=== PATIENT | female | born 1950 | race Caucasian/White ===

== ENCOUNTER 2024-10-17 18:18 | Emergency (ER) | payer MEDICARE, SELFPAY ==
[2024-10-17 18:23] VITALS: BP 138/86; PULSE 89; RESP 18; TEMP 36.1; O2SAT 96; BMI 43.9
--- NOTE | 2024-10-17 18:42 | ED.GENADULT ---
HPI - General Adult General Time Seen by Provider: 18:42 Date Seen: 10/17/24 Chief complaint: Unspecified Complaint, Adult Stated complaint: Picc line issues Time Seen by Provider: 10/17/24 18:42 Source: patient, family, RN notes reviewed and old records reviewed Mode of arrival: ambulatory Limitations: no limitations History of Present Illness HPI narrative: Mini a very pleasant 74-year-old female with history of esophageal carcinoma, status post stent placement, status post esophageal perforation currently with PICC line who comes to the emergency room for evaluation regarding appropriate placement of said PICC line. Home health noted that after an infusion tonight the external aspect of her catheter seemed to be longer going from 8 cm to 10.5 cm. Patient cannot recall any specific trauma to the area. She has not been experiencing any fevers. She thinks that they are perhaps going to plan on removing her PICC line on Thursday or 36 hours from now. Related Data Allergies Allergy/AdvReac Type Severity Reaction Status Date / Time No Known Drug Allergies Allergy Verified 10/17/24 18:28 PFSH PFS Social History Non-prescribed substance use: denies use Exam Narrative: Exam Narrative: Chelle is alert and oriented. She is a very pleasant woman in no acute distress. Heart with regular rate and rhythm and lungs are clear. Examination of the PICC line insertion on her of right arm shows no evidence of infection. Const: Vital Signs, click to edit/add: Vital Signs - 24 hr 10/17/24 18:23 Temperature 97.0 F L Pulse Rate [Pulse Oximeter] 89 Respiratory Rate 18 Blood Pressure [Le ft Forearm] 138/86 Pulse Oximetry 96 Oxygen Delivery Me thod Room Air Documenting provider has reviewed patient's vital signs: yes Course Course ED Course: At this time will obtain x-ray and consult with PICC line specialist. Vital Signs Vital signs: Initial Vital Signs Temperature 97.0 F L 10/17/24 18:23 Temperature Source Temporal Artery Scan 10/17/24 18:23 Pulse Rate 89 10/17/24 18:23 Respiratory Rate 18 10/17/24 18:23 Blood Pressure 138/86 10/17/24 18:23 Blood Pressure Mean 103 10/17/24 18:23 Blood Pressure Position Sitting 10/17/24 18:23 Pulse Oximetry 96 10/17/24 18:23 Oxygen Delivery Method Room Air 10/17/24 18:23 Vital Signs Temperature 97.0 F L 10/17/24 18:23 Pulse Rate 89 10/17/24 18:23 Respiratory Rate 18 10/17/24 18:23 Blood Pressure 138/86 10/17/24 18:23 Pulse Oximetry 96 10/17/24 18:23 Oxygen Delivery Method Room Air 10/17/24 18:23 Temperature 97.0 F L 10/17/24 18:23 Pulse Rate 89 10/17/24 18:23 Respiratory Rate 18 10/17/24 18:23 Blood Pressure 138/86 10/17/24 18:23 Pulse Oximetry 96 10/17/24 18:23 Oxygen Delivery Method Room Air 10/17/24 18:23 Medications Administered Medications: Discontinued Medications Generic Name Dose Route Start Last Admin Trade Name Freq PRN Reason Stop Dose Admin Sodium Chloride 1,000 mls @ 1,000 mls/hr 10/17/24 20:27 10/17/24 20:34 0.9 % Sodium Chloride 1000 Ml IV 10/17/24 21:26 1,000 mls/hr .Q1H GEOFFREY Administration Medical Decision Making MDM Narrative Medical decision making narrative: 1. PICC line movement-patient has PICC line is no longer in the superior vena cava or atrium. Unfortunately it is pulled back to the subclavian near the axillary vein. At the pleasure of speaking with [facility] who is well known to this patient. They are stating that TPN cannot be given tonight but patient could continue on her Zosyn and thyroid medication. They are requesting that we give 1 L of fluid to prevent dehydration in this patient. Pharmacist will contact thoracic surgeon tomorrow and reach out to the patient to see if they can set up some sort of appointment. Next appointment was not until the . If indeed the PICC was supposed to be pulled they could perhaps do a today early. However, if that evaluation would would involve swallow study, further assessment they may half to arrange replacement of this particular PICC line. 2. Disposition-home tonight with patient's sister. Return for worsening symptoms. Medical Records Medical records reviewed: Yes I reviewed the patient's medical records Imaging Data Chest x-ray: Attestation: I have reviewed the pertinent imaging results. My impression: I am able to follow the PICC line to area of the shoulder and then unable to see that it is in the correct location. Radiologist's impression: Right-sided PICC line, tip projects over the subclavian/axillary vein junction. Readjustment is suggested. Otherwise, no acute cardiopulmonary process. Discharge Plan Discharge Clinical Impression: Encounter for central line care Patient Disposition: Home, Self-Care Condition: Unchanged Additional Instructions: [facility] pharmacist will reach out to your thoracic surgeon team tomorrow and should be reaching out to you as well. However, if you do not hear from them by 10 30 or 1100 hours tomorrow I encourage you to place a phone call yourself so as to ascertain if this line will indeed be removed tomorrow, I date early or if it needs to be replaced until you have certain studies done. Return to the emergency room as needed. Follow Up/Referrals: Provider,Not a Local [Non-Staff] - Stand Alone Forms: [employer] Info Instructions
--- NOTE | 2024-10-17 18:49 | CRLHL7_ITS ---
For Patients: As a result of the Century Cures Act, medical imaging exams and procedure reports are released immediately into your electronic medical record. You may view this report before your referring provider. If you have questions, please contact your health care provider. INDICATION: Chest pain. TECHNIQUE: Chest 1 views. COMPARISON: X-ray chest June 2017 FINDINGS/IMPRESSION: Right-sided PICC line, tip projects over the subclavian/axillary vein junction. Readjustment is suggested. Otherwise, no acute cardiopulmonary process. Dictated by Kim Shepard MD @ 10/17/2024 7:29:40 PM (Electronically Signed)
--- OUTSIDE RECORDS SUMMARY | 2024-10-17 20:02 | XMS_ITS | Clinical Summary ---
Author Organization [facility] Address [place], [place] [address] Care Team Providers Care Manager Web Name Role Phone Eri Aparicio Primary Care Provider [phone] Huyen Cantor RN Unavailable [phone] [facility] Unavailable Allergies Active Allergy Reactions Criticality Noted Date Comments Thiopental Rash Low 09/24/2015 1982 Medications lisinopriL (PRINIVIL; ZESTRIL) 40 mg tabletIndications: Essential hypertension, benign Take 1 Tablet (40 mg) by mouth once daily. HOLD WHILE NPO 09/30/20 24 Active metoprolol succinate (TOPROL XL) 50 mg sustained-release tabletIndications: Essential hypertension, benign Take 1 Tablet (50 mg) by mouth once daily in the evening. HOLD WHILE NPO 09/30/20 24 Active levothyroxine (SYNTHROID) 175 mcg tabletIndications: Acquired hypothyroidism Take 1 Tablet (175 mcg) by mouth before breakfast. HOLD WHILE NPO 09/30/20 24 Active cyanocobalamin (VITAMIN B12) 1,000 mcg tabletIndications: S/P gastric bypass,Pernicious anemia Take 1 Tablet (1,000 mcg) by mouth once daily. HOLD WHILE NPO 09/30/20 24 Active lisinopriL (PRINIVIL; ZESTRIL) 40 mg tablet Take 1 Tablet by mouth once daily. 06/09/20 24 024 Discontinued metoprolol succinate (TOPROL XL) 50 mg sustained-release tablet Take 50 mg by mouth once daily in the evening. 06/09/20 24 024 Discontinued cyanocobalamin (VITAMIN B12) 1,000 mcg tablet Take 1,000 mcg by mouth. 06/09/20 024 Discontinued levothyroxine (SYNTHROID) 175 mcg tabletIndications: Acquired hypothyroidism Take 1 Tablet (175 mcg) by mouth before breakfast. 90 Tablet 09/12/20 024 Discontinued Active Problems Problem Noted Date Diagnosed Date Esophageal perforation 09/28/2024 Esophageal adenocarcinoma 09/23/2024 Essential hypertension, benign 01/15/2018 Morbid obesity, unspecified obesity type 017 S/P gastric bypass 06/02/2011 Hypersomnia with sleep apnea 08/23/2007 Overview (09/08/2024): Problem list name updated by automated process. Provider to review Unspecified congenital cataract 07/09/2006 Overview (07/09/2006): R Acquired hypothyroidism 09/10/2005 Overview (09/08/2024): Problem list name updated by automated process. Provider to review Pernicious anemia 05/12/2005 Resolved Problems Problem Noted Date Diagnosed Date Resolved Date Presbyopia 07/09/2006 03/10/2013 Myopia 07/09/2006 03/10/2013 Encounters Date Type Department Care Team Description 10/17/2024 8:58 AM SURVEILLANCE DIRECTOR Hospital Encounter [facility] [address] [place] [address] Ninoska Fierro MD Esophageal adenocarcinoma (HC) [C15.9] 10/17/2024 Travel 10/14/2024 Telephone [facility] [address] [place] [address] Eri Aparicio DO Appointment 10/13/2024 8:00 AM SURVEILLANCE DIRECTOR Office Visit [address] [phone] Ninoska Fierro MD Consult (Esophageal Cancer) 10/13/2024 Telephone [facility] [address] [place] [address] Eri Aparicio, Form (COORDINATION NOTE) 10/13/2024 Travel 10/12/2024 Telephone [facility] [address] [place] [address] Eri Aparicio DO 10/11/2024 Telephone [facility] [address] [place] [address] Eri Aparicio, Verbal Orders (Verbal Orders) 10/10/2024 Telephone [facility] [address] [place] [address] Jose A Sheikh MD Outside Order (verbal) 09/30/2024 Telephone [facility] [place] [facility] [address] [place] [phone] Ninoska Fierro MD Prior Authorization (CT CHEST ABDOMEN PELVIS W DENIED, APPEAL NEEDED) 09/27/2024 11:07 AM SURVEILLANCE DIRECTOR Anesthesia Event [facility] [address] [place] [address] [facility] 09/27/2024 10:25 AM SURVEILLANCE DIRECTOR - 09/27/2024 11:25 AM SURVEILLANCE DIRECTOR Surgery [facility] [address] [place] [address] Trent Law MD ENDOSCOPIC ULTRASOUND UPPER WITH STENT PLACEMENT 09/27/2024 8:49 AM SURVEILLANCE DIRECTOR - 10/01/2024 6:13 PM SURVEILLANCE DIRECTOR Hospital Encounter [facility] [address] [place] [address] Trent Law MD [facility] Inman MD Napaul, Rajiv Pravesh, MD S/P gastric bypass (Primary Dx); Esophageal cancer (HC); Esophageal adenocarcinoma (HC); Acquired hypothyroidism; Pernicious anemia; Essential hypertension, benign Discharge Disposition: Ot Institution w Planned Readmission 09/26/2024 Travel 09/22/2024 9:05 AM SURVEILLANCE DIRECTOR - 09/22/2024 11:59 PM SURVEILLANCE DIRECTOR Hospital Encounter [facility] [address] [place] [address] Esophageal adenocarcinoma (HC); Malignant neoplasm of lower third of esophagus (HC) 09/22/2024 Travel 09/20/2024 Orders Only [facility] Scanner 1 scan: (1-Ord) INCOMING RECORDS-PATHOLOGY, [facility], 09/20/2024 09/20/2024 Orders Only [facility] Scanner 1 scan: (1-Ord) INCOMING RECORDS-ENDOSCOPY, [facility], 09/20/2024 09/19/2024 Orders Only [facility] Scanner 1 scan: (1-Ord) INCOMING RECORDS-PATHOLOGY, [facility], 09/19/2024 09/19/2024 Orders Only [facility] Scanner 1 scan: (1-Ord) INCOMING RECORDS-ENDOSCOPY, [facility], 09/19/2024 09/19/2024 Telephone [facility] [place] [id number] [place] [address] [address] [facility] Referral (Esophageal cancer ) 09/12/2024 Telephone [facility] [address] [place] [address] Jose A Sheikh MD Medication Management (levothyroxine (SYNTHROID) 137 mcg tablet ) 09/12/2024 Telephone [facility] [address] [place] [address] Jose A Shekih MD 09/09/2024 Telephone [facility] [address] [place] [address] Jose A Sheikh MD Referral (Requesting STAT referral) 09/08/2024 9:40 AM SURVEILLANCE DIRECTOR Office Visit [facility] [address] [place] [address] Jose A Sheikh MD Gi Problem (History of gastric bypass) 09/08/2024 Travel from Last 3 Months Immunizations Name Administration Dates Next Due COVID-19 VACCINE SPIKEVAX (Ambrose ESCUDERO 50MCG/0.5ML) 12YO+ PFS 01/11/2024,07/06/2023 COVID-19 vaccine (Moderna 100mcg/0.5mL) PF, MDV 12/17/2020 INFLUENZA, IIV3 PF (AGE >= 6 MO) 09/12/2011 Influenza Virus, Unspecified 07/06/2023 Influenza, High-dose Inactivated 019,07/07/2018,06/24/2017,06/19,07/09/2015 Influenza, High-dose Quadriv alent Inactivated 06/18/2020 Influenza, IIV3 (Age >=3 years) 07/05/20 12,07/04/2010,07/12/2009,07/25,08/23/2007,08/10/2006,08/18/2005 Influenza, Inactivated AIIV4 (Age 65+ Years) Preserv Free 07/09/2022,07/08/2021 Influenza, Inactivated IIV3 (Age 65+ Years) Preserv Free 07/15/2024 Pneumococcal Poly,23-Valent (Pneumovax) 09/25/2015 Pneumococcal conj 13-Valent (Prevnar 13) 12/18/2016 RSV, Bivalent Vaccine Recons tituted (Abrysvo 120MCG/0.5mL) 08/20/2023 Tdap 11/13/2021,06/02/2011 Zoster (Shingrix-RZV, recombinant) 05/21/2018, Family History Medical History Relation Name Comments Genetic Other HTN-siblings, m other Relation Name Status Comments Other Social History Tobacco Use Types Packs/Day Years Used Date Smoking Tobacco: Never Tobacco Cessation:Counseling Given: Not Answered Alcohol Use Standard Drinks/Week Comments Not Currently 0 (1 standard drink = 0.6 oz pur e alcohol) [place] Utilities Answer Date Recorded Do you have trouble paying f or utilities (for example, heat, electricity, water, phone)? Yes 09/27/2024 Social Connections Answer Date Recorded Do you often feel lonely or isolated from those around you? 0 09/27/2024 Financial Resource Strain Answer Date R ecorded Difficulty of Paying Living Expenses 3 09/08/2024 Difficulty of Paying Living Expenses Not on file 09/08/2024 Food Insecurity Answer Date Recorded Do you worry your food will run out before you are able to buy more? 1 09/27/2024 Transportation Needs Answer Date Record ed Does lack of transportation keep you from medica l appointments? 1 09/27/2024 Does lack of transportation keep you from work, meetings or getting things that you need? 1 09/27/2024 Housing Stability Answer Date Recorded What is your housing situation today? 1 09/27/2024 Interpersonal Safety Answer Date Record ed Are you being hit, kicked, p ushed or yelled at (see row info)? No 09/27/2024 Interpersonal Safety Abuse 12 - 18 Not on file 09/27/2024 Interpersonal Safety Ambulatory Vulnerability No t on file 09/27/2024 Comments No Sex and Gender Information Value Date Recorded Sex Assigned at Not on file Legal Sex Female 6:37 AM SURVEILLANCE DIRECTOR Gender Identity Not on file Sexual Orientation Not on file Obstetrics History Last Filed Vital Signs Vital Sign Reading Time Taken Comments Blood Pressure 155/94 10/17/2024 12:00 PM SURVEILLANCE DIRECTOR Pulse 75 10/17/2024 12:00 PM SURVEILLANCE DIRECTOR Temperature 36.1 C (97 F) 10/17/2024 9:15 AM SURVEILLANCE DIRECTOR Respiratory Rate 16 10/17/2024 12:00 PM SURVEILLANCE DIRECTOR Oxygen Saturation 95% 10/17/2024 12:00 PM SURVEILLANCE DIRECTOR Inhaled Oxygen Concentration - - Weight 112.5 kg (248 lb) 10/17/2024 9:15 AM SURVEILLANCE DIRECTOR Height 157.5 cm (5' 2) 10/17/2024 9:15 AM SURVEILLANCE DIRECTOR Body Mass Index 45.36 10/17/2024 9:15 AM SURVEILLANCE DIRECTOR Plan of Treatment Health Maintenance Due Date Last Done Comments Depression screening for age 12+ 1961 Hepatitis C screening for ag e 18-79 1967 Lipids for age 45-75 1994 DEXA/DXA scan for age 65+ 2014 Medicare Wellness for age 65+ 2014 COVID-19 vaccine series ( season) 2024 07/15/2024, 01/11/2024, 07/06/2023, Additional history exists BMI (ht and wt on same day) for age 18+ 09/08/2025 09/08/2024 Colonoscopy through age 75 05/02/2029 05/02/2019 Tetanus booster 11/13/2031 11/13/2021, 06/02/2011 Pneumococcal series for age 50+ Completed 7, 09/25/2015 Zoster (shingles) series for age 50+ Completed 05/21/2018, 03/18/2018 Tdap Completed 11/13/2021, 06/02/2011 RSV vaccine for adults or Completed 08/20/2023 Influenza for age 65+ Completed 07/15/2024 , 07/06/2023, 07/09/2022, Additional history exists Medical Devices Implanted Type Area Basin Operator Device Identifier Shelf Expiration Date Model / Serial / Lot Stent Esphgl [id number] Endomaxx Fully Covered - [id number] Implanted:Qty: 1 on 09/27/2024 by Trent Law MD at [facility] [employer] 06/28/2029 [id number]-[id number] / / [id number] Procedures Procedure Name Priority Date/Time Associated Diagnosis Comments CT BIOPSY BONE SUPERFICIAL STAT 10/17/2024 11:06 AM SURVEILLANCE DIRECTOR Esophageal adenocarcinoma (HC) [C15.9] GLUCOSE METER Timed 10/01/2024 1:02 PM SURVEILLANCE DIRECTOR GLUCOSE METER Timed 10/01/2024 7:40 AM SURVEILLANCE DIRECTOR HEPATIC FUNCTION PANEL RUBEN 10/01/2024 4:53 AM SURVEILLANCE DIRECTOR PHOSPHORUS Early AM 10/01/2024 4:53 AM SURVEILLANCE DIRECTOR MAGNESIUM Early AM 10/01/2024 4:53 AM SURVEILLANCE DIRECTOR BASIC METABOLIC PANEL Early AM 10/01/2024 4:53 AM SURVEILLANCE DIRECTOR WHITE BLOOD COUNT Early AM 10/01/2024 4:5 3 AM SURVEILLANCE DIRECTOR C-REACTIVE PROTEIN Timed 10/01/2024 4: 53 AM SURVEILLANCE DIRECTOR GLUCOSE METER Timed 10/01/2024 3:28 AM SURVEILLANCE DIRECTOR PICC LINE Routine 09/30/2024 6:32 PM SURVEILLANCE DIRECTOR INSERT PICC LINE Routine 09/30/2024 6:30 PM SURVEILLANCE DIRECTOR GLUCOSE METER Timed 09/30/2024 6:29 PM SURVEILLANCE DIRECTOR TRIGLYCERIDES RUBEN 09/30/2024 10:24 AM SURVEILLANCE DIRECTOR HEPATIC FUNCTION PANEL RUBEN 09/30/2024 10:24 AM SURVEILLANCE DIRECTOR MAGNESIUM RUBEN 09/30/2024 10:24 AM SURVEILLANCE DIRECTOR BASIC METABOLIC PANEL RUBEN 09/30/2024 10:24 AM SURVEILLANCE DIRECTOR HEMOGLOBIN Early AM 09/30/2024 10:24 AM SURVEILLANCE DIRECTOR CREATININE Early AM 09/30/2024 10:24 AM SURVEILLANCE DIRECTOR POTASSIUM Early AM 09/30/2024 10:24 AM SURVEILLANCE DIRECTOR SODIUM Early AM 09/30/2024 10:24 AM SURVEILLANCE DIRECTOR WHITE BLOOD COUNT Early AM 09/30/2024 10: 24 AM SURVEILLANCE DIRECTOR PHOSPHORUS Early AM 09/30/2024 10:24 AM SURVEILLANCE DIRECTOR C-REACTIVE PROTEIN Timed 09/30/2024 10 :24 AM SURVEILLANCE DIRECTOR IR BIOPSY BONE TROCAR OR NEEDLE DEEP RUBEN 09/30/2024 9:45 AM SURVEILLANCE DIRECTOR Esophageal adenocarcinoma (HC) PATH TISSUE EXAM Today 09/30/2024 9:44 AM SURVEILLANCE DIRECTOR XR ESOPHAGUS WATER SOLUBLE Routine 09/30/2024 7:54 AM SURVEILLANCE DIRECTOR EXTRA TUBE LAVENDER Today 09/29/2024 1 2:30 PM SURVEILLANCE DIRECTOR PROTIME-INR Today 09/29/2024 12:18 PM SURVEILLANCE DIRECTOR PHOSPHORUS RUBEN 09/29/2024 7:09 AM SURVEILLANCE DIRECTOR HEMOGLOBIN Early AM 09/29/2024 7:09 AM SURVEILLANCE DIRECTOR CREATININE Early AM 09/29/2024 7:09 AM SURVEILLANCE DIRECTOR POTASSIUM Early AM 09/29/2024 7:09 AM SURVEILLANCE DIRECTOR SODIUM Early AM 09/29/2024 7:09 AM SURVEILLANCE DIRECTOR WHITE BLOOD COUNT Early AM 09/29/2024 7:0 9 AM SURVEILLANCE DIRECTOR C-REACTIVE PROTEIN Timed 09/29/2024 7: 09 AM SURVEILLANCE DIRECTOR XR CHEST 2 VIEWS PA AND LATERAL RUBEN 09/28/2024 9:47 AM SURVEILLANCE DIRECTOR C-REACTIVE PROTEIN Timed 09/28/2024 7: 06 AM SURVEILLANCE DIRECTOR CBC W PLT NO DIFF Early AM 09/28/2024 7:[address] NECK SOFT TISSUE W Routine 09/27/2024 9:35 PM SURVEILLANCE DIRECTOR C-REACTIVE PROTEIN Timed 09/27/2024 8: 23 PM SURVEILLANCE DIRECTOR T4,FREE RUBEN 09/27/2024 6:15 PM SURVEILLANCE DIRECTOR TSH RUBEN 09/27/2024 6:15 PM SURVEILLANCE DIRECTOR CBC WITH AUTO DIFFERENTIAL Today 09/27/2024 6:15 PM SURVEILLANCE DIRECTOR BASIC METABOLIC PANEL Timed 09/27/2024 6:15 PM SURVEILLANCE DIRECTOR CBC WITH AUTO DIFFERENTIAL Today 09/27/2024 6:15 PM SURVEILLANCE DIRECTOR XR ESOPHAGEAL DILITATION Routine 09/27/2024 12:07 PM SURVEILLANCE DIRECTOR Esophageal cancer (HC) ENDOTRACHEAL TUBE Routine 09/27/2024 11: 36 AM SURVEILLANCE DIRECTOR ENDOTRACHEAL TUBE Routine 09/27/2024 11: 36 AM SURVEILLANCE DIRECTOR ENDOSCOPIC ULTRASOUND [facility] [employer] [facility] 1 09/27/2024 10:57 AM SURVEILLANCE DIRECTOR see MD note ENDOSCOPY 09/27/2024 10:56 AM SURVEILLANCE DIRECTOR SCAN-CARDIAC STRIP 09/27/2024 12 :00 AM SURVEILLANCE DIRECTOR CREATININE,ISTAT Routine 09/22/2024 11:[address] CHEST ABDOMEN PELVIS W RUBEN 09/22/2024 11:35 AM SURVEILLANCE DIRECTOR Esophageal adenocarcinoma (HC) PET CT SKULL BASE TO MID THIGH INITIAL TREAT RUBEN 09/22/2024 10:37 AM SURVEILLANCE DIRECTOR Esophageal adenocarcinoma (HC) Malignant neoplasm of lower third of esophagus (HC) SCAN CORRESP-LABORATORY RESULTS 09/20/2024 12:00 AM SURVEILLANCE DIRECTOR SCAN CORRESP-DIAGNOSTICS 09/20/2024 12:00 AM SURVEILLANCE DIRECTOR SCAN CORRESP-LABORATORY RESULTS 09/19/2024 12:00 AM SURVEILLANCE DIRECTOR SCAN CORRESP-DIAGNOSTICS 09/19/2024 12:00 AM SURVEILLANCE DIRECTOR SCAN-OPERATIVE/PROCED URE REPORT 09/16/2024 10:30 AM SURVEILLANCE DIRECTOR T4,FREE Routine 09/08/2024 11:03 AM SURVEILLANCE DIRECTOR VITAMIN B12 Routine 09/08/2024 11:03 AM SURVEILLANCE DIRECTOR S/P gastric bypass Pernicious anemia FERRITIN Routine 09/08/2024 11:03 AM SURVEILLANCE DIRECTOR S/P gastric bypass Pernicious anemia IRON PLUS IRON BINDING CAP Routine 09/08/2024 11:03 AM SURVEILLANCE DIRECTOR S/P gastric bypass Pernicious anemia VITAMIN D 25 (DEFICIENCY) Routine 09/08/2024 11:03 AM SURVEILLANCE DIRECTOR S/P gastric bypass Vitamin D deficiency CBC WITH AUTO DIFFERENTIAL Routine 09/08/2024 11:03 AM SURVEILLANCE DIRECTOR S/P gastric bypass Pernicious anemia TSH WITH REFLEX Routine 09/08/2024 11:03 AM SURVEILLANCE DIRECTOR Acquired hypothyroidism SCAN-COLONOSCOPY 05/02/2019 12:0 0 AM CDT from Last 3 Months or Most Recently Relevant to Health Maintenance Results * CT BIOPSY BONE SUPERFICIAL (10/17/2024 11:06 AM SURVEILLANCE DIRECTOR) Anatomical Region Laterality Modality Computed Tomogra phy, Other, Other, Other Narrative 10/17/2024 6:03 PM SURVEILLANCE DIRECTOR RADIOLOGY POST PROCEDURE NOTE 10/17/2024 Chelle Lujan [id number] INFORMEDCONSENT: In my discussion, prior to the signing of the consent, I reviewed the procedure, benefits, risks, long-term effects, treatment options, possible use of pain or sedation medications, and how the procedure will meet the treatment goal with the patient and/or family. The patient was given ample time to ask questions. All questions were answered. MODERATESEDATION: Under physician supervision, midazolam and fentanyl were administered intravenously for moderate sedation. Pulse oximetry, heart rate, and blood pressure were continuously monitored by a trained, dedicated nurse. The physician who performed the procedure provided 21 minutes of intra-service time with the patient. INDICATIONS: Positive PET scan uptake in the lower right sided 8 rib PROCEDURE PERFORMED: CT-guided bone biopsy of the abnormality. PROCEDURE NARRATIVE : Axial cuts through the lower chest was performed in the supine position. The entry site was marked of the chest. Utilizing bone biopsy needle the needle was inserted at the area of abnormality and confirmed with repeat CT. Procedure performed under sterile condition utilizing local anesthesia and the conscious sedation. Good sample was obtained and cytology confirmed adequacy. Patient tolerated procedure well. No complications encountered. PATIENT POSITION: supine ANTISEPTIC PREPARATION and BARRIER TECHNIQUES USED: Skin was prepped and draped in the usual sterile fashion. IMAGING GUIDANCE FOR ACCESS / PROCEDURE: CT Permanently recorded images are archived in PACS. ACCESS LOCATION / SITE / TECHNIQUE: Right anterior lateral approach EQUIPMENT UTILIZED: 14-gauge a bone biopsy needle CLOSURE: none RADIATION DOSE: total exam DLP: 1147 mGy-cm MEDICATIONS GIVEN: versed 2 mg IV and fentanyl 100 mcg IV. 1% Lidocaine was used for local anesthesia. SPECIMEN(S): Good single specimen COMPLICATIONS: no complications noted DRAINS: None ESTIMATED BLOOD LOSS: Less than 10 cc. PHYSICIAN(S) AND ASSISTANTS (if any): Domingo Fernandez MD Additional Comments: Please call with questions. Domingo Fernandez MD [place] Protocol A. Pre-procedure verification complete yes 1-relevant information / documentation available, reviewed and properly matched to the patient; 2-consent accurate and complete, 3-equipment and supplies available B. Site marking complete Yes Site marked if not in continuous attendance with patient C. TIME OUT completed yes Time Out was conducted just prior to starting procedure to verify the eight required elements: 1-patient identity, 2-consent accurate and complete, 3-position, 4-correct side/site marked (if applicable), 5-procedure, 6-relevant images / results properly labeled and displayed (if applicable), 7-antibiotics / irrigation fluids (if applicable), 8-safety precautions. Please note that all CT scans at this facility use dose modulation, iterative reconstruction, and/or weight-based dosing when appropriate to reduce radiation dose to as low as reasonably achievable. Ninoska Fierro MD CT Final Resu lt * (ABNORMAL) GLUCOSE METER (10/01/2024 1:02 PM SURVEILLANCE DIRECTOR) Only the most recent of4 resultswithin the time period is included. GLUCOSE METER 112(H) 65 - 100 mg/dL 10/01/2024 1:03 PM SURVEILLANCE DIRECTOR [facility] Blood BLOOD SPECIMEN / Unknown 10/01/2024 1:02 PM SURVEILLANCE DIRECTOR 10/01/2024 1:03 PM SURVEILLANCE DIRECTOR Manny Syed MD CHEMISTRY Final Re sult Performing Organization Address [facility] Co de Phone Number [facility] [address] [address], [place] * WBC AM (10/01/2024 4:53 AM SURVEILLANCE DIRECTOR) Only the most recent of3 resultswithin the time period is included. WHITE BLOOD COUNT 6.4 4.5 - 11.0 thou/cu mm 10/01/2024 5:15 AM SURVEILLANCE DIRECTOR [facility] NRBC 0.0 % 10/01/2024 5:15 AM SURVEILLANCE DIRECTOR [facility] ABS NRBC 0.0 thou /cu mm 10/01/2024 5:15 AM SURVEILLANCE DIRECTOR [facility] Blood BLOOD SPECIMEN / Unknown Non-Lab Venipuncture / Unknown 10/01/2024 4:53 AM SURVEILLANCE DIRECTOR 10/01/2024 5:05 AM SURVEILLANCE DIRECTOR Manny Syed MD HEMATOLOGY Final Re sult Performing Organization Address [facility] Co de Phone Number [facility] [address] [address], [place] * (ABNORMAL) C-REACTIVE PROTEIN (10/01/2024 4:53 AM SURVEILLANCE DIRECTOR) Only the most recent of5 resultswithin the time period is included. C-REACTIVE PROTEIN 9.4(H) <0.5 mg/dL 10/01/2024 5:31 AM SURVEILLANCE DIRECTOR [facility] Blood BLOOD SPECIMEN / Unknown Non-Lab Venipuncture / Unknown 10/01/2024 4:53 AM SURVEILLANCE DIRECTOR 10/01/2024 5:05 AM SURVEILLANCE DIRECTOR Consuelo Inman MD CHEMISTRY Fabiana l Result Performing Organization Address [facility] Co de Phone Number [facility] [address] [address], [place] * PHOSPHORUS (10/01/2024 4:53 AM SURVEILLANCE DIRECTOR) Only the most recent of3 resultswithin the time period is included. PHOSPHORUS 2.6 2.5 - 4.5 mg/dL 10/01/2024 5:31 AM SURVEILLANCE DIRECTOR [facility] Blood BLOOD SPECIMEN / Unknown Non-Lab Venipuncture / Unknown 10/01/2024 4:53 AM SURVEILLANCE DIRECTOR 10/01/2024 5:05 AM SURVEILLANCE DIRECTOR Manny Syed MD CHEMISTRY Final Re sult Performing Organization Address City/[facility]/ZIP Co de Phone Number [facility] [address] [place] [address], [place] * MAGNESIUM (10/01/2024 4:53 AM SURVEILLANCE DIRECTOR) Only the most recent of2 resultswithin the time period is included. MAGNESIUM 1.8 1.6 - 2.4 mg/dL 10/01/2024 5:31 AM SURVEILLANCE DIRECTOR [facility] Blood BLOOD SPECIMEN / Unknown Non-Lab Venipuncture / Unknown 10/01/2024 4:53 AM SURVEILLANCE DIRECTOR 10/01/2024 5:05 AM SURVEILLANCE DIRECTOR Manny Syed MD CHEMISTRY Final Re sult Performing Organization Address City/[facility]/ZIP Co de Phone Number [facility] [address] [place] [address], [place] * (ABNORMAL) Hepatic function panel FOR ADD ON (10/01/2024 4:53 AM SURVEILLANCE DIRECTOR) Only the most recent of2 resultswithin the time period is included. ALBUMIN 3.1(L) 4.0 - 4.9 g/dL 10/01/2024 8:49 AM SURVEILLANCE DIRECTOR [facility] PROTEIN,TOTAL 5.6(L) 6.0 - 8.0 g/dL 10/01/2024 8:49 AM SURVEILLANCE DIRECTOR [facility] TRAL [facility] BILIRUBIN,TOTAL 0.6 0.0 - 1.2 mg/dL 10/01/2024 8:49 AM [facility] BILIRUBIN,DIRECT 0.3(H) 0.0 - 0.2 mg/dL 10/01/2024 8:[address] [facility] BILIRUBIN,INDIRE CT 0.3 0.2 - 0.8 mg/dL 10/01/2024 8:[address] [facility] ALK PHOSPHATASE 142(H) 35 - 104 IU/L 10/01/2024 8:[address] [facility] ALT (SGPT) 59(H) 10 - 35 IU/L 10/01/2024 8:[address] [facility] AST (SGOT) 82(H) 10 - 35 IU/L 10/01/2024 8:[address] [facility] Blood BLOOD SPECIMEN / Unknown Non-Lab Venipuncture / Unknown 10/01/2024 4:53 AM SURVEILLANCE DIRECTOR 10/01/2024 5:05 AM [facility] us Manny Syed MD CHEMISTRY Final Re sult [facility] [address] [place] [phone], * (ABNORMAL) BASIC METABOLIC PANEL (10/01/2024 4:53 AM SURVEILLANCE DIRECTOR) Only the most recent of3 resultswithin the time period is included. SODIUM 142 136 - 145 mmol/L 10/01/2024 5:31 AM [facility] TRAL [facility] POTASSIUM 3.7 3.5 - 5.1 mmol/L 10/01/2024 5:31 AM [facility] TRA LABORATORY CHLORIDE 108(H) 98 - 107 mmol/L 10/01/2024 5:[address] [facility] CO2,TOTAL 25 22 - 29 mmol/L 10/01/2024 5:31 AM [facility] ANION GAP 9 5 - 18 10/01/2024 5:[address] [facility] GLUCOSE 133(H) 70 - 99 mg/dL 10/01/2024 5:31 AM [facility] TRAL LABORATORY CALCIUM 8.4(L) 8.8 - 10.4 mg/dL 10/01/2024 5:31 AM [facility] TRAL LABORATORY Comment: Reference ranges for this test were updated on 08/09/2024 to reflect our healthy population more accurately. Reference range changes are not retroactively applied to results, but previous results using the same methodology can be interpreted in the context of the new reference range. BUN 11 8 - 23 mg/dL 10/01/2024 5:31 AM [facility] TRAL LABORATORY CREATININE 0.64 0.50 - 0.90 mg/dL 10/01/2024 5:[address] [facility] BUN/CREAT RATIO 17 10 - 20 5:31 AM [facility] TRAL LABORATORY eGFR >90 >90 mL/min/1. 73m2 10/01/2024 5:31 AM [facility] TRAL LABORATORY Comment:As of 2021, eG FR is calculated by the CKD-EPI creatinine equation without race adjustment. eGFR can be influenced by muscle mass, exercise, and diet. The reported eGFR is an estimation only and is only applicable if the renal function is stable. Blood BLOOD SPECIMEN / Unknown Non-Lab Venipuncture / Unknown 10/01/2024 4:53 AM SURVEILLANCE DIRECTOR 10/01/2024 5:05 AM SURVEILLANCE DIRECTOR us Manny Syed MD CHEMISTRY Final Re sult [facility] [address] [place] [address], * PICC LINE (09/30/2024 6:32 PM SURVEILLANCE DIRECTOR) Narrative Lu Vaughn RN - 09/30/2024 6:32 PM SURVEILLANCE DIRECTOR Lu Vaughn RN 09/30/2024 6:34 PM PICC Tip Location Confirmation Note 09/30/2024 6:33 PM PICC tip location is superior vena cava per PICC RN confirmed by ECG. Plan: - PICC tip location has been confirmed by ECG and is okay to use as a central venous catheter per hospital policy. ECG tracing has been copied below or has been entered into patient's chart. Lu Vaughn RN .................... 09/30/2024 6:34 PM us Manny Syed MD IV ORD Final Re sult * Insert PICC line (09/30/2024 6:30 PM SURVEILLANCE DIRECTOR) Narrative Lu Vaughn RN - 09/30/2024 6:30 PM SURVEILLANCE DIRECTOR Lu Vaughn RN 09/30/2024 6:32 PM PICC Line Insertion Note 09/30/2024 6:30 PM Procedure education reviewed: Placement procedure, Benefits, Risks, Complications, and Questions answered, discussed with: Patient face to face. Patient face to face confirms understanding of procedure. Salesman/Owner used: No Reason for insertion: TPN Medical/ Surgical/ Allergies History reviewed: Yes. Preprocedure Verification: Yes 1) Provider Order verified 2) Patient identity verified; 3) side/site/procedure confirmed; 4) relevant information/documentation available, reviewed and properly matched to the patient; 5) For PICC insertions, consent accurate and complete or verified provider has ordered emergent placement; 6) equipment and supplies available Site Marking: Yes Site marked if not in continuous attendance with the patient Time Out: Yes Time out was conducted just prior to starting procedure to verify the four required elements: 1) patient name and date of 2) confirmation that the correct side/site are marked if applicable, including visualization of the site freya 3) name of procedure including laterality if applicable, and 4) essential imaging and results are properly labeled and appropriately displayed, if applicable. Site assessment pre-insertion: Intact. Local anesthetic used at site: Yes, 1% Lidocaine. The following Central Line Insertion Checklist was used: Hand Hygiene: Yes Maximal Barrier Precautions including Sterile Gown, Hat and Mask: Yes Full Body Drape: Yes Site cleansed with: Chlorhexidine gluconate prep. PICC Line 2 Lumen Antecubital;Right PICC/SVC (Active) 09/30/24 1828 Antecubital;Right (IA) Lumen One Designation: (IA) Lumen Two Designation: Lumen One Designation: Red Lumen Two Designation: Purple Vessel Diameter: 0.39 Ohphprve-xq-Sdor Ratio (%): Visible Catheter Length (cm): 0 cm Placed/Present Prior to Encounter: (IA) Placed Prior to Admission?: Type: Valved Catheter (IA) Size: Tip Location: PICC/SVC PICC Mid-Arm Circumference (cm): 45.5 cm Total Length of Catheter (cm): 40 cm Insertion Attempts: 1 (IA) Insertion Attempts: Local Anesthetic: Injectable Placement Verification: ECG Removed Catheter Length (cm): Removed/Resolved Prior to Encounter: Visible Catheter Length (cm) 0 cm 09/30/241827 Arm Circumference (cm) 45.5 cm 09/30/241827 Status Lumen One Blood Return;Cap Changed;Capped/Locked 09/30/241827 Status Lumen Two Blood Return;Cap Changed;Capped/Locked 09/30/241827 Line Assessment Antimicrobial patch and dressing clean/dry/intact 09/30/241827 Site Description Dry/Flat;Covered 09/30/241827 Line Intervention New dressing applied and NO hemostatic agent/gauze 09/30/241827 Dressing change due date 10/07/2024 09/30/241827 Line Basin Operator Name: Bard Line Type: Valved Power PICC Lot Number: [id number] Access Assistance:Modified Seldinger Technique (Micro-Introducer) WITHOUT Dermatotomy (skin janes) Post-insertion: Able to remove guidewire: Smoothly. Able to aspirate blood in each lumen: Yes Able to flush catheter without resistance in each lumen: Yes Each lumen flushed with: 20 ml(s) of 0.9% saline, and no Heparin. Cap applied to each lumen: Yes Line secured with: Stat-Lock Hospital dressing policy/procedure followed. PICC Line standing orders implemented: Yes X- ray pending: No, tip confirmed with ECG Insertion complications: None Patient tolerated the procedure: Yes PICC education reviewed: Given to patient us Manny Syed MD IV ORD Final Re sult * HEMOGLOBIN (09/30/2024 10:24 AM SURVEILLANCE DIRECTOR) Only the most recent of2 resultswithin the time period is included. HEMOGLOBIN 12.0 12.0 - 16.0 g/dL 09/30/2024 10:38 AM SURVEILLANCE DIRECTOR [facility] MCV 92 80 - 100 fL 09/30/2024 10:38 AM SURVEILLANCE DIRECTOR [facility] Blood BLOOD SPECIMEN / Unknown Butterfly / Unknown 09/30/2024 10:24 AM SURVEILLANCE DIRECTOR 09/30/2024 10:28 AM SURVEILLANCE DIRECTOR Manny Syed MD HEMATOLOGY Final Re sult [facility] [address] [address], [place] * TRIGLYCERIDES (09/30/2024 10:24 AM SURVEILLANCE DIRECTOR) TRIGLYCERIDES 97 <150 mg/dL 09/30/2024 3:13 PM SURVEILLANCE DIRECTOR [facility] TRAL LABORATORY PROVIDER ORDERED STATUS RANDOM 09/30/2024 3:13 PM SURVEILLANCE DIRECTOR [facility] TRAL LABORATORY Blood BLOOD SPECIMEN / Unknown Butterfly / Unknown 09/30/2024 10:24 AM SURVEILLANCE DIRECTOR 09/30/2024 10:28 AM SURVEILLANCE DIRECTOR Manny Syed MD CHEMISTRY Final Re sult Performing Organization Address [facility]/ZIP Co de Phone Number [facility] [address] [phone], [place] * SODIUM (09/30/2024 10:24 AM SURVEILLANCE DIRECTOR) Only the most recent of2 resultswithin the time period is included. SODIUM 143 136 - 145 mmol/L 09/30/2024 11:00 AM SURVEILLANCE DIRECTOR [facility] Blood BLOOD SPECIMEN / Unknown Butterfly / Unknown 09/30/2024 10:24 AM SURVEILLANCE DIRECTOR 09/30/2024 10:28 AM SURVEILLANCE DIRECTOR Manny Syed MD CHEMISTRY Final Re sult Performing Organization Address City/[facility]/ZIP Co de Phone Number [facility] [address] [place] [address], [place] * POTASSIUM (09/30/2024 10:24 AM SURVEILLANCE DIRECTOR) Only the most recent of2 resultswithin the time period is included. POTASSIUM 4.2 3.5 - 5.1 mmol/L 09/30/2024 11:00 AM SURVEILLANCE DIRECTOR [facility] Blood BLOOD SPECIMEN / Unknown Butterfly / Unknown 09/30/2024 10:24 AM SURVEILLANCE DIRECTOR 09/30/2024 10:28 AM SURVEILLANCE DIRECTOR Manny Syed MD CHEMISTRY Final Re sult Performing Organization Address City/[facility] Co de Phone Number [facility] [address] [address], [place] * CREATININE (09/30/2024 10:24 AM SURVEILLANCE DIRECTOR) Only the most recent of2 resultswithin the time period is included. eGFR >90 >90 mL/min/1.7 3m2 09/30/2024 11:00 AM SURVEILLANCE DIRECTOR [facility] Comment:As of 2021, eG FR is calculated by the CKD-EPI creatinine equation without race adjustment. eGFR can be influenced by muscle mass, exercise, and diet. The reported eGFR is an estimation only and is only applicable if the renal function is stable. CREATININE 0.66 0.50 - 0.90 mg/dL 09/30/2024 11:00 AM SURVEILLANCE DIRECTOR [facility] Blood BLOOD SPECIMEN / Unknown Butterfly / Unknown 09/30/2024 10:24 AM SURVEILLANCE DIRECTOR 09/30/2024 10:28 AM SURVEILLANCE DIRECTOR Manny Syed MD CHEMISTRY Final Re sult Performing Organization Address [facility]/ZIP Co de Phone Number [facility] [address] [place] [address], [place] * IR BIOPSY BONE TROCAR OR NEEDLE DEEP (09/30/2024 9:45 AM SURVEILLANCE DIRECTOR) Anatomical Region Laterality Modality X-Ray Angiograph y, Other Narrative 09/30/2024 9:54 AM SURVEILLANCE DIRECTOR Neurointerventional Procedure Report Patient: Chelle Lujan (1950), Date: 09/30/2024 Physician(s): Emilio Solorio MD Procedure(s): Biopsy, bone, trocar, or needle; deep (CPT 87397): T11 vertebral body Fluoroscopic guidance for needle placement (CPT +48361) Moderate sedation (CPT 53607) Pre-operative diagnosis (indication): Hypermetabolic lesion at T11 on recent PET/CT Post-operative diagnosis: Same Anesthesia: Under physician supervision, midazolam 2 mg and fentanyl 100 mcg were administered intravenously for moderate sedation. Pulse oximetry, heart rate, and blood pressure were continuously monitored by a trained, dedicated nurse. The physician who performed the procedure provided 20 minutes of intra-service time with the patient. Consent: Informed consent was obtained from the patient following a detailed discussion of the procedure, alternatives, risks and potential benefits. Time-out: Performed according to the [place] Protocol. Description: The patient was placed in the prone position on the fluoroscopy table. The back was sterilely prepped and draped. Lidocaine 1% was used for local anesthesia. The posterior T11 vertebral body was accessed with an 11 gauge OnControl needle system via a right transpedicular approach using fluoroscopic guidance. A 2 cm bone core was obtained. The specimen was sent to pathology. A sterile dressing was applied. Complications: None Findings: As above Specimens: As above Estimated blood loss: 1 mL Medications: As above Fluoroscopy time: 7:30, 881 mGy Impression: Successful core needle bone biopsy of T11 vertebral body using fluoroscopic guidance Emilio Solorio MD Neurointerventional Radiology Ninoska Fierro MD IR Final Resu lt * PATH TISSUE EXAM (09/30/2024 9:44 AM SURVEILLANCE DIRECTOR) Case Report Pathology Report Case: [id number] Authorizing Provider: Emilio Solorio MD Collected: 09/30/2024 0944 Ordering Location: [facility] Received: 09/30/[address] [facility] Pathologist: Brielle Iraheta DO Specimen: Bone Biopsy 10/06/2024 12:11 PM SURVEILLANCE DIRECTOR [facility]- CENTRAL LABORATORY Final Diagnosis A)BONE, T11 VERTEBRAL BODY, BIOPSY: 1) Bone, negative for neoplasm 2) Focal nonspecific sclerotic focus 3) Otherwise normal trilineage marrow 10/06/2024 12:11 PM [facility] Comment Case seen by Yosi Perez, and Gagan. 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 10/06/2024 12:11 PM [facility] Gross Description A) Received fresh labeled with the patient's name and bone biopsy, is a 2.1 x 0.2 x 0.2 cm aggregate of pink-red bone core fragments. The specimens are entirely submitted in cassette. Time removed from patient: 944 Time placed in formalin: 1009 Date removed and placed in formalin: 09/30/2024 Cold ischemic time < 60 minutes. The specimen was fixed in formalin for a minimum of 6 hours and not longer than 72 hours. TRS 09/30/2024 10/06/2024 12:11 PM [facility] Microscopic Description The final diagnosis is based on microscopic examination of appropriate sections of all specimens. Cytokeratin CHAPO immunohistochemical stain was performed on block A1 and is negative (interpreted by Dr. Tomasa Deluca). Additional immunostains are performed on block A1 with the following results (interpreted by Dr. Farah): CD138: Not increased, <5% (by manual morphometry) Shickley: Highlights scattered plasma cells (polytypic pattern) Lambda: Highlights scattered plasma cells (polytypic pattern) 10/06/2024 12:11 PM [facility]AL LABORATORY Additional Information Interpreted at [facility], Central Laboratory - [address], [place] [address] Immunohistochemistry controls were reviewed and approved by the pathologist during this examination. 10/06/2024 12:11 PM SUR[facility]ILLANCE [facility]AL LAB[facility] Other (Bone Biopsy) 09/30/2024 9:44 AM SURVEILLANCE DIRECTOR 09/30/2024 10:05 AM SURVEILLANCE DIRECTOR Emilio Solorio MD PATHOLOGY/CYTOLOGY Final Result [facility] LABOR[facility]-CENTRAL LABORATORY [address] [place] [address], [place] * XR ESOPHAGUS WATER SOLUBLE (09/30/2024 7:54 AM SURVEILLANCE DIRECTOR) Anatomical Region Laterality Modality Esophagus Digital Radiogra phy 09/30/2024 9:05 AM SURVEILLANCE DIRECTOR Narrative 09/30/2024 9:05 AM SURVEILLANCE DIRECTOR For Patients: As a result of the Cures Act, medical imaging exams and procedure reports are released immediately into your electronic medical record. You may view this report before your referring provider. If you have questions, please contact your health care provider. INDICATION: Retroperitoneal/esophageal perforation. 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 Comparison : CT scan of the neck dated 27 September 2024. FINDINGS: A water-soluble esophagram shows a stent in the mid and distal esophagus. Leak/perforation along the right posterior upper esophagus extending to an air and fluid collection along the right side of the upper mediastinum. Contrast outside of the proximal portion of the stent on the left side may represent contrast in a redundant portion of the esophagus. The esophageal stent is patent. Jose Martin-en-Y gastric bypass changes with normal transit of contrast through the gastric pouch into the jejunum. Impression : 1. Leak/perforation along the right posterior upper esophagus extending to an air and fluid collection along the right side of the upper mediastinum. 2. Contrast outside of the proximal portion of the stent on the left side may represent contrast in a redundant portion of the esophagus. Dictated by David Obrien MD @ Sep 30 2024 9:05AM (Electronically Signed) [email or web address] Procedure Note David Obrien MD - 09/30/2024 For Patients: As a result of the 21st Century Cures Act, medical imagingexams and procedure reports are released immediately into your electronicmedical record. You may view this report before your referring provider.If you have questions, please contact your health care provider. INDICATION: Retroperitoneal/esophageal perforation. Gastroesophageal junctionadenocarcinoma with a stent in place. Comparison : CT scan of the neck dated 27 September 2024. FINDINGS: A water-soluble esophagram shows a stent in the mid and distal esophagus. Leak/perforation along the right posterior upper esophagus extending to anair and fluid collection along the right side of the upper mediastinum. Contrast outside of the proximal portion of the stent on the left side mayrepresent contrast in a redundant portion of the esophagus. The esophageal stent is patent. Jose Martin-en-Y gastric bypass changes with normal transit of contrast throughthe gastric pouch into the jejunum. Impression : 1. Leak/perforation along the right posterior upper esophagus extending cheyanne air and fluid collection along the right side of the upper mediastinum. 2. Contrast outside of the proximal portion of the stent on the left sidemay represent contrast in a redundant portion of the esophagus. Dictated by David Obrien MD @ Sep 30 2024 9:05AM (Electronically Signed) [email or web address] Pedrito Huntley MD FLUOROSCOPY Final Resu lt * EXTRA TUBE LAVENDER (09/29/2024 12:30 PM SURVEILLANCE DIRECTOR) Blood BLOOD SPECIMEN / Unknown Non-Lab Venipuncture / Unknown 09/29/2024 12:30 PM SURVEILLANCE DIRECTOR 09/29/2024 12:40 PM SURVEILLANCE DIRECTOR us Manny Syed MD LABORATORY Final Re sult [facility] [address] [place] [address], [place] * (ABNORMAL) PROTIME-INR (09/29/2024 12:18 PM SURVEILLANCE DIRECTOR) INR 1.2 <1.3 09/29/2024 12:53 PM SURVEILLANCE DIRECTOR [facility] PROTIME 13.5(H) 10.6 - 12.4 sec 09/29/2024 12:53 PM SURVEILLANCE DIRECTOR [facility] Blood BLOOD SPECIMEN / Unknown Non-Lab Venipuncture / Unknown 09/29/2024 12:18 PM SURVEILLANCE DIRECTOR 09/29/2024 12:38 PM SURVEILLANCE DIRECTOR Narrative [facility] - 09/29/2024 12:53 PM SURVEILLANCE DIRECTOR Therapeutic Range 2.0-3.0 for most anticoagulated patients 2.5-3.5 or 4.0 for high risk patients The INR is only used for patients on stable oral anticoagulant therapy. It makes no significant contribution to the diagnosis or treatment of patients whose Protime is prolonged for other reasons. INR results are increased when heparin levels exceed 1.0 U/mL, which corresponds to an aPTT >125 seconds if the patient is on UFH. us Karyn Malone NP HEMATOLOGY Final Result [facility] [address] [place] [address], [place] * XR CHEST 2 VIEWS PA AND LATERAL (09/28/2024 9:47 AM SURVEILLANCE DIRECTOR) Anatomical Region Laterality Modality CHEST, THORAX, Lung, HEART Digit al Radiography 09/28/2024 10:3 7 AM SURVEILLANCE DIRECTOR Impressions 09/28/2024 10:37 AM SURVEILLANCE DIRECTOR 1. No pneumothorax evident. 2. Subcutaneous emphysema in neck bilateral more on the right. 3. Stent in the distal esophagus. Dictated by Christy Daley MD @ Sep 28 2024 10:37AM (Electronically Signed) [email or web address] Narrative 09/28/2024 10:37 AM SURVEILLANCE DIRECTOR For Patients: As a result of the Century Cures Act, medical imaging exams and procedure reports are released immediately into your electronic medical record. You may view this report before your referring provider. If you have questions, please contact your health care provider. INDICATION: Follow-up small left apical pneumothorax in the setting of worsening O2 needs; shortness of breath. COMPARISON: CT chest, abdomen and pelvis 09/22/2024; CT neck 09/27/2024. Technique: Two-view chest. Findings : Subcutaneous emphysema bilateral in the lower neck more on the right. No pneumothorax identified on either side. Stent identified in the distal esophagus. Procedure Note Christy Daley MBBS - 09/28/2024 For Patients: As a result of the Century Cures Act, medical imagingexams and procedure reports are released immediately into your electronicmedical record. You may view this report before your referring provider.If you have questions, please contact your health care provider. INDICATION: Follow-up small left apical pneumothorax in the setting of worsening P7wicow; shortness of breath. COMPARISON: CT chest, abdomen and pelvis 09/22/2024; CT neck 09/27/2024. Technique: Two-view chest. Findings : Subcutaneous emphysema bilateral in the lower neck more on the right. Nopneumothorax identified on either side. Stent identified in the distalesophagus. IMPRESSION: 1. No pneumothorax evident. 2. Subcutaneous emphysema in neck bilateral more on the right. 3. Stent in the distal esophagus. Dictated by Christy Daley MD @ Sep 28 2024 10:37AM (Electronically Signed) [email or web address] us Manny Syed MD GENERAL IMAGING Final Re sult * (ABNORMAL) CBC no diff AM (09/28/2024 7:06 AM SURVEILLANCE DIRECTOR) WHITE BLOOD COUNT 15.6(H) 4.5 - 11.0 thou/cu mm 09/28/2024 7:40 AM SURVEILLANCE DIRECTOR [facility]OR[facility] TRAL LABORATORY RED BLOOD COUNT 4.60 4.00 - 5.20 mil/cu mm 09/28/2024 7:40 AM SURVEILLANCE DIRECTOR [facility] TRAL LABORATORY HEMOGLOBIN 12.7 12.0 - 16.0 g/dL 09/28/2024 7:40 AM SURVEILLANCE DIRECTOR [facility] TRAL LABORATORY HEMATOCRIT 42.0 33.0 - 51.0 % 09/28/2024 7:40 AM SURVEILLANCE DIRECTOR [facility] TRAL LABORATORY MCV 91 80 - 100 fL 09/28/2024 7:40 AM SURVEILLANCE DIRECTOR [facility] TRAL LAB[facility]ORY MCH 27.6 26.0 - 34.0 pg 09/28/2024 7:40 AM SURVEILLANCE DIRECTOR [facility] TRAL LAB[facility] MCHC 30.2(L) 32.0 - 36.0 g/dL 09/28/2024 7:40 AM SURVEILLANCE DIRECTOR [facility] TRAL LABORATORY RDW 13.7 11.5 - 15.5 % 09/28/2024 7:40 AM SURVEILLANCE DIRECTOR [facility] TRAL LABORATORY PLATELET COUNT 173 140 - 440 thou/cu mm 09/28/2024 7:40 AM SURVEILLANCE DIRECTOR [facility] TR[facility] LAB[facility] MPV 12.2(H) 6.5 - 11.0 fL 09/28/2024 7:40 AM SURVEILLANCE DIRECTOR [facility] TR[facility] LAB[facility] NRBC 0.0 % 09/28/2024 7:40 AM SURVEILLANCE DIRECTOR [facility] TR[facility] LAB[facility] ABS NRBC 0.0 thou /cu mm 09/28/2024 7:40 AM SURVEILLANCE DIRECTOR [facility] TR[facility] LAB[facility] Blood BLOOD SPECIMEN / Unknown Non-Lab Venipuncture / Unknown 09/28/2024 7:06 AM SURVEILLANCE DIRECTOR 09/28/2024 7:24 AM SURVEILLANCE DIRECTOR us Consuelo Inman MD HEMATOLOGY Fabiana l Result [facility] [address] [place] [address], * CT NECK SOFT TISSUE W (09/27/2024 9:35 PM SURVEILLANCE DIRECTOR) Anatomical Region Laterality Modality NECK Computed Tomogra phy 09/28/2024 8:11 AM SURVEILLANCE DIRECTOR Impressions 09/28/2024 8:11 AM SURVEILLANCE DIRECTOR Known case of esophageal malignancy. Moderate subcutaneous and soft tissue emphysema involving multiple neck spaces, uplqj-egakbqr-awtb-left. Small pneumomediastinum and trivial left apical pneumothorax. No suspicious cervical lymphadenopathy. Critical findings were communicated to Dr. Joni Mas by Dr. Devyn MD radiology at 8:10 a.m. on 09/28/2024. Please note that all CT scans at this facility use dose modulation, iterative reconstruction, and/or weight-based dosing when appropriate to reduce radiation dose to as low as reasonably achievable. Dictated by Kim Shepard MD @ 09/28/2024 8:00:02 AM (Electronically Signed) Narrative 09/28/2024 8:11 AM SURVEILLANCE DIRECTOR For Patients: As a result of the Cures Act, medical imaging exams and procedure reports are released immediately into your electronic medical record. You may view this report before your referring provider. If you have questions, please contact your health care provider. INDICATION: Esophageal perforation. TECHNIQUE: CT soft tissue of the neck was acquired with 80 cc of Omnipaque 350 IV contrast. COMPARISON: PET-CT September 22, 2024 FINDINGS: Known case of esophageal malignancy. Moderate volume of subcutaneous emphysema along the right greater than left neck soft tissue. Scattered emphysema involving multiple neck spaces including submandibular, chief legal officer, retropharyngeal, right parotid, parapharyngeal as well as posterior cervical and visceral spaces. Small volume of pneumomediastinum is identified in the included mediastinum. Trace left apical pneumothorax. Moderate subsegmental atelectasis in the dependent segment of right upper lobe is identified. Bilateral jugular veins are patent. No suspicious cervical lymph nodes. Osteo sclerosis is identified involving C3, C4, C5 and C6 vertebral body, which could be related to endplate sclerosis and degenerative changes. Please refer to PET- CT for better assessment of the osseous metastasis. Procedure Note Kim Shepard MD - 09/28/2024 For Patients: As a result of the Cures Act, medical imagingexams and procedure reports are released immediately into your electronicmedical record. You may view this report before your referring provider.If you have questions, please contact your health care provider. INDICATION: Esophageal perforation. TECHNIQUE: CT soft tissue of the neck was acquired with 80 cc of Omnipaque 350 IVcontrast. COMPARISON: PET-CT September 22, 2024 FINDINGS: Known case of esophageal malignancy. Moderate volume of subcutaneous emphysema along the right greater thanleft neck soft tissue. Scattered emphysema involving multiple neck spacesincluding submandibular, chief legal officer, retropharyngeal, right parotid,parapharyngeal as well as posterior cervical and visceral spaces. Smallvolume of pneumomediastinum is identified in the included mediastinum.Trace left apical pneumothorax. Moderate subsegmental atelectasis in thedependent segment of right upper lobe is identified. Bilateral jugular veins are patent. No suspicious cervical lymph nodes. Osteo sclerosis is identified involving C3, C4, C5 and C6 vertebral body,which could be related to endplate sclerosis and degenerative changes.Please refer to PET-CT for better assessment of the osseous metastasis. IMPRESSION: Known case of esophageal malignancy. Moderate subcutaneous and soft tissueemphysema involving multiple neck spaces, oujas-geezlbk-tjog-left. Small pneumomediastinum and trivial left apical pneumothorax. No suspicious cervical lymphadenopathy. Critical findings were communicated to Dr. Joni Mas by Dr. Shepard, MDradiology at 8:10 a.m. on 09/28/2024. Please note that all CT scans at this facility use dose modulation,iterative reconstruction, and/or weight-based dosing when appropriate toreduce radiation dose to as low as reasonably achievable. Dictated by Kim Shepard MD @ 09/28/2024 8:00:02 AM (Electronically Signed) us Pedrito Huntley MD CT Final Resu lt * (ABNORMAL) CBC WITH AUTO DIFFERENTIAL (09/27/2024 6:15 PM SURVEILLANCE DIRECTOR) WHITE BLOOD COUNT 15.4(H) 4.5 - 11.0 thou/cu mm 09/27/2024 6:27 PM SURVEILLANCE DIRECTOR [facility] RED BLOOD COUNT 5.11 4.00 - 5.20 mil/cu mm 09/27/2024 6:27 PM [facility] HEMOGLOBIN 14.3 12.0 - 16.0 g/dL 09/27/2024 6:27 PM [facility] HEMATOCRIT 46.7 33.0 - 51.0 % 09/27/2024 6:27 PM [facility] MCV 91 80 - 100 fL 09/27/2024 6:27 PM [facility] MCH 28.0 26.0 - 34.0 pg 09/27/2024 6:27 PM [facility] MCHC 30.6(L) 32.0 - 36.0 g/dL 09/27/2024 6:27 PM [facility] RDW 13.6 11.5 - 15.5 % 09/27/2024 6:27 PM [facility] PLATELET COUNT 183 140 - 440 thou/cu mm 09/27/2024 6:27 PM [facility] MPV 11.9(H) 6.5 - 11.0 fL 09/27/2024 6:27 PM [facility] NRBC 0.0 % 09/27/2024 6:27 PM [facility] ABS NRBC 0.0 thou /cu mm 09/27/2024 6:27 PM [facility] % NEUT 88.6 % 09/27/2024 6:27 PM [facility] % LYMPH 4.6 % 09/27/2024 6:27 PM [facility] % MONO 5.8 % 09/27/2024 6:27 PM [facility] % EOS 0.1 % 09/27/2024 6:27 PM [facility] % BASO 0.3 % 09/27/2024 6:27 PM [facility] % IMMATURE GRAN (METAS,MYELOS,ID OS) 0.6 % 09/27/2024 6:27 PM [facility] ABSOLUTE NEUTROPHILS 13.7(H) 1.7 - 7.0 thou/cu mm 09/27/2024 6:27 PM [facility] ABSOLUTE LYMPHOCYTES 0.7(L) 0.9 - 2.9 thou/cu mm 09/27/2024 6:27 PM [facility] ABSOLUTE MONOCYTES 0.9(H) <0.9 thou/cu mm 09/27/2024 6:27 PM [facility] ABSOLUTE EOSINOPHILS 0.0 <0.5 thou/cu mm 09/27/2024 6:27 PM [facility] ABSOLUTE BASOPHILS 0.0 <0.3 thou/cu mm 09/27/2024 6:27 PM SURVEILLANCE DIRECTOR [facility] ABSOLUTE IMMATURE GRANULOCYTES(MET ,MYELOS,PROS) 0.1 <0.3 thou/cu mm 09/27/2024 6:27 PM SURVEILLANCE DIRECTOR [facility] Blood BLOOD SPECIMEN / Unknown Venipuncture / Unknown 09/27/2024 6:15 PM SURVEILLANCE DIRECTOR 09/27/2024 6:21 PM SURVEILLANCE DIRECTOR Consuelo Inman MD HEMATOLOGY Fabiana l Result Performing Organization Address City/[facility]/ZIP Co de Phone Number [facility] [address] [place] [id number], [place] * TSH FOR ADD ON (09/27/2024 6:15 PM SURVEILLANCE DIRECTOR) TSH 0.83 0.27 - 4.20 uIU/mL 09/27/2024 8:05 PM SURVEILLANCE DIRECTOR [facility] Blood BLOOD SPECIMEN / Unknown Venipuncture / Unknown 09/27/2024 6:15 PM SURVEILLANCE DIRECTOR 09/27/2024 6:21 PM SURVEILLANCE DIRECTOR Narrative [facility] - 09/27/2024 8:05 PM SURVEILLANCE DIRECTOR In Adults, TSH values between 5.00 and 10.00 uIU/ml do not necessarily indicate the presence of Hypothyroidism. Correlation with clinical findings such as presence of goiter and/or Thyroperoxidase (TPO) Antibody may be helpful. For more information please refer to LITZY 2004; 291: 228-238. Consuelo Inman MD CHEMISTRY Fabiana l Result Performing Organization Address City/[facility]/ZIP Co de Phone Number [facility] [address] [place] [phone], [place] * T4, free AM (09/27/2024 6:15 PM SURVEILLANCE DIRECTOR) Only the most recent of2 resultswithin the time period is included. T4,FREE 1.40 0.93 - 1.70 ng/dL 09/27/2024 8:05 PM SURVEILLANCE DIRECTOR [facility] Blood BLOOD SPECIMEN / Unknown Venipuncture / Unknown 09/27/2024 6:15 PM SURVEILLANCE DIRECTOR 09/27/2024 6:21 PM SURVEILLANCE DIRECTOR Consuelo Inman MD CHEMISTRY Fabiana l Result [facility] [address] [place] [id number], [place] * XR ESOPHAGEAL DILITATION (09/27/2024 12:07 PM SURVEILLANCE DIRECTOR) Anatomical Region Laterality Modality Esophagus Other Narrative 09/27/2024 12:08 PM SURVEILLANCE DIRECTOR 17 seconds fluoroscopy time was provided. See operative/procedure report for further information. us Trent Law MD FLUOROSCOPY Final Result * HCHG TUBE PR1, HCHG STYLET PR1 (09/27/2024 11:36 AM SURVEILLANCE DIRECTOR) Narrative Erika Stephenson CRNA - 09/27/2024 11:36 AM SURVEILLANCE DIRECTOR Erika Stephenson CRNA 09/27/2024 11:47 AM Procedure: ETT Patient location during procedure: OR ETT Properties Mask Ventilation: not attempted Final Technique: direct laryngoscopy and cricoid pressure Type: straight Location: oral Tube Size: 7.0 mm Stylet: yes Laryngoscope Blade: Campos Blade Size: 2 Cormack-Lehane Grade View: 1 Insertion Attempts: 1 Placement Verification: auscultation, end tidal CO2 and symmetrical chest wall movement Assessment: pharynx clear, atraumatic and dentition unchanged Secured at: 23 Measured From: lips Bite Block: molar Difficulty: 0 (not difficult) us Gael Hidalgo MD ANESTHESIA PX NOTE ORDERA BLES Edited Result - Final * ENDOSCOPY (09/27/2024 10:56 AM SURVEILLANCE DIRECTOR) 09/27/2024 10:5 6 AM SURVEILLANCE DIRECTOR Narrative Transcriptions Trent Law MD - 09/27/2024 12:38 PM CST [facility] [place] [facility] Patient Name: Chelle Lujan Procedure Date: 09/27/2024 Gender: Female Date of : 1950 Admit Type: Ambulatory Procedure: Upper EUS Proceduralist: Trent Law MD - [facility] Referring MD: Trent Law MD Indications/Pre-Op Diagnosis: Staging of esophageal adenocarcinoma Medications: General Anesthesia Procedure Description: Risk of bleeding, infection, perforation, pancreatitis, need for surgery, remote chance of and alternatives were discussed, andthe patient gave informed consent. The endoscope [id number] was introduced through the mouth, and advanced to the lower third of esophagus. The endoscope [id number] was introduced through the mouth, and advanced to the efferentjejunal loop. The upper EUS was accomplished without difficulty. The patient tolerated the procedure well. Complications: No immediate complications. Estimated Blood Loss & Specimen: Estimated blood loss: none. Specimen collected: None Findings: ENDOSCOPIC FINDING: : Just proximal to the cricopharyngeus a tear was noted leading extraluminal planes and tissues. The proximal and mid esophagus were normal. A large, fungating and ulcerating mass with no bleeding and nostigmata of recent bleeding was found in the lower third of the esophagus, 35cm from the incisors. The mass was partially obstructing and circumferential. Based on the epicenter of the tumor at the gastroesophageal junction, this would be consistent with a Siewerttype II lesion. Evidence of a gastric bypass was found. A gastric pouch with a normal size was found. The staple line appeared intact. The gastrojejunal anastomosis was characterized by healthy appearing mucosa. This was traversed. The qgdax-[id number] limb was characterized by healthy appearing mucosa. ENDOSONOGRAPHIC FINDING: : Endosonographic exam limited by inability to advance echoendoscopepast the malignant obstruction. A hypoechoic and heterogenous mass was found in the gastroesophageal junction. The mass was encountered at 35 cm from the incisors. The lesion was circumferential. The endosonographic borders wereirregular. The mass measured up to 15 mm in thickness. There was sonographic evidence suggesting invasion into the adventitia (Layer 5). Two malignant-appearing lymph nodes were visualized in the lower paraesophageal mediastinum (level 8L). The largest measured 10 mm in maximal cross-sectional diameter. The nodes were oval, hypoechoic and had well defined margins. These could no be sampled due to interposed tumor tissue. The malignant obstruction was stented with a 19 mm x 100 mm EndoMAXX fully covered stent under fluoroscopic guidance. Impressions/Post-Op Diagnosis: - Posterior pharyngeal tear/perforation. - A mass was found in the gastroesophageal junction. Endosonographic exam limited by inability to advance echoendoscope past the malignant obstruction. A tissue diagnosis was obtained prior to this exam. 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 This was stagedT3 N2 Mx by endosonographic criteria. - Two malignant-appearing lymph nodes were visualized in the lower paraesophageal mediastinum (level 8L). Tissue has not been obtained. However, the endosonographic appearance is consistent with metastatic esophageal adenocarcinoma. These could no be sampled due tointerposed tumor tissue. - The malignant obstruction was stented with a 19 mm x 100 mmEndoMAXX fully covered stent under fluoroscopic guidance. - Gastric bypass with a normal-sized pouch and intact staple line. Gastrojejunal anastomosis characterized by healthy appearingmucosa. Recommendation: - NPO. - Refer to an ENT specialist to address posterior pharyngeal tear/perforation. - Abx. - Return to referring physician. Trent Law MD 09/27/2024 12:38:37 PM This report has been signed electronically. Note Initiated On: 09/27/2024 10:56 AM us Trent Law MD PROCEDURE ORD Final Result * SCAN-CARDIAC STRIP (09/27/2024 12:00 AM SURVEILLANCE DIRECTOR) Narrative 09/27/2024 12:00 AM SURVEILLANCE DIRECTOR Ordered by an unspecified provider. us Other Clinical Staff OTHER Final Resul t * (ABNORMAL) CREATININE,ISTAT (09/22/2024 11:41 AM SURVEILLANCE DIRECTOR) CREATININE, POCT 0.90 0.57 - 1.11 mg/dL 09/22/2024 11:47 AM SURVEILLANCE DIRECTOR [facility] Comment:Caution: Patients ta [facility] Hydroxyurea have falsely increased iStat Creatinine results. Verify creatinine results ordering a Creatinine (50360.2) eGFR 67(L) >90 mL/min/1.7 3m2 09/22/2024 11:47 AM SURVEILLANCE DIRECTOR [facility] Comment:As of 2021, eG FR is calculated by the CKD-EPI creatinine equation without race adjustment. eGFR can be influenced by muscle mass, exercise, and diet. The reported eGFR is an estimation only and is only applicable if the renal function is stable. Blood BLOOD SPECIMEN / Unknown 09/22/2024 11:41 AM SURVEILLANCE DIRECTOR 09/22/2024 11:47 AM SURVEILLANCE DIRECTOR us Doctor Unknown CHEMISTRY Final Result [facility] [address] [place] [address] * CT CHEST ABDOMEN PELVIS W (09/22/2024 11:35 AM SURVEILLANCE DIRECTOR) Anatomical Region Laterality Modality Abdomen, Pelvis, AORTA, LIVER, SPLEEN, CHEST Computed Tomography 09/23/2024 7:30 AM SURVEILLANCE DIRECTOR Impressions 09/23/2024 7:30 AM SURVEILLANCE DIRECTOR 1. Mid to distal esophageal mass measuring 3.0 x 2.7 centimeters consistent with the given history of esophageal adenocarcinoma. No enlarged paraesophageal lymph nodes although note is made of some subcentimeter left lateral lymph nodes immediately adjacent to the lesion. 2. Faint sclerosis within the T11 vertebral body which is nonspecific although would be considered suspicious for metastatic disease in this setting. 3. Indeterminate noncalcified pulmonary nodules in the right upper lobe measuring 3 millimeters. 4. Some heterogeneity of the cervix. This could represent complex nabothian cysts or small masses. Follow-up pelvic ultrasound suggested for further characterization. 5. Other incidental findings as detailed above. Please note that all CT scans at this facility use dose modulation, iterative reconstruction, and/or weight-based dosing when appropriate to reduce radiation dose to as low as reasonably achievable. Dictated by Joe Briseno MD @ 09/23/2024 7:30:42 AM (Electronically Signed) Narrative 09/23/2024 7:30 AM SURVEILLANCE DIRECTOR For Patients: As a result of the Century Cures Act, medical imaging exams and procedure reports are released immediately into your electronic medical record. You may view this report before your referring provider. If you have questions, please contact your health care provider. INDICATION: Esophageal adenocarcinoma TECHNIQUE: CT chest, abdomen and pelvis acquired with 100 cc Omnipaque 300 intravenous contrast. COMPARISON: None. FINDINGS: CHEST: Cardiovascular structures: Thoracic aorta is normal in caliber. No pericardial effusion. Pulmonary artery unremarkable. Mediastinum and ras: Air-fluid levels within the esophagus with and including soft tissue mass at the mid to distal esophagus measuring 2.7 x 3.0 centimeters (series 2, image 91), presumed esophageal malignancy by history. No pathologically enlarged lymph nodes although note is made of some adjacent left-lateral paraesophageal lymph nodes, largest measuring 3 millimeters (2, 92). Lungs and pleura: No pleural effusion or pneumothorax. Indeterminate 3 millimeter pulmonary nodule right upper lobe (3, 57). Calcified granuloma right lower lobe. Discoid atelectasis within the lingula. Trace lingular ground-glass opacities. Chest wall and axilla: No mass or adenopathy. Bones: Faint sclerosis within the posterior aspect of T11 (5, 123). ABDOMEN AND PELVIS: Liver: Unremarkable. Gallbladder and bile ducts: Gallbladder not seen suggesting prior cholecystectomy. Pancreas: Moderate pancreatic atrophy with some pancreatic calcifications suggesting chronic pancreatitis. Spleen: Unremarkable. Adrenal glands: Unremarkable. Kidneys: Symmetric renal enhancement without hydronephrosis. Bilateral peripelvic cysts as well as exophytic cysts right kidney. GI tract: Small hiatal hernia with the patient is status post gastric bypass. No dilated loops of large or small intestine. Mild colonic diverticulosis. Vascular structures: Atherosclerosis without abdominal aortic aneurysm. Miscellaneous: Epigastric ventral hernia with colon extending into the hernia sac without evidence of obstruction. Additional fat containing umbilical and supraumbilical hernias. Pelvic Organs: Heterogeneity of the cervix. Bones: No suspicious bone lesions. Unremarkable for age. Procedure Note Joe Briseno MD - 09/23/2024 For Patients: As a result of the Cures Act, medical imagingexams and procedure reports are released immediately into your electronicmedical record. You may view this report before your referring provider.If you have questions, please contact your health care provider. INDICATION: Esophageal adenocarcinoma TECHNIQUE: CT chest, abdomen and pelvis acquired with 100 cc Omnipaque 300intravenous contrast. COMPARISON: None. FINDINGS: CHEST: Cardiovascular structures: Thoracic aorta is normal in caliber. Nopericardial effusion. Pulmonary artery unremarkable. Mediastinum and ras: Air-fluid levels within the esophagus with andincluding soft tissue mass at the mid to distal esophagus measuring 2.7 x3.0 centimeters (series 2, image 91), presumed esophageal malignancy byhistory. No pathologically enlarged lymph nodes although note is made ofsome adjacent left-lateral paraesophageal lymph nodes, largest measuring 3millimeters (2, 92). Lungs and pleura: No pleural effusion or pneumothorax. Indeterminate 3millimeter pulmonary nodule right upper lobe (3, 57). Calcified granulomaright lower lobe. Discoid atelectasis within the lingula. Trace lingularground-glass opacities. Chest wall and axilla: No mass or adenopathy. Bones: Faint sclerosis within the posterior aspect of T11 (5, 123). ABDOMEN AND PELVIS: Liver: Unremarkable. Gallbladder and bile ducts: Gallbladder not seen suggesting priorcholecystectomy. Pancreas: Moderate pancreatic atrophy with some pancreatic calcificationssuggesting chronic pancreatitis. Spleen: Unremarkable. Adrenal glands: Unremarkable. Kidneys: Symmetric renal enhancement without hydronephrosis. Bilateralperipelvic cysts as well as exophytic cysts right kidney. GI tract: Small hiatal hernia with the patient is status post gastricbypass. No dilated loops of large or small intestine. Mild colonicdiverticulosis. Vascular structures: Atherosclerosis without abdominal aortic aneurysm. Miscellaneous: Epigastric ventral hernia with colon extending into thehernia sac without evidence of obstruction. Additional fat containingumbilical and supraumbilical hernias. Pelvic Organs: Heterogeneity of the cervix. Bones: No suspicious bone lesions. Unremarkable for age. IMPRESSION: 1. Mid to distal esophageal mass measuring 3.0 x 2.7 centimetersconsistent with the given history of esophageal adenocarcinoma. Noenlarged paraesophageal lymph nodes although note is made of somesubcentimeter left lateral lymph nodes immediately adjacent to the lesion. 2. Faint sclerosis within the T11 vertebral body which is nonspecificalthough would be considered suspicious for metastatic disease in thissetting. 3. Indeterminate noncalcified pulmonary nodules in the right upper lobemeasuring 3 millimeters. 4. Some heterogeneity of the cervix. This could represent complexnabothian cysts or small masses. Follow-up pelvic ultrasound suggested forfurther characterization. 5. Other incidental findings as detailed above. Please note that all CT scans at this facility use dose modulation,iterative reconstruction, and/or weight-based dosing when appropriate toreduce radiation dose to as low as reasonably achievable. Dictated by Joe Briseno MD @ 09/23/2024 7:30:42 AM (Electronically Signed) us Ninoska Fierro MD CT Final Resu lt * PET CT SKULL BASE TO MID THIGH INITIAL TREAT (09/22/2024 10:37 AM SURVEILLANCE DIRECTOR) Anatomical Region Laterality Modality Positron Emissio n Tomography (PET) 09/22/2024 8:55 PM SURVEILLANCE DIRECTOR Impressions 09/22/2024 8:55 PM SURVEILLANCE DIRECTOR 1. Partially obstructing distal esophageal mass with asymmetric intense uptake within the anterior and left lateral wall is consistent with biopsy-proven primary esophageal malignancy. Small adjacent left posterior paraesophageal lymph node with mild uptake is indeterminate. 2. Faintly sclerotic scattered skeletal lesions involving the left shoulder, spine, ribs, pelvis and extremities are considered highly suspicious for osseous metastatic disease. 3. Moderate hiatal hernia. Prior gastric bypass with no obstruction. Areas of uptake in decompressed mid/distal small bowel loops and within portions of the colon demonstrate no obvious noncontrast CT abnormality. Possibly reactive/inflammatory or physiologic. Attention on follow-up . 4. Mild thickening/fluid within the endometrial cavity and cystic changes near the cervix without localized uptake. Pelvic ultrasound should be considered for further characterization. 5. No distant sites of tracer avid disease in the soft tissues of the neck, right lung or solid organs of the upper abdomen. Nonspecific left upper lobe/perihilar ground-glass opacity could be inflammatory or infectious. 6. Other nonacute findings as detailed in the body of the report. Dictated by Travis Peña MD @ 09/22/2024 8:55:17 PM (Electronically Signed) Narrative 09/22/2024 8:55 PM SURVEILLANCE DIRECTOR For Patients: As a result of the Century Cures Act, medical imaging exams and procedure reports are released immediately into your electronic medical record. You may view this report before your referring provider. If you have questions, please contact your health care provider. EXAM: PET-CT SKULL BASE TO THIGH CLINICAL INFORMATION: 74-yo Female with newly diagnosed esophageal cancer. Recent endoscopic biopsy of an obstructing distal esophageal mass (09/16/2024). Patient is referred for further characterization. TECHNIQUE: Radiopharmaceutical: 11.32 mCi of 18F-FDG Intravenous injection site: Rac Uptake time: 57 minutes Blood glucose level at the time of injection: 100 mg/dL Field of view: Skull base to mid-thighs CT protocol: The low-dose, free-breathing, noncontrast CT performed as part of this study is designed for the purposes of attenuation correction and lesion localization, and it is neither sufficient, nor it should be substituted for diagnostic purposes. COMPARISON: CT chest abdomen pelvis 09/22/2024 (images only) FINDINGS: Physiologic background liver standardized uptake value (SUV mean and SUV max) reported for comparison between PET studies: 4.1 and 5.6. Visualized head and neck: Physiologic uptake in the visualized brain and salivary glands. Head and neck lymph nodes: No enlarged or hypermetabolic cervical chain lymph nodes. Lungs: Respiratory motion artifact. No hypermetabolic right lung nodules. Nonspecific left perihilar/left upper lobe ground-glass opacity with mild uptake, SUV max 2.5 (fused image 93). Strand-like atelectasis or scarring in the inferior lingula. No consolidation. Right lung micro nodules with no significant uptake. Too small to characterize. Thoracic lymph nodes: No enlarged or hypermetabolic hilar, upper mediastinal or axillary lymph nodes. Small posterior left paraesophageal lymph node, 0.3 cm, SUV max 3.8 (fused image 118). Indeterminate. Other chest findings: Air and fluid-filled distention of the middle and proximal third of the thoracic esophagus. Hypermetabolic partially obstructing distal esophageal mass with asymmetric intense uptake along the anterior and left lateral esophageal wall, difficult to measure, SUV max 20.8 (fused image 115). Hepatobiliary: Heterogeneous background hepatic activity. No measurable tracer avid liver lesions. Spleen: No abnormal uptake. No splenomegaly. Pancreas: No abnormal uptake. No adjacent inflammatory change. Adrenal glands: Similar bilateral adrenal configuration. No abnormal uptake. Kidneys and bladder: No obstruction. Bilateral parapelvic cysts. Bilateral hypodense renal lesions without uptake. Largest lesion posterior superior cortex right kidney, probably a cyst. Smaller lesions difficult to fully characterize. Distal ureters are intact. Bladder is partially distended. Bowel and peritoneum: Moderate hiatal hernia. Prior Jose Martin-en-Y gastric bypass. Patent left lower abdomen small bowel anastomosis. No obstruction. Uptake in the distal gastric body/antrum with no noncontrast CT abnormality could be reactive/inflammatory. Areas of uptake within decompressed mid and distal small bowel loops and scattered throughout the colon demonstrate no obvious noncontrast CT abnormality. Colonic diverticulosis. No inflammatory change. -midline upper abdominal ventral wall hernia contains fat and non thickened portions of the mid transverse colon (fused image 164). Adjacent larger fat containing left paramidline ventral abdomen hernia along the inferior margin. Pelvic organs: Mild thickening/fluid within the endometrial cavity. Low-density cystic changes near the cervix without localized uptake. Abdominopelvic lymph nodes: No enlarged or hypermetabolic abdominopelvic lymph nodes. Musculoskeletal, soft tissues, skin: Faintly sclerotic tracer avid skeletal lesions involving the spine, ribs, pelvis and extremities are considered suspicious for osseous metastatic disease. For example: -right anterolateral 8th rib lesion, SUV max 10.1. -left acromion lesion, SUV max 6.1. Indeterminate though suspicious. -posterior T11 vertebral body lesion, SUV max 8.6. -right iliac wing lesion, SUV max 6.9. -right hip intertrochanteric sclerotic lesion, SUV max 3.0. Indeterminate. -posterior cortex proximal left femur lesion, SUV max 3.8 (fused image 264). Other: Scattered aortoiliac atherosclerotic vascular calcifications. Degenerative type uptake within the bilateral shoulders and spine. Bandlike muscular uptake along the posterior shoulder and lateral margin of each scapula is probably reactive/inflammatory. Procedure Note Travis Peña, DO - 09/22/2024 For Patients: As a result of the Cures Act, medical imagingexams and procedure reports are released immediately into your electronicmedical record. You may view this report before your referring provider.If you have questions, please contact your health care provider. EXAM: PET-CT SKULL BASE TO THIGH CLINICAL INFORMATION: 74-yo Female with newly diagnosed esophageal cancer. Recent endoscopicbiopsy of an obstructing distal esophageal mass (09/16/2024). Patient isreferred for further characterization. TECHNIQUE: Radiopharmaceutical: 11.32 mCi of 18F-FDG Intravenous injection site: Rac Uptake time: 57 minutes Blood glucose level at the time of injection: 100 mg/dL Field of view: Skull base to mid-thighs CT protocol: The low-dose, free-breathing, noncontrast CT performed aspart of this study is designed for the purposes of attenuation correctionand lesion localization, and it is neither sufficient, nor it should besubstituted for diagnostic purposes. COMPARISON: CT chest abdomen pelvis 09/22/2024 (images only) FINDINGS: Physiologic background liver standardized uptake value (SUV mean and SUVmax) reported for comparison between PET studies: 4.1 and 5.6. Visualized head and neck: Physiologic uptake in the visualized brain andsalivary glands. Head and neck lymph nodes: No enlarged or hypermetabolic cervical chainlymph nodes. Lungs: Respiratory motion artifact. No hypermetabolic right lung nodules.Nonspecific left perihilar/left upper lobe ground-glass opacity with milduptake, SUV max 2.5 (fused image 93). Strand-like atelectasis or scarringin the inferior lingula. No consolidation. Right lung micro nodules withno significant uptake. Too small to characterize. Thoracic lymph nodes: No enlarged or hypermetabolic hilar, uppermediastinal or axillary lymph nodes. Small posterior left paraesophageallymph node, 0.3 cm, SUV max 3.8 (fused image 118). Indeterminate. Other chest findings: Air and fluid-filled distention of the middle andproximal third of the thoracic esophagus. Hypermetabolic partiallyobstructing distal esophageal mass with asymmetric intense uptake alongthe anterior and left lateral esophageal wall, difficult to measure, SUVmax 20.8 (fused image 115). Hepatobiliary: Heterogeneous background hepatic activity. No measurabletracer avid liver lesions. Spleen: No abnormal uptake. No splenomegaly. Pancreas: No abnormal uptake. No adjacent inflammatory change. Adrenal glands: Similar bilateral adrenal configuration. No abnormaluptake. Kidneys and bladder: No obstruction. Bilateral parapelvic cysts. Bilateralhypodense renal lesions without uptake. Largest lesion posterior superiorcortex right kidney, probably a cyst. Smaller lesions difficult to fullycharacterize. Distal ureters are intact. Bladder is partially distended. Bowel and peritoneum: Moderate hiatal hernia. Prior Jose Martin-en-Y gastricbypass. Patent left lower abdomen small bowel anastomosis. No obstruction.Uptake in the distal gastric body/antrum with no noncontrast CTabnormality could be reactive/inflammatory. Areas of uptake withindecompressed mid and distal small bowel loops and scattered throughout thecolon demonstrate no obvious noncontrast CT abnormality. Colonicdiverticulosis. No inflammatory change. -midline upper abdominal ventral wall hernia contains fat and nonthickened portions of the mid transverse colon (fused image 164). Adjacentlarger fat containing left paramidline ventral abdomen hernia along theinferior margin. Pelvic organs: Mild thickening/fluid within the endometrial cavity.Low-density cystic changes near the cervix without localized uptake. Abdominopelvic lymph nodes: No enlarged or hypermetabolic abdominopelviclymph nodes. Musculoskeletal, soft tissues, skin: Faintly sclerotic tracer avidskeletal lesions involving the spine, ribs, pelvis and extremities areconsidered suspicious for osseous metastatic disease. For example: -right anterolateral 8th rib lesion, SUV max 10.1. -left acromion lesion, SUV max 6.1. Indeterminate though suspicious. -posterior T11 vertebral body lesion, SUV max 8.6. -right iliac wing lesion, SUV max 6.9. -right hip intertrochanteric sclerotic lesion, SUV max 3.0.Indeterminate. -posterior cortex proximal left femur lesion, SUV max 3.8 (fused ). Other: Scattered aortoiliac atherosclerotic vascular calcifications.Degenerative type uptake within the bilateral shoulders and spine.Bandlike muscular uptake along the posterior shoulder and lateral marginof each scapula is probably reactive/inflammatory. IMPRESSION: 1. Partially obstructing distal esophageal mass with asymmetric intenseuptake within the anterior and left lateral wall is consistent withbiopsy-proven primary esophageal malignancy. Small adjacent left posteriorparaesophageal lymph node with mild uptake is indeterminate. 2. Faintly sclerotic scattered skeletal lesions involving the leftshoulder, spine, ribs, pelvis and extremities are considered highlysuspicious for osseous metastatic disease. 3. Moderate hiatal hernia. Prior gastric bypass with no obstruction. Areasof uptake in decompressed mid/distal small bowel loops and within portionsof the colon demonstrate no obvious noncontrast CT abnormality. Possiblyreactive/inflammatory or physiologic. Attention on follow-up . 4. Mild thickening/fluid within the endometrial cavity and cystic changesnear the cervix without localized uptake. Pelvic ultrasound should beconsidered for further characterization. 5. No distant sites of tracer avid disease in the soft tissues of theneck, right lung or solid organs of the upper abdomen. Nonspecific leftupper lobe/perihilar ground-glass opacity could be inflammatory orinfectious. 6. Other nonacute findings as detailed in the body of the report. Dictated by Travis Peña MD @ 09/22/2024 8:55:17 PM (Electronically Signed) us Ninoska Fierro MD PET Final Resu lt * SCAN CORRESP-LABORATORY RESULTS (09/20/2024 12:00 AM SURVEILLANCE DIRECTOR) Only the most recent of2 resultswithin the time period is included. us Scanner OTHER Final Result * SCAN [facility]RESP-DIAGNOSTICS (09/20/2024 12:00 AM SURVEILLANCE DIRECTOR) us Scanner OTHER Final Result * SCAN CORRESP-DIAGNOSTICS (09/19/2024 12:00 AM SURVEILLANCE DIRECTOR) us Scanner OTHER Final Result * SCAN-OPERATIVE/PROCEDURE REPORT (09/16/2024 10:30 AM SURVEILLANCE DIRECTOR) Narrative Procedure Note Yuliana Mac MD - 09/16/2024 9:38 AM CST [facility] [address] [facility], [place] [address] Patient Name: Chelle Lujan Gender: Female Exam Date: 09/16/2024 Visit Number: [id number] Age: 74 Years Date of : 1950 Attending MD: Yuliana Mac MD Medical Record#: [id number] ----- Procedure: Upper GI Endoscopy Indications: Dysphagia Provider: Yuliana Mac MD Referring MD: Referral Self Primary MD: Jose A Sheikh MD Medications: Intra Procedure Medications: Patient received monitored anesthesia care. Complications: No immediate complications Procedure: An examination of the heart and lungs was performed within acceptablelimits. . The patient was therefore deemed a reasonable candidate forsedation. The risks and benefits were explained to the patient, who appeared tounderstand. After obtaining informed consent, the scope was passed underdirect vision. Throughout the procedure the patient's blood pressure,pulse and oxygen saturations were monitored. The scope was introducedthrough the mouth and advanced to the second portion of duodenum. Findings: Esophagus: The z-line is 24 centimeters from the incisors. Top of the gastric foldsis 34 centimeters from the incisors. Long segment Mac's esophagus. C and M Criteria: C: 10 cm inlength. M: 10 cm in length. No biopsy was taken due to concurrentfinding of an esophageal mass. Esophageal mass. Location - distal esophagus from 30-34cm from theincisors. Mass is circumferential and obstructing. Biopsy taken. Maneuver- cold biopsy forceps. Scope was passed with resistance. Stomach: H. Pylori biopsies taken. Previous surgical procedure:Jose Martin-en-Y The diaphragm hiatus is at 39 centimeters from the incisors. Large Hiatal Hernia. Normal mucosa. Post Surgical Stomach. Previous Jose Martin-en-Y. Finding - Normal. Location - anastomosis. Endoscope was advanced through the anastomosis. Jejunum: Post Surgical Jejunum. Finding - Normal Gastric Bypass Anastomosis.Endoscope was advanced through the anastomosis without resistance. Impression: Esophageal dysphagia Esophageal mass Mac's esophagus with dysplasia, unspecified Hiatal hernia Preliminary Plan: Recommendation Comments: You were found to have a mass in the lowerportion of the esophagus. This mass is causing obstruction of theesophagus and this is why you are having trouble swallowing. We will waitfor the biopsy results. You will likely need to see an oncologist, surgeonafter the results are back. Pathology Results: A: STOMACH, BIOPSY: 1. Normal gastric body mucosa 2. Negative for Helicobacter B: DISTAL ESOPHAGEAL MASS, BIOPSY: 1. Minute amounts of poorly differentiated adenocarcinoma,intestinal type 2. Background Mac's mucosa: Present (with high gradedysplasia) 3. Ancillary studies: a. DNA mismatch repair enzyme IHC: Pending ([id number]/19/2024) b. HER2 IHC: Pending (ordered 09/19/2024) c. PD-L1 IHC: Pending (ordered 09/19/2024) COMMENTS B. An attempt will be made to perform ancillary testing on this specimen.The paucity of tumor cells may preclude this analysis. Ham Freeman MD notified Yuliana Mac MD of these findings on09/19/2024. Case seen in consultation with Dr. Harris. Please contactus with any questions ([facility] GI pathology Service, [facility] extension [phone]). HER2 and PD-L1 studies are performed at [facility], [id number] [address], [place] [address] MICROSCOPIC A: Performed B: Performed SPECIAL STAINING/DEEPER B: IHC Stains: DNA MMR (MLH1; MSH2; MSH6; PMS2) Electronically signed by: Ham Freeman MD Interpreted at [facility], [address] [address] Orders Follow-up visit/Referral: Order Comments referred to Oncology esophageal cancer (new diagnosis) STAT Additional Comments: Your esophageal mass did come back as cancer. I will refer you to see anoncologist for further management of this. _Electronically signed by: Yuliana Mac MD 09/16/2024 cc: Jose A Sheikh MD Yuliana Mac MD OTHER Final Result * (ABNORMAL) TSH WITH REFLEX (09/08/2024 11:03 AM SURVEILLANCE DIRECTOR) TSH W/REFLEX TO FT4 12.51(H) 0.40 - 4.50 mIU/L [email or web address] Blood BLOOD SPECIMEN / Unknown 09/08/2024 11:03 AM SURVEILLANCE DIRECTOR 09/08/2024 11:04 AM SURVEILLANCE DIRECTOR Narrative [facility] - 09/09/2024 11:01 AM SURVEILLANCE DIRECTOR FASTING:NO FASTING: NO Jose A Sheikh MD CHEMISTRY Final Result [facility] [address] [place] [address], [email or web address] [address] [place] [address] * (ABNORMAL) VITAMIN D 25 (DEFICIENCY) (09/08/2024 11:03 AM SURVEILLANCE DIRECTOR) VITAMIN D,25-OH,TOTAL,IA 21(L) 30 - 100 ng/mL [email or web address] Comment: Vitamin D Status 25-OH Vitamin D: Deficiency: <20 ng/mL Insufficiency: 20 - 29 ng/mL Optimal: > or = 30 ng/mL For 25-OH Vitamin D testing on patients on D2-supplementation and patients for whom quantitation of D2 and D3 fractions is required, the QuestAssureD(TM) 25-OH VIT D, (D2,D3), LC/MS/MS is recommended: order code 38245 (patients >2yrs). See Note 1 Note 1 For additional information, please refer to http://education.[employer]/faq/IOM661 (This link is being provided for informational/ educational purposes only.) Blood BLOOD SPECIMEN / Unknown 09/08/2024 11:03 AM SURVEILLANCE DIRECTOR 09/08/2024 11:04 AM SURVEILLANCE DIRECTOR Narrative [facility] - 09/09/2024 9:26 AM SURVEILLANCE DIRECTOR FASTING:NO FASTING: NO Jose A Sheikh MD SEND OUTS Final Result Performing Organization Address [facility] Co de Phone Number [facility] [address] [place] [address], [place] [phone] [facility] [address] [place] [address] * IRON PLUS IRON BINDING CAP (09/08/2024 11:03 AM SURVEILLANCE DIRECTOR) Pathologist [facility] IRON, TOTAL 76 45 - 160 mcg/dL [facility] IRON BINDING CAPACITY 446 250 - 450 mcg/dL (calc) [facility] % SATURATION 17 16 - 45 % (calc) [facility] Blood BLOOD SPECIMEN / Unknown 09/08/2024 11:03 AM SURVEILLANCE DIRECTOR 09/08/2024 11:04 AM SURVEILLANCE DIRECTOR Narrative [facility] - 09/09/2024 4:02 AM SURVEILLANCE DIRECTOR FASTING:NO FASTING: NO us Jose A Sheikh MD CHEMISTRY Final Result Performing Organization Address [facility] Co de Phone Number [facility] [address] [email or web address] [address], [place] [phone] [facility] [address] [facility] [place] [address] * (ABNORMAL) CBC AND DIFFERENTIAL (09/08/2024 11:03 AM SURVEILLANCE DIRECTOR) Pathologist [facility] WHITE BLOOD CELL COUNT 7.2 3.8 - 10.8 Thousand/u L [facility] RED BLOOD CELL COUNT 4.82 3.80 - 5.10 Million/uL [facility] HEMOGLOBIN 13.6 11.7 - 15.5 g/dL [facility] HEMATOCRIT 42.9 35.0 - 45.0 % [facility] MCV 89.0 80.0 - 100.0 fL [facility] MCH 28.2 27.0 - 33.0 pg [facility] MCHC 31.7(L) 32.0 - 36.0 g/dL [facility] Comment: For adults, a slight decrease in the calculated MCHC value (in the range of 30 to 32 g/dL) is most likely not clinically significant; however, it should be interpreted with caution in correlation with other red cell parameters and the patient's clinical condition. RDW 13.1 11.0 - 15.0 % [facility] PLATELET COUNT 228 140 - 400 Thousand/u L [facility] MPV 12.9(H) 7.5 - 12.5 fL [facility] ABSOLUTE NEUTROPHILS 4,226 1,500 - 7,800 cells/uL [facility] ABSOLUTE LYMPHOCYTES 1,894 850 - 3,900 cells/uL [facility] ABSOLUTE MONOCYTES 619 200 - 950 cells/uL [facility] ABSOLUTE EOSINOPHILS 418 15 - 500 cells/uL [facility] ABSOLUTE BASOPHILS 43 0 - 200 cells/uL [facility] NEUTROPHILS 58.7 % [facility] LYMPHOCYTES 26.3 % [facility] MONOCYTES 8.6 % [facility] EOSINOPHILS 5.8 % [facility] BASOPHILS 0.6 % [facility] Blood BLOOD SPECIMEN / Unknown 09/08/2024 11:03 AM SURVEILLANCE DIRECTOR 09/08/2024 11:04 AM SURVEILLANCE DIRECTOR Narrative [facility] - 09/09/2024 3:22 AM SURVEILLANCE DIRECTOR FASTING:NO FASTING: NO us Jose A Sheikh MD HEMATOLOGY Final Result [facility] [address] [place] [place] [address], [place] [phone] [facility] [address] [place] [address] * (ABNORMAL) FERRITIN (09/08/2024 11:03 AM SURVEILLANCE DIRECTOR) FERRITIN 14(L) 16 - 288 ng/mL [facility] Blood BLOOD SPECIMEN / Unknown 09/08/2024 11:03 AM SURVEILLANCE DIRECTOR 09/08/2024 11:04 AM SURVEILLANCE DIRECTOR Narrative [facility] - 09/09/2024 9:26 AM SURVEILLANCE DIRECTOR FASTING:NO FASTING: NO Jose A Sheikh MD CHEMISTRY Final Result [facility] [address] [place] [place] [address], [place] [phone] [facility] [address] [place] [address] * (ABNORMAL) VITAMIN B12 (09/08/2024 11:03 AM SURVEILLANCE DIRECTOR) VITAMIN B12 1,619(H) 200 - 1,100 pg/mL [facility] Blood BLOOD SPECIMEN / Unknown 09/08/2024 11:03 AM SURVEILLANCE DIRECTOR 09/08/2024 11:04 AM SURVEILLANCE DIRECTOR Narrative [facility] - 09/09/2024 9:26 AM SURVEILLANCE DIRECTOR FASTING:NO FASTING: NO us Jose A Sheikh MD CHEMISTRY Final Result [facility] [address] [place] [place] [address], [place] [phone] [facility] [address] [place] [address] * SCAN-COLONOSCOPY (05/02/2019 12:00 AM CDT) Scanner OTHER Final Result from Last 3 Months or Most Recently Relevant to Health Maintenance Insurance BLUE CROSS MEDICARE ADVANTAGE MR MEDICARE PART A HB ONLY Advance Directives Documents on File Type Date Recorded Patient Card Writer Hand Expl anation Healthcare Directive 09/29/2024 12:00 AM Healthcare Directive 05/02/2014 014 * Full Code (Latest Code Status on File) Date Activated Date Inactivated Comments 10/01/2024 11:19 AM 10/01/2024 8:23 PM Question Answer Comments Code Status Discussion: Reviewed Preferences * Full Code Date Activated Date Inactivated Comments 09/27/2024 10:12 AM 10/01/2024 11:19 AM Question Answer Comments Code Status Discussion: Unable to Assess Preferences, Provider to review later Care Teams Manager Web Relationship Specialty [place] [address] [place] [address] PCP - General Family Practice 08/31/24 Huyen Cantor, RN [address] [place] [id number] Nurse Navigator - Oncology Registered Nurse 09/20/24 Lu Palacios, RN [address] [place] [address] Nurse Navigator - Oncology Registered Nurse 09/23/24
--- OUTSIDE RECORDS SUMMARY | 2024-10-17 20:02 | XMS_ITS | Clinical Summary ---
[facility] Organization [facility] Address [address] [place] [address] Care Team Providers Care Refrigeration Operator Name Role Phone Coming Johann Shawna Richard MD Unavailable +- [phone] Jose A Sheikh MD Primary Care Provider + [phone] Unavailable Unavailable Adrianna Elizabeth APRN SPRAY DRIER OPERATOR Unavailable Allergies Active Allergy Reactions Criticality Noted Date Comments Thiopental Rash Low 09/24/2015 Medications tirzepatide-Weig ht Management (ZEPBOUND) 2.5 MG/0.5ML prefilled penIndications:C lass 3 severe obesity due to excess calories with serious comorbidity and body mass index (BMI) of 45.0 to 49.9 in adult (H) Inject 0.5 mLs (2.5 mg) subcutaneously every 7 days. 2 mL 024 Active Multiple Vitamin (INFUVITE ADULT) injectionIndicat ions:Esophageal perforation Add to infusion 10 mLs daily. Select 2 multivitamin vials, one of each color top. Draw up 5 mL from each vial and add to 1 TPN bag daily immediately prior to infusing. Discard remainder of vials. 3600 mL 10/11/19 25 6:00 PM TRANSCRIBING OPERATOR HEAD 025 2025 Active sodium chloride, PF, 0.9% PF flushIndications :Esophageal perforation Inject 10 mLs into the vein as needed for line flush. Flush IV before and after medication administration as directed and/or at least every 24 hours. [id number] mL 10/11/19 6:00 PM TRANSCRIBING OPERATOR HEAD 025 2025 Active Emergency Supply Kit, Central,Indicati ons:Esophageal perforation Patient use for emergency only. Contents: 3 sodium chloride 0.9% flushes, 1 dressing kit, 1 microclave ext set 14, 4 nitrile gloves (med), 6 alcohol prep pads, 1 bacitracin, 1 syringe (10 cc 20 G 1). Call to reorder. [id number] kit 10/08/19 6:14 PM TRANSCRIBING OPERATOR HEAD 025 2025 Active levothyroxine (SYNTHROID) injectionIndicat ions:Acquired hypothyroidism Inject 2.5 mLs (50 mcg) over 5-10 minutes into the vein via push every 24 hours for 10 days. Reconstitute 100 mcg levothyroxine vial(s). Draw up levothyroxine 20 mcg/mL in a syringe and administer IV push. Discard remainder of vial. 5 each 10/11/19 6:00 PM TRANSCRIBING OPERATOR HEAD 025 2024 Active sodium chloride, PF, 0.9% PF flushIndications :Acquired hypothyroidism Use 5 mLs for reconstitution every 24 hours for 10 days. Use 1 syringe (5 mL) to reconstitute each vial of levothyroxine 100 mcg. Shake until solution is clear. 50 mL 10/16/19 10:32 AM TRANSCRIBING OPERATOR HEAD 025 2024 Active piperacillin sod-tazobactam (ZOSYN) 3.375 g in sodium chloride 0.9 % 100 mL via HOMEPUMPIndicati ons:Esophageal perforation Infuse 3.375 g over 30 minutes into the vein every 8 hours for 14 days. [id number] mL 10/17/19 25 1:23 PM TRANSCRIBING OPERATOR HEAD 025 2024 Active parenteral nutrition - TNA - see order for formulaIndicatio ns:Esophageal perforation Infuse 1,900 mLs over 12 hours into the vein (central line) daily. Taper up for 1 Hours. Taper down for 1 Hours. TPN additives to be added prior to administration: Infuvite-Adult 10 mL daily. Plateau rate: 172.8 mL/hr. KVO: 5 mL/hr. [id number] mL 10/11/19 25 6:00 PM TRANSCRIBING OPERATOR HEAD 025 2025 Active cyanocobalamin (VITAMIN B-12) 1000 MCG tabletIndication s:H/O gastric bypass Take 1 tablet (1,000 mcg) by mouth daily. 90 tablet 3 024 2024 Discontinued(S top at Discharge) levothyroxine (SYNTHROID/LEVOT HROID) 150 MCG tabletIndication s:Acquired hypothyroidism Take 1 tablet (150 mcg) by mouth daily. 90 tablet 3 024 2023 Discontinued(M ed Rec(No AVS / No eCancel)) lisinopril (ZESTRIL) 40 MG tabletIndication s:Essential hypertension, benign Take 1 tablet (40 mg) by mouth daily. 90 tablet 3 024 2024 Discontinued(S top at Discharge) metoprolol succinate ER (TOPROL XL) 50 MG 24 hr tabletIndication s:Essential hypertension, benign Take 1 tablet (50 mg) by mouth daily. 90 tablet 3 024 2024 Discontinued(S top at Discharge) levothyroxine (SYNTHROID/LEVOT HROID) 175 MCG tablet Take 175 mcg by mouth every morning (before breakfast). 2024 Discontinued(S top at Discharge) lipids 4 oil, SMOFLIPID, 20 % infusionIndicati ons:Esophageal perforation Inject 250 mLs at 20.8 mL/hr over 12 hours into the vein every 24 hours. 1500 mL 025 2024 Discontinued(D uplicate Therapy (No AVS / No eCancel)) parenteral nutrition - ADULT compounded formula CYCLEIndications :Esophageal perforation Infuse 1,680 mLs over 18 hours (central line) per cycle schedule. Taper up for 1 Hours. Taper down for 1 Hours. 37729 mL 025 2024 Discontinued(D uplicate Therapy (No AVS / No eCancel)) levothyroxine (SYNTHROID) injectionIndicat ions:Acquired hypothyroidism Inject 2.5 mLs (50 mcg) over 2 minutes into the vein daily. 195 mL 025 2024 Discontinued parenteral nutrition - TNA - see order for formulaIndicatio ns:Esophageal perforation Infuse 1,900 mLs over 18 hours into the vein (central line) daily. Taper up for 1 Hours. Taper down for 1 Hours. TPN additives to be added prior to administration: Infuvite-Adult 10 mL daily. Plateau rate: 111.8 mL/hr. KVO: 5 mL/hr. [id number] mL 10/08/19 25 6:14 PM TRANSCRIBING OPERATOR HEAD 025 2024 Discontinued(R eorder (No AVS)) Active Problems Problem Noted Date Diagnosed Date Esophageal perforation 10/01/2024 Elevated glucose 02/19/2018 Essential hypertension, benign 01/15/2018 Morbid obesity, unspecified obesity type 017 Alkaline phosphatase elevation 12/19/2016 Right knee pain 09/24/2015 Arthritis of knee, right 09/17/2015 S/P gastric bypass 06/02/2011 Hypersomnia with sleep apnea 08/23/2007 Overview (07/06/2015): Problem list name updated by automated process. Provider to review Congenital cataract 07/09/2006 Overview (08/20/2023): R Acquired hypothyroidism 09/10/2005 Overview (07/05/2015): Problem list name updated by automated process. Provider to review Pernicious anemia 05/12/2005 Resolved Problems Problem Noted Date Diagnosed Date Resolved Date obesity 03/18/2018 08/20/2023 Other specified hypothyroidism 02/05/2017 08/20/2023 Essential hypertension 09/26/201512/18 Hypothyroidism 02/24/2014 02/05/2017 Anemia 07/12/2012 08/20/2023 Advanced directives, counseling/discussion 06/02/2011 03/21/2024 Overview (06/02/2011): Advance Directive Problem List Overview: Name Relationship Phone Primary Health Care Agent Alternative Health Care Agent Discussed advance care planning with patient; information given to patient to review. 06/02/2011 CARDIOVASCULAR SCREENING; LD L GOAL LESS THAN 160 08/04/2010 08/20/2023 Obesity 10/18/2007 03/18/2018 Overview (07/06/2015): Problem list name updated by automated process. Provider to review Herpes zoster 03/16/2006 06/02/2011 Overview (07/05/2015): Problem list name updated by automated process. Provider to review Encounters Date Type Department Care Team Description 10/14/2024 7:56 AM TRANSCRIBING OPERATOR HEAD - 10/14/2024 11:59 PM TRANSCRIBING OPERATOR HEAD Hospital Encounter [facility] [address] [place] [address] Adrianna Elizabeth APRN SPRAY DRIER OPERATOR Esophageal perforation Discharge Disposition: Home or Self Care 10/14/2024 7:45 AM TRANSCRIBING OPERATOR HEAD Infusion Therapy Visit [facility] [address] [place] [address] Adrianna Elizabeth APRN SPRAY DRIER OPERATOR Esophageal perforation 10/14/2024 Travel 10/12/2024 2:00 PM TRANSCRIBING OPERATOR HEAD Home Care Visit [facility] [address] [place] [phone] Sita Pittman, FRANCISCO 10/11/2024 2:30 PM TRANSCRIBING OPERATOR HEAD Home Care Visit [facility] [address] [place] [phone] Karen Cr RN 10/11/2024 Telephone [facility] [address] [place] [phone] Vince Powers MA 10/10/2024 12:30 PM TRANSCRIBING OPERATOR HEAD Home Care Visit [facility] [address] [place] [phone] Sita Pittman, RN 10/10/[address] [facility] [address] [place] [phone] Cinthya Bearden LPN Esophageal perforation (Primary Dx) 10/10/2024 Plan of Care Documentation [facility] [address] [place] [phone] 10/09/2024 2:30 PM TRANSCRIBING OPERATOR HEAD Home Care Visit [facility] [address] [place] [phone] Krista Harden, FRANCISCO 10/09/2024 9:00 AM TRANSCRIBING OPERATOR HEAD Home Care Visit [facility] [address] [place] [phone] Cynthia Maurer, RN 10/09/2024 Transcribe Orders [facility] Service Line [address] [place] [phone] Shellie Centeno MD 10/08/2024 7:00 PM TRANSCRIBING OPERATOR HEAD Home Care Visit [facility] [address] [phone] Tiana Ayala RN 10/08/2024 Medical Correspondence [facility] [address] [place] [phone] Scan, Non-Provider [facility]- ORDERS 10/06/2024 Home Infusion [facility] [address] [phone] Karson Sal RN Esophageal perforation (Primary Dx); Acquired hypothyroidism 10/04/2024 2:50 PM TRANSCRIBING OPERATOR HEAD Ancillary Procedure [facility] [address] [place] [phone] Alex Costa MD 10/02/2024 11:57 AM TRANSCRIBING OPERATOR HEAD Anesthesia Event [facility] [address] [place] [address] Garrick Miramontes MD McCauley, Carter S, MD 10/02/2024 11:10 AM TRANSCRIBING OPERATOR HEAD - 10/02/2024 2:55 PM TRANSCRIBING OPERATOR HEAD Surgery [facility] [address] [place] [phone] Pete Norris MD Esophagoscopy, gastroscopy, duodenoscopy (EGD), combined with fluoroscopy 10/01/2024 6:51 PM TRANSCRIBING OPERATOR HEAD - 10/08/2024 5:34 PM TRANSCRIBING OPERATOR HEAD Hospital Encounter [facility] [address] [place] [address] Pete Norris MD Esophageal perforation (Primary Dx); Acquired hypothyroidism Discharge Disposition: Home or Self Care 09/12/2024 Telephone [facility] [address] [place] [address] Shawna Platt MD 08/16/2024 Telephone [facility] [address] [place] [address] Shawna Platt MD Medication Question 07/28/2024 Telephone [facility] [address] [place] [address] Isha Guadalupe MD Prior Authorization (tirzepatide-Weight Management (ZEPBOUND) 2.5 MG/0.5ML prefilled pen) 07/26/2024 5:30 PM CDT Virtual Visit [facility] [address] [place] [address] Isha Guadalupe MD Class 3 severe obesity due to excess calories with serious comorbidity and body mass index (BMI) of 45.0 to 49.9 in adult (H) from Last 3 Months Immunizations Name Administration Dates Next Due COVID-19 12+ (MODERNA) 01/11/2024,07/06/2023 COVID-19 Monovalent 18+ (Moderna) 12/17/2020, Flu 65+ (Fluad) 07/15/2024 Flu, Unspecified 07/06/2023 Influenza (High Dose) Trival ent,PF (Fluzone) 06/21/2019,07/07/2018,06/24/2017,2015,07/09/2015 Influenza (IIV3) PF 08/13/2013, 2,07/04/2010,2008,07/25/2008,08/23/2007,08/10/2006,1 10/18/2004 Influenza (prior to 2023) 09/12/2011 Influenza Vaccine 65+ (FLUAD) 07/09/2022, 021 Influenza Vaccine 65+ (Fluzone HD) 06/18/2020 Pneumo Conj 13-V (2010&after) 12/18/2016 Pneumococcal 23 valent 09/25/2015 RSV Vaccine (Abrysvo) 08/20/2023 TDAP (Adacel,Boostrix) 11/13/2021 TDAP Vaccine (Adacel) 06/02/2011 Zoster recombinant adjuvante d (SHINGRIX) 05/21/2018,03/18/2018 Family History Medical History Relation Comments Hypertension Mother Relation Status Comments Brother Alive Father Maternal Grandfather Maternal Grandmother Mother Paternal Grandfather Paternal Grandmother Sister Alive 3 Social History Tobacco Use Types Packs/Day Years Used Date Smoking Tobacco: Never Smokeless Tobacco: Never Alcohol Use Standard Drinks/Week Comments Yes 0 (1 standard drink = 0.6 oz pur e alcohol) PHQ-2 Answer Date Recorded PHQ-2 Score 0 06/09/2024 Adolescent Education Answer Date Record ed Getting School Help Needed Not on file 06/26 Food Insecurity Answer Date Recorded Within the past 12 months, d id you worry that your food would run out before you got money to buy more? No 10/01/2024 Within the past 12 months, d id the food you bought just not last and you didn t have money to get more? No 10/01/2024 Housing Stability Answer Date Recorded Do you have housing? (Sujathain g is defined as stable permanent housing and does not include staying ouside in a car, in a tent, in an abandoned building, in an overnight usp, or couch-surfing.) Yes 10/01/2024 Are you worried about losing your housing? No 10/01/2024 Financial Resource Strain Answer Date R ecorded Within the past 12 months, h ave you or your family members you live with been unable to get utilities (heat, electricity) when it was really needed? No 10/01/2024 Transportation Needs Answer Date Record ed Within the past 12 months, h as lack of transportation kept you from medical appointments, getting your medicines, non-medical meetings or appointments, work, or from getting things that you need? No 10/02/2024 Interpersonal Safety Answer Date Record ed Do you feel physically and e motionally safe where you currently live? Yes 10/01/2024 Within the past 12 months, h ave you been hit, slapped, kicked or otherwise physically hurt by someone? No 10/01/2024 Within the past 12 months, h ave you been humiliated or emotionally abused in other ways by your partner or ex-partner? No 10/01/2024 Comments No Sex and Gender Information Value Date Recorded Sex Assigned at Not on file Legal Sex Female 3:39 AM TRANSCRIBING OPERATOR HEAD Gender Identity Not on file Sexual Orientation Not on file Last Filed Vital Signs Vital Sign Reading Time Taken Comments Blood Pressure 126/78 10/12/2024 3:16 PM TRANSCRIBING OPERATOR HEAD Pulse 72 10/12/2024 3:16 PM TRANSCRIBING OPERATOR HEAD Temperature 36.7 C (98 F) 10/12/2024 3:16 PM TRANSCRIBING OPERATOR HEAD Respiratory Rate 18 10/12/2024 3:16 PM TRANSCRIBING OPERATOR HEAD Oxygen Saturation 99% 10/12/2024 3:16 PM TRANSCRIBING OPERATOR HEAD Inhaled Oxygen Concentration - - Weight 115.1 kg (253 lb 11.2 oz) 10/07/2024 9:15 AM TRANSCRIBING OPERATOR HEAD Height 160 cm (5' 3) 06/09/2024 12:54 PM CDT Body Mass Index 44.94 06/09/2024 12:54 PM CDT Plan of Treatment Upcoming Encounters Date Type Department Care Team (Late st Contact Info) Description 10/19/2024 9:30 AM TRANSCRIBING OPERATOR HEAD Virtual Visit [facility] [address] [place] [address] Adrianna Elizabeth, [facility] [address] [facility] [address] [place] [address] Health Maintenance Due Date Last Done Comments CT COLONOGRAPHY 1950 FLEX SIG 1950 sDNA (Cologuard) 1950 FIT 12/06/2019 12/05/2018, 02/18/2017 MEDICARE ANNUAL WELLNESS VISIT 08/20/2024 08/20/2023, 08/20/2023, 01/03/2021, Additional history exists COVID-19 Vaccine ( season) 2024 07/15/2024, 01/11/2024, 07/06/2023, Additional history exists PHQ-2 (once per calendar year) 2024 06/09/2024, 08/20/2023, 03/16/2023, Additional history exists LIPID 06/22/2025 06/22/2024, 08/05, 01/03/2021, Additional history exists VITAMIN B12 06/22/2025 06/22/2024, 08/05, 06/20/2022, Additional history exists ANNUAL REVIEW OF HM ORDERS 07/26/202507/26, 12/24/2022, 01/03/2021 FALL RISK ASSESSMENT 07/26/2025 07/26/2024, 08/20/2023, 06/20/2022, Additional history exists TSH W/FREE T4 REFLEX 10/08/2025 10/08/2024, 10/08/2024, 10/02/2024, Additional history exists BMP 10/14/2025 10/14/2024, 01/0 03/2025, 10/08/2024, Additional history exists CBC 10/14/2025 10/14/2024, 01/0 03/2025, 10/08/2024, Additional history exists CMP 10/14/2025 10/14/2024, 01/0 03/2025, 10/08/2024, Additional history exists ADVANCE CARE PLANNING 01/03/2026 01/03/2021 , 06/02/2011, 06/02/2011, Additional history exists GLUCOSE 10/14/2027 10/14/2024, 01/0 03/2025, 10/08/2024, Additional history exists COLONOSCOPY 05/02/2029 05/02/2019, 05/02/2019 COLORECTAL CANCER SCREENING 05/02/2029 DTAP/TDAP/TD IMMUNIZATION (3 - Td or Tdap) 11/13/2031 11/13/2021, 06/02/2011 DEXA 04/27/2033 04/27/2018 Pneumococcal Vaccine: 50+ Years Completed 12/18/2016, 09/25/2015 HEPATITIS C SCREENING Completed 02/05/2017 ZOSTER IMMUNIZATION Completed 05/21/2018, 8 MAMMO SCREENING Discontinued 07/10/2022, 04/05, 02/14/2017, Additional history exists RSV VACCINE Completed 08/20/2023 INFLUENZA VACCINE Completed 07/15/2024, , 07/09/2022, Additional history exists HPV IMMUNIZATION Aged Out No longer e ligible based on patient's age to complete this topic MENINGITIS IMMUNIZATION Aged Out No l onger eligible based on patient's age to complete this topic RSV MONOCLONAL ANTIBODY Aged Out No l onger eligible based on patient's age to complete this topic Medical Devices Implanted Type Area Cook Frozen Dessert Device Identifier Shelf Expiration Date Model / Serial / Lot Bone Cement Radiopaque Simplex Hv Full Dose 6194-1-001 Implanted:Qty: 2 on 09/24/2015 by Jake Degroot MD at [facility] Right: Knee [employer] 01/03/2016 [id number] / / [id number] Patella Medialized Implanted:Qty: 1 on 09/24/2015 by Jake Degroot MD at [facility] Right: Knee 02/02/2020 1518-20-035 / / [id number] Femoral Posterior Stabilized Implanted:Qty: 1 on 09/24/2015 by Jake Degroot MD at [facility] Right: Knee 05/04/2025 [id number] / / [id number] Tibial Base Fixed Bearing Implanted:Qty: 1 on 09/24/2015 by Jake Degroot MD at [facility] Right: Knee 06/04/2025 [id number] / / [id number] Imp Insert Jj Attune Post Stab Fx Br Sys Sz5 10mm [id number] Implanted:Qty: 1 on 09/24/2015 by Jake Degroot MD at [facility] Right: Knee [employer] 05/03/2018 [id number] / / [id number] Procedures Procedure Name Priority Date/Time Associated Diagnosis Comments XR ESOPHAGRAM SINGLE CONTRAST Routine 10/14/2024 9:03 AM TRANSCRIBING OPERATOR HEAD Esophageal perforation PREALBUMIN Routine 10/14/2024 7:42 AM TRANSCRIBING OPERATOR HEAD Esophageal perforation COMPREHENSIVE METABOLIC PANEL Routine 10/14/2024 7:42 AM TRANSCRIBING OPERATOR HEAD Esophageal perforation CBC WITH PLATELETS Routine 10/14/2024 7: 42 AM TRANSCRIBING OPERATOR HEAD Esophageal perforation CBC WITH PLATELETS & DIFFERENTIAL Routine 10/10/2024 2:30 PM TRANSCRIBING OPERATOR HEAD Perforation of esophagus CBC WITH PLATELETS AND DIFFERENTIAL Routine 10/10/2024 2:30 PM TRANSCRIBING OPERATOR HEAD Perforation of esophagus TRIGLYCERIDES Routine 10/10/2024 2:30 PM TRANSCRIBING OPERATOR HEAD Perforation of esophagus PHOSPHORUS Routine 10/10/2024 2:30 PM TRANSCRIBING OPERATOR HEAD Perforation of esophagus COMPREHENSIVE METABOLIC PANEL Routine 10/10/2024 2:30 PM TRANSCRIBING OPERATOR HEAD Perforation of esophagus BILIRUBIN DIRECT Routine 10/10/2024 2:30 PM TRANSCRIBING OPERATOR HEAD Perforation of esophagus MAGNESIUM Routine 10/10/2024 2:30 PM TRANSCRIBING OPERATOR HEAD Perforation of esophagus THYROID PEROXIDASE ANTIBODY Routine 10/08/2024 11:58 AM TRANSCRIBING OPERATOR HEAD T4 FREE Add-On 10/08/2024 2:10 AM TRANSCRIBING OPERATOR HEAD TSH Add-On 10/08/2024 2:10 AM TRANSCRIBING OPERATOR HEAD BILIRUBIN DIRECT Routine 10/08/2024 2:10 AM TRANSCRIBING OPERATOR HEAD INR Routine 10/08/2024 2:10 AM TRANSCRIBING OPERATOR HEAD PHOSPHORUS Routine 10/08/2024 2:10 AM TRANSCRIBING OPERATOR HEAD MAGNESIUM Routine 10/08/2024 2:10 AM TRANSCRIBING OPERATOR HEAD COMPREHENSIVE METABOLIC PANEL Routine 10/08/2024 2:10 AM TRANSCRIBING OPERATOR HEAD CBC WITH PLATELETS Routine 10/08/2024 2: 10 AM TRANSCRIBING OPERATOR HEAD GLUCOSE BY METER Routine 10/08/2024 12:0 9 AM TRANSCRIBING OPERATOR HEAD GLUCOSE BY METER Routine 10/07/2024 1:31 PM TRANSCRIBING OPERATOR HEAD CT CHEST W CONTRAST Routine 10/07/2024 1 1:12 AM TRANSCRIBING OPERATOR HEAD BASIC METABOLIC PANEL Routine 10/07/2024 5:51 AM TRANSCRIBING OPERATOR HEAD CBC WITH PLATELETS Routine 10/07/2024 5: 51 AM TRANSCRIBING OPERATOR HEAD PHOSPHORUS Routine 10/07/2024 5:51 AM TRANSCRIBING OPERATOR HEAD MAGNESIUM Routine 10/07/2024 5:51 AM TRANSCRIBING OPERATOR HEAD GLUCOSE BY METER Routine 10/07/2024 3:08 AM TRANSCRIBING OPERATOR HEAD GLUCOSE BY METER Routine 10/06/2024 8:37 PM TRANSCRIBING OPERATOR HEAD GLUCOSE BY METER Routine 10/06/2024 3:36 PM TRANSCRIBING OPERATOR HEAD GLUCOSE BY METER Routine 10/06/2024 12:0 1 PM TRANSCRIBING OPERATOR HEAD GLUCOSE BY METER Routine 10/06/2024 3:54 AM TRANSCRIBING OPERATOR HEAD BASIC METABOLIC PANEL Routine 10/06/2024 3:40 AM TRANSCRIBING OPERATOR HEAD CBC WITH PLATELETS Routine 10/06/2024 3: 40 AM TRANSCRIBING OPERATOR HEAD GLUCOSE BY METER Routine 10/05/2024 9:10 PM TRANSCRIBING OPERATOR HEAD GLUCOSE BY METER Routine 10/05/2024 3:43 PM TRANSCRIBING OPERATOR HEAD GLUCOSE BY METER Routine 10/05/2024 9:06 AM TRANSCRIBING OPERATOR HEAD GLUCOSE BY METER Routine 10/05/2024 3:15 AM TRANSCRIBING OPERATOR HEAD BASIC METABOLIC PANEL Routine 10/05/2024 3:05 AM TRANSCRIBING OPERATOR HEAD CBC WITH PLATELETS Routine 10/05/2024 3: 05 AM TRANSCRIBING OPERATOR HEAD PHOSPHORUS Routine 10/05/2024 3:05 AM TRANSCRIBING OPERATOR HEAD MAGNESIUM Routine 10/05/2024 3:05 AM TRANSCRIBING OPERATOR HEAD GLUCOSE BY METER Routine 10/04/2024 10:1 3 PM TRANSCRIBING OPERATOR HEAD GLUCOSE BY METER Routine 10/04/2024 4:04 PM TRANSCRIBING OPERATOR HEAD CBC WITH PLATELETS Routine 10/04/2024 10 :55 AM TRANSCRIBING OPERATOR HEAD GLUCOSE BY METER Routine 10/04/2024 10:2 5 AM TRANSCRIBING OPERATOR HEAD PHOSPHORUS Routine 10/04/2024 3:58 AM TRANSCRIBING OPERATOR HEAD MAGNESIUM Routine 10/04/2024 3:58 AM TRANSCRIBING OPERATOR HEAD BASIC METABOLIC PANEL Routine 10/04/2024 3:58 AM TRANSCRIBING OPERATOR HEAD GLUCOSE BY METER Routine 10/04/2024 3:20 AM TRANSCRIBING OPERATOR HEAD GLUCOSE BY METER Routine 10/03/2024 9:19 PM TRANSCRIBING OPERATOR HEAD GLUCOSE BY METER Routine 10/03/2024 3:07 PM TRANSCRIBING OPERATOR HEAD GLUCOSE BY METER Routine 10/03/2024 8:41 AM TRANSCRIBING OPERATOR HEAD TRIGLYCERIDES Routine 10/03/2024 2:30 AM TRANSCRIBING OPERATOR HEAD BILIRUBIN DIRECT Routine 10/03/2024 2:29 AM TRANSCRIBING OPERATOR HEAD PREALBUMIN Routine 10/03/2024 2:29 AM TRANSCRIBING OPERATOR HEAD INR Routine 10/03/2024 2:29 AM TRANSCRIBING OPERATOR HEAD COMPREHENSIVE METABOLIC PANEL Routine 10/03/2024 2:29 AM TRANSCRIBING OPERATOR HEAD PHOSPHORUS Routine 10/03/2024 2:29 AM TRANSCRIBING OPERATOR HEAD MAGNESIUM Routine 10/03/2024 2:29 AM TRANSCRIBING OPERATOR HEAD GLUCOSE BY METER Routine 10/03/2024 12:4 7 AM TRANSCRIBING OPERATOR HEAD CT CHEST/ABDOMEN/PELVIS W CONTRAST Routine 10/02/2024 4:27 PM TRANSCRIBING OPERATOR HEAD XR SURGERY WERO FLUORO LESS THAN 5 MIN W STILLS Routine 10/02/2024 2:22 PM TRANSCRIBING OPERATOR HEAD GLUCOSE BY METER Routine 10/02/2024 1:17 PM TRANSCRIBING OPERATOR HEAD ANE AIRWAY ETT PERFORMABLE Routine 10/02/2024 12:16 PM TRANSCRIBING OPERATOR HEAD ABO/RH TYPE AND SCREEN STAT 10/02/2024 11:52 AM TRANSCRIBING OPERATOR HEAD TYPE AND SCREEN, ADULT STAT 10/02/2024 11:52 AM TRANSCRIBING OPERATOR HEAD UGI ENDOSCOPY DIAG W OR W/O BRUSH/WASH 10/02/2024 11:40 AM TRANSCRIBING OPERATOR HEAD Esophageal perforation GLUCOSE BY METER Routine 10/02/2024 5:28 AM TRANSCRIBING OPERATOR HEAD T4 FREE Routine 10/02/2024 3:59 AM TRANSCRIBING OPERATOR HEAD BILIRUBIN DIRECT Routine 10/02/2024 3:59 AM TRANSCRIBING OPERATOR HEAD PREALBUMIN Routine 10/02/2024 3:59 AM TRANSCRIBING OPERATOR HEAD INR Routine 10/02/2024 3:59 AM TRANSCRIBING OPERATOR HEAD PHOSPHORUS Routine 10/02/2024 3:59 AM TRANSCRIBING OPERATOR HEAD MAGNESIUM Routine 10/02/2024 3:59 AM TRANSCRIBING OPERATOR HEAD COMPREHENSIVE METABOLIC PANEL Routine 10/02/2024 3:59 AM TRANSCRIBING OPERATOR HEAD TSH WITH FREE T4 REFLEX Routine 10/02/2024 3:59 AM TRANSCRIBING OPERATOR HEAD CRP INFLAMMATION Routine 10/02/2024 3:59 AM TRANSCRIBING OPERATOR HEAD CBC WITH PLATELETS Routine 10/02/2024 3: 59 AM TRANSCRIBING OPERATOR HEAD COMPREHENSIVE METABOLIC PANEL Routine 10/01/2024 9:01 PM TRANSCRIBING OPERATOR HEAD CBC WITH PLATELETS Routine 10/01/2024 9: 01 PM TRANSCRIBING OPERATOR HEAD XR CHEST PORT 1 VIEW Routine 10/01/2024 8:49 PM TRANSCRIBING OPERATOR HEAD LACTIC ACID WHOLE BLOOD WITH 1X REPEAT IN 2 HR WHEN >2 STAT 10/01/2024 7:45 PM TRANSCRIBING OPERATOR HEAD VITAMIN B12 Routine 06/22/2024 8:07 AM CDT H/O gastric bypass LIPID REFLEX TO DIRECT LDL PANEL Routine 06/22/2024 8:07 AM CDT Dyslipidemia MA SCREENING BILATERAL W/ LES Routine 07/10/2022 11:09 AM CDT Visit for screening mammogram COLONOSCOPY - HIM SCAN 05/02/2019 12:00 AM CDT FECAL COLORECTAL CANCER SCREEN FIT Routine 12/05/2018 11:15 AM TRANSCRIBING OPERATOR HEAD obesity (H) DX BONE DENSITY Routine 04/27/2018 5:02 PM CDT Asymptomatic postmenopausal status HEPATITIS C SCREEN REFLEX TO HCV RNA QUANT AND GENOTYPE Routine 02/05/2017 2:59 PM CDT Need for hepatitis C screening test from Last 3 Months or Most Recently Relevant to Health Maintenance Results * XR ESOPHAGRAM SINGLE CONTRAST (10/14/2024 9:03 AM TRANSCRIBING OPERATOR HEAD) Anatomical Region Laterality Modality Chest, Abdomen/Pelvis Radio Fluo roscopy 10/14/2024 9:03 AM TRANSCRIBING OPERATOR HEAD Impressions 10/14/2024 10:19 AM TRANSCRIBING OPERATOR HEAD IMPRESSION: 1. No definite leak. Of note, the previously noted mediastinal gas and fluid collection is not assessed by this study. 2. Similar mid/distal esophageal stent. 3. Right PICC tip projects over the mid/proximal subclavian vein, similar to prior. Narrative 10/14/2024 10:19 AM TRANSCRIBING OPERATOR HEAD EXAM: XR ESOPHAGRAM SINGLE CONTRAST LOCATION: [facility] DATE: 10/14/2024 INDICATION: Esophageal perforation COMPARISON: CT chest 10/07/2024. TECHNIQUE: Routine. RADIATION DOSE: Total Air Kerma 75.4 mGy FINDINGS: ESOPHAGUS: Preprocedural batter depositor film demonstrates mid/distal esophageal stent. Trace right basilar atelectasis. Postsurgical changes status post gastric bypass. Right PICC tip projects over the right apex likely in the region of the proximal subclavian vein. Contrast easily flows through the esophageal stent and into the proximal Jose Martin limb. Small amount of contrast extends along the left lateral wall of the proximal stent, similar to the CT. Similarly, there is some pooling of contrast at the distal portion of the stent consistent with known small hiatal hernia. No definite extraluminal contrast to suggest leak. Procedure Note Sid Millard MD - 10/14/2024 EXAM: XR ESOPHAGRAM SINGLE CONTRAST LOCATION: [facility] DATE: 10/14/2024 INDICATION: Esophageal perforation COMPARISON: CT chest 10/07/2024. TECHNIQUE: Routine. RADIATION DOSE: Total Air Kerma 75.4 mGy FINDINGS: ESOPHAGUS: Preprocedural batter depositor film demonstrates mid/distal esophagealstent. Trace right basilar atelectasis. Postsurgical changes status postgastric bypass. Right PICC tip projects over the right apex likely in theregion of the proximal subclavian vein. Contrast easily flows through the esophageal stent and into the proximalRoux limb. Small amount of contrast extends along the left lateral wall ofthe proximal stent, similar to the CT. Similarly, there is some pooling ofcontrast at the distal portion of the stent consistent with known small hiatal hernia. No definite extraluminal contrast to suggest leak. IMPRESSION: 1. No definite leak. Of note, the previously noted mediastinal gas andfluid collection is not assessed by this study. 2. Similar mid/distal esophageal stent. 3. Right PICC tip projects over the mid/proximal subclavian vein, similarto prior. Adrianna Elizabeth [facility] IMG DIAGNOSTIC IMAGING ORDERABLES Final Result * (ABNORMAL) Prealbumin (10/14/2024 7:42 AM TRANSCRIBING OPERATOR HEAD) Only the most recent of3 resultswithin the time period is included. Prealbumin 17.2(L) 20.0 - 40.0 mg/dL 10/14/2024 11:45 AM TRANSCRIBING OPERATOR HEAD [facility] Blood STRUCTURE OF RIGHT UPPER LIMB / Unknown Venipuncture / Unknown 10/14/2024 7:42 AM TRANSCRIBING OPERATOR HEAD 10/14/2024 7:51 AM [facility]ANSCRIBING [facility]PER[facility] LAB - BLOOD OR DERABLES Final Result [facility] [place] [facility] [address] [facility], [address] [place] [address] * (ABNORMAL) Comprehensive metabolic panel (10/14/2024 7:42 AM TRANSCRIBING OPERATOR HEAD) Only the most recent of6 resultswithin the time period is included. Sodium 134(L) 135 - 145 mmol/L 10/14/2024 8:21 AM [facility] Potassium 4.5 3.4 - 5.3 mmol/L 10/14/2024 8:21 AM [facility] Carbon Dioxide (CO2) 21(L) 22 - 29 mmol/L 10/14/2024 8:21 AM [facility] Anion Gap 14 7 - 15 mmol/L 10/14/2024 8:21 AM [facility] Urea Nitrogen 22.2 8.0 - 23.0 mg/dL 10/14/2024 8:21 AM [facility] Creatinine 0.71 0.51 - 0.95 mg/dL 10/14/2024 8:21 AM [facility] GFR Estimate 88 >60 mL/min/1.7 3m2 10/14/2024 8:21 AM [facility] Comment:eGFR calculated us2020 CKD-EPI equation. Calcium 8.9 8.8 - 10.4 mg/dL 10/14/2024 8:21 AM [facility] Comment:Reference intervals for this test were updated on 04/19/2024 to reflect our healthy population more accurately. There may be differences in the flagging of prior results with similar values performed with this method. Those prior results can be interpreted in the context of the updated reference intervals. Chloride 99 98 - 107 mmol/L 10/14/2024 8:21 AM [facility] Glucose 119(H) 70 - 99 mg/dL 10/14/2024 8:21 AM [facility] Alkaline Phosphatase 158(H) 40 - 150 U/L 10/14/2024 8:21 AM [facility] AST 35 0 - 45 U/L 10/14/2024 8:21 AM [facility] ALT 43 0 - 50 U/L 10/14/2024 8:21 AM [facility] Protein Total 6.5 6.4 - 8.3 g/dL 10/14/2024 8:21 AM [facility] Albumin 3.5 3.5 - 5.2 g/dL 10/14/2024 8:21 AM [facility] Bilirubin Total 0.3 <=1.2 mg/dL 10/14/2024 8:21 AM [facility] Blood STRUCTURE OF RIGHT UPPER LIMB / Unknown Venipuncture / Unknown 10/14/2024 7:42 AM TRANSCRIBING OPERATOR HEAD 10/14/2024 7:51 AM TRANSCRIBING OPERATOR HEAD Adrianna Elizabeth PAPER GLUING OPERATOR SPRAY DRIER OPERATOR LAB - BLOOD OR DERABLES Final Result LABORATORY [facility] [address] [facility] Lab (1st floor, no room number) [place] [address], [facility] * CBC with platelets (10/14/2024 7:42 AM TRANSCRIBING OPERATOR HEAD) Only the most recent of8 resultswithin the time period is included. WBC Count 7.2 4.0 - 11.0 10e3/uL 10/14/2024 7:58 AM TRANSCRIBING OPERATOR HEAD [facility] RBC Count 4.51 3.80 - 5.20 10e6/uL 10/14/2024 7:58 AM TRANSCRIBING OPERATOR HEAD [facility] Hemoglobin 12.9 11.7 - 15.7 g/dL 10/14/2024 7:58 AM TRANSCRIBING OPERATOR HEAD [facility] Hematocrit 39.4 35.0 - 47.0 % 10/14/2024 7:58 AM TRANSCRIBING OPERATOR HEAD [facility] MCV 87 78 - 100 fL 10/14/2024 7:58 AM TRANSCRIBING OPERATOR HEAD [facility] MCH 28.6 26.5 - 33.0 pg 10/14/2024 7:58 AM TRANSCRIBING OPERATOR HEAD [facility] MCHC 32.7 31.5 - 36.5 g/dL 10/14/2024 7:58 AM TRANSCRIBING OPERATOR HEAD [facility] RDW 13.9 10.0 - 15.0 % 10/14/2024 7:58 AM TRANSCRIBING OPERATOR HEAD [facility] Platelet Count 245 150 - 450 10e3/uL 10/14/2024 7:58 AM TRANSCRIBING OPERATOR HEAD [facility] Blood STRUCTURE OF RIGHT UPPER LIMB / Unknown Venipuncture / Unknown 10/14/2024 7:42 AM TRANSCRIBING OPERATOR HEAD 10/14/2024 7:51 AM TRANSCRIBING OPERATOR HEAD Adrianna Elizabeth PAPER GLUING OPERATOR SPRAY DRIER OPERATOR LAB - BLOOD OR DERABLES Final Result [facility] [address] Lab (1st floor, no room number) [place] [address], [facility] * (ABNORMAL) CBC with platelets and differential (10/10/2024 2:30 PM TRANSCRIBING OPERATOR HEAD) [facility] WBC Count 9.1 4.0 - 11.0 10e3/uL 10/10/2024 5:23 PM TRANSCRIBING OPERATOR HEAD [facility] RBC Count 4.65 3.80 - 5.20 10e6/uL 10/10/2024 5:23 PM TRANSCRIBING OPERATOR HEAD [facility] Hemoglobin 12.9 11.7 - 15.7 g/dL 10/10/2024 5:23 PM TRANSCRIBING OPERATOR HEAD [facility] Hematocrit 41.1 35.0 - 47.0 % 10/10/2024 5:23 PM TRANSCRIBING OPERATOR HEAD [facility] MCV 88 78 - 100 fL 10/10/2024 5:23 PM TRANSCRIBING OPERATOR HEAD [facility] MCH 27.7 26.5 - 33.0 pg 10/10/2024 5:23 PM TRANSCRIBING OPERATOR HEAD [facility] MCHC 31.4(L) 31.5 - 36.5 g/dL 10/10/2024 5:23 PM TRANSCRIBING OPERATOR HEAD [facility] RDW 13.8 10.0 - 15.0 % 10/10/2024 5:23 PM TRANSCRIBING OPERATOR HEAD [facility] Platelet Count 194 150 - 450 10e3/uL 10/10/2024 5:23 PM TRANSCRIBING OPERATOR HEAD [facility] % Neutrophils 71 % 10/10/2024 5:23 PM TRANSCRIBING OPERATOR HEAD [facility] % Lymphocytes 15 % 10/10/2024 5:23 PM TRANSCRIBING OPERATOR HEAD [facility] % Monocytes 8 % 10/10/2024 5:23 PM TRANSCRIBING OPERATOR HEAD [facility] % Eosinophils 6 % 10/10/2024 5:23 PM TRANSCRIBING OPERATOR HEAD [facility] % Basophils 1 % 10/10/2024 5:23 PM TRANSCRIBING OPERATOR HEAD [facility] % Immature Granulocytes 1 % 10/10/2024 5:23 PM TRANSCRIBING OPERATOR HEAD [facility] NRBCs per 100 WBC 0 <1 /100 025 5:23 PM TRANSCRIBING OPERATOR HEAD [facility] Absolute Neutrophils 6.4 1.6 - 8.3 10e3/uL 10/10/2024 5:23 PM TRANSCRIBING OPERATOR HEAD [facility] Absolute Lymphocytes 1.3 0.8 - 5.3 10e3/uL 10/10/2024 5:23 PM TRANSCRIBING OPERATOR HEAD [facility] Absolute Monocytes 0.7 0.0 - 1.3 10e3/uL 10/10/2024 5:23 PM TRANSCRIBING OPERATOR HEAD [facility] Absolute Eosinophils 0.5 0.0 - 0.7 10e3/uL 10/10/2024 5:23 PM TRANSCRIBING OPERATOR HEAD [facility] Absolute Basophils 0.1 0.0 - 0.2 10e3/uL 10/10/2024 5:23 PM TRANSCRIBING OPERATOR HEAD [facility] Absolute Immature Granulocytes 0.1 <=0.4 10e3/uL 10/10/2024 5:23 PM TRANSCRIBING OPERATOR HEAD [facility] Absolute NRBCs 0.0 10e3/uL 10/10/2024 5:23 PM TRANSCRIBING OPERATOR HEAD [facility] Blood BLOOD SPECIMEN / Unknown Client Draw / Unknown 10/10/2024 2:30 PM TRANSCRIBING OPERATOR HEAD 10/10/2024 4:45 PM TRANSCRIBING OPERATOR HEAD us Jose A Sheikh MD LAB - BLOOD ORDERABLES Final Result LABORATORY [facility] [address] Lab (1st floor, no room number) [place] [address] * (ABNORMAL) Triglycerides (10/10/2024 2:30 PM TRANSCRIBING OPERATOR HEAD) Only the most recent of2 resultswithin the time period is included. Triglycerides 191(H) <150 mg/dL 10/10/2024 9:51 PM TRANSCRIBING OPERATOR HEAD [facility] Comment: 2-9 years: Desirable: < 75 mg/dL Borderline High: 75-99 mg/dL High: >= 100 mg/dL 10-19 years: Desirable: < 90 mg/dL Borderline High: 90-129 mg/dL High: >= 130 mg/dL 20 years and older: Desirable: < 150 mg/dL Borderline High: 150-199 mg/dL High: 200-499 mg/dL Very High: >= 500 mg/dL Patient Fasting > 8hrs? Unknown 10/10/2024 9:51 PM TRANSCRIBING OPERATOR HEAD [facility] Blood BLOOD SPECIMEN / Unknown Client Draw / Unknown 10/10/2024 2:30 PM TRANSCRIBING OPERATOR HEAD 10/10/2024 4:45 PM TRANSCRIBING OPERATOR HEAD Jose A Sheikh MD LAB - BLOOD ORDERABLES Final Result [facility]AT[facility] [place] [facility] [address] [facility] [address], [address] [place] [address] LABORATORY [facility] [address] Lab (1st floor, no room number) [place] [address] * Phosphorus (10/10/2024 2:30 PM TRANSCRIBING OPERATOR HEAD) Only the most recent of7 resultswithin the time period is included. Phosphorus 2.8 2.5 - 4.5 mg/dL 10/10/2024 5:31 PM TRANSCRIBING OPERATOR HEAD [facility] Blood BLOOD SPECIMEN / Unknown Client Draw / Unknown 10/10/2024 2:30 PM TRANSCRIBING OPERATOR HEAD 10/10/2024 4:45 PM TRANSCRIBING OPERATOR HEAD Jose A Sheikh MD LAB - BLOOD ORDERABLES Final Result [facility] [address] Lab (1st floor, no room number) [place] [id number] [place] [address] * Magnesium (10/10/2024 2:30 PM TRANSCRIBING OPERATOR HEAD) Only the most recent of7 resultswithin the time period is included. Magnesium 2.1 1.7 - 2.3 mg/dL 10/10/2024 5:31 PM TRANSCRIBING OPERATOR HEAD LABORATORY Blood BLOOD SPECIMEN / Unknown Client Draw / Unknown 10/10/2024 2:30 PM TRANSCRIBING OPERATOR HEAD 10/10/2024 4:45 PM TRANSCRIBING OPERATOR HEAD Jose A Sheikh MD LAB - BLOOD ORDERABLES Final Result Performing Organization Address City/[facility]/ZIP Co de Phone Number [facility] Lab [address] Lab (1st floor, no room number) [address] * Bilirubin direct (10/10/2024 2:30 PM TRANSCRIBING OPERATOR HEAD) Only the most recent of4 resultswithin the time period is included. Bilirubin Direct <0.20 0.00 - 0.30 mg/dL 10/10/2024 5:31 PM TRANSCRIBING OPERATOR HEAD LABORATORY Blood BLOOD SPECIMEN / Unknown Client Draw / Unknown 10/10/2024 2:30 PM TRANSCRIBING OPERATOR HEAD 10/10/2024 4:45 PM TRANSCRIBING OPERATOR HEAD Jose A Sheikh MD LAB - BLOOD ORDERABLES Final Result [facility] Lab [address] [employer] Lab (1st floor, no room number) [address] * Thyroid peroxidase antibody (10/08/2024 11:58 AM TRANSCRIBING OPERATOR HEAD) Thyroid Peroxidase Antibody 13 <35 IU/mL 10/12/2024 2:38 PM TRANSCRIBING OPERATOR HEAD SPECIALTY CORE/PROT/ENDO Blood CATHETER / Unknown VAD(CVC, PICC ) / Unknown 10/08/2024 11:58 AM TRANSCRIBING OPERATOR HEAD 10/08/2024 12:04 PM TRANSCRIBING OPERATOR HEAD us Gordon Wallace MD LAB - BLOOD ORDERABLES Final Result SPECIALTY CORE/PROT/ENDO Specialty Core/Prot/Endo [address] [facility], [address] * (ABNORMAL) TSH (10/08/2024 2:10 AM TRANSCRIBING OPERATOR HEAD) TSH 12.20(H) 0.30 - 4.20 uIU/mL 10/08/2024 11:47 AM TRANSCRIBING OPERATOR HEAD [facility] Blood VENOUS LINE / Unknown VAD(CVC, PICC) / Unknown 10/08/2024 2:10 AM TRANSCRIBING OPERATOR HEAD 10/08/2024 2:24 AM TRANSCRIBING OPERATOR HEAD us Gordon Wallace MD LAB - BLOOD ORDERABLES Final Result LABORATORY [facility] Lab [address] [place] [address], [address] * (ABNORMAL) T4 free (10/08/2024 2:10 AM TRANSCRIBING OPERATOR HEAD) Only the most recent of2 resultswithin the time period is included. Free T4 0.60(L) 0.90 - 1.70 ng/dL 10/08/2024 11:47 AM TRANSCRIBING OPERATOR HEAD [facility] Blood VENOUS LINE / Unknown VAD(CVC, PICC) / Unknown 10/08/2024 2:10 AM TRANSCRIBING OPERATOR HEAD 10/08/2024 2:24 AM TRANSCRIBING OPERATOR HEAD us Gordon Wallace MD LAB - BLOOD ORDERABLES Final Result U LABORATORY [facility] [place] [facility] Lab [address] [facility], [address] [address] * INR (10/08/2024 2:10 AM TRANSCRIBING OPERATOR HEAD) Only the most recent of3 resultswithin the time period is included. INR 1.09 0.85 - 1.15 10/08/2024 2:40 AM TRANSCRIBING OPERATOR HEAD [facility] Blood VENOUS LINE / Unknown VAD(CVC, PICC) / Unknown 10/08/2024 2:10 AM TRANSCRIBING OPERATOR HEAD 10/08/2024 2:24 AM TRANSCRIBING OPERATOR HEAD us Pete Norris MD LAB - BLOOD ORDERABLES Final Re sult Performing Organization Address City/[facility]/ZIP Co de Phone Number U LABORATORY [facility] [place] [facility] Lab [address] [facility], [address] [place] [phone] * (ABNORMAL) Glucose by meter (10/08/2024 12:09 AM TRANSCRIBING OPERATOR HEAD) Only the most recent of21 resultswithin the time period is included. GLUCOSE BY METER POCT 162(H) 70 - 99 mg/dL 10/08/2024 12:17 AM TRANSCRIBING OPERATOR HEAD [facility] POC Blood, Capillary BLOOD SPECIMEN / Unknown 10/08/2024 12:09 AM TRANSCRIBING OPERATOR HEAD 10/08/2024 12:17 AM TRANSCRIBING OPERATOR HEAD us Pete Norris MD LAB - BEAKER POCT Final Result Performing Organization Address City/[facility] Co de Phone Number LABORATORY POC [facility] Lab [address] [facility], [address] [place] [address] * CT Chest w Contrast (10/07/2024 11:12 AM TRANSCRIBING OPERATOR HEAD) Anatomical Region Laterality Modality Chest, SUBRAD CT BODY, UMP CT CHEST, RAD CT Computed Tomography Impressions 10/07/2024 1:30 PM TRANSCRIBING OPERATOR HEAD Impression: 1. Persistent 5 mm defect in the posterior esophagus with air tracking inferiorly, ultimately terminating in a collection of gas and fluid in the right upper mediastinum. This remains compatible with known esophageal perforation and contained leak. 2. Additional locules of gas are seen tracking superiorly into the right visceral deep neck space. 3. Resolved pneumomediastinum. 4. Stable small right pleural effusion with associated consolidative opacity in the right lower lung, favored atelectasis. 5. Unchanged lucent manubrial lesion, indeterminant. Again further evaluation with bone scan could be considered if clinically indicated. 6. Partially included central abdominal wall hernia containing fat and bowel. I have personally reviewed the examination and initial interpretation and I agree with the findings. SABRINA IBANEZ MD Narrative 10/07/2024 1:30 PM TRANSCRIBING OPERATOR HEAD CT CHEST W CONTRAST 10/07/2024 11:12 AM History: Esophageal perf in hypopharynx. PLEASE DO ESOPHAGRAM PROTOCOL IN WHICH PATIENT DRINKS DILUTE WATER SOLUBLE CONTRAST. Comparison: 10/02/2024 Technique: CT of the chest was obtained withintravenous and oral contrast. Axial, coronal, and sagittal reconstructions were obtained and reviewed. Contrast: iopamidol (ISOVUE-370) solution 100 mL, 50 mL oral Omnipaque Findings: Devices: Oesophageal stent spanning the mid to distal esophagus. Extensive debris in the stent. Mediastinum: Resolved pneumomediastinum. Lungs: No pneumothorax. Similar small right-sided pleural effusion with consolidative opacity of the right lower lobe. Scattered sub-6 mm pulmonary nodules, unchanged. Airways: Central tracheobronchial tree is clear. Vessels: Main pulmonary artery and aorta are normal in caliber. Common origin of the brachiocephalic and left common carotid. Heart: Heart size is normal without pericardial effusion. Lymph nodes: Multilevel paratracheal and paraesophageal lymph nodes. Thyroid: Within normal limits. Esophagus: Unchanged circumferential thickening of the mid to distal esophagus with stent in place. Focal 5 mm defect in the posterior upper thoracic esophagus (15/64) with air and oral contrast tracking down the paraesophageal soft tissues to the level of the upper mediastinum where there is a larger collection of air and fluid measuring 2.8 x 1.7 cm (15/119). There is additional scattered locules of air tracking into the right cervical visceral space. This inferior collection does not definitively communicate with the adjacent esophagus at this level. Upper abdomen: Postsurgical changes of gastric bypass with herniation of the gastric pouch through the diaphragmatic hiatus. Cholecystectomy. Simple attenuating partially exophytic right renal cyst. Partially included midline ventral abdominal wall hernia which contains a loop of small bowel. Possible parapelvic renal cysts. These are incompletely imaged. Pancreatic atrophy. Bones and soft tissues: No suspicious axillary lymphadenopathy or soft tissue mass. Stable lucent lesion within the manubrium (). Multilevel bridging anterior osteophytes. Procedure Note Sabrina Ibanez MD - 10/07/2024 CT CHEST W CONTRAST 10/07/2024 11:12 AM History: Esophageal perf in hypopharynx. PLEASE DO ESOPHAGRAM PROTOCOL IN WHICH PATIENT DRINKS DILUTE WATER SOLUBLE CONTRAST. Comparison: 10/02/2024 Technique: CT of the chest was obtained withintravenous and oral contrast. Axial, coronal, and sagittal reconstructions were obtained and reviewed. Contrast: iopamidol (ISOVUE-370) solution 100 mL, 50 mL oral Omnipaque Findings: Devices: Oesophageal stent spanning the mid to distal esophagus. Extensive debris in the stent. Mediastinum: Resolved pneumomediastinum. Lungs: No pneumothorax. Similar small right-sided pleural effusion with consolidative opacity of the right lower lobe. Scattered sub-6 mm pulmonary nodules, unchanged. Airways: Central tracheobronchial tree is clear. Vessels: Main pulmonary artery and aorta are normal in caliber. Common origin of the brachiocephalic and left common carotid. Heart: Heart size is normal without pericardial effusion. Lymph nodes: Multilevel paratracheal and paraesophageal lymph nodes. Thyroid: Within normal limits. Esophagus: Unchanged circumferential thickening of the mid to distal esophagus with stent in place. Focal 5 mm defect in the posterior upper thoracic esophagus (15/64) with air and oral contrast tracking down the paraesophageal soft tissues to the level of the upper mediastinum where there is a larger collection of air and fluid measuring 2.8 x 1.7 cm (15/119). There is additional scattered locules of air tracking into the right cervical visceral space. This inferior collection does not definitively communicate with the adjacent esophagus at this level. Upper abdomen: Postsurgical changes of gastric bypass with herniation of the gastric pouch through the diaphragmatic hiatus. Cholecystectomy. Simple attenuating partially exophytic right renal cyst. Partially included midline ventral abdominal wall hernia which contains a loop of small bowel. Possible parapelvic renal cysts. These are incompletely imaged. Pancreatic atrophy. Bones and soft tissues: No suspicious axillary lymphadenopathy or soft tissue mass. Stable lucent lesion within the manubrium (). Multilevel bridging anterior osteophytes. Impression: 1. Persistent 5 mm defect in the posterior esophagus with air tracking inferiorly, ultimately terminating in a collection of gas and fluid in the right upper mediastinum. This remains compatible with known esophageal perforation and contained leak. 2. Additional locules of gas are seen tracking superiorly into the right visceral deep neck space. 3. Resolved pneumomediastinum. 4. Stable small right pleural effusion with associated consolidative opacity in the right lower lung, favored atelectasis. 5. Unchanged lucent manubrial lesion, indeterminant. Again further evaluation with bone scan could be considered if clinically indicated. 6. Partially included central abdominal wall hernia containing fat and bowel. I have personally reviewed the examination and initial interpretation and I agree with the findings. SABRINA IBANEZ MD us Shellie Centeno MD IMG CT ORDERABLES Final R esult * (ABNORMAL) Basic metabolic panel (10/07/2024 5:51 AM TRANSCRIBING OPERATOR HEAD) Only the most recent of4 resultswithin the time period is included. Sodium 133(L) 135 - 145 mmol/L 10/07/2024 6:30 AM TRANSCRIBING OPERATOR HEAD [facility] Potassium 4.3 3.4 - 5.3 mmol/L 10/07/2024 6:30 AM TRANSCRIBING OPERATOR HEAD [facility] Chloride 101 98 - 107 mmol/L 10/07/2024 6:30 AM TRANSCRIBING OPERATOR HEAD [facility] Carbon Dioxide (CO2) 22 22 - 29 mmol/L 10/07/2024 6:30 AM TRANSCRIBING OPERATOR HEAD [facility] Anion Gap 10 7 - 15 mmol/L 10/07/2024 6:30 AM TRANSCRIBING OPERATOR HEAD [facility] Urea Nitrogen 19.4 8.0 - 23.0 mg/dL 10/07/2024 6:30 AM TRANSCRIBING OPERATOR HEAD [facility] Creatinine 0.77 0.51 - 0.95 mg/dL 10/07/2024 6:30 AM TRANSCRIBING OPERATOR HEAD [facility] GFR Estimate 80 >60 mL/min/1.7 3m2 10/07/2024 6:30 AM TRANSCRIBING OPERATOR HEAD [facility] Comment:eGFR calculated us2020 CKD-EPI equation. Calcium 8.6(L) 8.8 - 10.4 mg/dL 10/07/2024 6:30 AM TRANSCRIBING OPERATOR HEAD [facility] Comment:Reference intervals for this test were updated on 04/19/2024 to reflect our healthy population more accurately. There may be differences in the flagging of prior results with similar values performed with this method. Those prior results can be interpreted in the context of the updated reference intervals. Glucose 161(H) 70 - 99 mg/dL 10/07/2024 6:30 AM TRANSCRIBING OPERATOR HEAD [facility] Blood VENOUS LINE / Unknown VAD(CVC, PICC) / Unknown 10/07/2024 5:51 AM TRANSCRIBING OPERATOR HEAD 10/07/2024 6:00 AM TRANSCRIBING OPERATOR HEAD us Teresita Perez MD LAB - BLOOD ORDERABLES Final Result [facility] [place] [facility] [address] [facility], [address] [id number] * CT Chest/Abdomen/Pelvis w Contrast (10/02/2024 4:27 PM TRANSCRIBING OPERATOR HEAD) Anatomical Region Laterality Modality Abdomen/Pelvis, Chest, SUBRA D CT BODY, UMP CT CHEST, UMP CT ABDOMEN PELVIS, RAD CT Computed Tomography Impressions 10/06/2024 4:37 AM TRANSCRIBING OPERATOR HEAD IMPRESSION: Mild motion related artifact limits evaluation. 1. Masslike thickening of the mid to distal esophagus with esophageal stent in place, consistent with known esophageal malignancy. Small volume pneumomediastinum with mediastinal focal air and fluid collection adjacent to the mid-upper esophagus, likely sequelae of known esophageal perforation. collection is located proximal to the esophageal stent. 2. Postsurgical changes of gastric bypass with hiatal hernia and herniation of the gastric pouch. 2. Small to moderate right pleural effusion with associated right lower lobe atelectasis. 3. Indeterminate lucency in the manubrium and faint sclerosis seen along T11 vertebral body with areas of sclerosis and lucency seen in the lumbar spine. Consider correlation with prior imaging if available and/or bone scan, as clinically indicated. 4. Fat and bowel containing ventral hernias without evidence for obstruction. 5. Multiple borderline prominent paraesophageal lymph nodes, indeterminate reactive versus neoplastic 6. heterogeneous, cystic appearance of the cervix, differential includes prominent nabothian cysts. Consider pelvic ultrasound for further evaluation. 7. Sub-6 mm pulmonary nodule and few nodular groundglass densities in the right upper lung, consider attention on follow-up I have personally reviewed the examination and initial interpretation and I agree with the findings. 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 Also s/p RNY GBP surgery and lap amy. CT for planning of feeding access and possible esophageal conduit in the future COMPARISON STUDY: Chest radiograph 10/01/2024, outside CT chest abdomen pelvis 09/22/2024 (report only, images not available at time of dictation) TECHNIQUE: CT scan of the chest, abdomen and pelvis was performed on multidetector CT scanner using volumetric acquisition technique and images were reconstructed in multiple planes with variable thickness and reviewed on dedicated workstations. CONTRAST: 135ml isovue 370 injected IV without oral contrast CT scan radiation dose is optimized to minimum requisite dose using automated dose modulation techniques. FINDINGS: Images are interpreted by motion artifact in the mid abdomen. Lungs/pleura: Confluent right lower lobe opacities with homogeneous attenuation. Moderate right-sided pleural effusion. Central airways are patent. Millimeter nodule in the right upper lung (9/135) Mediastinum: Common origin of the brachiocephalic trunk and left common carotid artery, a common variant. Normal size of the great vessels. Small volume of pneumomediastinum, as well as small volume subcutaneous emphysema extending into the right supraclavicular soft tissues. Metallic stent present within the mid to distal esophagus. Small hiatal hernia. Irregular circumferential thickening of the mid to distal esophagus, as well as a focal area of fluid containing outpouching in the upper thoracic esophagus measuring approximately 2.5 x 2.2 cm (5/41). Multiple small paraesophageal lymph nodes are present. For example, there is a 1.0 cm anterior paraesophageal lymph node (5/100). Postsurgical changes of gastric bypass with hiatal hernia and herniation of the gastric pouch. Liver: No mass. Mild intrahepatic biliary ductal dilation. Biliary System: Gallbladder is surgically absent. Mild extrahepatic biliary dilation, gradually tapering within the pancreatic head, likely postcholecystectomy reservoir effect. Pancreas: No mass or pancreatic ductal dilation. Mild fatty atrophy of the pancreatic head and neck. Adrenal glands: No mass or nodules Spleen: Normal. Kidneys: Evaluation of the kidneys is degraded due to motion artifact. Simple fluid attenuating 2.6 cm right upper pole renal cysts. Numerous subcentimeter cortical hypodensities within the left kidney, too small to accurately characterize but likely renal cysts. Bilateral parapelvic cyst. Gastrointestinal tract: No high-grade bowel obstruction or appendicitis.. Postsurgical changes in the small bowel.. Mesentery/peritoneum/retroperitoneum: No mass. No free fluid or air. Lymph nodes: No significant lymphadenopathy. Vasculature: Patent major abdominal vasculature. Pelvis: Urinary bladder is normal. Small amount of fluid within the endometrial stripe. Adnexa are within normal limits. The appearance of multiple cystic structures within the cervix, the largest which measures 2.6 cm (5/352). Osseous structures: Multilevel degenerative changes of the spine. Indeterminate lucency in the manubrium (). Atherosclerotic changes seen along the posterior T11 vertebral body, indeterminate. Soft tissues: Small fat-containing umbilical hernia. Just above this, there is a fat-containing ventral hernia, as well as a fat and bowel containing hernia. Subcutaneous emphysema within the right supraclavicular soft tissues. No overt breast mass; however, mammogram is more sensitive for small breast lesions. 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 Also s/p RNY GBP surgery and lap amy. CT for planning of feeding access and possible esophageal conduit in the future COMPARISON STUDY: Chest radiograph 10/01/2024, outside CT chest abdomen pelvis 09/22/2024 (report only, images not available at time of dictation) TECHNIQUE: CT scan of the chest, abdomen and pelvis was performed on multidetector CT scanner using volumetric acquisition technique and images were reconstructed in multiple planes with variable thickness and reviewed on dedicated workstations. CONTRAST: 135ml isovue 370 injected IV without oral contrast CT scan radiation dose is optimized to minimum requisite dose using automated dose modulation techniques. FINDINGS: Images are interpreted by motion artifact in the mid abdomen. Lungs/pleura: Confluent right lower lobe opacities with homogeneous attenuation. Moderate right-sided pleural effusion. Central airways are patent. Millimeter nodule in the right upper lung (9/135) Mediastinum: Common origin of the brachiocephalic trunk and left common carotid artery, a common variant. Normal size of the great vessels. Small volume of pneumomediastinum, as well as small volume subcutaneous emphysema extending into the right supraclavicular soft tissues. Metallic stent present within the mid to distal esophagus. Small hiatal hernia. Irregular circumferential thickening of the mid to distal esophagus, as well as a focal area of fluid containing outpouching in the upper thoracic esophagus measuring approximately 2.5 x 2.2 cm (5/41). Multiple small paraesophageal lymph nodes are present. For example, there is a 1.0 cm anterior paraesophageal lymph node (5/100). Postsurgical changes of gastric bypass with hiatal hernia and herniation of the gastric pouch. Liver: No mass. Mild intrahepatic biliary ductal dilation. Biliary System: Gallbladder is surgically absent. Mild extrahepatic biliary dilation, gradually tapering within the pancreatic head, likely postcholecystectomy reservoir effect. Pancreas: No mass or pancreatic ductal dilation. Mild fatty atrophy of the pancreatic head and neck. Adrenal glands: No mass or nodules Spleen: Normal. Kidneys: Evaluation of the kidneys is degraded due to motion artifact. Simple fluid attenuating 2.6 cm right upper pole renal cysts. Numerous subcentimeter cortical hypodensities within the left kidney, too small to accurately characterize but likely renal cysts. Bilateral parapelvic cyst. Gastrointestinal tract: No high-grade bowel obstruction or appendicitis.. Postsurgical changes in the small bowel.. Mesentery/peritoneum/retroperitoneum: No mass. No free fluid or air. Lymph nodes: No significant lymphadenopathy. Vasculature: Patent major abdominal vasculature. Pelvis: Urinary bladder is normal. Small amount of fluid within the endometrial stripe. Adnexa are within normal limits. The appearance of multiple cystic structures within the cervix, the largest which measures 2.6 cm (5/352). Osseous structures: Multilevel degenerative changes of the spine. Indeterminate lucency in the manubrium (/86). Atherosclerotic changes seen along the posterior T11 vertebral body, indeterminate. Soft tissues: Small fat-containing umbilical hernia. Just above this, there is a fat-containing ventral hernia, as well as a fat and bowel containing hernia. Subcutaneous emphysema within the right supraclavicular soft tissues. No overt breast mass; however, mammogram is more sensitive for small breast lesions. IMPRESSION: Mild motion related artifact limits evaluation. 1. Masslike thickening of the mid to distal esophagus with esophageal stent in place, consistent with known esophageal malignancy. Small volume pneumomediastinum with mediastinal focal air and fluid collection adjacent to the mid-upper esophagus, likely sequelae of known esophageal perforation. collection is located proximal to the esophageal stent. 2. Postsurgical changes of gastric bypass with hiatal hernia and herniation of the gastric pouch. 2. Small to moderate right pleural effusion with associated right lower lobe atelectasis. 3. Indeterminate lucency in the manubrium and faint sclerosis seen along T11 vertebral body with areas of sclerosis and lucency seen in the lumbar spine. Consider correlation with prior imaging if available and/or bone scan, as clinically indicated. 4. Fat and bowel containing ventral hernias without evidence for obstruction. 5. Multiple borderline prominent paraesophageal lymph nodes, indeterminate reactive versus neoplastic 6. heterogeneous, cystic appearance of the cervix, differential includes prominent nabothian cysts. Consider pelvic ultrasound for further evaluation. 7. Sub-6 mm pulmonary nodule and few nodular groundglass densities in the right upper lung, consider attention on follow-up I have personally reviewed the examination and initial interpretation and I agree with the findings. BRANDI SOSA MD Hiren PADILLA CT ORDERABLES Final Resu lt * XR Surgery WERO L/T 5 Min Fluoro w Stills (10/02/2024 2:22 PM TRANSCRIBING OPERATOR HEAD) Narrative RADIANT - 10/02/2024 2:23 PM TRANSCRIBING OPERATOR HEAD This exam was marked as non-reportable because it will not be read by a radiologist or a [facility] non-radiologist provider. Pete PADILLA DIAGNOSTIC IMAGING ORDERABL ES Final Result RADIANT * ANE AIRWAY ETT PERFORMABLE (10/02/2024 12:16 PM TRANSCRIBING OPERATOR HEAD) Narrative Aleena Zhao APRN CATALOGUE LIBRARIAN - 10/02/2024 12:16 PM TRANSCRIBING OPERATOR HEAD Aleena Zhao APRN CATALOGUE LIBRARIAN 10/02/2024 12:29 PM Airway Patient location during procedure: OR Procedure Start/Stop Times: 10/02/2024 12:16 PM Staff - CATALOGUE LIBRARIAN: Aleena Zhao APRN CATALOGUE LIBRARIAN Performed By: CATALOGUE LIBRARIAN Consent for Airway Urgency: elective Indications and Patient Condition Indications for airway management: sis-procedural Induction type:intravenous Mask difficulty assessment: 1 - vent by mask Final Airway Details Final airway type: endotracheal airway Successful airway: ETT - single and Oral Endotracheal Airway Details ETT size (mm): 7.0 Cuffed: yes Successful intubation technique: direct laryngoscopy DL Blade Type: Campos 2 Grade View of Cords: 1 Adjucts: stylet Position: Right Measured from: gums/teeth Secured at (cm): 23 Bite block used: None Post intubation assessment Placement verified by: capnometry, equal breath sounds and chest rise Number of attempts at approach: 1 Number of other approaches attempted: 0 Secured with: tape Ease of procedure: easy Dentition: Intact and Unchanged Medication(s) Administered Medication Administration Time: 10/02/2024 12:16 PM Garrick Miramontes MD [place] ANESTHESIA Final Res ult * Adult Type and Screen (10/02/2024 11:52 AM TRANSCRIBING OPERATOR HEAD) ABO/RH(D) A POS 10/02/2024 11:44 AM TRANSCRIBING OPERATOR HEAD [facility] Antibody Screen Negative Negative 10/02/2024 11:44 AM TRANSCRIBING OPERATOR HEAD U BLOOD BANK SPECIMEN EXPIRATION DATE [id number] 10/02/2024 11:44 AM TRANSCRIBING OPERATOR HEAD U BLOOD BANK Blood BLOOD SPECIMEN / Unknown Venipuncture / Unknown 10/02/2024 11:52 AM TRANSCRIBING OPERATOR HEAD 10/02/2024 11:53 AM TRANSCRIBING OPERATOR HEAD Pete Norris MD LAB - BLOOD BANK TEST ORDER Fin al Result U BLOOD BANK [address] [place] [id number] * (ABNORMAL) TSH with free T4 reflex (10/02/2024 3:59 AM TRANSCRIBING OPERATOR HEAD) TSH 0.18(L) 0.30 - 4.20 uIU/mL 10/02/2024 5:08 AM TRANSCRIBING OPERATOR HEAD [facility] LAB[facility]AT[facility] Blood VENOUS LINE / Unknown VAD(CVC, PICC) / Unknown 10/02/2024 3:59 AM TRANSCRIBING OPERATOR HEAD 10/02/2024 4:29 AM TRANSCRIBING OPERATOR HEAD Hiren Garner MD LAB - BLOOD ORDERABLES Final Result U LABORATORY [facility] [place] [facility] Lab [address] [facility], [address] * (ABNORMAL) CRP inflammation (10/02/2024 3:59 AM TRANSCRIBING OPERATOR HEAD) CRP Inflammation 65.60(H) <5.00 mg/L 10/02/2024 5:08 AM TRANSCRIBING OPERATOR HEAD [facility] LAB[facility] Blood VENOUS LINE / Unknown VAD(CVC, PICC) / Unknown 10/02/2024 3:59 AM TRANSCRIBING OPERATOR HEAD 10/02/2024 4:29 AM TRANSCRIBING OPERATOR HEAD Hiren Garner MD LAB - BLOOD ORDERABLES Final Result Performing Organization Address City/[facility]/ZIP Co de Phone Number LABORATORY [facility] [address] [place] [address], [address] * XR Chest Port 1 View (10/01/2024 8:49 PM TRANSCRIBING OPERATOR HEAD) Anatomical Region Laterality Modality Chest Computed Radiogr aphy Impressions 10/01/2024 10:03 PM TRANSCRIBING OPERATOR HEAD Impression: 1. Right PICC terminates at the mid SVC. 2. No acute airspace disease. 3. Esophageal stent. I have personally reviewed the examination and initial interpretation and I agree with the findings. SUDHAKAR DSOUZA MD Narrative 10/01/2024 10:03 PM TRANSCRIBING OPERATOR HEAD Exam: XR CHEST PORT 1 VIEW, 10/01/2024 8:49 PM Comparison: None History: PICC placement confirmation Findings: Portable AP view of the chest. Right PICC terminates at the mid SVC. Mid to distal esophageal stenting. Metallic densities projected over the midline, and right chest wall, likely external to the patient. Trachea is approximately midline. Cardiac silhouette is within normal limits. No significant pleural effusion, focal consolidation, or appreciable pneumothorax. Procedure Note Sudhakar Dsouza MD - 10/01/2024 Exam: XR CHEST PORT 1 VIEW, 10/01/2024 8:49 PM Comparison: None History: PICC placement confirmation Findings: Portable AP view of the chest. Right PICC terminates at the mid SVC. Mid to distal esophageal stenting. Metallic densities projected over the midline, and right chest wall, likely external to the patient. Trachea is approximately midline. Cardiac silhouette is within normal limits. No significant pleural effusion, focal consolidation, or appreciable pneumothorax. Impression: 1. Right PICC terminates at the mid SVC. 2. No acute airspace disease. 3. Esophageal stent. I have personally reviewed the examination and initial interpretation and I agree with the findings. SUDHAKAR DSOUZA MD Chary Evans MD [facility] DIAGNOSTIC IMAGING ORDER DICK Final Result * Lactic Acid Whole Blood w/ 1x repeat in 2 hrs when >2 (10/01/2024 7:45 PM TRANSCRIBING OPERATOR HEAD) Lactic Acid, Initial 1.1 0.7 - 2.0 mmol/L 10/01/2024 8:06 PM TRANSCRIBING OPERATOR HEAD U LABORATORY Blood VENOUS LINE / Unknown VAD(CVC, PICC) / Unknown 10/01/2024 7:45 PM TRANSCRIBING OPERATOR HEAD 10/01/2024 8:02 PM TRANSCRIBING OPERATOR HEAD Pete Norris MD LAB - BLOOD ORDERABLES Final Re sult [facility] LABORATORY [facility] [place] [facility] [address] [facility], [address] [place] [address] * (ABNORMAL) Lipid panel reflex to direct LDL Fasting (06/22/2024 8:07 AM CDT) Cholesterol 198 <200 mg/dL 06/22/2024 4:44 PM CDT [facility] Triglycerides 133 <150 mg/dL 06/22/2024 4:44 PM CDT [facility] Direct Measure HDL 47(L) >=50 mg/dL 06/22/2024 4:44 PM CDT [facility] LDL Cholesterol Calculated 124(H) <100 mg/dL 06/22/2024 4:44 PM CDT [facility] LAB[facility] Non HDL Cholesterol 151(H) <130 mg/dL 06/22/2024 4:44 PM CDT [facility] Patient Fasting > 8hrs? Yes 06/22/2024 4:44 PM CDT [facility] Blood BLOOD SPECIMEN / Unknown Venipuncture / Unknown 06/22/2024 8:07 AM CDT 06/22/2024 8:07 AM CDT Narrative [facility] LAB[facility]ATORY - 06/22/2024 4:44 PM CDT Cholesterol Desirable: < 200 mg/dL Borderline High: 200 - 239 mg/dL High: >= 240 mg/dL Triglycerides Normal: < 150 mg/dL Borderline High: 150 - 199 mg/dL High: 200-499 mg/dL Very High: >= 500 mg/dL Direct Measure HDL Female: >= 50 mg/dL Male: >= 40 mg/dL LDL Cholesterol Desirable: < 100 mg/dL Above Desirable: 100 - 129 mg/dL Borderline High: 130 - 159 mg/dL High: 160 - 189 mg/dL Very High: >= 190 mg/dL Non HDL Cholesterol Desirable: < 130 mg/dL Above Desirable: 130 - 159 mg/dL Borderline High: 160 - 189 mg/dL High: 190 - 219 mg/dL Very High: >= 220 mg/dL us Isha Guadalupe MD LAB - BLOOD ORDERABLES Final Res ult [facility] LABORATORY [facility] [place] [facility] [address] [facility], [address] [place] [id number], [facility] * Vitamin B12 (06/22/2024 8:07 AM CDT) Pathologist [facility] Vitamin B12 520 232 - 1,245 pg/mL 06/22/2024 4:44 PM CDT U LABORATORY Blood BLOOD SPECIMEN / Unknown Venipuncture / Unknown 06/22/2024 8:07 AM CDT 06/22/2024 8:07 AM CDT Isha Guadalupe MD LAB - BLOOD ORDERABLES Final Res ult LABORATORY [facility] [place] [facility] [address] [facility], [address] [place] [phone] * MA Screen Bilateral w/Les (07/10/2022 11:09 AM CDT) Anatomical Region Laterality Modality Breast Bilateral Mammography Impressions 07/10/2022 3:42 PM CDT IMPRESSION: ACR BI-RADS Category 1: Negative RECOMMENDED FOLLOW-UP: Annual routine screening mammogram The results and recommendations of this examination will be communicated to the patient. Narrative 07/10/2022 3:42 PM CDT BILATERAL FULL FIELD DIGITAL SCREENING MAMMOGRAM WITH TOMOSYNTHESIS Performed on: 07/10/22 Compared to: 04/26/2018 and 02/14/2017 Technique: This study was evaluated with the assistance of Computer-Aided Detection. Breast Tomosynthesis was used in interpretation. Findings: The breasts have scattered areas of fibroglandular density. There is no radiographic evidence of malignancy. Beryl Betancur MD IMG MAMMOGRAPHY OR DERABLES Final Result * COLONOSCOPY - HIM SCAN (05/02/2019 12:00 AM CDT) 05/02/2019 Provider Outside PROCEDURES Final Result * (ABNORMAL) Fecal colorectal cancer screen FIT - Future (S+30) (12/05/2018 11:15 AM TRANSCRIBING OPERATOR HEAD) Pathologist [facility] Occult Blood Scn FIT Positive(A ) NEG^Negati ve 12/12/2018 1:[address] [facility] Stool specimen (specimen) 12/05/2018 11:15 AM TRANSCRIBING OPERATOR HEAD 12/12/2018 11:18 AM CDT us Felipa Scott MD LAB - STOOLS ORDERABLES Final Result [facility] [address] [place] [address] * DEXA HIP/PELVIS/SPINE - Future (04/27/2018 5:02 PM CDT) Anatomical Region Laterality Modality Dexa Bone Mineral Den sity Narrative 04/27/2018 6:04 PM CDT BONE DENSITOMETRY [address] [address] 04/27/2018 PATIENT: Chelle Lujan CHART: [id number] : 1950 AGE: [age] year old SEX: female REFERRING PROVIDER: Felipa Scott M.D. PROCEDURE: Bone density scanning was performed using DXA technology of the lumbar spine and hip. Scanning was performed on a SpeedDate scanner. Reporting is completed in the form of a T-score. The T-score represents the standard deviation from peak bone mass based on a young healthy adult. REFERENCE T-SCORES: Normal -1.0 and greater Osteopenia Between -1.0 and -2.5 Osteoporosis -2.5 and less RISK FACTORS: Post-menopausal, Condition related to bone loss: gastric bypass CURRENT TREATMENT: Calcium FINDINGS: Lumbar Spine (L1-L4) T-score: 0.3 Left Femoral Neck T-score: -1.4 Right Femoral Neck T-score: -1.3 Lumbar (L1-L4) BMD: 1.234 Previous: n/a Total Hip Mean BMD: 0.926 Previous: n/a IMPRESSION Osteopenia (low bone mass) Degenerative changes of the spine Recommendations include ensuring adequate daily Calcium and Vitamin D intake Follow up scan can be considered in three years. Current NOF guidelines recommend treatment for patients with the following: - Prior hip or vertebral fracture - T-score -2.5 or below - A 10 year risk of any major osteoporotic fracture >20% or 10 year risk of hip fracture >3%, as calculated using the FRAX calculator (www.shef.ac.uk/FRAX). This patient's risks with the use of FRAX (based on available information) are 8.6 % for major osteoporotic fracture and 1.0 % for hip fracture. Based on these guidelines, treatment (in addition to calcium and vitamin D) is not recommended for this patient. While this is meant as an aid to clinical decision-making, clinical judgment must still be used. EMILIANO GRANDA M.D. Felipa Scott MD IMG DEXA ORDERABLES Fin al Result * Hepatitis C Screen Reflex to HCV RNA Quant and Genotype (02/05/2017 2:59 PM CDT) Hepatitis C Antibody Nonreactive Assay performance characteristics have not been established for newborns, infants, and children NR [facility] Blood specimen (specimen) 02/05/2017 2:59 PM CDT 02/05/2017 3:00 PM CDT Felipa Scott MD LAB - BLOOD ORDERABLES Final Result [facility] [address] [place], [place] [address] from Last 3 Months or Most Recently Relevant to Health Maintenance Insurance [facility] MEDICARE ADVANTAGE [facility] MEDICARE ADVANTAGE Advance Directives For more information, please contact: [phone] * Full Code (Latest Code Status on File) Date Activated Date Inactivated Comments 10/01/2024 7:51 PM 10/08/2024 7:34 PM All basic an d advanced life-sustaining interventions are performed as appropriate Question Answer Comments Code status determined by: Discussion with patie nt/ legal decision maker * Full Code Date Activated Date Inactivated Comments 09/27/2015 6:41 AM 10/01/2024 6:51 PM * Full Code Date Activated Date Inactivated Comments 09/24/2015 5:13 PM 09/27/2015 6:41 AM Care Teams Refrigeration Operator Relationship Specialty [place] [address] [place] [address] PCP - General Family Medicine 10/02/24 [place] [address] [place] [address] Assigned PCP 08/29/[address] [facility] Registered Dietitian Dietitian 10/10/24 Adrianna Elizabeth APRN SPRAY DRIER OPERATOR [address] [place] [address] [address] [place] [address] Home Infusion Following Provider Cardiovascular & Thoracic Surgery 10/17/24
--- OUTSIDE RECORDS SUMMARY | 2024-10-17 20:03 | XMS_ITS | Encounter Summary ---
Author Organization [facility] Address [address] [place] [address] Care Team Providers Care Tanbark Laborer Name Role Phone Shawna Platt Hilary JACKSON Unavailable +- [phone] Jose A Sheikh MD Primary Care Provider + [phone] Reason for Visit * Home Infusion Authorization (Routine) - Authorized Specialty Diagnoses / Procedures Referred By Contterri t Referred To Contact Home Infusion and Injection Services [facility] [address] [place] [phone] Phone: tel: fax: Referral ID Status Reason Start Date Expiration Date V isits Requested Visits Authorized [id number] Authorized 10/06/2024 10/06/2025 [id number] Encounter Details Date Type Department Care Team (Late st Contact Info) Description 10/08/2024 7:00 PM SYSTEMS ENGINEER Home Care Visit [facility] [address] [place] [phone] Tiana Ayala RN Social History Tobacco Use Types Packs/Day Years [...] Answer Date Recorded Do you have housing? (Johanne barlow is defined as stable permanent housing and does not include staying ouside in a car, in a tent, in an abandoned building, in an overnight [place] [facility], or couch-surfing.) Yes 10/01/2024 Are you worried [...] on file Legal Sex Female 3:39 AM SYSTEMS ENGINEER Gender Identity Not on file Sexual Orientation Not on file documented as of this encounter Last Filed Vital Signs Vital Sign Reading Time Taken Comments Blood Pressure 144/62 10/08/2024 8:22 PM SYSTEMS ENGINEER Pulse 88 10/08/2024 8:22 PM SYSTEMS ENGINEER Temperature 36.3 C (97.3 F) 10/08/2024 8:22 PM SYSTEMS ENGINEER Respiratory Rate 20 10/08/2024 8:22 PM SYSTEMS ENGINEER Oxygen Saturation 94% 10/08/2024 8:22 PM SYSTEMS ENGINEER Inhaled Oxygen Concentration - - Weight - - Height - - Body Mass Index - - documented in this encounter Progress Notes * Tiana Ayala RN - 10/08/2024 11:05 PM CST Education Provided: Patient Education focused on TPN . Saline administered (in mLs): NA Next visit plan RN revisit 10/09/24 to cold storage supervisor TPN in am when missing supplies arrive to the home . Tiana Ayala RN 10/08/24 EMS ENGINEER documented in this encounter Plan of Treatment Upcoming Encounters Date Type Department Care Team (Late st Contact Info) Description 10/19/2024 9:30 AM SYSTEMS ENGINEER Virtual Visit [facility] [address] [place] [address] Adrianna Elizabeth APRN [facility] [address] [facility] [address] [place], [place] [phone] documented as of this encounter Visit Diagnoses Not on filedocumented in this encounter Care Teams Tanbark Laborer Relationship Specialty [place] [address] [facility] [place] [address] PCP - General Family Medicine 10/02/24 [place] [address] [place] [address] Assigned PCP 08/29/23 documented as of this encounter
--- OUTSIDE RECORDS SUMMARY | 2024-10-17 20:03 | XMS_ITS | Encounter Summary ---
Author Organization [facility] Address [address] [place] [address]. [place] [address] Care Team Providers Care Party Chief Name Role Phone Shawna Platt Hilary JACKSON Unavailable +- [phone] Jose A Sheikh MD Primary Care Provider + [phone] Encounter Details Date Type Department Care Team (Late st Contact Info) Description 10/09/2024 Transcribe Orders [facility] Services - Surgical Specialties Service Line [address] [place] [phone] Shellie Centeno MD [address] [place] [address] Social History Tobacco Use Types Packs/Day Years [...] Answer Date Recorded Do you have housing? 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 DISTRIBUTION SCHEME EXAMINER documented in this encounter Plan of Treatment Upcoming Encounters Date Type Department Care Team (Late st Contact Info) Description 10/19/2024 9:30 AM MAIL DISTRIBUTION SCHEME EXAMINER Virtual Visit [facility] [address] [facility] [place] [address] Adrianna Elizabeth, COMPOSITE WORKER [facility] [address] [address] documented as of this encounter Visit Diagnoses Not on filedocumented in this encounter Care Teams Party Chief Relationship Specialty [place] [address] [place] [address] PCP - General Family Medicine 10/02/24 [place] [address] [place] [address] Assigned PCP 08/29/23 documented as of this encounter
--- OUTSIDE RECORDS SUMMARY | 2024-10-17 20:03 | XMS_ITS | Encounter Summary ---
Author Organization [facility] Address [address] [place] [address] Care Team Providers Care Exhaust Equipment Operator Name Role Phone Shawna Platt Hilary JACKSON Unavailable +- [phone] Jose A Sheikh MD Primary Care Provider + [phone] Reason for Visit * Home Infusion Authorization (Routine) - Authorized Specialty Diagnoses / Procedures Referred By Contac t Referred To Contact Home Infusion and Injection Services [facility] [address] [place] [phone] Phone: tel: fax: Referral ID Status Reason Start Date Expiration Date V isits Requested Visits Authorized [id number] Authorized 10/06/2024 10/06/2025 [id number] Encounter Details Date Type Department Care Team (Late st Contact Info) Description 10/09/2024 9:00 AM [place] Home Care Visit [facility] [address] [place] [phone] Cynthia Maurer, RN Social History Tobacco Use Types Packs/Day [...] in an abandoned building, in an overnight fci, or couch-surfing.) Yes 10/01/2024 Are you worried [...] on file Legal Sex Female 3:39 AM [place] Gender Identity Not on file Sexual Orientation Not on file documented as of this encounter Progress Notes * Cynthia Maurer RN - 10/09/2024 10:10 AM CST Nursing Visit Note: Nurse visit today for Initiate TPN for Chelle Perryspencerjesusitakennedy. Window Glass Installer present during visit today: Not Applicable. Pr alert and oriented. TpN setup and initiated. Pt instructed on pump alarm and contacting [facility] if needed prior to SOC later today. Cynthia Maurer RN 10/09/2024 [place] MAR[place] documented in this encounter Plan of Treatment Upcoming Encounters Date Type Department Care Team (Late st Contact Info) Description 10/19/2024 9:30 AM [place] Virtual Visit [facility] [address] [facility] [place] [address] Adrianna Elizabeth, [facility] [address] [facility] [address] [place] [address] documented as of this encounter Visit Diagnoses Not on filedocumented in this encounter Care Teams Exhaust Equipment Operator Relationship Specialty [place] [address] [facility] [place] [address] PCP - General Family Medicine 10/02/24 [place] [address] [place] [address] Assigned PCP 08/29/23 documented as of this encounter
--- OUTSIDE RECORDS SUMMARY | 2024-10-17 20:03 | XMS_ITS | Encounter Summary ---
Author Organization [facility] Address [address] [place] [address] Care Team Providers Care Multimedia Author Name Role Phone Shawna Platt Hilary JACKSON Unavailable + [phone] Jose A Sheikh MD Primary Care Provider + [phone] Unavailable Unavailable Reason for Visit * Home Infusion Authorization (Routine) - Authorized Specialty Diagnoses / Procedures Referred By Aron t Referred To Contact Home Infusion and Injection Services [facility] [address] [place] [phone] Phone: tel: fax: Referral ID Status Reason Start Date Expiration Date V isits Requested Visits Authorized [id number] Authorized 10/06/2024 10/06/2025 [id number] Encounter Details Date Type Department Care Team (Late st Contact Info) Description 10/12/2024 2:00 PM ELECTRIC DOLLY OPERATOR Home Care Visit [facility] [address] [place] [phone] Sita Pittman RN Social History Tobacco Use Types Packs/Day [...] in an abandoned building, in an overnight half-way, or couch-surfing.) Yes 10/01/2024 Are you worried [...] on file Legal Sex Female 3:39 AM ELECTRIC DOLLY OPERATOR Gender Identity Not on file Sexual Orientation Not on file documented as of this encounter Last Filed Vital Signs Vital Sign Reading Time Taken Comments Blood Pressure 126/78 10/12/2024 3:16 PM ELECTRIC DOLLY OPERATOR Pulse 72 10/12/2024 3:16 PM ELECTRIC DOLLY OPERATOR Temperature 36.7 C (98 F) 10/12/2024 3:16 PM ELECTRIC DOLLY OPERATOR Respiratory Rate 18 10/12/2024 3:16 PM ELECTRIC DOLLY OPERATOR Oxygen Saturation 99% 10/12/2024 3:16 PM ELECTRIC DOLLY OPERATOR Inhaled Oxygen Concentration - - Weight - - Height - - Body Mass Index - - documented in this encounter Progress Notes * Sita Pittman RN - 10/12/2024 6:20 PM CST Education Provided: Patient Education focused on: Patient feels comfortable independently managing her antibiotic infusion every 8 hours and did not have any questions regarding this. kimberly Combs feels comfortable giving IVP levothyroxine and setting up TPN. Teaching today was for Jazmyn, family friend who is retired RN. Reviewed how to reconstitute and administer IVP levothyroxine. Jazmyn was able to perform successful teach back. Taught Jazmyn how to prepare TPN bag by adding vitamins, how to prime tubing and how to use CADD pump. She was able to follow all steps and set up TPN. Jazmyn feels comfortable setting up TPN and administering IVP levothyroxine when Lauryn is not available. Plan is for patient to start 12 hour TPN today. Lauryn or Jazmyn will come over late afternoon/early evening and give IVP levothyroxine and set up TPN. Patient will supervisor paint and start TPN at between [phone]. All questions answered. Saline administered (in mLs): 40 Next visit plan [facility] to take over nursing needs. Sita Pittman RN [facility] TRIC DOLLY OPERATOR TRIC DOLLY OPERATOR documented in this encounter Plan of Treatment Upcoming Encounters Date Type Department Care Team (Late st Contact Info) Description 10/19/2024 9:30 AM ELECTRIC DOLLY OPERATOR Virtual Visit [facility] [address] [facility] [place] [address] Adrianna Elizabeth APRN [facility] [address] [facility] [address] [place] [address] documented as of this encounter Visit Diagnoses Not on filedocumented in this encounter Care Teams Multimedia Author Relationship Specialty [place] [address] [place] [address] PCP - General Family Medicine 10/02/24 [place] [address] [place] [place] [address] Assigned PCP 08/29/[address] [facility] Registered Dietitian Dietitian 10/10/24 documented as of this encounter
--- OUTSIDE RECORDS SUMMARY | 2024-10-17 20:03 | XMS_ITS | Encounter Summary ---
Author Organization [facility] Address [address] [place] [address] Care Team Providers Care Used Car Make Ready Worker Name Role Phone Shawna Platt Hilary JACKSON Unavailable +- [phone] Jose A Sheikh MD Primary Care Provider + [phone] Reason for Visit * Home Infusion Authorization (Routine) - Authorized Specialty Diagnoses / Procedures Referred By Contterri t Referred To Contact Home Infusion and Injection Services [facility] [address] [place] [phone] Phone: tel: fax: Referral ID Status Reason Start Date Expiration Date V isits Requested Visits Authorized [id number] Authorized 10/06/2024 10/06/2025 [id number] Encounter Details Date Type Department Care Team (Late st Contact Info) Description 10/09/2024 2:30 PM ROUTE CDL DRIVER Home Care Visit [facility] [address] [place] [phone] Krista Harden RN Social History Tobacco Use Types Packs/Day [...] in an abandoned building, in an overnight longterm, or couch-surfing.) Yes 10/01/2024 Are you worried [...] on file Legal Sex Female 3:39 AM ROUTE CDL DRIVER Gender Identity Not on file Sexual Orientation Not on file documented as of this encounter Last Filed Vital Signs Vital Sign Reading Time Taken Comments Blood Pressure 128/82 10/09/2024 4:49 PM ROUTE CDL DRIVER Pulse 66 10/09/2024 4:49 PM ROUTE CDL DRIVER Temperature 36.2 C (97.1 F) 10/09/2024 4:49 PM ROUTE CDL DRIVER Respiratory Rate 18 10/09/2024 4:49 PM ROUTE CDL DRIVER Oxygen Saturation 99% 10/09/2024 4:49 PM ROUTE CDL DRIVER Inhaled Oxygen Concentration - - Weight - - Height - - Body Mass Index - - documented in this encounter Progress Notes * Krista Harden RN - 10/09/2024 10:46 PM CST CLC done at visit. Pt skin bruised from insertion but intact. PICC 8cm to hub, stat lock securementdevice from initial dressing left in place. E CDL DRIVER * Krista Harden RN - 10/09/2024 9:49 PM CST Education Provided: Patient Education focused on TPN, IV push levothyroxine and home pump zosyn Pt Lauryn harris, present for entire SNV and will be helping pt with home infusion medications. Pt and niece educated on TPN administration, adding multivitamins, CADD pump, pump alarms, SAS flushing,hand hygiene, scrubbing the hub, temp monitoring. Pt and niece also educated on levothyroxine reconstitution and IVP administration. Pt and niece also educated on HP abx administration. Pt is feeling very overwhelmed and expressed this. kimberly Combs, is also feeling overwhelmed. Per pt over the past few days there has been a lot of information and education. Pt and niece were given reassurance and told to call [facility] with any questions or concerns that come up between now and when the next nurse comes tomorrow. They were encouraged to write questions down and ask them during next visit or call. Pt feeling comfortable overnight and will call with questions or concerns. . Saline administered (in mLs): 100 Next visit plan SN[facility] tomorrow for 2nd TPN teach, IVP admin refresher and HP abx refresher. . Krista Harden RN 10/09/24 E CDL DRIVER documented in this encounter Plan of Treatment Upcoming Encounters Date Type Department Care Team (Late st Contact Info) Description 10/19/2024 9:30 AM ROUTE CDL DRIVER Virtual Visit [facility] [address] [place] [address] Adrianna Elizabeth APRN [facility] [address] [facility] [address] [place] [address] documented as of this encounter Visit Diagnoses Not on filedocumented in this encounter Care Teams Used Car Make Ready Worker Relationship Specialty Start [place] [address] [place] [address] PCP - General Family Medicine 10/02/24 [place] [address] [place] [address] Assigned PCP 08/29/23 documented as of this encounter
--- OUTSIDE RECORDS SUMMARY | 2024-10-17 20:03 | XMS_ITS | Referral Summary ---
Author Organization [facility] Address [address] [place] [address] Care Team Providers Care Logistics Analytics Manager Name Role Phone Shawna Platt Hilary JACKSON Unavailable +- [phone] Jose A Sheikh MD Primary Care Provider + [phone] Unavailable Unavailable Adrianna Elizabeth APRN IRON PILER Unavailable Encounters Date Type Department Care Team Description 10/14/2024 Travel 10/14/2024 7:45 AM BIOLOGICAL PHOTOGRAPHER Infusion Therapy Visit [facility] [address] [place] [phone] Adrianna Elizabeth APRN IRON PILER Esophageal perforation 10/14/2024 7:56 AM BIOLOGICAL PHOTOGRAPHER - 10/14/2024 11:59 PM BIOLOGICAL PHOTOGRAPHER Hospital Encounter [facility] [address] [place] [phone] Adrianna Elizabeth APRN IRON PILER Esophageal perforation Discharge Disposition: Home or Self Care 10/12/2024 2:00 PM BIOLOGICAL PHOTOGRAPHER Home Care Visit [facility] [address] [place] [phone] Sita Pittman RN 10/11/2024 Telephone [facility] [address] [place] [phone] Vince Powers MA 10/11/2024 2:30 PM BIOLOGICAL PHOTOGRAPHER Home Care Visit [facility] [address] [place] [phone] Karen Cr, RN 10/10/2024 Orders Only [facility] [address] [place] [phone] Cinthya Bearden LPN Esophageal perforation (Primary Dx) 10/10/2024 12:30 PM BIOLOGICAL PHOTOGRAPHER Home Care Visit [facility] [address] [place] [phone] Sita Pittman, RN 10/09/2024 Transcribe Orders [facility] - Surgical Specialties Service Line [facility] [place] [phone] Shellie Centeno MD 10/09/2024 9:00 AM BIOLOGICAL PHOTOGRAPHER Home Care Visit [facility] [address] [place] [phone] Cynthia Maurer, RN 10/09/2024 2:30 PM BIOLOGICAL PHOTOGRAPHER Home Care Visit [facility] [address] [place] [phone] Krista Harden, FRANCISCO 10/10/2024 Plan of Care Documentation [facility] [address] [place] [phone] 10/08/2024 Medical Correspondence [facility] [address] [place] [phone] Scan, Non-Provider RXHI- ORDERS 10/08/2024 7:00 PM BIOLOGICAL PHOTOGRAPHER Home Care Visit [facility] [address] [place] [phone] Tiana Ayala, FRANCISCO 10/01/2024 6:51 PM BIOLOGICAL PHOTOGRAPHER - 10/08/2024 5:34 PM BIOLOGICAL PHOTOGRAPHER Hospital Encounter [facility] 5A Oncology [address] [place] [address] Pete Norris MD Esophageal perforation (Primary Dx); Acquired hypothyroidism Discharge Disposition: Home or Self Care 10/06/2024 Home Infusion [facility] [address] [place] [address], [place] [phone] Karson Sal RN Esophageal perforation (Primary Dx); Acquired hypothyroidism 10/04/2024 2:50 PM BIOLOGICAL PHOTOGRAPHER Ancillary Procedure [facility] Imaging [address] [place] [phone] Alex Costa MD 10/02/2024 11:10 AM BIOLOGICAL PHOTOGRAPHER - 10/02/2024 2:55 PM BIOLOGICAL PHOTOGRAPHER Surgery [facility] [address] [place] [phone] Pete Norris MD Esophagoscopy, gastroscopy, duodenoscopy (EGD), combined with fluoroscopy 10/02/2024 11:57 AM BIOLOGICAL PHOTOGRAPHER [facility] [address] [place] [phone] Garrick Miramontes MD McCauley, Carter S, MD 09/12/[address] [phone] Coming Shawna Wills MD 08/16/[address] [phone] Coming Shawna Wills MD Medication Question 07/28/[address] [facility] [address] [place] [phone] Isha Guadalupe MD Prior Authorization (tirzepatide-Weight Management (ZEPBOUND) 2.5 MG/0.5ML prefilled pen) 07/26/2024 5:30 PM CDT Virtual Visit [facility] [address] [place] [phone] Isha Guadalupe MD Class 3 severe obesity due to excess calories with serious comorbidity and body mass index (BMI) of 45.0 to 49.9 in adult (H) from Last 3 Months Allergies Active Allergy Reactions Criticality Noted Date Comments Thiopental Rash Low 09/24/2015 Medications tirzepatide-Weig ht Management (ZEPBOUND) 2.5 MG/0.5ML prefilled penIndications:C lass 3 severe obesity due to excess calories with serious comorbidity and body mass index (BMI) of 45.0 to 49.9 in adult (H) Inject 0.5 mLs (2.5 mg) subcutaneously every 7 days. 2 mL Active Multiple Vitamin (INFUVITE ADULT) injectionIndicat ions:Esophageal perforation Add to infusion 10 mLs daily. Select 2 multivitamin vials, one of each color top. Draw up 5 mL from each vial and add to 1 TPN bag daily immediately prior to infusing. Discard remainder of vials. 3600 mL 10/11/19 6:00 PM BIOLOGICAL PHOTOGRAPHER 025 2025 Active sodium chloride, PF, 0.9% PF flushIndications :Esophageal perforation Inject 10 mLs into the vein as needed for line flush. Flush IV before and after medication administration as directed and/or at least every 24 hours. [id number] mL 10/11/19 25 6:00 PM BIOLOGICAL PHOTOGRAPHER 025 2025 Active Emergency Supply Kit, Central,Indicati ons:Esophageal perforation Patient use for emergency only. Contents: 3 sodium chloride 0.9% flushes, 1 dressing kit, 1 microclave ext set 14, 4 nitrile gloves (med), 6 alcohol prep pads, 1 bacitracin, 1 syringe (10 cc 20 G 1). Call to reorder. [id number] kit 10/08/19 25 6:14 PM BIOLOGICAL PHOTOGRAPHER 025 2025 Active levothyroxine (SYNTHROID) injectionIndicat ions:Acquired hypothyroidism Inject 2.5 mLs (50 mcg) over 5-10 minutes into the vein via push every 24 hours for 10 days. Reconstitute 100 mcg levothyroxine vial(s). Draw up levothyroxine 20 mcg/mL in a syringe and administer IV push. Discard remainder of vial. 5 each 10/11/19 25 6:00 PM BIOLOGICAL PHOTOGRAPHER 025 2024 Active sodium chloride, PF, 0.9% PF flushIndications :Acquired hypothyroidism Use 5 mLs for reconstitution every 24 hours for 10 days. Use 1 syringe (5 mL) to reconstitute each vial of levothyroxine 100 mcg. Shake until solution is clear. 50 mL 10/16/19 25 10:32 AM BIOLOGICAL PHOTOGRAPHER 025 2024 Active piperacillin sod-tazobactam (ZOSYN) 3.375 g in sodium chloride 0.9 % 100 mL via HOMEPUMPIndicati ons:Esophageal perforation Infuse 3.375 g over 30 minutes into the vein every 8 hours for 14 days. 448110 mL 10/17/19 1:23 PM BIOLOGICAL PHOTOGRAPHER 025 2024 Active parenteral nutrition - TNA - see order for formulaIndicatio ns:Esophageal perforation Infuse 1,900 mLs over 12 hours into the vein (central line) daily. Taper up for 1 Hours. Taper down for 1 Hours. TPN additives to be added prior to administration: Infuvite-Adult 10 mL daily. Plateau rate: 172.8 mL/hr. KVO: 5 mL/hr. 970296 mL 10/11/19 6:00 PM BIOLOGICAL PHOTOGRAPHER 025 2025 Active cyanocobalamin (VITAMIN B-12) 1000 [...] 1 Hours. Taper down for 1 Hours. 49877 mL 025 2024 Discontinued(D uplicate Therapy (No [...] Plateau rate: 111.8 mL/hr. KVO: 5 mL/hr. 166483 mL 10/08/19 25 6:14 PM BIOLOGICAL PHOTOGRAPHER 025 2024 Discontinued(R eorder (No AVS)) Active [...] updated by automated process. Provider to review Immunizations Name Administration Dates Next Due COVID-19 [...] 06/02/2011 Zoster recombinant adjuvante d (SHINGRIX) 05/21/2018,03/18/2018 Social History Tobacco Use Types Packs/Day Years [...] Date Recorded Do you have housing? (Johanne g is defined as stable permanent housing [...] on file Legal Sex Female 3:39 AM BIOLOGICAL PHOTOGRAPHER Gender Identity Not on file Sexual Orientation Not on file Last Filed Vital Signs Vital Sign Reading Time Taken Comments Blood Pressure 126/78 10/12/2024 3:16 PM BIOLOGICAL PHOTOGRAPHER Pulse 72 10/12/2024 3:16 PM BIOLOGICAL PHOTOGRAPHER Temperature 36.7 C (98 F) 10/12/2024 3:16 PM BIOLOGICAL PHOTOGRAPHER Respiratory Rate 18 10/12/2024 3:16 PM BIOLOGICAL PHOTOGRAPHER Oxygen Saturation 99% 10/12/2024 3:16 PM BIOLOGICAL PHOTOGRAPHER Inhaled Oxygen Concentration - - Weight 115.1 kg (253 lb 11.2 oz) 10/07/2024 9:15 AM BIOLOGICAL PHOTOGRAPHER Height 160 cm (5' 3) 06/09/2024 12:54 PM CDT Body Mass Index 44.94 06/09/2024 12:54 PM CDT Plan of Treatment Upcoming Encounters Date Type Department Care Team (Late st Contact Info) Description 10/19/2024 9:30 AM BIOLOGICAL PHOTOGRAPHER Virtual Visit [facility] [address] [place] [phone] Adrianna Elizabeth APRN [facility] [address] [address] Medical Devices Implanted Type Area Tool Grinder Set Up Operator Gear Device Identifier Shelf Expiration Date Model / Serial / Lot Bone Cement Radiopaque Simplex Hv Full Dose 6194-1-001 Implanted:Qty: 2 on 09/24/2015 by Jake Degroot MD at [facility] Right: Knee [employer] 01/03/2016 6194-1-001 / / [id number] Patella Medialized Implanted:Qty: 1 on 09/24/2015 by Jake Degroot MD at [facility] Right: Knee 02/02/2020 1518-20-035 / / [id number] Femoral Posterior Stabilized Implanted:Qty: 1 on 09/24/2015 by Jake Degroot MD at [facility] Right: Knee 05/04/2025 [id number] / / [id number] Tibial Base Fixed Bearing Implanted:Qty: 1 on 09/24/2015 by Jake Degroot MD at [facility] Right: Knee 06/04/2025 [id number] / / [id number] Imp Insert Jj Attune Post Stab Fx Br Sys Sz5 10mm [id number] Implanted:Qty: 1 on 09/24/2015 by Jake Degroot MD at [facility] Right: Knee [employer] 05/03/2018 [id number] / / [id number] Procedures Procedure Name Priority Date/Time Associated Diagnosis Comments XR ESOPHAGRAM SINGLE CONTRAST Routine 10/14/2024 9:03 AM BIOLOGICAL PHOTOGRAPHER Esophageal perforation PREALBUMIN Routine 10/14/2024 7:42 AM BIOLOGICAL PHOTOGRAPHER Esophageal perforation COMPREHENSIVE METABOLIC PANEL Routine 10/14/2024 7:42 AM BIOLOGICAL PHOTOGRAPHER Esophageal perforation CBC WITH PLATELETS Routine 10/14/2024 7: 42 AM BIOLOGICAL PHOTOGRAPHER Esophageal perforation CBC WITH PLATELETS & DIFFERENTIAL Routine 10/10/2024 2:30 PM BIOLOGICAL PHOTOGRAPHER Perforation of esophagus CBC WITH PLATELETS AND DIFFERENTIAL Routine 10/10/2024 2:30 PM BIOLOGICAL PHOTOGRAPHER Perforation of esophagus TRIGLYCERIDES Routine 10/10/2024 2:30 PM BIOLOGICAL PHOTOGRAPHER Perforation of esophagus PHOSPHORUS Routine 10/10/2024 2:30 PM BIOLOGICAL PHOTOGRAPHER Perforation of esophagus COMPREHENSIVE METABOLIC PANEL Routine 10/10/2024 2:30 PM BIOLOGICAL PHOTOGRAPHER Perforation of esophagus BILIRUBIN DIRECT Routine 10/10/2024 2:30 PM BIOLOGICAL PHOTOGRAPHER Perforation of esophagus MAGNESIUM Routine 10/10/2024 2:30 PM BIOLOGICAL PHOTOGRAPHER Perforation of esophagus THYROID PEROXIDASE ANTIBODY Routine 10/08/2024 11:58 AM BIOLOGICAL PHOTOGRAPHER T4 FREE Add-On 10/08/2024 2:10 AM BIOLOGICAL PHOTOGRAPHER TSH Add-On 10/08/2024 2:10 AM BIOLOGICAL PHOTOGRAPHER BILIRUBIN DIRECT Routine 10/08/2024 2:10 AM BIOLOGICAL PHOTOGRAPHER INR Routine 10/08/2024 2:10 AM BIOLOGICAL PHOTOGRAPHER PHOSPHORUS Routine 10/08/2024 2:10 AM BIOLOGICAL PHOTOGRAPHER MAGNESIUM Routine 10/08/2024 2:10 AM BIOLOGICAL PHOTOGRAPHER COMPREHENSIVE METABOLIC PANEL Routine 10/08/2024 2:10 AM BIOLOGICAL PHOTOGRAPHER CBC WITH PLATELETS Routine 10/08/2024 2: 10 AM BIOLOGICAL PHOTOGRAPHER GLUCOSE BY METER Routine 10/08/2024 12:0 9 AM BIOLOGICAL PHOTOGRAPHER GLUCOSE BY METER Routine 10/07/2024 1:[address] CHEST W CONTRAST Routine 10/07/2024 1 1:12 AM BIOLOGICAL PHOTOGRAPHER BASIC METABOLIC PANEL Routine 10/07/2024 5:51 AM BIOLOGICAL PHOTOGRAPHER CBC WITH PLATELETS Routine 10/07/2024 5: 51 AM BIOLOGICAL PHOTOGRAPHER PHOSPHORUS Routine 10/07/2024 5:51 AM BIOLOGICAL PHOTOGRAPHER MAGNESIUM Routine 10/07/2024 5:51 AM BIOLOGICAL PHOTOGRAPHER GLUCOSE BY METER Routine 10/07/2024 3:08 AM BIOLOGICAL PHOTOGRAPHER GLUCOSE BY METER Routine 10/06/2024 8:37 PM BIOLOGICAL PHOTOGRAPHER GLUCOSE BY METER Routine 10/06/2024 3:36 PM BIOLOGICAL PHOTOGRAPHER GLUCOSE BY METER Routine 10/06/2024 12:0 1 PM BIOLOGICAL PHOTOGRAPHER GLUCOSE BY METER Routine 10/06/2024 3:54 AM BIOLOGICAL PHOTOGRAPHER BASIC METABOLIC PANEL Routine 10/06/2024 3:40 AM BIOLOGICAL PHOTOGRAPHER CBC WITH PLATELETS Routine 10/06/2024 3: 40 AM BIOLOGICAL PHOTOGRAPHER GLUCOSE BY METER Routine 10/05/2024 9:10 PM BIOLOGICAL PHOTOGRAPHER GLUCOSE BY METER Routine 10/05/2024 3:43 PM BIOLOGICAL PHOTOGRAPHER GLUCOSE BY METER Routine 10/05/2024 9:06 AM BIOLOGICAL PHOTOGRAPHER GLUCOSE BY METER Routine 10/05/2024 3:15 AM BIOLOGICAL PHOTOGRAPHER BASIC METABOLIC PANEL Routine 10/05/2024 3:05 AM BIOLOGICAL PHOTOGRAPHER CBC WITH PLATELETS Routine 10/05/2024 3: 05 AM BIOLOGICAL PHOTOGRAPHER PHOSPHORUS Routine 10/05/2024 3:05 AM BIOLOGICAL PHOTOGRAPHER MAGNESIUM Routine 10/05/2024 3:05 AM BIOLOGICAL PHOTOGRAPHER GLUCOSE BY METER Routine 10/04/2024 10:1 3 PM BIOLOGICAL PHOTOGRAPHER GLUCOSE BY METER Routine 10/04/2024 4:04 PM BIOLOGICAL PHOTOGRAPHER CBC WITH PLATELETS Routine 10/04/2024 10 :55 AM BIOLOGICAL PHOTOGRAPHER GLUCOSE BY METER Routine 10/04/2024 10:2 5 AM BIOLOGICAL PHOTOGRAPHER PHOSPHORUS Routine 10/04/2024 3:58 AM BIOLOGICAL PHOTOGRAPHER MAGNESIUM Routine 10/04/2024 3:58 AM BIOLOGICAL PHOTOGRAPHER BASIC METABOLIC PANEL Routine 10/04/2024 3:58 AM BIOLOGICAL PHOTOGRAPHER GLUCOSE BY METER Routine 10/04/2024 3:20 AM BIOLOGICAL PHOTOGRAPHER GLUCOSE BY METER Routine 10/03/2024 9:19 PM BIOLOGICAL PHOTOGRAPHER GLUCOSE BY METER Routine 10/03/2024 3:07 PM BIOLOGICAL PHOTOGRAPHER GLUCOSE BY METER Routine 10/03/2024 8:41 AM BIOLOGICAL PHOTOGRAPHER TRIGLYCERIDES Routine 10/03/2024 2:30 AM BIOLOGICAL PHOTOGRAPHER BILIRUBIN DIRECT Routine 10/03/2024 2:29 AM BIOLOGICAL PHOTOGRAPHER PREALBUMIN Routine 10/03/2024 2:29 AM BIOLOGICAL PHOTOGRAPHER INR Routine 10/03/2024 2:29 AM BIOLOGICAL PHOTOGRAPHER COMPREHENSIVE METABOLIC PANEL Routine 10/03/2024 2:29 AM BIOLOGICAL PHOTOGRAPHER PHOSPHORUS Routine 10/03/2024 2:29 AM BIOLOGICAL PHOTOGRAPHER MAGNESIUM Routine 10/03/2024 2:29 AM BIOLOGICAL PHOTOGRAPHER GLUCOSE BY METER Routine 10/03/2024 12:4 [address] CHEST/ABDOMEN/PELVIS W CONTRAST Routine 10/02/2024 4:27 PM BIOLOGICAL PHOTOGRAPHER XR SURGERY WERO FLUORO LESS THAN 5 MIN W STILLS Routine 10/02/2024 2:22 PM BIOLOGICAL PHOTOGRAPHER GLUCOSE BY METER Routine 10/02/2024 1:17 PM BIOLOGICAL PHOTOGRAPHER ANE AIRWAY ETT PERFORMABLE Routine 10/02/2024 12:16 PM BIOLOGICAL PHOTOGRAPHER ABO/RH TYPE AND SCREEN STAT 10/02/2024 11:52 AM BIOLOGICAL PHOTOGRAPHER TYPE AND SCREEN, ADULT STAT 10/02/2024 11:52 AM BIOLOGICAL PHOTOGRAPHER UGI ENDOSCOPY DIAG W OR W/O BRUSH/WASH 10/02/2024 11:40 AM BIOLOGICAL PHOTOGRAPHER Esophageal perforation GLUCOSE BY METER Routine 10/02/2024 5:28 AM BIOLOGICAL PHOTOGRAPHER T4 FREE Routine 10/02/2024 3:59 AM BIOLOGICAL PHOTOGRAPHER BILIRUBIN DIRECT Routine 10/02/2024 3:59 AM BIOLOGICAL PHOTOGRAPHER PREALBUMIN Routine 10/02/2024 3:59 AM BIOLOGICAL PHOTOGRAPHER INR Routine 10/02/2024 3:59 AM BIOLOGICAL PHOTOGRAPHER PHOSPHORUS Routine 10/02/2024 3:59 AM BIOLOGICAL PHOTOGRAPHER MAGNESIUM Routine 10/02/2024 3:59 AM BIOLOGICAL PHOTOGRAPHER COMPREHENSIVE METABOLIC PANEL Routine 10/02/2024 3:59 AM BIOLOGICAL PHOTOGRAPHER TSH WITH FREE T4 REFLEX Routine 10/02/2024 3:59 AM BIOLOGICAL PHOTOGRAPHER CRP INFLAMMATION Routine 10/02/2024 3:59 AM BIOLOGICAL PHOTOGRAPHER CBC WITH PLATELETS Routine 10/02/2024 3: 59 AM BIOLOGICAL PHOTOGRAPHER COMPREHENSIVE METABOLIC PANEL Routine 10/01/2024 9:01 PM BIOLOGICAL PHOTOGRAPHER CBC WITH PLATELETS Routine 10/01/2024 9: 01 PM BIOLOGICAL PHOTOGRAPHER XR CHEST PORT 1 VIEW Routine 10/01/2024 8:49 PM BIOLOGICAL PHOTOGRAPHER LACTIC ACID WHOLE BLOOD WITH 1X REPEAT IN 2 HR WHEN >2 STAT 10/01/2024 7:45 PM BIOLOGICAL PHOTOGRAPHER VITAMIN B12 Routine 06/22/2024 8:07 AM CDT H/O gastric bypass LIPID REFLEX TO DIRECT LDL PANEL Routine 06/22/2024 8:07 AM CDT Dyslipidemia MA SCREENING BILATERAL W/ LES Routine 07/10/2022 11:09 AM CDT Visit for screening mammogram COLONOSCOPY - HIM SCAN 05/02/2019 12:00 AM CDT FECAL COLORECTAL CANCER SCREEN FIT Routine 12/05/2018 11:15 AM BIOLOGICAL PHOTOGRAPHER obesity (H) DX BONE DENSITY Routine 04/27/2018 5:02 PM CDT Asymptomatic postmenopausal status HEPATITIS C SCREEN REFLEX TO HCV RNA QUANT AND GENOTYPE Routine 02/05/2017 2:59 PM CDT Need for hepatitis C screening test from Last 3 Months or Most Recently Relevant to Health Maintenance Results * XR ESOPHAGRAM SINGLE CONTRAST (10/14/2024 9:03 AM BIOLOGICAL PHOTOGRAPHER) Anatomical Region Laterality Modality Chest, Abdomen/Pelvis Radio Fluo roscopy 10/14/2024 9:03 AM BIOLOGICAL PHOTOGRAPHER Impressions 10/14/2024 10:19 AM BIOLOGICAL PHOTOGRAPHER IMPRESSION: 1. No definite leak. Of note, the previously noted mediastinal gas and fluid collection is not assessed by this study. 2. Similar mid/distal esophageal stent. 3. Right PICC tip projects over the mid/proximal subclavian vein, similar to prior. Narrative 10/14/2024 10:19 AM BIOLOGICAL PHOTOGRAPHER EXAM: XR ESOPHAGRAM SINGLE CONTRAST LOCATION: [facility] DATE: 10/14/2024 INDICATION: Esophageal perforation COMPARISON: CT chest 10/07/2024. TECHNIQUE: Routine. RADIATION DOSE: Total Air Kerma 75.4 mGy FINDINGS: ESOPHAGUS: Preprocedural rn documentation specialist film demonstrates mid/distal esophageal stent. Trace right [...] 10/14/2024 EXAM: XR ESOPHAGRAM SINGLE CONTRAST LOCATION: [facility] DATE: 10/14/2024 INDICATION: Esophageal perforation COMPARISON: CT chest 10/07/2024. TECHNIQUE: Routine. RADIATION DOSE: Total Air Kerma 75.4 mGy FINDINGS: ESOPHAGUS: Preprocedural rn documentation specialist film demonstrates mid/distal esophagealstent. Trace right basilar [...] mid/proximal subclavian vein, similarto prior. Adrianna Elizabeth APRN IRON PILER IMG DIAGNOSTIC IMAGING ORDERABLES Final Result * (ABNORMAL) Prealbumin (10/14/2024 7:42 AM BIOLOGICAL PHOTOGRAPHER) Only the most recent of3 resultswithin the time period is included. Prealbumin 17.2(L) 20.0 - 40.0 mg/dL 10/14/2024 11:45 AM BIOLOGICAL PHOTOGRAPHER [facility] Blood STRUCTURE OF RIGHT UPPER LIMB / Unknown Venipuncture / Unknown 10/14/2024 7:42 AM BIOLOGICAL PHOTOGRAPHER 10/14/2024 7:51 AM BIOLOGICAL PHOTOGRAPHER Adrianna Elizabeth LICENSED MASSAGE THERAPIST IRON PILER LAB - BLOOD OR DERABLES Final Result [facility] [address] [facility], [address] [place] [address] * (ABNORMAL) Comprehensive metabolic panel (10/14/2024 7:42 AM BIOLOGICAL PHOTOGRAPHER) Only the most recent of6 resultswithin the time period is included. Sodium 134(L) 135 - 145 mmol/L 10/14/2024 8:21 AM [facility] Potassium 4.5 3.4 - 5.3 mmol/L 10/14/2024 8:21 AM [facility] Carbon Dioxide (CO2) 21(L) 22 - 29 mmol/L 10/14/2024 8:21 AM [facility] Anion Gap 14 7 - 15 mmol/L 10/14/2024 8:21 AM [facility] Urea Nitrogen 22.2 8.0 - 23.0 mg/dL 10/14/2024 8:21 AM [facility] Creatinine 0.71 0.51 - 0.95 mg/dL 10/14/2024 8:21 AM [facility] GFR Estimate 88 >60 mL/min/1.7 3m2 10/14/2024 8:21 AM [facility] Comment:eGFR calculated 2020 CKD-EPI equation. Calcium 8.9 8.8 - 10.4 mg/dL 10/14/2024 8:21 AM [facility] Comment:Reference intervals for this test were updated on 04/19/2024 to reflect our healthy population more accurately. There may be differences in the flagging of prior results with similar values performed with this method. Those prior results can be interpreted in the context of the updated reference intervals. Chloride 99 98 - 107 mmol/L 10/14/2024 8:21 AM [facility] Glucose 119(H) 70 - 99 mg/dL 10/14/2024 8:21 AM [facility] Alkaline Phosphatase 158(H) 40 - 150 U/L 10/14/2024 8:21 AM [facility] AST 35 0 - 45 U/L 10/14/2024 8:21 AM [facility] ALT 43 0 - 50 U/L 10/14/2024 8:21 AM [facility] Protein Total 6.5 6.4 - 8.3 g/dL 10/14/2024 8:21 AM [facility] Albumin 3.5 3.5 - 5.2 g/dL 10/14/2024 8:21 AM BIOLOGICAL PHOTOGRAPHER [facility] Bilirubin Total 0.3 <=1.2 mg/dL 10/14/2024 8:21 AM BIOLOGICAL PHOTOGRAPHER [facility] Blood STRUCTURE OF RIGHT UPPER LIMB / Unknown Venipuncture / Unknown 10/14/2024 7:42 AM BIOLOGICAL PHOTOGRAPHER 10/14/2024 7:51 AM BIOLOGICAL PHOTOGRAPHER Adrianna Elizabeth LICENSED MASSAGE THERAPIST IRON PILER LAB - BLOOD OR DERABLES Final Result [facility] [address] Lab (1st floor, no room number) [place] [address], [place] * CBC with platelets (10/14/2024 7:42 AM BIOLOGICAL PHOTOGRAPHER) Only the most recent of8 resultswithin the time period is included. WBC Count 7.2 4.0 - 11.0 10e3/uL 10/14/2024 7:58 AM BIOLOGICAL PHOTOGRAPHER [facility] RBC Count 4.51 3.80 - 5.20 10e6/uL 10/14/2024 7:58 AM BIOLOGICAL PHOTOGRAPHER [facility] Hemoglobin 12.9 11.7 - 15.7 g/dL 10/14/2024 7:58 AM BIOLOGICAL PHOTOGRAPHER [facility] Hematocrit 39.4 35.0 - 47.0 % 10/14/2024 7:58 AM BIOLOGICAL PHOTOGRAPHER [facility] MCV 87 78 - 100 fL 10/14/2024 7:58 AM BIOLOGICAL PHOTOGRAPHER [facility] MCH 28.6 26.5 - 33.0 pg 10/14/2024 7:58 AM BIOLOGICAL PHOTOGRAPHER [facility] MCHC 32.7 31.5 - 36.5 g/dL 10/14/2024 7:58 AM BIOLOGICAL PHOTOGRAPHER [facility] RDW 13.9 10.0 - 15.0 % 10/14/2024 7:58 AM BIOLOGICAL PHOTOGRAPHER [facility] Platelet Count 245 150 - 450 10e3/uL 10/14/2024 7:58 AM BIOLOGICAL PHOTOGRAPHER [facility] Blood STRUCTURE OF RIGHT UPPER LIMB / Unknown Venipuncture / Unknown 10/14/2024 7:42 AM BIOLOGICAL PHOTOGRAPHER 10/14/2024 7:51 AM BIOLOGICAL PHOTOGRAPHER us Adrianna Langberg LICENSED MASSAGE THERAPIST IRON PILER LAB - BLOOD OR DERABLES Final Result [facility] [address] Lab (1st floor, no room number) [place] [address], [facility] * (ABNORMAL) CBC with platelets and differential (10/10/2024 2:30 PM BIOLOGICAL PHOTOGRAPHER) WBC Count 9.1 4.0 - 11.0 10e3/uL 10/10/2024 5:23 PM BIOLOGICAL PHOTOGRAPHER [facility] RBC Count 4.65 3.80 - 5.20 10e6/uL 10/10/2024 5:23 PM BIOLOGICAL PHOTOGRAPHER [facility] Hemoglobin 12.9 11.7 - 15.7 g/dL 10/10/2024 5:23 PM BIOLOGICAL PHOTOGRAPHER [facility] Hematocrit 41.1 35.0 - 47.0 % 10/10/2024 5:23 PM BIOLOGICAL PHOTOGRAPHER [facility] MCV 88 78 - 100 fL 10/10/2024 5:23 PM BIOLOGICAL PHOTOGRAPHER [facility] MCH 27.7 26.5 - 33.0 pg 10/10/2024 5:23 PM BIOLOGICAL PHOTOGRAPHER [facility] MCHC 31.4(L) 31.5 - 36.5 g/dL 10/10/2024 5:23 PM BIOLOGICAL PHOTOGRAPHER [facility] RDW 13.8 10.0 - 15.0 % 10/10/2024 5:23 PM BIOLOGICAL PHOTOGRAPHER [facility] Platelet Count 194 150 - 450 10e3/uL 10/10/2024 5:23 PM BIOLOGICAL PHOTOGRAPHER [facility] % Neutrophils 71 % 10/10/2024 5:23 PM BIOLOGICAL PHOTOGRAPHER [facility] % Lymphocytes 15 % 10/10/2024 5:23 PM BIOLOGICAL PHOTOGRAPHER [facility] % Monocytes 8 % 10/10/2024 5:23 PM BIOLOGICAL PHOTOGRAPHER [facility] % Eosinophils 6 % 10/10/2024 5:23 PM BIOLOGICAL PHOTOGRAPHER [facility] % Basophils 1 % 10/10/2024 5:23 PM BIOLOGICAL PHOTOGRAPHER [facility] % Immature Granulocytes 1 % 10/10/2024 5:23 PM BIOLOGICAL PHOTOGRAPHER [facility] NRBCs per 100 WBC 0 <1 /100 025 5:23 PM BIOLOGICAL PHOTOGRAPHER [facility] Absolute Neutrophils 6.4 1.6 - 8.3 10e3/uL 10/10/2024 5:23 PM BIOLOGICAL PHOTOGRAPHER [facility] Absolute Lymphocytes 1.3 0.8 - 5.3 10e3/uL 10/10/2024 5:23 PM BIOLOGICAL PHOTOGRAPHER LABORATORY Absolute Monocytes 0.7 0.0 - 1.3 10e3/uL 10/10/2024 5:23 PM [employer] [facility] Absolute Eosinophils 0.5 0.0 - 0.7 10e3/uL 10/10/2024 5:23 PM [employer] [facility] Absolute Basophils 0.1 0.0 - 0.2 10e3/uL 10/10/2024 5:23 PM [employer] LAB[facility]AT[facility] Absolute Immature Granulocytes 0.1 <=0.4 10e3/uL 10/10/2024 5:23 PM [employer] LABORATORY Absolute NRBCs 0.0 10e3/uL 10/10/2024 5:23 PM BIOLOGICAL PHOTOGRAPHER LABORATORY Blood BLOOD SPECIMEN / Unknown Client Draw / Unknown 10/10/2024 2:30 PM BIOLOGICAL PHOTOGRAPHER 10/10/2024 4:45 PM BIOLOGICAL PHOTOGRAPHER us Jose A Sheikh MD LAB - BLOOD ORDERABLES Final Result LABORATORY [facility] [address] Lab (1st floor, no room number) [place] [address], [place] * (ABNORMAL) Triglycerides (10/10/2024 2:30 PM BIOLOGICAL PHOTOGRAPHER) Only the most recent of2 resultswithin the time period is included. Triglycerides 191(H) <150 mg/dL 10/10/2024 9:51 PM BIOLOGICAL PHOTOGRAPHER [facility] LABORATORY Comment: 2-9 years: Desirable: < 75 mg/dL Borderline High: 75-99 mg/dL High: >= 100 mg/dL 10-19 years: Desirable: < 90 mg/dL Borderline High: 90-129 mg/dL High: >= 130 mg/dL 20 years and older: Desirable: < 150 mg/dL Borderline High: 150-199 mg/dL High: 200-499 mg/dL Very High: >= 500 mg/dL Patient Fasting > 8hrs? Unknown 10/10/2024 9:51 PM BIOLOGICAL PHOTOGRAPHER LABORATORY Blood BLOOD SPECIMEN / Unknown Client Draw / Unknown 10/10/2024 2:30 PM BIOLOGICAL PHOTOGRAPHER 10/10/2024 4:45 PM BIOLOGICAL PHOTOGRAPHER Jose A Sheikh MD LAB - BLOOD ORDERABLES Final Result U LABORATORY [facility] [place] [facility] [address] [facility] [address], [address] [place] [address], [place] RH LABORATORY [facility] [address] Lab (1st floor, no room number) [place] [address] * Phosphorus (10/10/2024 2:30 PM BIOLOGICAL PHOTOGRAPHER) Only the most recent of7 resultswithin the time period is included. Phosphorus 2.8 2.5 - 4.5 mg/dL 10/10/2024 5:31 PM BIOLOGICAL PHOTOGRAPHER RH LABORATORY Blood BLOOD SPECIMEN / Unknown Client Draw / Unknown 10/10/2024 2:30 PM BIOLOGICAL PHOTOGRAPHER 10/10/2024 4:45 PM BIOLOGICAL PHOTOGRAPHER us Jose A Sheikh MD LAB - BLOOD ORDERABLES Final Result Performing Organization Address City/[facility]/ZIP Co de Phone Number [facility] Lab [address] Lab (1st floor, no room number) [place] [address] * Magnesium (10/10/2024 2:30 PM BIOLOGICAL PHOTOGRAPHER) Only the most recent of7 resultswithin the time period is included. Magnesium 2.1 1.7 - 2.3 mg/dL 10/10/2024 5:31 PM BIOLOGICAL PHOTOGRAPHER RH LABORATORY Blood BLOOD SPECIMEN / Unknown Client Draw / Unknown 10/10/2024 2:30 PM BIOLOGICAL PHOTOGRAPHER 10/10/2024 4:45 PM BIOLOGICAL PHOTOGRAPHER us Jose A Sheikh MD LAB - BLOOD ORDERABLES Final Result [facility] [address] Lab (1st floor, no room number) [place] [address] * Bilirubin direct (10/10/2024 2:30 PM BIOLOGICAL PHOTOGRAPHER) Only the most recent of4 resultswithin the time period is included. Bilirubin Direct <0.20 0.00 - 0.30 mg/dL 10/10/2024 5:31 PM BIOLOGICAL PHOTOGRAPHER RH LABORATORY Blood BLOOD SPECIMEN / Unknown Client Draw / Unknown 10/10/2024 2:30 PM BIOLOGICAL PHOTOGRAPHER 10/10/2024 4:45 PM BIOLOGICAL PHOTOGRAPHER us Jose A Sheikh MD LAB - BLOOD ORDERABLES Final Result LABORATORY [facility] [address] Lab (1st floor, no room number) [place] [address] * Thyroid peroxidase antibody (10/08/2024 11:58 AM BIOLOGICAL PHOTOGRAPHER) Thyroid Peroxidase Antibody 13 <35 IU/mL 10/12/2024 2:38 PM BIOLOGICAL PHOTOGRAPHER [facility]/PROT/ENDO Blood CATHETER / Unknown VAD(CVC, PICC ) / Unknown 10/08/2024 11:58 AM BIOLOGICAL PHOTOGRAPHER 10/08/2024 12:04 PM BIOLOGICAL PHOTOGRAPHER Gordon Wallace MD LAB - BLOOD ORDERABLES Final Result [facility]/PROT/ENDO [facility]/Prot/Endo [address] [facility], [address] * (ABNORMAL) TSH (10/08/2024 2:10 AM BIOLOGICAL PHOTOGRAPHER) TSH 12.20(H) 0.30 - 4.20 uIU/mL 10/08/2024 11:47 AM BIOLOGICAL PHOTOGRAPHER [facility] LABORATORY Blood VENOUS LINE / Unknown VAD(CVC, PICC) / Unknown 10/08/2024 2:10 AM BIOLOGICAL PHOTOGRAPHER 10/08/2024 2:24 AM BIOLOGICAL PHOTOGRAPHER us Gordon Wallace MD LAB - BLOOD ORDERABLES Final Result [facility] LABORATORY [facility] [place] [facility] [address] [facility], [address] [address] * (ABNORMAL) T4 free (10/08/2024 2:10 AM BIOLOGICAL PHOTOGRAPHER) Only the most recent of2 resultswithin the time period is included. Free T4 0.60(L) 0.90 - 1.70 ng/dL 10/08/2024 11:47 AM BIOLOGICAL PHOTOGRAPHER LABORATORY Blood VENOUS LINE / Unknown VAD(CVC, PICC) / Unknown 10/08/2024 2:10 AM BIOLOGICAL PHOTOGRAPHER 10/08/2024 2:24 AM BIOLOGICAL PHOTOGRAPHER Gordon Wallace MD LAB - BLOOD ORDERABLES Final Result Performing Organization Address City/[facility]/ZIP Co de Phone Number LABORATORY [facility] Lab [address] [facility], [address] * INR (10/08/2024 2:10 AM BIOLOGICAL PHOTOGRAPHER) Only the most recent of3 resultswithin the time period is included. INR 1.09 0.85 - 1.15 10/08/2024 2:40 AM BIOLOGICAL PHOTOGRAPHER LABORATORY Blood VENOUS LINE / Unknown VAD(CVC, PICC) / Unknown 10/08/2024 2:10 AM BIOLOGICAL PHOTOGRAPHER 10/08/2024 2:24 AM BIOLOGICAL PHOTOGRAPHER Pete Norris MD LAB - BLOOD ORDERABLES Final Re sult LABORATORY [facility] [place] [facility] [address] [facility], [address] [address] * (ABNORMAL) Glucose by meter (10/08/2024 12:09 AM BIOLOGICAL PHOTOGRAPHER) Only the most recent of21 resultswithin the time period is included. GLUCOSE BY METER POCT 162(H) 70 - 99 mg/dL 10/08/2024 12:17 AM BIOLOGICAL PHOTOGRAPHER [facility] LABORATORY POC Blood, Capillary BLOOD SPECIMEN / Unknown 10/08/2024 12:09 AM BIOLOGICAL PHOTOGRAPHER 10/08/2024 12:17 AM BIOLOGICAL PHOTOGRAPHER Pete TOMPKINS - ANDIAKER POCT Final Result [facility] LABORATORY POC [facility] [place] [facility] [address] [facility] [address], [address] [place] [address] * CT Chest w Contrast (10/07/2024 11:12 AM BIOLOGICAL PHOTOGRAPHER) Anatomical Region Laterality Modality Chest, SUBRAD CT BODY, UMP CT CHEST, RAD CT Computed Tomography Impressions 10/07/2024 1:30 PM BIOLOGICAL PHOTOGRAPHER Impression: 1. Persistent 5 mm defect in [...] SABRINA IBANEZ MD Narrative 10/07/2024 1:[address] CHEST W CONTRAST 10/07/2024 11:12 AM [...] defect in the posterior upper thoracic esophagus (64) with air and oral contrast tracking down [...] agree with the findings. SABRINA IBANEZ MD Shellie Centeno MD IMG CT ORDERABLES Final R esult * (ABNORMAL) Basic metabolic panel (10/07/2024 5:51 AM BIOLOGICAL PHOTOGRAPHER) Only the most recent of4 resultswithin the time period is included. Sodium 133(L) 135 - 145 mmol/L 10/07/2024 6:30 AM BIOLOGICAL PHOTOGRAPHER [facility] LAB[facility]AT[facility] Potassium 4.3 3.4 - 5.3 mmol/L 10/07/2024 6:30 AM BIOLOGICAL PHOTOGRAPHER [facility] LAB[facility]ATORY Chloride 101 98 - 107 mmol/L 10/07/2024 6:30 AM BIOLOGICAL PHOTOGRAPHER [facility] LAB[facility]AT[facility] Carbon Dioxide (CO2) 22 22 - 29 mmol/L 10/07/2024 6:30 AM BIOLOGICAL PHOTOGRAPHER [facility] LAB[facility]AT[facility] Anion Gap 10 7 - 15 mmol/L 10/07/2024 6:30 AM BIOLOGICAL PHOTOGRAPHER [facility] LAB[facility]AT[facility] Urea Nitrogen 19.4 8.0 - 23.0 mg/dL 10/07/2024 6:30 AM BIOLOGICAL PHOTOGRAPHER [facility] LAB[facility]AT[facility] Creatinine 0.77 0.51 - 0.95 mg/dL 10/07/2024 6:30 AM BIOLOGICAL PHOTOGRAPHER [facility] LABORATORY GFR Estimate 80 >60 mL/min/1.7 3m2 10/07/2024 6:30 AM BIOLOGICAL PHOTOGRAPHER [facility] LAB[facility]ATORY Comment:eGFR calculated usin 2020 CKD-EPI equation. Calcium 8.6(L) 8.8 - 10.4 mg/dL 10/07/2024 6:30 AM BIOLOGICAL PHOTOGRAPHER [facility] LAB[facility]AT[facility] Comment:Reference intervals for this test were updated on 04/19/2024 to reflect our healthy population more accurately. There may be differences in the flagging of prior results with similar values performed with this method. Those prior results can be interpreted in the context of the updated reference intervals. Glucose 161(H) 70 - 99 mg/dL 10/07/2024 6:30 AM BIOLOGICAL PHOTOGRAPHER [facility] LABORAT[facility] Blood VENOUS LINE / Unknown VAD(CVC, PICC) / Unknown 10/07/2024 5:51 AM BIOLOGICAL PHOTOGRAPHER 10/07/2024 6:00 AM BIOLOGICAL PHOTOGRAPHER us Teresita Perez MD LAB - BLOOD ORDERABLES Final Result [facility] LABORATORY [facility] [place] [facility] [address] [facility] [address] [facility], [address] [place] [address], [place] * CT Chest/Abdomen/Pelvis w Contrast (10/02/2024 4:27 PM BIOLOGICAL PHOTOGRAPHER) Anatomical Region Laterality Modality Abdomen/Pelvis, Chest, SUBRA D CT BODY, UMP CT CHEST, UMP CT ABDOMEN PELVIS, RAD CT Computed Tomography Impressions 10/06/2024 4:37 AM BIOLOGICAL PHOTOGRAPHER IMPRESSION: Mild motion related artifact limits evaluation. [...] BRANDI SOSA MD Narrative 10/06/2024 4:37 AM BIOLOGICAL PHOTOGRAPHER EXAMINATION: CT CHEST/ABDOMEN/PELVIS W CONTRAST, 10/02/2024 4:27 [...] Min Fluoro w Stills (10/02/2024 2:22 PM BIOLOGICAL PHOTOGRAPHER) Narrative RADIANT - 10/02/2024 2:23 PM BIOLOGICAL PHOTOGRAPHER This exam was marked as non-reportable because it will not be read by a radiologist or a [facility] non-radiologist provider. Pete PADILLA DIAGNOSTIC IMAGING ORDERABL ES Final Result [facility] * ANE AIRWAY ETT PERFORMABLE (10/02/2024 12:16 PM BIOLOGICAL PHOTOGRAPHER) Narrative Aleena Zhao APRN MACHINE BUFFER - 10/02/2024 12:16 PM BIOLOGICAL PHOTOGRAPHER Aleena Zhao APRN CRNA 10/02/2024 12:29 PM Airway Patient location during procedure: OR Procedure Start/Stop Times: 10/02/2024 12:16 PM Staff - MACHINE BUFFER: Aleena Zhao APRN MACHINE BUFFER Performed By: MACHINE BUFFER Consent for Airway Urgency: elective Indications and [...] Time: 10/02/2024 12:16 PM Garrick Miramontes MD [place] ANESTHESIA Final Res ult * Adult Type and Screen (10/02/2024 11:52 AM BIOLOGICAL PHOTOGRAPHER) Pathologist [facility] ABO/RH(D) A POS 10/02/2024 11:44 AM BIOLOGICAL PHOTOGRAPHER [facility] BLOOD BANK Antibody Screen Negative Negative 10/02/2024 11:44 AM BIOLOGICAL PHOTOGRAPHER [facility]U BLOOD BANK SPECIMEN EXPIRATION DATE [id number] 10/02/2024 11:44 AM BIOLOGICAL PHOTOGRAPHER [facility] BLOOD BANK Blood BLOOD SPECIMEN / Unknown Venipuncture / Unknown 10/02/2024 11:52 AM BIOLOGICAL PHOTOGRAPHER 10/02/2024 11:53 AM BIOLOGICAL PHOTOGRAPHER Pete Norris MD LAB - BLOOD BANK TEST ORDER Fin al Result Performing Organization Address [facility] Co de Phone Number BLOOD BANK [address] [place] [address] * (ABNORMAL) TSH with free T4 reflex (10/02/2024 3:59 AM BIOLOGICAL PHOTOGRAPHER) [facility] TSH 0.18(L) 0.30 - 4.20 uIU/mL 10/02/2024 5:08 AM BIOLOGICAL PHOTOGRAPHER [facility] LABORATORY Blood VENOUS LINE / Unknown VAD(CVC, PICC) / Unknown 10/02/2024 3:59 AM BIOLOGICAL PHOTOGRAPHER 10/02/2024 4:29 AM BIOLOGICAL PHOTOGRAPHER Hiren Garner MD LAB - BLOOD ORDERABLES Final Result LABORATORY [facility] [place] [facility] [address] [facility], [address] [place] [address] * (ABNORMAL) CRP inflammation (10/02/2024 3:59 AM BIOLOGICAL PHOTOGRAPHER) Pathologist [facility] CRP Inflammation 65.60(H) <5.00 mg/L 10/02/2024 5:08 AM BIOLOGICAL PHOTOGRAPHER [facility] LABORATORY Blood VENOUS LINE / Unknown VAD(CVC, PICC) / Unknown 10/02/2024 3:59 AM BIOLOGICAL PHOTOGRAPHER 10/02/2024 4:29 AM BIOLOGICAL PHOTOGRAPHER Hiren Garner MD LAB - BLOOD ORDERABLES Final Result [facility]U LABORATORY [facility] [place] [facility] [address] [facility], [address] [address] * XR Chest Port 1 View (10/01/2024 8:49 PM BIOLOGICAL PHOTOGRAPHER) Anatomical Region Laterality Modality Chest Computed Radiogr aphy Impressions 10/01/2024 10:03 PM BIOLOGICAL PHOTOGRAPHER Impression: 1. Right PICC terminates at the mid SVC. 2. No acute airspace disease. 3. Esophageal stent. I have personally reviewed the examination and initial interpretation and I agree with the findings. SUDHAKAR DSOUZA MD Narrative 10/01/2024 10:03 PM BIOLOGICAL PHOTOGRAPHER Exam: XR CHEST PORT 1 VIEW, 10/01/2024 [...] findings. SUDHAKAR DSOUZA MD Chary Evans MD IMG DIAGNOSTIC IMAGING ORDER DICK Final Result * Lactic Acid Whole Blood w/ 1x repeat in 2 hrs when >2 (10/01/2024 7:45 PM BIOLOGICAL PHOTOGRAPHER) Lactic Acid, Initial 1.1 0.7 - 2.0 mmol/L 10/01/2024 8:06 PM BIOLOGICAL PHOTOGRAPHER [facility] LAB[facility]AT[facility] Blood VENOUS LINE / Unknown VAD(CVC, PICC) / Unknown 10/01/2024 7:45 PM BIOLOGICAL PHOTOGRAPHER 10/01/2024 8:02 PM BIOLOGICAL PHOTOGRAPHER Pete Norris MD LAB - BLOOD ORDERABLES Final Re sult [facility]U LABORATORY [facility] [place] [facility] [address] [facility], [address] [id number] * (ABNORMAL) Lipid panel reflex to direct [...] 219 mg/dL Very High: >= 220 mg/dL Isha Guadalupe MD LAB - BLOOD ORDERABLES Final Res ult Performing Organization Address City/[facility]/ZIP Co de Phone Number LABORATORY [facility] [place] [facility] [address] [facility], [address] [address] * Vitamin B12 (06/22/2024 8:07 AM CDT) Vitamin B12 520 232 - 1,245 pg/mL 06/22/2024 4:44 PM CDT LABORATORY Blood BLOOD SPECIMEN / Unknown Venipuncture / Unknown 06/22/2024 8:07 AM CDT 06/22/2024 8:07 AM CDT Isha Guadalupe MD LAB - BLOOD ORDERABLES Final Res ult Performing Organization Address City/[facility]/ZIP Co de Phone Number LABORATORY [facility] [place] [facility] [address] [facility], [address] [address] * MA Screen Bilateral w/Les (07/10/2022 11:09 [...] There is no radiographic evidence of malignancy. us Beryl Betancur MD IMG MAMMOGRAPHY OR DERABLES Final Result * COLONOSCOPY - HIM SCAN (05/02/2019 12:00 AM CDT) 05/02/2019 us Provider Outside PROCEDURES Final Result * (ABNORMAL) Fecal colorectal cancer screen FIT - Future (S+30) (12/05/2018 11:15 AM BIOLOGICAL PHOTOGRAPHER) Occult Blood Scn FIT Positive(A ) NEG^Negati ve 12/12/2018 1:02 PM CDT [facility] Stool specimen (specimen) 12/05/2018 11:15 AM BIOLOGICAL PHOTOGRAPHER 12/12/2018 11:18 AM CDT us Felipa Scott MD LAB - STOOLS ORDERABLES Final Result [facility] [address] [place] [address] * DEXA HIP/PELVIS/SPINE - Future (04/27/2018 5:02 PM CDT) Anatomical Region Laterality Modality Dexa Bone Mineral Den sity Narrative 04/27/2018 6:04 PM CDT BONE DENSITOMETRY [address] [address] 04/27/2018 PATIENT: Chelle Lujan CHART: [id number] : 1950 AGE: [age] year old SEX: female REFERRING PROVIDER: Felipa Scott M.D. PROCEDURE: Bone density scanning was performed using DXA technology of the lumbar spine and hip. Scanning was performed on a MESI scanner. Reporting is completed in the form [...] been established for newborns, infants, and children [facility] Blood specimen (specimen) 02/05/2017 2:59 PM CDT 02/05/2017 3:00 PM CDT Felipa Scott MD LAB - BLOOD ORDERABLES Final Result [facility] [address] [place] [address], [place] from Last 3 Months or Most Recently Relevant to Health Maintenance Insurance [facility] MEDICARE ADVANTAGE [facility] MEDICARE ADVANTAGE Advance Directives For more information, please contact: [phone] * Full Code (Latest Code Status on File) Date Activated Date Inactivated Comments 10/01/2024 7:51 PM 10/08/2024 7:34 PM All basic an d advanced life-sustaining interventions are performed as appropriate Question Answer Comments Code status determined by: Discussion with michael nt/ legal decision maker * Full Code Date Activated Date Inactivated Comments 09/27/2015 6:41 AM 10/01/2024 6:51 PM * Full Code Date Activated Date Inactivated Comments 09/24/2015 5:13 PM 09/27/2015 6:41 AM Care Teams Logistics Analytics Manager Relationship Specialty [place] [address] [facility] [place] [address] PCP - General Family Medicine 10/02/24 [place] [address] [place] [address] Assigned PCP 08/29/23 Sita Avila, RD I Registered Dietitian Dietitian 10/10/24 Adrianna Elizabeth APRN IRON PILER [address] [facility] [address] [place], [place] [address] Home Infusion Following Provider Cardiovascular & Thoracic Surgery 10/17/24
--- OUTSIDE RECORDS SUMMARY | 2024-10-17 20:03 | XMS_ITS | Encounter Summary ---
Author Organization [facility] Address [address] [place] [address]. [place] [address] Care Team Providers Care Direct Support Staff Name Role Phone Coming Shawna Wills Hilary JACKSON Unavailable +- [phone] Jose A Sheikh MD Primary Care Provider + [phone] Unavailable Unavailable Encounter Details Date Type Department Care Team (Late st Contact Info) Description 10/11/2024 2:30 PM CHAINSTITCH HEMMER Home Care Visit [facility] [address] [place] [address] Karen Cr RN Social History Tobacco Use Types Packs/Day [...] on file Legal Sex Female 3:39 AM CHAINSTITCH HEMMER Gender Identity Not on file Sexual Orientation Not on file documented as of this encounter Progress Notes * Karen Cr RN - 10/11/2024 2:33 PM CST Education Provided: Patient Education focused on IV therapies of TPN/lipids with MVI, homepump antibiotics, and levothyroxine IV push Lauryn did hands-on for all procedures and demonstrated good understanding and comfort level with all. Chelle and Lauryn also state understanding of how to reach [facility] of help is needed. . Saline administered (in mLs): 40 Next visit plan I nurse visit tomorrow for teach to Jazmyn , patient???s sister in law for teaching of all procedures of IV therapy. Lauryn can be independent with home IV therapy. . Karen Cr RN 10/11/24 NSTITCH HEMMER documented in this encounter Plan of Treatment Upcoming Encounters Date Type Department Care Team (Late st Contact Info) Description 10/19/2024 9:30 AM CHAINSTITCH HEMMER Virtual Visit [facility] [address] [place] [address] Adrianna Elizabeth APRN ORNAMENTAL METAL ERECTOR APPRENTICE [address] [facility] [address] [place] [address] documented as of this encounter Visit Diagnoses Not on filedocumented in this encounter Care Teams Direct Support Staff Relationship Specialty [place] [address] [facility] [place] [address] PCP - General Family Medicine 10/02/24 [place] [address] [place] [address] Assigned PCP 08/29/23 Sita Avila, RD I Registered Dietitian Dietitian 10/10/24 documented as of this encounter
--- OUTSIDE RECORDS SUMMARY | 2024-10-17 20:03 | XMS_ITS | Encounter Summary ---
Author Organization [facility] Address [address] [place] [address] Care Team Providers Care Ux Ui Designer Name Role Phone Coming Johann Shawna Richard MD Unavailable +- [phone] Jose A Sheikh MD Primary Care Provider + [phone] Unavailable Unavailable Encounter Details Date Type Department Care Team (Late st Contact Info) Description 10/11/2024 Telephone [facility] [address] [place] [phone] Vince Powers MA Social History Tobacco Use Types Packs/Day Years [...] in an abandoned building, in an overnight senior care, or couch-surfing.) Yes 10/01/2024 Are you worried [...] on file Legal Sex Female 3:39 AM SENIOR TRAINING AND DEVELOPMENT REP Gender Identity Not on file Sexual Orientation Not on file documented as of this encounter Miscellaneous Notes * Telephone Encounter - Vince Powers MA - 10/11/2024 9:58 AM CST Pt's sister Iris called asking for an additional (4th) TPN teach to another person who is a retiredRN so that there will be 2 people who are taught. Word Processor Operator received OK from Lenka Henriquez as [facility] is unwilling to teach TPN. Iris is asking for visit with Sita Bridges again on Thursday and this has been scheduled. OR TRAINING AND DEVELOPMENT REP documented in this encounter Plan of Treatment Upcoming Encounters Date Type Department Care Team (Late st Contact Info) Description 10/19/2024 9:30 AM SENIOR TRAINING AND DEVELOPMENT REP Virtual Visit [facility] [address] [place] [address] Adrianna Elizabeth, SUKHDEEP PROPERTY ADMINISTRATOR [address] [facility] [address] [place] [address] documented as of this encounter Visit Diagnoses Not on filedocumented in this encounter Care Teams Ux Ui Designer Relationship Specialty Start [place] [address] [place] [address] PCP - General Family Medicine 10/02/24 [place] [address] [place] [address] Assigned PCP 08/29/[address] [facility] Registered Dietitian Dietitian 10/10/24 documented as of this encounter
--- OUTSIDE RECORDS SUMMARY | 2024-10-17 20:03 | XMS_ITS | Encounter Summary ---
Author Organization [facility] Address [address] [place] [address]. [place] [address] Care Team Providers Care Coper Hand Name Role Phone Coming Johann Shawna Richard MD Unavailable +- [phone] Jose A Sheikh MD Primary Care Provider + [phone] Unavailable Unavailable Reason for Visit * Reason Comments Labs Only PICC Labs Encounter Details Date Type Department Care Team (Late st Contact Info) Description 10/14/2024 7:45 AM SUPERVISOR COMMUNICATIONS AND SIGNALS Infusion Therapy Visit [facility] [address] [facility] [place] [phone] Adrianna Elizabeth APRN [facility] [address] [facility] [address] [place], [place] [id number] Esophageal perforation Social History Tobacco Use Types Packs/Day Years [...] in an abandoned building, in an overnight halfway, or couch-surfing.) Yes 10/01/2024 Are you worried [...] on file Legal Sex Female 3:39 AM SUPERVISOR COMMUNICATIONS AND SIGNALS Gender Identity Not on file Sexual Orientation Not on file documented as of this encounter Progress Notes * Ines Martins, RN - 10/14/2024 7:45 AM CST Nursing Note: Chelle Lujan presents today for PICC Labs. Patient seen by provider today: No Launch [employer] present during visit today: Not Applicable. Note: N/A. Intravenous Access: Labs drawn without difficulty. PICC. Discharge Plan: Patient was sent to home. Ines Martins RN RVISOR COMMUNICATIONS AND SIGNALS documented in this encounter Plan of Treatment Upcoming Encounters Date Type Department Care Team (Late st Contact Info) Description 10/19/2024 9:30 AM SUPERVISOR COMMUNICATIONS AND SIGNALS Virtual Visit [address] [address] Adrianna Elizabeth, SUKHDEEP HEELER MACHINE [address] [facility] [address] [place] [address] documented as of this encounter Procedures Procedure Name Priority Date/Time Associated Diagnosis Comments PREALBUMIN Routine 10/14/2024 7:42 AM SUPERVISOR COMMUNICATIONS AND SIGNALS Esophageal perforation COMPREHENSIVE METABOLIC PANEL Routine 10/14/2024 7:42 AM SUPERVISOR COMMUNICATIONS AND SIGNALS Esophageal perforation CBC WITH PLATELETS Routine 10/14/2024 7: 42 AM SUPERVISOR COMMUNICATIONS AND SIGNALS Esophageal perforation documented in this encounter Results * (ABNORMAL) Prealbumin (10/14/2024 7:42 AM SUPERVISOR COMMUNICATIONS AND SIGNALS) Prealbumin 17.2(L) 20.0 - 40.0 mg/dL 10/14/2024 11:45 AM SUPERVISOR COMMUNICATIONS AND SIGNALS [facility] Blood STRUCTURE OF RIGHT UPPER LIMB / Unknown Venipuncture / Unknown 10/14/2024 7:42 AM SUPERVISOR COMMUNICATIONS AND SIGNALS 10/14/2024 7:51 AM SUPERVISOR COMMUNICATIONS AND SIGNALS Adrianna Elizabeth RESIDENT MEDICAL OFFICER HEELER MACHINE LAB - BLOOD OR DERABLES Final Result [facility] [place] [facility] [address] [facility], Room [address] [address] * (ABNORMAL) Comprehensive metabolic panel (10/14/2024 7:42 AM SUPERVISOR COMMUNICATIONS AND SIGNALS) Sodium 134(L) 135 - 145 mmol/L 10/14/2024 8:21 AM SUPERVISOR COMMUNICATIONS AND SIGNALS [facility] Potassium 4.5 3.4 - 5.3 mmol/L 10/14/2024 8:21 AM SUPERVISOR COMMUNICATIONS AND SIGNALS [facility] Carbon Dioxide (CO2) 21(L) 22 - 29 mmol/L 10/14/2024 8:21 AM SUPERVISOR COMMUNICATIONS AND SIGNALS [facility] Anion Gap 14 7 - 15 mmol/L 10/14/2024 8:21 AM SUPERVISOR COMMUNICATIONS AND SIGNALS [facility] Urea Nitrogen 22.2 8.0 - 23.0 mg/dL 10/14/2024 8:21 AM SUPERVISOR COMMUNICATIONS AND SIGNALS [facility] Creatinine 0.71 0.51 - 0.95 mg/dL 10/14/2024 8:21 AM [facility] GFR Estimate 88 >60 mL/min/1.7 3m2 10/14/2024 8:21 AM [facility] Comment:eGFR calculated usin 2020 CKD-EPI equation. Calcium 8.9 8.8 - 10.4 mg/dL 10/14/2024 8:21 AM [facility] Comment:Reference intervals for this test were updated on 04/19/2024 to reflect our healthy population more accurately. There may be differences in the flagging of prior results with similar values performed with this method. Those prior results can be interpreted in the context of the updated reference intervals. Chloride 99 98 - 107 mmol/L 10/14/2024 8:21 AM [facility] Glucose 119(H) 70 - 99 mg/dL 10/14/2024 8:21 AM [facility] Alkaline Phosphatase 158(H) 40 - 150 U/L 10/14/2024 8:21 AM [facility] AST 35 0 - 45 U/L 10/14/2024 8:21 AM [facility] ALT 43 0 - 50 U/L 10/14/2024 8:21 AM [facility] Protein Total 6.5 6.4 - 8.3 g/dL 10/14/2024 8:21 AM [facility] Albumin 3.5 3.5 - 5.2 g/dL 10/14/2024 8:21 AM [facility] Bilirubin Total 0.3 <=1.2 mg/dL 10/14/2024 8:21 AM [facility] Blood STRUCTURE OF RIGHT UPPER LIMB / Unknown Venipuncture / Unknown 10/14/2024 7:42 AM SUPERVISOR COMMUNICATIONS AND SIGNALS 10/14/2024 7:51 AM [facility] us Adrianna Elizabeth RESIDENT MEDICAL OFFICER HEELER MACHINE LAB - BLOOD OR DERABLES Final Result LABORATORY [facility] Acute [facility] Lab [address] Lab (1st floor, no room number) [place] [address], [facility] * CBC with platelets (10/14/2024 7:42 AM SUPERVISOR COMMUNICATIONS AND SIGNALS) WBC Count 7.2 4.0 - 11.0 10e3/uL 10/14/2024 7:58 AM SUPERVISOR COMMUNICATIONS AND SIGNALS [facility] RBC Count 4.51 3.80 - 5.20 10e6/uL 10/14/2024 7:58 AM SUPERVISOR COMMUNICATIONS AND SIGNALS [facility] Hemoglobin 12.9 11.7 - 15.7 g/dL 10/14/2024 7:58 AM SUPERVISOR COMMUNICATIONS AND SIGNALS [facility] Hematocrit 39.4 35.0 - 47.0 % 10/14/2024 7:58 AM SUPERVISOR COMMUNICATIONS AND SIGNALS [facility] MCV 87 78 - 100 fL 10/14/2024 7:58 AM SUPERVISOR COMMUNICATIONS AND SIGNALS [facility] MCH 28.6 26.5 - 33.0 pg 10/14/2024 7:58 AM SUPERVISOR COMMUNICATIONS AND SIGNALS [facility] MCHC 32.7 31.5 - 36.5 g/dL 10/14/2024 7:58 AM SUPERVISOR COMMUNICATIONS AND SIGNALS [facility] RDW 13.9 10.0 - 15.0 % 10/14/2024 7:58 AM SUPERVISOR COMMUNICATIONS AND SIGNALS [facility] Platelet Count 245 150 - 450 10e3/uL 10/14/2024 7:58 AM SUPERVISOR COMMUNICATIONS AND SIGNALS [facility] Blood STRUCTURE OF RIGHT UPPER LIMB / Unknown Venipuncture / Unknown 10/14/2024 7:42 AM SUPERVISOR COMMUNICATIONS AND SIGNALS 10/14/2024 7:51 AM SUPERVISOR COMMUNICATIONS AND SIGNALS Adrianna Elizabeth RESIDENT MEDICAL OFFICER HEELER MACHINE LAB - BLOOD OR DERABLES Final Result LABORATORY [facility] Lab [address] Lab (1st floor, no room number) [place] [address], [facility] documented in this encounter Visit Diagnoses Diagnosis Esophageal perforation Perforation of esophagus documented in this encounter Administered Medications Inactive Administered Medications - up to 3 most recent administrations Medication Order MAR Action Action Date Dose Rate Site sodium chloride (PF) 0.9% PF flush 10 mL 10 mL, Intracatheter, EVERY 8 HOURS, First dose on Thu10/14/24 at 0800 $Given 10/14/2024 7:47 AM SUPERVISOR COMMUNICATIONS AND SIGNALS 10 mLs documented in this encounter Care Teams Coper Hand Relationship Specialty [place] [address] [place] [address] PCP - General Family Medicine 10/02/24 [place] [address] [place] [address] Assigned PCP 08/29/[address] [facility] Registered Dietitian Dietitian 10/10/24 documented as of this encounter
--- OUTSIDE RECORDS SUMMARY | 2024-10-17 20:03 | XMS_ITS | Encounter Summary ---
Author Organization [facility] Address [address] [place] [address] Care Team Providers Care Lead Handler Name Role Phone Coming Shawna Wills MD Unavailable + [phone] Jose A Sheikh MD Primary Care Provider + [phone] Unavailable Unavailable Reason for Referral * Diagnostic Imaging XR (Routine) - Pending Review Specialty Diagnoses / Procedures Referred By Aron godwin Referred To Contact Radiology. Diagnoses Esophageal perforation Procedures XR Esophagram Adrianna Elizabeth APRN [facility] [address] [address] Phone: tel: fax: Referral ID Status Reason Start Date Expiration Date V isits Requested Visits Authorized [id number] Pending Review 10/10/2024 10/10/2025 1 1 Electronically signed by Adrianna Elizabeth APRN [facility] at 10/14/2024 7:56 AM BLOW DOWN HELPER Reason for Visit * Diagnostic Imaging XR (Routine) - Pending Review Specialty Diagnoses / Procedures Referred By Aron godwin Referred To Contact Radiology. Diagnoses Esophageal perforation Procedures XR Esophagram Adrianna Elizabeth APRN [facility] [address] [facility] [address] [address] Phone: tel: fax: Referral ID Status Reason Start Date Expiration Date V isits Requested Visits Authorized [id number] Pending Review 10/10/2024 10/10/2025 1 1 Encounter Details Date Type Department Care Team (Latest Contact Info) Description 10/14/2024 7:56 AM BLOW DOWN HELPER - 10/14/2024 11:59 PM BLOW DOWN HELPER Hospital Encounter [facility] [address] [place] [address] Adrianna Elizabeth APRN OFFICE MACHINERY OR EQUIPMENT INSTALLER [address] [facility] [address] [place] [address] Esophageal perforation Discharge Disposition: Home or Self Care Social History Tobacco Use Types Packs/Day Years [...] in an abandoned building, in an overnight chcf, or couch-surfing.) Yes 10/01/2024 Are you worried [...] on file Legal Sex Female 3:39 AM BLOW DOWN HELPER Gender Identity Not on file Sexual Orientation Not on file documented as of this encounter Medications at Time of Discharge Emergency Supply Kit, Central,Indications :Esophageal perforation Patient use for emergency only. Contents: 3 sodium chloride 0.9% flushes, 1 dressing kit, 1 microclave ext set 14, 4 nitrile gloves (med), 6 alcohol prep pads, 1 bacitracin, 1 syringe (10 cc 20 G 1). Call to reorder. [id number] kit 10/08/2024 6:14 PM BLOW DOWN HELPER 5 10/08/19 26 levothyroxine (SYNTHROID) injectionIndication s:Acquired hypothyroidism Inject 2.5 mLs (50 mcg) over 5-10 minutes into the vein via push every 24 hours for 10 days. Reconstitute 100 mcg levothyroxine vial(s). Draw up levothyroxine 20 mcg/mL in a syringe and administer IV push. Discard remainder of vial. 5 each 10/11/2024 6:00 PM BLOW DOWN HELPER 5 10/19/19 25 Multiple Vitamin (INFUVITE ADULT) injectionIndication s:Esophageal perforation Add to infusion 10 mLs daily. Select 2 multivitamin vials, one of each color top. Draw up 5 mL from each vial and add to 1 TPN bag daily immediately prior to infusing. Discard remainder of vials. 3600 mL 10/11/2024 6:00 PM BLOW DOWN HELPER 5 10/08/19 26 parenteral nutrition - TNA - see order for formulaIndications: Esophageal perforation Infuse 1,900 mLs over 12 hours into the vein (central line) daily. Taper up for 1 Hours. Taper down for 1 Hours. TPN additives to be added prior to administration: Infuvite-Adult 10 mL daily. Plateau rate: 172.8 mL/hr. KVO: 5 mL/hr. [id number] mL 10/11/2024 6:00 PM BLOW DOWN HELPER 5 10/08/19 26 piperacillin sod-tazobactam (ZOSYN) 3.375 g in sodium chloride 0.9 % 100 mL via HOMEPUMPIndications :Esophageal perforation Infuse 3.375 g over 30 minutes into the vein every 8 hours for 14 days. [id number] mL 10/17/2024 1:23 PM BLOW DOWN HELPER 5 10/23/19 25 sodium chloride, PF, 0.9% PF flushIndications:Es ophageal perforation Inject 10 mLs into the vein as needed for line flush. Flush IV before and after medication administration as directed and/or at least every 24 hours. [id number] mL 10/11/2024 6:00 PM BLOW DOWN HELPER 5 10/08/19 26 sodium chloride, PF, 0.9% PF flushIndications:Ac quired hypothyroidism Use 5 mLs for reconstitution every 24 hours for 10 days. Use 1 syringe (5 mL) to reconstitute each vial of levothyroxine 100 mcg. Shake until solution is clear. 50 mL 10/16/2024 10:32 AM BLOW DOWN HELPER 5 10/19/19 25 tirzepatide-Weight Management (ZEPBOUND) 2.5 MG/0.5ML prefilled penIndications:Clas s 3 severe obesity due to excess calories with serious comorbidity and body mass index (BMI) of 45.0 to 49.9 in adult (H) Inject 0.5 mLs (2.5 mg) subcutaneously every 7 days. 2 mL 4 documented as of this encounter Plan of Treatment Upcoming Encounters Date Type Department Care Team (Late st Contact Info) Description 10/19/2024 9:30 AM BLOW DOWN HELPER Virtual Visit [facility] [address] [place] [address] Adrianna Elizabeth APRN [facility] [address] [facility] [address] [place] [address] documented as of this encounter Procedures Procedure Name Priority Date/Time Associated Diagnosis Comments XR ESOPHAGRAM SINGLE CONTRAST Routine 10/14/2024 9:03 AM BLOW DOWN HELPER Esophageal perforation documented in this encounter Results * XR ESOPHAGRAM SINGLE CONTRAST (10/14/2024 9:03 AM BLOW DOWN HELPER) Anatomical Region Laterality Modality Chest, Abdomen/Pelvis Radio Fluo roscopy 10/14/2024 9:03 AM BLOW DOWN HELPER Impressions 10/14/2024 10:19 AM BLOW DOWN HELPER IMPRESSION: 1. No definite leak. Of note, the previously noted mediastinal gas and fluid collection is not assessed by this study. 2. Similar mid/distal esophageal stent. 3. Right PICC tip projects over the mid/proximal subclavian vein, similar to prior. Narrative 10/14/2024 10:19 AM BLOW DOWN HELPER EXAM: XR ESOPHAGRAM SINGLE CONTRAST LOCATION: [facility] DATE: 10/14/2024 INDICATION: Esophageal perforation COMPARISON: CT chest 10/07/2024. TECHNIQUE: Routine. RADIATION DOSE: Total Air Kerma 75.4 mGy FINDINGS: ESOPHAGUS: Preprocedural reading coach film demonstrates mid/distal esophageal stent. Trace right [...] 10/14/2024 EXAM: XR ESOPHAGRAM SINGLE CONTRAST LOCATION: [facility] DATE: 10/14/2024 INDICATION: Esophageal perforation COMPARISON: CT chest 10/07/2024. TECHNIQUE: Routine. RADIATION DOSE: Total Air Kerma 75.4 mGy FINDINGS: ESOPHAGUS: Preprocedural reading coach film demonstrates mid/distal esophagealstent. Trace right basilar [...] mid/proximal subclavian vein, similarto prior. Adrianna Elizabeth GOVERNMENT PROFESSOR OFFICE MACHINERY OR EQUIPMENT INSTALLER IMG DIAGNOSTIC IMAGING ORDERABLES Final Result documented in this encounter Visit Diagnoses Diagnosis Esophageal perforation Perforation of esophagus documented in this encounter Administered Medications Inactive Administered Medications - up to 3 most recent administrations Medication Order MAR Action Action Date Dose Rate Site diatrizoate meglumine-sodium (GASTROGRAFIN/GASTROVIEW) 66-10 % solution 120 mL 120 mL, Oral, ONCE, On Thu10/14/24 at 0900, For 1 dose $Given 10/14/2024 9:01 AM BLOW DOWN HELPER 80 mLs documented in this encounter Care Teams Lead Handler Relationship Specialty [place] [address] [place] [address] PCP - General Family Medicine 10/02/24 [place] [address] [place] [address] Assigned PCP 08/29/[address] [facility] Registered Dietitian Dietitian 10/10/24 documented as of this encounter
--- OUTSIDE RECORDS SUMMARY | 2024-10-17 20:03 | XMS_ITS | Encounter Summary ---
Author Organization [place] Address [facility] [place] [address] Care Team Providers Care Health Information Technician Name Role Phone Marika Wills Shawna Richard MD Unavailable +- [phone] Jose A Sheikh MD Primary Care Provider + [phone] Unavailable Unavailable Encounter Details Date Type Department Care Team (Latest Contact Info) Description 10/14/2024 Travel Social History Tobacco Use Types Packs/Day Years [...] in an abandoned building, in an overnight intermediate, or couch-surfing.) Yes 10/01/2024 Are you worried [...] on file Legal Sex Female 3:39 AM INSTRUMENT TECH Gender Identity Not on file Sexual Orientation Not on file documented as of this encounter Plan of Treatment Upcoming Encounters Date Type Department Care Team (Late st Contact Info) Description 10/19/2024 9:30 AM INSTRUMENT TECH Virtual Visit [facility] [address] [facility] [place] [address] Adrianna Elizabeth APRN [facility] [address] [facility] [address] [place], [place] [id number] documented as of this encounter Visit Diagnoses Not on filedocumented in this encounter Care Teams Health Information Technician Relationship Specialty Start [place] [address] [place] [address] PCP - General Family Medicine 10/02/24 [place] [address] [place] [address] Assigned PCP 08/29/23 Sita Avila, RD [facility] Registered Dietitian Dietitian 10/10/24 documented as of this encounter
--- OUTSIDE RECORDS SUMMARY | 2024-10-17 20:03 | XMS_ITS | Encounter Summary ---
Author Organization [facility] Address [address] [place] [address]. [place] [address] Care Team Providers Care Mattress Spring Encaser Name Role Phone Coming Shawna Wills MD Unavailable + [phone] Jose A Sheikh MD Primary Care Provider + [phone] Unavailable Unavailable Reason for Referral * Diagnostic Imaging XR (Routine) - Pending Review Specialty Diagnoses / Procedures Referred By Aron godwin Referred To Contact Radiology. Diagnoses Esophageal perforation Procedures XR Esophagram Adrianna Elizabeth APRN [facility] [address] [facility] [address] [place] [address] Phone: tel: fax: Referral ID Status Reason Start Date Expiration Date V isits Requested Visits Authorized [id number] Pending Review 10/10/2024 10/10/2025 1 1 LEAD Encounter Details Date Type Department Care Team (Late st Contact Info) Description 10/10/2024 Orders Only [facility] [address] [place] [address] Ruth Bearden LPN Esophageal perforation (Primary Dx) Social History Tobacco Use Types Packs/Day Years [...] on file Legal Sex Female 3:39 AM RAMP LEAD Gender Identity Not on file Sexual Orientation Not on file documented as of this encounter Miscellaneous Notes * Addendum Note - Ruth Bearden LPN - 10/10/2024 8:13 AM CSTAddended by: RUTH BEARDEN on: 10/10/2024 08:26 AM Modules accepted: Orders LEAD documented in this encounter Plan of Treatment Upcoming Encounters Date Type Department Care Team (Late st Contact Info) Description 10/19/2024 9:30 AM RAMP LEAD Virtual Visit [facility] [address] [facility] [place] [address] Adrianna Elizabeth, SUKHDEEP SKIP LOAD DRIVER [address] [facility] [address] [place] [address] documented as of this encounter Results * XR ESOPHAGRAM SINGLE CONTRAST (10/14/2024 9:03 AM RAMP LEAD) Anatomical Region Laterality Modality Chest, Abdomen/Pelvis Radio Fluo roscopy 10/14/2024 9:03 AM RAMP LEAD Impressions 10/14/2024 10:19 AM RAMP LEAD IMPRESSION: 1. No definite leak. Of note, the previously noted mediastinal gas and fluid collection is not assessed by this study. 2. Similar mid/distal esophageal stent. 3. Right PICC tip projects over the mid/proximal subclavian vein, similar to prior. Narrative 10/14/2024 10:19 AM RAMP LEAD EXAM: XR ESOPHAGRAM SINGLE CONTRAST LOCATION: [facility] DATE: 10/14/2024 INDICATION: Esophageal perforation COMPARISON: CT chest 10/07/2024. TECHNIQUE: Routine. RADIATION DOSE: Total Air Kerma 75.4 mGy FINDINGS: ESOPHAGUS: Preprocedural national basketball [employer] scout film demonstrates mid/distal esophageal stent. Trace right [...] 10/14/2024 EXAM: XR ESOPHAGRAM SINGLE CONTRAST LOCATION: [facility] DATE: 10/14/2024 INDICATION: Esophageal perforation COMPARISON: CT chest 10/07/2024. TECHNIQUE: Routine. RADIATION DOSE: Total Air Kerma 75.4 mGy FINDINGS: ESOPHAGUS: Preprocedural [employer] basketball [employer] scout film demonstrates mid/distal esophagealstent. Trace right basilar [...] mid/proximal subclavian vein, similarto prior. Adrianna Elizabeth COMMUNITY SERVICE PATROL OFFICER SKIP LOAD DRIVER IMG DIAGNOSTIC IMAGING ORDERABLES Final Result * CBC with platelets (10/14/2024 7:42 AM RAMP LEAD) Pathologist [facility] WBC Count 7.2 4.0 - 11.0 10e3/uL 10/14/2024 7:58 AM RAMP LEAD [facility] RBC Count 4.51 3.80 - 5.20 10e6/uL 10/14/2024 7:58 AM RAMP LEAD [facility] Hemoglobin 12.9 11.7 - 15.7 g/dL 10/14/2024 7:58 AM RAMP LEAD [facility] Hematocrit 39.4 35.0 - 47.0 % 10/14/2024 7:58 AM RAMP LEAD [facility] MCV 87 78 - 100 fL 10/14/2024 7:58 AM RAMP LEAD [facility] MCH 28.6 26.5 - 33.0 pg 10/14/2024 7:58 AM RAMP LEAD [facility] MCHC 32.7 31.5 - 36.5 g/dL 10/14/2024 7:58 AM RAMP LEAD [facility] RDW 13.9 10.0 - 15.0 % 10/14/2024 7:58 AM RAMP LEAD [facility] Platelet Count 245 150 - 450 10e3/uL 10/14/2024 7:58 AM RAMP LEAD [facility] Blood STRUCTURE OF RIGHT UPPER LIMB / Unknown Venipuncture / Unknown 10/14/2024 7:42 AM RAMP LEAD 10/14/2024 7:51 AM RAMP LEAD Adriannaher Jade Elizabeth SUKHDEEP SKIP LOAD DRIVER LAB - BLOOD OR DERABLES Final Result LABORATORY [facility] [address] Lab (1st floor, no room number) [place] [address], [facility] [[email or web address]] * (ABNORMAL) Comprehensive metabolic panel (10/14/2024 7:42 AM [facility]) Sodium 134(L) 135 - 145 mmol/L 10/14/2024 8:21 AM [facility] Potassium 4.5 3.4 - 5.3 mmol/L 10/14/2024 8:21 AM [facility] Carbon Dioxide (CO2) 21(L) 22 - 29 mmol/L 10/14/2024 8:21 AM [facility] Anion Gap 14 7 - 15 mmol/L 10/14/2024 8:21 AM [facility] Urea Nitrogen 22.2 8.0 - 23.0 mg/dL 10/14/2024 8:21 AM [facility] Creatinine 0.71 0.51 - 0.95 mg/dL 10/14/2024 8:21 AM [facility] GFR Estimate 88 >60 mL/min/1.7 3m2 10/14/2024 8:21 AM [facility] Comment:eGFR calculated usin g 2020 CKD-EPI equation. Calcium 8.9 8.8 - 10.4 mg/dL 10/14/2024 8:21 AM [facility] Comment:Reference intervals for this test were updated on 04/19/2024 to reflect our healthy population more accurately. There may be differences in the flagging of prior results with similar values performed with this method. Those prior results can be interpreted in the context of the updated reference intervals. Chloride 99 98 - 107 mmol/L 10/14/2024 8:21 AM [facility] Glucose 119(H) 70 - 99 mg/dL 10/14/2024 8:21 AM [facility] Alkaline Phosphatase 158(H) 40 - 150 U/L 10/14/2024 8:21 AM [facility] AST 35 0 - 45 U/L 10/14/2024 8:21 AM RAMP LEAD [facility] ALT 43 0 - 50 U/L 10/14/2024 8:21 AM RAMP LEAD [facility] Protein Total 6.5 6.4 - 8.3 g/dL 10/14/2024 8:21 AM RAMP LEAD [facility] Albumin 3.5 3.5 - 5.2 g/dL 10/14/2024 8:21 AM RAMP LEAD [facility] Bilirubin Total 0.3 <=1.2 mg/dL 10/14/2024 8:21 AM RAMP LEAD [facility] Blood STRUCTURE OF RIGHT UPPER LIMB / Unknown Venipuncture / Unknown 10/14/2024 7:42 AM RAMP LEAD 10/14/2024 7:51 AM RAMP LEAD Adrianna Elizabeth COMMUNITY SERVICE PATROL OFFICER SKIP LOAD DRIVER LAB - BLOOD OR DERABLES Final Result [facility] [address] Lab (1st floor, no room number) [place] [address] * (ABNORMAL) Prealbumin (10/14/2024 7:42 AM RAMP LEAD) Prealbumin 17.2(L) 20.0 - 40.0 mg/dL 10/14/2024 11:45 AM RAMP LEAD [facility] Blood STRUCTURE OF RIGHT UPPER LIMB / Unknown Venipuncture / Unknown 10/14/2024 7:42 AM RAMP LEAD 10/14/2024 7:51 AM RAMP LEAD Adrianna Elizabeth COMMUNITY SERVICE PATROL OFFICER SKIP LOAD DRIVER LAB - BLOOD OR DERABLES Final Result [facility] [address] [facility], [address] [place] [address] documented in this encounter Visit Diagnoses Diagnosis Esophageal perforation- Primary Perforation of esophagus Esophageal perforation Perforation of esophagus documented in this encounter Care Teams Mattress Spring Encaser Relationship Specialty [place] [address] [place] [address] PCP - General Family Medicine 10/02/24 [place] [address] [place] [address] Assigned PCP 08/29/23 Sita Avila, RD [facility] Registered Dietitian Dietitian 10/10/24 documented as of this encounter
--- OUTSIDE RECORDS SUMMARY | 2024-10-17 20:03 | XMS_ITS | Encounter Summary ---
Author Organization [facility] Address [address] [place] [address] Care Team Providers Care Billing Department Supervisor Name Role Phone Shawna Platt Hilary JACKSON Unavailable +- [phone] Jose A Sheikh MD Primary Care Provider + [phone] Unavailable Unavailable Reason for Visit * Home Infusion Authorization (Routine) - Authorized Specialty Diagnoses / Procedures Referred By Aron t Referred To Contact Home Infusion and Injection Services [facility] [address] [place] [address] Phone: tel: fax: Referral ID Status Reason Start Date Expiration Date V isits Requested Visits Authorized [id number] Authorized 10/06/2024 10/06/2025 [id number] Encounter Details Date Type Department Care Team (Late st Contact Info) Description 10/10/2024 12:30 PM SALES OPERATIONS DIRECTOR Home Care Visit [facility] [address] [place] [phone] Sita Pittman RN Social History Tobacco [...] in an abandoned building, in an overnight mcc, or couch-surfing.) Yes 10/01/2024 Are you worried [...] on file Legal Sex Female 3:39 AM SALES OPERATIONS DIRECTOR Gender Identity Not on file Sexual Orientation Not on file documented as of this encounter Last Filed Vital Signs Vital Sign Reading Time Taken Comments Blood Pressure 128/80 10/10/2024 2:20 PM SALES OPERATIONS DIRECTOR L f orearm Pulse 70 10/10/2024 2:20 PM SALES OPERATIONS DIRECTOR Temperature 36.4 C (97.5 F) 10/10/2024 2:20 PM SALES OPERATIONS DIRECTOR Respiratory Rate 18 10/10/2024 2:20 PM SALES OPERATIONS DIRECTOR Oxygen Saturation 99% 10/10/2024 2:20 PM SALES OPERATIONS DIRECTOR Inhaled Oxygen Concentration - - Weight - - Height - - Body Mass Index - - documented in this encounter Progress Notes * Sita Pittman RN - 10/10/2024 4:14 PM CST Nursing Visit Note: Nurse visit today for second TPN teach for Chelle Lujan. Security Team Lead present during visit today: Not Applicable. Patient and niece were feeling much more confident after today's teaching session. Reviewed all major concepts. Reviewed how/when to flush PICC lumens. Reviewed how to administer IV zosyn via elastomeric ball. Reviewed how to administer IVP levothyroxine. Reviewed how to set up and administer TPN. Patient feels she can manage the IV zosyn independently. Niece Lauryn feels comfortable giving the IVP levothyroxine. Lauryn did well setting up the TPN and feels she will be ready to do it independently after a third teaching session tomorrow. Lauryn and patient expressed a strong interest in reducingTPN to 12 hours overnight to better meet their scheduling needs. Message sent to subgrade roller operator to see if this is possible. PICC site WNL. CLC done yesterday. Labs drawn and sent to [facility] via OTD. PICC line is very positional. It is sluggish when patient hunches forward, but opens up when she sits back with her arm out and shoulders back. Blood return noted from both lumens. Next visit: Third teaching session at 2:30 pm on 10/11/23. Sita Pittman RN [facility] S OPERATIONS DIRECTOR S OPERATIONS DIRECTOR documented in this encounter Plan of Treatment Upcoming Encounters Date Type Department Care Team (Late st Contact Info) Description 10/19/2024 9:30 AM SALES OPERATIONS DIRECTOR Virtual Visit [facility] [address] [facility] [place] [address] Adrianna Elizabeth APRN [facility] [address] [facility] [address] [place] [address] documented as of this encounter Visit Diagnoses Not on filedocumented in this encounter Care Teams Billing Department Supervisor Relationship Specialty Start [place] [address] [place] [address] PCP - General Family Medicine 10/02/24 [place] [address] [place] [address] Assigned PCP 08/29/[address] [facility] Registered Dietitian Dietitian 10/10/24 documented as of this encounter
--- OUTSIDE RECORDS SUMMARY | 2024-10-17 20:03 | XMS_ITS | Encounter Summary ---
Author Organization [facility] Address [address] [place] [address] Care Team Providers Care Converter Supervisor Name Role Phone Coming Johann Shawna Richard MD Unavailable +- [phone] Jose A Sheikh MD Primary Care Provider + [phone] Unavailable Unavailable Encounter Details Date Type Department Care Team (Late st Contact Info) Description 10/10/2024 Plan of Care Documentation [facility] [address] [place] [phone] Social History Tobacco Use Types Packs/Day Years [...] in an abandoned building, in an overnight snf, or couch-surfing.) Yes 10/01/2024 Are you worried [...] on file Legal Sex Female 3:39 AM SHIP BOSS Gender Identity Not on file Sexual Orientation Not on file documented as of this encounter Plan of Treatment Upcoming Encounters Date Type Department Care Team (Late st Contact Info) Description 10/19/2024 9:30 AM SHIP BOSS Virtual Visit [facility] [address] [place] [address] Adrianna Elizabeth APRN [facility] [address] [facility] [address] [place], [place] [address] documented as of this encounter Visit Diagnoses Not on filedocumented in this encounter Care Teams Converter Supervisor Relationship Specialty Start [place] [address] [place] [address] PCP - General Family Medicine 10/02/24 [place] [address] [place] [address] Assigned PCP 08/29/[address] [facility] Registered Dietitian Dietitian 10/10/24 documented as of this encounter
--- OUTSIDE RECORDS SUMMARY | 2024-10-17 20:03 | XMS_ITS | Encounter Summary ---
Author Organization [facility] Address [address] [place] [address] Care Team Providers Care Disability Case Manager Name Role Phone Coming Shawna Wills Hilary JACKSON Unavailable +- [phone] Jose A Sheikh MD Primary Care Provider + [phone] Unavailable Unavailable Encounter Details Date Type Department Care Team (Late st Contact Info) Description 10/08/2024 Medical Correspondence [facility] [address] [place] [phone] Scan, Non-Provider RX[facility]- ORDERS Social History Tobacco Use Types Packs/Day Years [...] in an abandoned building, in an overnight skilled nursing, or couch-surfing.) Yes 10/01/2024 Are you worried [...] on file Legal Sex Female 3:39 AM SITE FOREMAN Gender Identity Not on file Sexual Orientation Not on file documented as of this encounter Plan of Treatment Upcoming Encounters Date Type Department Care Team (Late st Contact Info) Description 10/19/2024 9:30 AM SITE FOREMAN Virtual Visit [facility] [address] [facility] [place] [address] Adrianna Elizabeth APRN [facility] [address] [facility] [address] [place], [place] [address] documented as of this encounter Visit Diagnoses Not on filedocumented in this encounter Care Teams Disability Case Manager Relationship Specialty [place] [address] [place] [address] PCP - General Family Medicine 10/02/24 [place] [address] [place] [address] Assigned PCP 08/29/[address] [facility] Registered Dietitian Dietitian 10/10/24 documented as of this encounter
--- OUTSIDE RECORDS SUMMARY | 2024-10-17 20:04 | XMS_ITS | Encounter Summary ---
Author Organization [facility] Address [address] [place] [address] Care Team Providers Care Front Loader Residential Driver Name Role Phone Shawna Platt Hilary JACKSON Unavailable + [phone] Jose A Sheikh MD Primary Care Provider + [phone] Karson Sal RN Unavailable Unavailable Sita Avila RD Unavailable Unavailable Adrianna Elizabeth APRN TURPENTINE FARMER Unavailable Encounter Details Date Type Department Care Team (Late st Contact Info) Description 10/06/2024 Home Infusion [facility] [address] [place] [phone] Karson Sal, FRANCISCO Esophageal perforation (Primary Dx); Acquired hypothyroidism Social History Tobacco Use Types Packs/Day Years [...] on file Legal Sex Female 3:39 AM INSTRUMENTATION ENGINEER Gender Identity Not on file Sexual Orientation Not on file documented as of this encounter Plan of Treatment Upcoming Encounters Date Type Department Care Team (Late st Contact Info) Description 10/19/2024 9:30 AM INSTRUMENTATION ENGINEER Virtual Visit [facility] [address] [place] [address] Adrianna Elizabeth APRN [address] [place] [address] documented as of this encounter Visit Diagnoses Diagnosis Esophageal perforation- Primary Perforation of esophagus Acquired hypothyroidism Unspecified hypothyroidism documented in this encounter Care Teams Front Loader Residential Driver Relationship Specialty [place] [address] [address] [place] [address] PCP - General Family Medicine 10/02/24 [place] [address] [place] [address] Assigned PCP 08/29/23 Karson Sal, RN I Resource Team 10/06/24 10/07/[address] [facility] Registered Dietitian Dietitian 10/10/24 Adrianna Elizabeth APRN TURPENTINE FARMER [address] [place] [address] [address] [place] [address] Home Infusion Following Provider Cardiovascular & Thoracic Surgery 10/17/24 documented as of this encounter
--- OUTSIDE RECORDS SUMMARY | 2024-10-17 20:04 | XMS_ITS | Encounter Summary ---
Author Organization [facility] Address [address] [place] [id number] Care Team Providers Care Process Automation Engineer Name Role Phone Coming Shawna Wills MD Primary Care Provid er Coming Shawna Wills MD Unavailable + [phone] Jose A Sheikh MD Primary Care Provider + [phone] Karson Sal RN Unavailable Unavailable Reason for Referral * Consultation (Routine: Next available opening) Specialty Diagnoses / Procedures Referred By Contac t Referred To Contact Diagnoses Esophageal perforation [address] [address] Phone: tel: fax: Referral ID Status Reason Start Date Expiration Date Visits Re quested Visits Authorized Question Answer Preferred Location: [facility] [phone] TENANCE MAN * Home Health Therapies & Aides (Routine: Next available opening) - Pending Review Specialty Diagnoses / Procedures Referred By Contac t Referred To Contact Diagnoses Esophageal perforation Pete Norris MD [address] [place] [address] Phone: tel: fax: Referral ID Status Reason Start Date Expiration Date V isits Requested Visits Authorized [id number] Pending Review 10/06/2024 10/06/2025 1 1 Question Answer Reason for Referral: Retirement Retirement Eval and Treat for: Complex aftercare, Disease management, Complex medication teaching and monitoring Is the patient homebound? Yes Homebound Status (describe the functional limitations that support this patient is confined to his/her home. Medicaid recipients are not required to be homebound.): Patient has difficulty ambulating >100 ft I attest that I saw or will see the patient on this date: 10/07/2024 Provider to follow patient JOSE A SHEIKH [[id number]] Comments Your provider has ordered home health services. If you have not been contacted within 2 days of your discharge please call the selected Home Care agency listed on your Discharge document. If a Home Care agency is NOT listed, please call [phone]. TENANCE MAN * Home Infusion Service Request (Routine) - Pending Review Specialty Diagnoses / Procedures Referred By Contac t Referred To Contact Home Infusion and Injection Services Diagnoses Perforation of esophagus Teresita Perez MD [address] [place] [address] Phone: tel: fax: [facility] [address] [place] [address] Phone: tel: fax: Referral ID Status Reason Start Date Expiration Date V isits Requested Visits Authorized [id number] Pending Review 10/06/2024 10/06/2025 1 1 Question Answer Preferred Location: [facility] - [phone] Requested Service TPN (Total Parenteral Nutrition) Comments Plan is still TBD pending esophogram tomorrow. Please complete benefit check in case. Thank you! Please be aware that coverage of these services is subject to the terms and limitations of your health insurance plan. Call member services at your health plan with any benefit or coverage questions. TENANCE MAN Reason for Visit * Auth/Cert Specialty Diagnoses / Procedures Referred By Contac Referred To Contact Oncology Diagnoses Large Esophageal Perforation [facility] 5A Oncology [address] [place] [address] Phone: tel: Referral ID Status Reason Start Date Expiration Date Visits Re quested Visits Authorized [id number] 1 1 Encounter Details Date Type Department Care Team (Latest Contact Info) Description 10/01/2024 6:51 PM MAINTENANCE MAN - 10/08/2024 5:34 PM MAINTENANCE MAN Hospital Encounter [facility] 5A Oncology [address] [place] [place] [address] Pete Norris MD [address] [place] [address] Esophageal perforation (Primary Dx); Acquired hypothyroidism Discharge Disposition: Home or Self Care Social [...] in an abandoned building, in an overnight care home, or couch-surfing.) Yes 10/01/2024 Are you worried [...] on file Legal Sex Female 3:39 AM MAINTENANCE MAN Gender Identity Not on file Sexual Orientation Not on file documented as of this encounter Last Filed Vital Signs Vital Sign Reading Time Taken Comments Blood Pressure 163/72 10/08/2024 12:11 PM MAINTENANCE MAN RN notified Pulse 68 10/08/2024 9:26 AM MAINTENANCE MAN Temperature 36.8 C (98.3 F) 10/08/2024 12:11 PM MAINTENANCE MAN Respiratory Rate 20 10/08/2024 12:1 1 PM MAINTENANCE MAN Oxygen Saturation 93% 10/08/2024 12: 11 PM MAINTENANCE MAN Inhaled Oxygen Concentration - - Weight 115.1 kg (253 lb 11. 2 oz) 10/07/2024 9:15 AM MAINTENANCE MAN Height - - Body Mass Index 44.94 06/09/2024 12:54 PM CDT documented in this encounter Discharge Summaries * Jayne Epps RN - 10/08/2024 5:00 PM CST Nursing Focus: Discharge D: Patient discharged to home at 1700. Patient ambulatory and accompanied by sister and niece. I: Discharge prescriptions sent to discharge pharmacy to be filled. All discharge medications and instructions reviewed with Chelle. Patient instructed to call clinic triage nurse if she experiences a fever >100.4, uncontrolled nausea, vomiting, diarrhea, or pain; or experiences any signs or symptoms of bleeding. Other phone numbers to call with questions or concerns after discharge reviewed. Home with PICC, not removed. Education completed. A: She verbalized understanding of discharge medications and instructions. [facility] will be delivering meds to pt at home. PICC care reviewed with pt, verbalized understanding. P: Patient to receive regular home infusion visits for TPN/lipids and scheduled appointment next week per pt. TENANCE MAN * Jeremie Navas MD - 10/08/2024 8:47 AM CST NAME: Chelle Lujan : 1950 DATE OF ADMISSION: 10/01/2024 PRE/POSTOPERATIVE DIAGNOSES: Perforated esophageal cancer, clinical stage IV PROCEDURES PERFORMED: EGD PATHOLOGY RESULTS: None CULTURE RESULTS: None INTRAOPERATIVE COMPLICATIONS: None POSTOPERATIVE MEDICAL ISSUES: None DRAINS/TUBES PRESENT AT DISCHARGE: PICC line DATE OF DISCHARGE: 10/08/2024 HOSPITAL COURSE: Chelle Lujan is a 74 year old female who on 10/01/2024 was admitted from an OSHdue to an esophageal perforation on 09/27/24 after EUS and stent insertion for esophageal adenocarcinoma. She underwent an EGD on 10/02/24 which showed an approximately 1cm perforation of the right retropharynx. Esophagram on 10/07/24 demonstrated continued leak. The remainder of her course was essentially uncomplicated. Prior to discharge, her pain was controlled well, she was able to perform ADLsand ambulate independently without difficulty, and had full return of bowel and bladder function. She was receiving TPN due to ongoing strict NPO status. Anticipate that patient will require TPN for p rolonged course due to persistent esophageal perforation. On 10/08/2024, she was discharged to home in stable condition with PICC in place. DISCHARGE EXAM: A&O, NAD Resp non-labored on room air Abdomen soft, non-tender, non-distended Distal extremities warm DISCHARGE INSTRUCTIONS: Discharge Procedure Orders Home Care Referral Referral Priority: Routine: Next available opening Referral Type: Home Health Therapies & Aides Number of Visits Requested: 1 Home Infusion Referral Referral Priority: Routine: Next available opening Referral Type: Consultation Number of Visits Requested: 1 Reason for your hospital stay Order Comments: Esophageal perforation Activity Order Comments: Your activity upon discharge: activity as tolerated Order Specific Question Answer Comments Is discharge order? Yes Discharge Instructions Order Comments: THORACIC SURGERY DISCHARGE INSTRUCTIONS DIET: Nothing by mouth TPN: [facility] will be managing home TPN. If your plans upon discharge include prolonged periods of sitting (i.e a lengthy car or plane ride), it is highly beneficial to get up and walk at least once per hour to help prevent swelling and blood clots. Take incentive spirometer home for continued frequent use Activity as tolerated Call for fever greater than 101.5, chills, increased size of incision, red skin around incision, vision changes, muscle strength changes, sensation changes, shortness of breath, or other concerns. In emergencies, call 911 For other Questions or Concerns; A.) During weekday working hours (Thursday through Thursday 8am to 4:30pm) call [phone] and ask to speak to a clinical nurse specialist. B.) At nights (after 4:30pm), on weekends, or if urgent call [phone] and tell the copy lathe operator I would like to page job code [phone], the thoracic surgery fellow it communications manager, please. Diet Order Comments: Follow this diet upon discharge: Current Diet:Orders Placed This Encounter NPO for Medical/Clinical Reasons Except for: No Exceptions Order Specific Question Answer Comments Is discharge order? Yes DISCHARGE MEDICATIONS: Current Discharge Medication List CONTINUE these medications which have NOT CHANGED Details tirzepatide-Weight Management (ZEPBOUND) 2.5 MG/0.5ML prefilled pen Inject 0.5 mLs (2.5 mg) subcutaneously every 7 days. Qty: 2 mL, Refills: 0 Associated Diagnoses: Class 3 severe obesity due to excess calories with serious comorbidity and body mass index (BMI) of 45.0 to 49.9 in adult (H) STOP taking these medications cyanocobalamin (VITAMIN B-12) 1000 MCG tablet Comments: Reason for Stopping: levothyroxine (SYNTHROID/LEVOTHROID) 175 MCG tablet Comments: Reason for Stopping: lisinopril (ZESTRIL) 40 MG tablet Comments: Reason for Stopping: metoprolol succinate ER (TOPROL XL) 50 MG 24 hr tablet Comments: Reason for Stopping: TENANCE MAN TENANCE MAN documented in this encounter Medications at Time of Discharge Emergency Supply Kit, Central,Indications :Esophageal perforation Patient use for emergency only. Contents: 3 sodium chloride 0.9% flushes, 1 dressing kit, 1 microclave ext set 14, 4 nitrile gloves (med), 6 alcohol prep pads, 1 bacitracin, 1 syringe (10 cc 20 G 1). Call to reorder. [id number] kit 10/08/2024 6:14 PM MAINTENANCE MAN 5 10/08/19 26 levothyroxine (SYNTHROID) injectionIndication s:Acquired hypothyroidism Inject 2.5 mLs (50 mcg) over 5-10 minutes into the vein via push every 24 hours for 10 days. Reconstitute 100 mcg levothyroxine vial(s). Draw up levothyroxine 20 mcg/mL in a syringe and administer IV push. Discard remainder of vial. 5 each 10/11/2024 6:00 PM MAINTENANCE MAN 5 10/19/19 25 Multiple Vitamin (INFUVITE ADULT) injectionIndication s:Esophageal perforation Add to infusion 10 mLs daily. Select 2 multivitamin vials, one of each color top. Draw up 5 mL from each vial and add to 1 TPN bag daily immediately prior to infusing. Discard remainder of vials. 3600 mL 10/11/2024 6:00 PM MAINTENANCE MAN 5 10/08/19 26 parenteral nutrition - TNA - see order for formulaIndications: Esophageal perforation Infuse 1,900 mLs over 12 hours into the vein (central line) daily. Taper up for 1 Hours. Taper down for 1 Hours. TPN additives to be added prior to administration: Infuvite-Adult 10 mL daily. Plateau rate: 172.8 mL/hr. KVO: 5 mL/hr. [id number] mL 10/11/2024 6:00 PM MAINTENANCE MAN 5 10/08/19 26 piperacillin sod-tazobactam (ZOSYN) 3.375 g in sodium chloride 0.9 % 100 mL via HOMEPUMPIndications :Esophageal perforation Infuse 3.375 g over 30 minutes into the vein every 8 hours for 14 days. [id number] mL 10/17/2024 1:23 PM MAINTENANCE MAN 5 10/23/19 25 sodium chloride, PF, 0.9% PF flushIndications:Es ophageal perforation Inject 10 mLs into the vein as needed for line flush. Flush IV before and after medication administration as directed and/or at least every 24 hours. 150758 mL 10/11/2024 6:00 PM MAINTENANCE MAN 5 10/08/19 26 sodium chloride, PF, 0.9% PF flushIndications:Ac quired hypothyroidism Use 5 mLs for reconstitution every 24 hours for 10 days. Use 1 syringe (5 mL) to reconstitute each vial of levothyroxine 100 mcg. Shake until solution is clear. 50 mL 10/16/2024 10:32 AM MAINTENANCE MAN 5 10/19/19 25 tirzepatide-Weight Management (ZEPBOUND) 2.5 MG/0.5ML prefilled penIndications:Clas s 3 severe obesity due to excess calories with serious comorbidity and body mass index (BMI) of 45.0 to 49.9 in adult (H) Inject 0.5 mLs (2.5 mg) subcutaneously every 7 days. 2 mL 4 parenteral nutrition - TNA - see order for formulaIndications: Esophageal perforation Infuse 1,900 mLs over 18 hours into the vein (central line) daily. Taper up for 1 Hours. Taper down for 1 Hours. TPN additives to be added prior to administration: Infuvite-Adult 10 mL daily. Plateau rate: 111.8 mL/hr. KVO: 5 mL/hr. 885818 mL 10/08/2024 6:14 PM MAINTENANCE MAN 5 10/11/19 25 documented as of this encounter Progress Notes * Josh Machuca MD - 10/08/2024 4:31 PM CST General Surgery Cross Cover Note: 4:32 PM 10/08/2024 Paged/Messaged regarding [facility] needing documentation on TPN order. 74 year old female with esophageal adenocarcinoma who underwent distal esophageal malignant obstruction stenting on 09/27 at OSH with iatrogenic retropharyngeal perforation, now transferred to [facility] for further management. Due to clinical course, the patient is unable to tolerate oral intake for an i ndefinite period. TPN is required for more than 90 days to meet the patient's nutritional needs until oral intake can be safely resumed. Josh Machuca MD Urology, PGY-1 Please page primary team with questions. TENANCE MAN * Jihan Lynn RN - 10/08/2024 3:19 PM CST Care Management Discharge Note Discharge Date: 10/08/2024 Discharge Disposition: Discharge Services: Discharge DME: Discharge Transportation: family or friend will provide Private pay costs discussed: Not applicable Does the patient's insurance plan have a 3 day qualifying hospital stay waiver? No PAS Confirmation Code: Patient/family educated on Medicare website which has current facility and service quality ratings: Education Provided on the Discharge Plan: Persons Notified of Discharge Plans: Yes Patient/Family in Agreement with the Plan: Handoff Referral Completed: Yes, non-[facility] PCP: External handoff communication completed Additional Information: RNCC contacted to ensure [facility] would be able to deliver TPN to the pt's home for discharge today. I confirmed with [facility] that the TPN will be delivered to the pt's home by 6 p.m. today. I was later informed that the pt also needs IV levothyroxine, due to strict NPO. Originally I was informed that thept did not have coverage for this in the home and the cost per day would be 179$, which the pt was not willing to pay and she declined having this set up as an outpt. Later I was informed that the ptWOULD have coverage for IV levothyroxine in the home. Orders placed by the providers. Pt received the first dose of IV levothyroxine without adverse effects while in patient. Bedside nurse informed that [facility] will go to the pt's home and delivery by 6 pm. EHO sent. Jihan Lynn, CLINICAL SAFETY SPECIALIST PHN 10/08/2024 Nurse Coordinator Social Work and Care Management Department SEARCHABLE in [facility] - search REMOTE SENSING PROGRAM MANAGER [facility] ([phone]) Thursday & Thursday; ([phone]) [facility] Recognized Holidays Units: 5A Onc 5201 - 5219 RNCC, 5A Onc 5220 thru 5240 RNCC, 5C OFFSERVICE 5401- 5416 RNCC & 5C OFF SERVICE [phone] RNCC Units: 6B Vocera, 6C Card 6401 thru 6420 RNCC, 6C Card 6502 thru 6514 RNCC & 6C Card 6515 thru 6519 RNCC Units: 7A SOT RNCC Vocera, 7B Med Surg Vocera, 7C Med Surg 7401 thru 7418 RNCC & 7C Med Surg 7502 thru 7521 RNCC Units: 6A Vocera & 4A CVICU Vocera, 4C MICU Vocera, and 4E SICU Vocera Units: 5 Ortho Vocera & 5 Med Surg Vocera Units: 6 Med Surg Vocera & 8 Med Surg Vocera TENANCE MAN * Shellie Centeno MD - 10/08/2024 8:45 AM CST THORACIC & FOREGUT SURGERY S: CT esophagram yesterday with persistent perforation. O: Vitals: 10/07/24 2006 10/08/24 0002 10/08/24 0208 10/08/24 0508 BP: (!) 155/88 (!) 159/78 131/80 (!) 165/71 BP Location: Right arm Left arm Left arm Left arm Pulse: 64 62 59 65 Resp: 18 18 Temp: 98.1 ??F (36.7 ??C) 98.2 ??F (36.8 ??C) 98.2 ??F (36.8 ??C) TempSrc: Oral Oral Oral SpO2: 93% 95% 97% Weight: NAD, resting comfortably in bed Breathing non-labored on room air Abdomen soft, non-distended, non-tender Distal extremities warm. A/P: Chelle Lujan is a 74 year old female with esophageal adenocarcinoma who underwent distal esophageal malignant obstruction stenting on 09/27 at OSH with iatrogenic retropharyngeal perforation,now transferred to [facility] for further management. CT esophagram on 10/07 with persistent perforation. On cycled TPN which patient will continue as an outpatient. - strict NPO - completed course of antimicrobials - TPN - potential discharge today if infusion services are all set up for home and patient comfortable with cares Seen with the fellow. Shellie Centeno MD General Surgery Resident [phone] TENANCE MAN * Saba Zaman, FRANCISCO - 10/07/2024 2:51 PM CST Images from the original note were not included. Care Management Follow Up Length of Stay (days): 6 Expected Discharge Date: 10/08/2024 Concerns to be Addressed: Discharge planning Patient plan of care discussed at interdisciplinary rounds: Yes Anticipated Discharge Disposition: Home Anticipated Discharge Services: Home infusion Anticipated Discharge DME: Patient/family educated on Medicare website which has current facility and service quality ratings:n/a Education Provided on the Discharge Plan: yes Patient/Family in Agreement with the Plan: yes Referrals Placed by CM/SW: n/a Private pay costs discussed: Not applicable Discussed ???Partnership in Safe Discharge Planning??? document with patient/family: No Handoff Completed: No, handoff not indicated or clinically appropriate - Needs External Additional Information: Per A&P (Teresita Perez MD , 10/06/2024) : esophageal adenocarcinoma who underwent distal esophageal malignant obstruction stenting on 09/27 at OSH with iatrogenic retropharyngeal perforation,now transferred to [facility] for further management. - no current surgical intervention; repeat esophagram ordered for today UPDATE from MD Perez [phone]: CT showed persistent esophageal perforation. Will remain on TPN at time of discharge. Final plan (continuous v cycled TBD) pending final conversation with Thoracic surgery attending MD. They will update Chelle and her family. RNCC met with patient and her sister, Iris at the bedside. They had already received some initial teaching from [facility] liaison and are in agreement with plan to discharge with TPN. They understand that final plan is TBD, pending final reccs from Thoracic surgeon. Her sister Iris is willing to be second learner. [facility] - IV Pati [facility] liaison [phone] Teams Addie I liaison [phone] Teams [facility] Resource Nurse [phone] Teams Initial Home Infusion Investigation Referral order placed in [facility] by comic writer on 10/06. [facility] needs: TPN (TBD if continuous v cycled) Additional home care needs: skilled RN (nutrition, medication and complex medical diagnosis) [facility] RNCC updated I liaison of: Need for TPN at time of discharge, possible discharge tomorrow 10/08/2024, final plan on cont v cycled still TBD Per [facility] intake team: has coverage as long as the provider anticipates AND documents that she will need it for 90 days or greater Accepting Home Medical Care Agency: Service Provider Request Status Services Address Phone Fax Patient Preferred [facility] [id number] [facility] [id number], [facility] [phone] -- Accepted for skilled RN services Transfer Agreement if necessary: transferred from [facility] (contact # [phone]) for Thoracic Surgery specialty Return Transfer Agreement can be found in Media tab under chart review. Next Steps: [x] follow up with [facility] and [facility] liaisons to confirm accepted agencies/needs/insurance coverage [x] Update patient/family on home care status [x] Home care referral for discharge [] Coordinate with weekend [facility] Resource RN about final plan for initiation of TPN at home. Home infusion referral orders needed. Patient has PICC line, confirm who is doing/teaching line cares [] Handoff: Needs External [] Ride: Family (Sister Iris or Aury) NORMA Buckley Care Management Department Covering 5A: [phone] & 5C: [phone] (non-BMT) Teams Vocera: weekdays 8:00 am - 4:30 pm. See Vocera Care Team for off-day coverage TENANCE MAN TENANCE MAN * Addie Quezada RN - 10/07/2024 1:44 PM CSTSummary: [facility]fusion Chelle is expected to discharge in a few days and will be going home on TPN (currently continuous). She has never done home IV therapy before nor has her sister who will be the primary CG. Met with Chelle at bedside who was accompanied by one of her sisters and provided them with information about TPN therapy with [facility] services. Explained about administration method with TPN and pump in [facility] for mobility and that pt and/or CG will be given teaching on the set up and administrationwith the expectation that once independent they will manage it daily. Assured them that home nurseswill provide teaching needed for the prep and administration of the TPN over the course of the first few days after discharge until they are comfortable with it and that they will have printed teaching materials as well as [facility] you tube videos for additional support. Informed them about supplies and delivery of supplies, storage of TPN, plan for SNVs after the initial teaching (typically 1-2x/week) and 27/04 support of [facility] staff while on IV therapy. If pt discharges on continuous TPN [facility] can provide either a superintendent geophysical laboratory of TPN at the hospital or have pt disconnect for transport (if ok with medicalteam) and have nurse visit at home to restart TPN on day of discharge depending on pt preference and timing of signed orders. If discharging on cycled TPN [facility] will have nurse see pt/CG at their home to begin teaching. Chelle verbalized understanding of all information given. They are willing and able to learn and manage home TPN therapy once teaching is complete. Will continue to follow and update pt as appropriate. Addie Quezada RN, BSN, B.S., [facility] Infusion [facility], [place] [address] [email or web address] TENANCE MAN * Arpita Ji RD - 10/07/2024 9:35 AM CST CLINICAL NUTRITION SERVICES - REASSESSMENT NOTE Nutrition Prescription RECOMMENDATIONS FOR MDs/PROVIDERS TO ORDER: Please let pharmacist or RD know if team would like adjustments to TPN fluid volume Adjust IV fluids per provider discretion Malnutrition Status: Patient does not meet two of the established criteria necessary for diagnosing malnutrition but is at risk for malnutrition Recommendations already ordered by Registered Dietitian (RD): Discussed with pharmacist, cycle TPN 18 hrs starting tonight (primary team confirmed ok with cycling TPN) Future/Additional Recommendations: Monitor TPN tolerance, wt trends; inpatient RD will continue to follow per protocol EVALUATION OF THE PROGRESS TOWARD GOALS Diet: NPO Nutrition Support: TPN, 1680 mL/day with goal 220 g dextrose, 105 g AA, and 250 mL 20% SMOFlipids 6days per week for total provision of 1596 Kcals (23 Kcals/kg), 1.5 g/kg protein, GIR 2.2 mg/kg/minute, and 27% fat kcals on average daily. Intake: NPO since admission. Pt was on PPN 09/30-10/02, transitioned to TPN 10/02 (initial edoradvd947 g/day), increased to 175 g dex on 10/03, and reached goal dextrose 10/04. No documentation of any TPN/lipid interruptions per review of progress notes and MAR. Plan for esophogram today per chart review; ongoing diet/nutrition support plan pending esophogram results per MD NEW FINDINGS Weight: overall down 7 lb the past 1.5 weeks (2.6%), suspect some could be fluid related at least in part. Date/Time Weight Weight Method 10/07/24 0915 115.1 kg (253 lb 11.2 oz) Standing scale 10/06/24 0835 114.6 kg (252 lb 9.6 oz) Standing scale 10/05/24 0916 115.7 kg (255 lb) -- 10/04/24 1028 116.7 kg (257 lb 3.2 oz) Standing scale 10/03/24 0824 117.9 kg (259 lb 14.4 oz) Standing scale Per OSH RD note on 09/29: Weights with Hospital Method: Date Weight (lb) Weight (kg) Weight Method 09/27/2024 9:25 AM 260 lb 117.935 kg STATED 09/08/2024 9:56 AM 266 lb 120.657 kg (None) Care Everywhere: 06/09/24: 123.8 kg (273 lb) 08/20/23: 118.4 kg (261 lb) 04/23/23: 118.8 kg (262 lb) 06/20/22: 122 kg (269 lb) Wt Readings from Last 10 Encounters: 10/07/24 115.1 kg (253 lb 11.2 oz) 06/09/24 123.8 kg (273 lb) 08/20/23 118.4 kg (261 lb) 04/23/23 118.8 kg (262 lb) 03/16/23 120.1 kg (264 lb 12.8 oz) 06/20/22 122 kg (269 lb) 11/13/21 121.6 kg (268 lb) 01/03/21 122.6 kg (270 lb 3.2 oz) 03/17/19 111 kg (244 lb 12.8 oz) 04/05/18 103 kg (227 lb) Labs: - Na+ 133 (L) - K+, Mg++, and Phos WNL - (10/03): Alk Phos, ALT, AST, Tbili, and TG WNL Meds: - LR @ 30 mL/hr (comments TPN + LR = 100 mL/hr) GI: last BM 1/2 per RN note last night MALNUTRITION % Intake: Decreased intake does not meet criteria % Weight Loss: > 2% in 1 week (severe) Subcutaneous Fat Loss: None observed - observed from doorway as pt leaving for procedure/imaging Muscle Loss: None observed - observed from doorway as pt leaving for procedure/imaging Fluid Accumulation/Edema: Trace per flowsheets Malnutrition Diagnosis: Patient does not meet two of the established criteria necessary for diagnosing malnutrition but is at risk for malnutrition Previous Goals Total avg nutritional intake to meet a minimum of 20 kcal/kg and 1.2 g PRO/kg daily (per dosing wt 69 kg). Evaluation: Met since 10/04 Previous Nutrition Diagnosis Inadequate oral intake related to inability to take PO 2/2 esophageal perforation as evidenced by reliance on TPN to provide 100% of nutrition needs. Evaluation: No change CURRENT NUTRITION DIAGNOSIS Inadequate oral intake related to inability to take PO 2/2 esophageal perforation as evidenced by reliance on TPN to provide 100% of nutrition needs. INTERVENTIONS Implementation Collaboration with other providers: primary team ok with cycling TPN, discussed plan to start with 18 hr cycle tonight with pharmacist Goals Total avg nutritional intake to meet a minimum of 20 kcal/kg and 1.2 g PRO/kg daily (per dosing wt 69 kg). Monitoring/Evaluation Progress toward goals will be monitored and evaluated per protocol. Arpita Ji, RD, MANAGER INTERVENTIONAL, LD Weekday Units covered: 5A (non-Heme Onc pts) and 7B ([id number]) Available by 5A or 7B Clinical Dietitian Vocera Weekend Coverage: Weekend Clinical Dietitian Vocera Inpatient Clinical Dietitians no longer available via paging TENANCE MAN * Teresita Perez MD - 10/07/2024 8:07 AM CST THORACIC & FOREGUT SURGERY S: No acute events overnight. Continues to feel well. Going for esophagram today. O: Vitals: 10/06/24 2034 10/06/24 2333 10/07/24 0115 10/07/24 0308 BP: (!) 157/83 (!) 187/80 (!) 154/76 (!) 157/81 BP Location: Left arm Left arm Left arm Pulse: 61 62 60 Resp: 16 16 Temp: 98.4 ??F (36.9 ??C) 98 ??F (36.7 ??C) 98 ??F (36.7 ??C) TempSrc: Oral Oral Oral SpO2: 92% 94% 95% Weight: NAD, resting comfortably in bed Breathing non-labored on room air Abdomen soft, non-distended, non-tender Distal extremities warm. A/P: Chelle Lujan is a 74 year old female with esophageal adenocarcinoma who underwent distal esophageal malignant obstruction stenting on 09/27 at OSH with iatrogenic retropharyngeal perforation,now transferred to [facility] for further management. - no current surgical intervention; repeat esophagram ordered for today - strict NPO - zosyn, fluconazole for esophageal perforation - TPN - bisacodyl suppository PRN - discharge planning pending results of esophagram To be discussed with staff. Teresita Perez MD General Surgery PGY-1 Please page with a 10 digit call back number it communications manager resident through [facility]. T * Saba Zaman RN - 10/06/2024 9:22 AM CST Images from the original note were not included. Care Management Follow Up Length of Stay (days): 5 Expected Discharge Date: 10/09/2024 Concerns to be Addressed: Discharge planning - possible TPN at discharge Patient plan of care discussed at interdisciplinary rounds: Yes Anticipated Discharge Disposition: Home Anticipated Discharge Services: Possible home infusion Anticipated Discharge DME: ALIA Patient/family educated on Medicare website which has current facility and service quality ratings:no Education Provided on the Discharge Plan: yes Patient/Family in Agreement with the Plan: yes Referrals Placed by CM/SW: Home infusion Private pay costs discussed: Not applicable Discussed ???Partnership in Safe Discharge Planning??? document with patient/family: No Handoff Completed: No, handoff not indicated or clinically appropriate Additional Information: Per A&P (Teresita Perez MD , 10/06/2024) : esophageal adenocarcinoma who underwent distal esophageal malignant obstruction stenting on 09/27 at [facility] with iatrogenic retropharyngeal perforation,now transferred to [facility] for further management. - no current surgical intervention; plan to repeat esophagram on tomorrow, 10/07/24 Patient transferred from [facility] (contact # [phone]) for Thoracic Surgery specialty. Patient does prefer to return if she no longer needs specialty care here. (Return Transfer Agreement can be found in Media tab under chart review.) Manager Supply Chain Planning reached out to MD Perez via [employer] to clarify discharge needs. Per MD Perez: Patient is getting an esophagram tomorrow and if she has a persistent perforation will need to go home on tpn. We won't know until we see the imaging tomorrow Initial Home Infusion Investigation Referral order placed in [facility] by comic writer on 10/06. [facility] needs: possible TPN Additional home care needs: skilled RN (nutrition, medication and complex medical diagnosis) [facility] accepted RNCC updated [facility] liaison of: n/a Per [facility] intake team: [facility] - IV Pati I liaison [phone] Teams Addie [facility] liaison [phone] Teams [facility] Resource Nurse [phone] Teams RNCC met with patient, Chelle and her family (son/sister) at the bedside, reviewed discharge plan. Chelle is very eager for the esophagram tomorrow so she can move forward with establishing with an oncologist. She is very hopeful that she doesn't need TPN at time of discharge, verbalizes understanding of maximizing nutrition whether through TPN or orally. Chelle lives in [place] and plans to establish Oncology care at [facility] which is closer to home. She has family and lots of support in the [place] area and is eager to return. States that she has no mobility concerns, but is interested in home health care for assisting in managing nutrition and complex new diagnosis, etc. Initial Home Care Referral sent to [facility] through [facility] 10/06. Accepting Home Medical Care Agency: Service Provider Request Status Services Address Phone Fax Patient Preferred [facility] [id number] [facility] [address], [facility] [phone] -- Accepted for skilled RN services Next Steps: [x] follow up with [facility] and [facility] liaisons to confirm accepted agencies/needs/insurance coverage [] Update patient/family on home care status [x] Home care referral for discharge [] Home infusion referral orders if needed [] Coordinate transfer back to [facility] if ongoing hospitalization is necessaryand [facility] specialty services no longer required [] Handoff: TBD [] Ride: Family Saba Zaman RNCC Care Management Department Covering 5A: [phone] & 5C: [phone] (non-BMT) Teams Vocera: 8:00 am - 4:30 pm. See Vocera Care Team for off-day coverage TENANCE MAN TENANCE MAN TENANCE MAN * Teresita Perez MD - 10/06/2024 7:41 AM CST THORACIC & FOREGUT SURGERY S: No acute events overnight. Ambulated a couple of times yesterday. Overall feeling well. Denies shortness of breath. O: Vitals: 10/05/24 2018 10/05/24 2119 10/06/24 0018 10/06/24 0348 BP: (!) 163/79 (!) 163/77 (!) 158/69 (!) 163/75 BP Location: Left arm Left arm Left arm Pulse: 67 65 Resp: 18 18 19 Temp: 98 ??F (36.7 ??C) 98.6 ??F (37 ??C) 98.6 ??F (37 ??C) TempSrc: Oral Oral Oral SpO2: 95% 94% 94% 95% Weight: NAD, resting comfortably in bed Breathing non-labored on room air Abdomen soft, non-distended, non-tender Distal extremities warm. A/P: Chelle Lujan is a 74 year old female with esophageal adenocarcinoma who underwent distal esophageal malignant obstruction stenting on 09/27 at OSH with iatrogenic retropharyngeal perforation,now transferred to [facility] for further management. - no current surgical intervention; plan to repeat esophagram on tomorrow, 10/07/24 - strict NPO - zosyn, fluconazole for esophageal perforation - TPN - bisacodyl suppository PRN To be discussed with staff. Teresita Perez MD General Surgery PGY-1 Please page with a 10 digit call back number it communications manager resident through [facility]. Cosigned by Pete Norris MD at 10/06/2024 1:50 PM MAINTENANCE MAN TENANCE MAN TENANCE MAN Associated attestation - Pete Norris MD - 10/06/2024 1:50 PM MAINTENANCE MAN Physician Attestation I saw this patient with the resident and agree with the resident/fellow's findings and plan of careas documented in the note. findings: Awaits esophagram to reassess perforation - scheduled for tomorrow, 10/07/2024 NPO TPN Pete Norris MD Date of Service (when I saw the patient): 10/06/24 * Teresita Perez MD - 10/05/2024 9:16 AM CST THORACIC & FOREGUT SURGERY S: No acute events overnight. Was able to get up and ambulate some yesterday. Pain controlled, no nausea/vomiting. Last BM 10/04. O: Vitals: 10/05/24 0313 10/05/24 0315 10/05/24 0431 10/05/24 0752 BP: (!) 196/93 (!) 190/93 (!) 177/78 (!) 159/69 BP Location: Left arm Left arm Pulse: Resp: 18 17 Temp: 98.8 ??F (37.1 ??C) 98 ??F (36.7 ??C) TempSrc: Oral SpO2: 95% 95% 96% Weight: NAD, resting comfortably in bed Breathing non-labored on room air Abdomen soft, non-distended, non-tender Distal extremities warm. A/P: Chelle Lujan is a 74 year old female with esophageal adenocarcinoma who underwent distal esophageal malignant obstruction stenting on 09/27 at OSH with iatrogenic retropharyngeal perforation,now transferred to [facility] for further management. - no current surgical intervention; plan to repeat esophagram on 10/07/24 - strict NPO - zosyn, fluconazole for esophageal perforation - TPN - bisacodyl suppository PRN Seen and discussed with attending thoracic surgeon Dr. Jr Perez MD General Surgery PGY-1 Please page with a 10 digit call back number it communications manager resident through [facility]. Cosigned by Pete Norris MD at 10/05/2024 2:12 PM MAINTENANCE MAN TENANCE MAN TENANCE MAN Associated attestation - Pete Norris MD - 10/05/2024 2:12 PM MAINTENANCE MAN Physician Attestation I saw this patient with the resident and agree with the resident/fellow's findings and plan of careas documented in the note. findings: NPO TPN Esophagram 10/07/2024 Pete Norris MD Date of Service (when I saw the patient): 10/05/24 * Shellie Centeno MD - 10/04/2024 8:49 AM CST THORACIC & FOREGUT SURGERY S: No acute events overnight. She did not ambulate yesterday but reports sitting up in a chair. Shedenies any N/V. She states that she had a small Bm. O: Vitals: 10/03/24 2354 10/04/24 0154 10/04/24 0324 10/04/24 0826 BP: (!) 177/77 (!) 168/81 (!) 177/80 (!) 177/115 BP Location: Left arm Right arm Right arm Pulse: 64 74 60 94 Resp: 16 16 18 Temp: 98.2 ??F (36.8 ??C) 98.2 ??F (36.8 ??C) 97.4 ??F (36.3 ??C) TempSrc: Oral Oral Oral SpO2: 96% 94% Weight: NAD, resting comfortably in bed Breathing non-labored on room air Abdomen soft, non-distended, non-tender Distal extremities warm. A/P: Chelle Lujan is a 74 year old female with esophageal adenocarcinoma who underwent distal esophageal malignant obstruction stenting on 09/27 at [facility] with iatrogenic retropharyngeal perforation,now transferred to [facility] for further management. - no current surgical intervention; plan to repeat esophagram on 10/07/24 - strict NPO - zosyn, fluconazole for esophageal perforation - TPN Seen and discussed with attending thoracic surgeon Dr. Jr Centeno MD General Surgery Resident [phone] Cosigned by Pete Norris MD at 10/04/2024 1:22 PM MAINTENANCE MAN TENANCE MAN TENANCE MAN TENANCE MAN Associated attestation - Pete Norris MD - 10/04/2024 1:22 PM MAINTENANCE MAN Physician Attestation I saw this patient with the resident and agree with the resident/fellow's findings and plan of careas documented in the note. findings: Clinically Significant Risk Factors # Hypoalbuminemia: Lowest albumin = 3.1 g/dL at 10/03/2024 2:29 AM, on TPN for nutritional support # Coagulation Defect: INR = 1.35 (Ref range: 0.85 - 1.15) and/or PTT = N/A, will monitor for bleeding # Hypertension: Noted on problem list # Financial/Environmental Concerns: none NPO TPN Esophagram 10/07/2024 Pete Norris MD Date of Service (when I saw the patient): 10/04/24 * Teresita Perez MD - 10/03/2024 11:17 AM CST THORACIC & FOREGUT SURGERY S: Feeling pretty well this morning. Had some throat pain after scope yesterday but only last a coupleof hours. No nausea/vomiting. Having some blood-streaked secretions. O: Vitals: 10/03/24 0019 10/03/24 0218 10/03/24 0416 10/03/24 0824 BP: (!) 168/75 (!) 146/64 (!) 153/76 (!) 174/76 BP Location: Left arm Left arm Left arm Pulse: 75 75 69 Resp: 18 Temp: 98.8 ??F (37.1 ??C) 98.4 ??F (36.9 ??C) 98.4 ??F (36.9 ??C) TempSrc: Oral Oral Oral SpO2: 93% 95% Weight: 117.9 kg (259 lb 14.4 oz) NAD, resting comfortably in bed Breathing non-labored on room air Abdomen soft, non-distended, non-tender Distal extremities warm. A/P: Chelle Lujan is a 74 year old female with esophageal adenocarcinoma who underwent distal esophageal malignant obstruction stenting on 09/27 at OSH with iatrogenic retropharyngeal perforation,now transferred to [facility] for further management. - no current surgical intervention; plan to repeat esophagram on Thursday, 09/06 - strict NPO - zosyn, fluconazole for esophageal perforation - TPN Seen and discussed with staff, Dr. Norris. Teresita Perez MD General Surgery PGY-1 Please page with a 10 digit call back number it communications manager resident through [facility]. Cosigned by Pete Norris MD at 10/03/2024 11:16 PM MAINTENANCE MAN TENANCE MAN TENANCE MAN Associated attestation - Pete Norris MD - 10/03/2024 11:16 PM MAINTENANCE MAN Physician Attestation I saw this patient with the resident and agree with the resident/fellow's findings and plan of careas documented in the note. findings: NPO TPN Likely esophagram 10/07/2024 Pete Norris MD Date of Service (when I saw the patient): 10/03/24 * Teresita Perez MD - 10/02/2024 8:59 AM CST THORACIC & FOREGUT SURGERY S: Patient transferred from OSH yesterday for esophageal perforation. Feeling well, denies throat/chest/abdominal pain. No difficulty swallowing, has been strict NPO. Reports nausea and diarrhea with TPN, does not think it is related to any other medication. O: Vitals: 10/01/24 1958 10/01/24 2338 10/02/24 0322 10/02/24 0745 BP: (!) 152/77 (!) 165/76 (!) 177/83 (!) 180/91 BP Location: Right arm Left arm Left arm Left arm Patient Position: Supine Pulse: 69 71 80 Resp: 18 18 Temp: 98.3 ??F (36.8 ??C) 98.4 ??F (36.9 ??C) 98.6 ??F (37 ??C) TempSrc: Oral Oral Oral SpO2: 95% 96% 96% NAD, resting comfortably in med Breathing non-labored on room air Abdomen soft, non-distended, non-tender Distal extremities warm. A/P: Chelle Lujan is a 74 year old female with esophageal adenocarcinoma who underwent distal esophageal malignant obstruction stenting on 09/27 at OSH with iatrogenic retropharyngeal perforation,now transferred to [facility] for further management. - added onto OR for today - strict NPO - zosyn, fluconazole for esophageal perforation - TPN Seen and discussed with staff, Dr. Norris. Teresita Perez MD General Surgery PGY-1 Please page with a 10 digit call back number it communications manager resident through [facility]. TENANCE MAN * Delmer Shaver RD - 10/02/2024 8:15 AM CST CLINICAL NUTRITION SERVICES - ASSESSMENT NOTE Nutrition Prescription RECOMMENDATIONS FOR MDs/PROVIDERS TO ORDER: Please notify RD if changes to TPN volume are desired. Malnutrition Status: Unable to determine due to lack of nutrition history and physical exam Recommendations already ordered by Registered Dietitian (RD): TPN recommendation: Dosing weight: 69 kg Access: Central Initial parameters (per day) Volume: 1680 mL Dextrose: 130 g (GIR 1.3) AA: 105 g Lipids: 250 mL 20%, 6 days per week (M-Sat) Dextrose titration: Monitor lytes and if within acceptable parameters (Mg++ > or = 1.5, K+ is > or = 3, and PO4 > or = 1.9), increase dextrose by 45 g/day to goal of 220 g dextrose. Additives: Infuvite, Tralement Goal PN provides 220 g dextrose, 105 g AA, and 250 mL 20% lipids 6 days per week for total provision of 1596 Kcals (23 Kcals/kg), 1.5 g/kg protein, GIR 2.2 mg/kg/minute, and 27% fat kcals on average daily. Ordered TG lab for today and every Thursday Future/Additional Recommendations: Monitor advancement to goal dextrose in TPN, lytes, GI/stooling, weights. REASON FOR ASSESSMENT Chelle Lujan is a/an 74 year old female assessed by the dietitian for Pharmacy/Nutrition to Start and Manage PN - Esophageal adenocarcinoma, dysphagia to liquids since 08/2024. Stent placed 09/27/24, iatrogenic retropharyngeal perforation - central line in place CLINICAL HISTORY Chart reviewed. Pt with a history of HTN, hypothyroidism, Jose Martin-en-Y gastric bypass (2010), and diagnosed with esophageal adenocarcinoma 09/16 with dysphagia who underwent distal esophageal malignant obstruction stenting at [place] on 09/27 with iatrogenic retropharyngeal perforation. Was NPO at [facility], had been started on TPN there but felt it was making her bloated, symptoms improvedwhen rate was decreased. Per 10/02 RN note: Patient reports feeling weird from TPN and attributed fecal incontinence to TPN. Provider paged and TPN paused. IV fluids adjusted from 25mL/hr to 100mL/hr. NUTRITION HISTORY Pt followed by RD at OSH. Last full assessment 09/29. Pt started on Clinimix E 4.25/5 with daily lipids on 09/30. Pt busy with other providers at attempted visit. All information obtained from chart review. CURRENT NUTRITION ORDERS Diet: NPO Nutrition support: Clinimix E 4.25/5 @ 83 mL/hr, no lipids ordered LABS Labs reviewed 06/22 A1C 6.2 (H). MEDICATIONS Medications reviewed Protonix Zosyn LR @ 100 mL/hr PRN jose, compazine ANTHROPOMETRICS Height: 160 cm (5' 3) Most Recent Weight (09/27): 118.8 kg (261 lb 12.8 oz) IBW: 52.3 kg (227% IBW) BMI: 46.41 kg/m2 - Obesity Grade III BMI >40 Weight History: Wt Readings from Last 15 Encounters: 09/27/24 118.8 kg (261 lb 12.8 oz) 09/08/24 120.7 kg (266 lb) 06/09/24 123.8 kg (273 lb) 08/20/23 118.4 kg (261 lb) Dosing Weight: 69 kg (Adjusted based on actual weight and IBW) ASSESSED NUTRITION NEEDS [facility] BMR = 1635 kcal/day Estimated Energy Needs: 1380 - 1725 kcals/day (20 - 25 kcals/kg) Justification: Obesity Estimated Protein Needs: 83 - 104 grams protein/day (1.2 - 1.5 grams of pro/kg) Justification: Increased needs Estimated Fluid Needs: 1 mL/kcal Justification: Maintenance PHYSICAL FINDINGS See malnutrition section below. MALNUTRITION % Intake: Unable to assess % Weight Loss: None noted Subcutaneous Fat Loss: Unable to assess Muscle Loss: Unable to assess Fluid Accumulation/Edema: Does not meet criteria - Trace edema in ankles and feet per flowsheet Malnutrition Diagnosis: Unable to determine due to lack of nutrition history and physical exam NUTRITION DIAGNOSIS Inadequate oral intake related to inability to take PO 2/2 esophageal perforation as evidenced by reliance on TPN to provide 100% of nutrition needs. INTERVENTIONS Implementation Nutrition Education: Will be provided if education needs arise Multivitamin/mineral supplement therapy Parenteral Nutrition/IV Fluids - Initiate Goals Total avg nutritional intake to meet a minimum of 20 kcal/kg and 1.2 g PRO/kg daily (per dosing wt 69 kg). Monitoring/Evaluation Progress toward goals will be monitored and evaluated per protocol. Delmer Shaver RD, LD Available on Vocera Weekend/Holiday RD Vocera - Weekend Clinical Dietitian No longer available by paging TENANCE MAN * Raquel Valdivia RN - 10/01/2024 10:43 PM CST Nursing Focus: Admission D: Patient admitted/transferred from OSH via EMS stretcher for upcoming surgery. I: Upon arrival to the unit patient was oriented to room, unit, and call light. Patient???s height,weight, and vital signs were obtained. Allergies reviewed and allergy band applied. MD notified of patient???s arrival on the unit. Adult AVS completed. Head to toe assessment completed. Education assessment completed. Care plan initiated. A: Vital signs stable upon admission. Patient rates pain at 0/10. Two RN skin assessment completed YES. Second RN was Ailyn Briseno. Significant Skin Findings include bruising, rash in right antecubital area, PICC, Bmbx site on back. WOC Nurse Consult Ordered NO. P: Continue to monitor patient and intervene as needed. Continue with plan of care. Notify MD with any concerns or changes in patient status. [id number] VSS on RA, hypertensive, gave scheduled IV metoprolol. Denies pain/nausea/SOB. Frequently coughs and spits thick saliva into emesis bag. SBA. NPO d/t esophageal perforation. LBM today per patient, loose. TPN and LR running in PICC. TENANCE MAN documented in this encounter H&P Notes * Cristina, Solveig, MD - 10/01/2024 7:41 PM CST Images from the original note were not included. [facility], [place] Thoracic Surgery History and Physical Chelle Lujan : 1950 ADMIT DATE: 10/01/2024 PCP: Shawna Platt CHIEF COMPLAINT: esophageal perforation HPI: Chelle Lujan is a 74 year old female with a history of HTN, hypothyroidism, Jose Martin-en-Y gastric bypass (2010), and diagnosed with esophageal adenocarcinoma 09/16 with dysphagia who underwent distal esophageal malignant obstruction stenting at [place] on 09/27 with iatrogenic retropharyngeal per foration. She was transferred to [facility] on 10/01/24 for evaluation by thoracic surgery, accepted for transfer by Dr. Norris. Patient noticed dysphagia slowly developing over a couple months, but assumed it was related to herprevious Jose Martin-en-Y bypass. 08/2024 she noticed her dysphagia had worsened and now she was unable totolerate fluids. EGD with [facility] in August showed an obstructing mass of the distal esophagus, biopsy determined poorly differentiated adenocarcinoma. PET CT concerning for osseous metastases, underwe nt T11 bone biopsy at [place] on 09/30/24. 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 Unfortunately, procedure was complicated by retropharyngeal perforation. She was admitted to [facility] for nonoperative management of the perforation with IV antibiotics and TPN, however repeat esophagram on 09/30 showed large persistent leak along the right posterior upper esophagus with an air and fluid collection along the right side of the upper mediastinum. She was transferred to [facility] for surgical evaluation and management of her perforation. On assessment, patient states that she is feeling ok, denies any pain at this time. Initially she had some discomfort and nausea after the stent placement but this has resolved over the last couple days. She denies any shortness of breath, chest pain, nausea, vomiting, fevers, or chills. [facility], had been started on TPN there but felt it was making her bloated, symptoms improved when rate was decreased. She is not on any anticoagulation. Drinks ~1 fidelia/day. Non-smoker. ROS: The 10 point Review of Systems is negative other than noted in the HPI PMH: Past Medical History: Diagnosis Date Alkaline phosphatase elevation 12/19/2016 Arthritis of knee, right 09/17/2015 Morbid obesity (H) 2000 PONV (postoperative nausea and vomiting) S/P gastric bypass 06/02/2011 Unspecified essential hypertension Unspecified hypothyroidism PSH: Past Surgical History: Procedure Laterality Date ARTHROPLASTY KNEE Right 09/24/2015 Procedure: ARTHROPLASTY KNEE; Surgeon: Jake Degroot MD; Location: [facility] LAPAROSCOPIC CHOLECYSTECTOMY 1981 [facility] GASTRIC BYPASS,OBESITY,W/SM BOWEL RECONS 2004 open- by Dr. Greenfield MEDICATIONS: Prior to Admission Medications Prescriptions Last Dose Informant Patient Reported? Taking? cyanocobalamin (VITAMIN B-12) 1000 MCG tablet No No Sig: Take 1 tablet (1,000 mcg) by mouth daily. levothyroxine (SYNTHROID/LEVOTHROID) 150 MCG tablet No No Sig: Take 1 tablet (150 mcg) by mouth daily. lisinopril (ZESTRIL) 40 MG tablet No No Sig: Take 1 tablet (40 mg) by mouth daily. metoprolol succinate ER (TOPROL XL) 50 MG 24 hr tablet No No Sig: Take 1 tablet (50 mg) by mouth daily. tirzepatide-Weight Management (ZEPBOUND) 2.5 MG/0.5ML prefilled pen No No Sig: Inject 0.5 mLs (2.5 mg) subcutaneously every 7 days. Facility-Administered Medications Last Administration Doses Remaining cyanocobalamin injection 1,000 mcg 01/12/2023 2:00 PM 336 ALLERGIES: Allergies Allergen Reactions Pentothal [Thiopental] Rash FAMILY HISTORY: Family History Problem Relation Age of Onset Hypertension Mother SOCIAL HISTORY: Social History Socioeconomic History Marital status: Single Spouse name: Not on file Number of children: Not on file Years of education: Not on file Highest education level: Not on file Occupational History Not on file Tobacco Use Smoking status: Never Smokeless tobacco: Never Vaping Use Vaping status: Never Used Substance and Sexual Activity Alcohol use: Yes Alcohol/week: 0.0 standard drinks of alcohol Drug use: No Sexual activity: Not Currently Other Topics Concern Parent/sibling w/ CABG, VA or angioplasty before 65F 55M? Not Asked Social History Narrative Not on file Social Drivers of Health Financial Resource Strain: Low Risk (10/01/2024) Financial Resource Strain Within the past 12 months, have you or your family members you live with been unable to get utilities (heat, electricity) when it was really needed?: No Food Insecurity: Low Risk (10/01/2024) Food Insecurity Within the past 12 months, did you worry that your food would run out before you got money to buy more?: No Within the past 12 months, did the food you bought just not last and you didn???t have money to getmore?: No Transportation Needs: High Risk (10/01/2024) Transportation Needs Within the past 12 months, has lack of transportation kept you from medical appointments, getting your medicines, non-medical meetings or appointments, work, or from getting things that you need?: Yes Physical Activity: Not on file Stress: Not on file Social Connections: Socially Integrated (09/27/2024) Received from [facility] Social Connections Do you often feel lonely or isolated from those around you?: 0 Interpersonal Safety: Low Risk (08/20/2023) Interpersonal Safety Do you feel physically and emotionally safe where you currently live?: Yes Within the past 12 months, have you been hit, slapped, kicked or otherwise physically hurt by someone?: No Within the past 12 months, have you been humiliated or emotionally abused in other ways by your partner or ex-partner?: No Housing Stability: Low Risk (10/01/2024) Housing Stability Do you have housing? : Yes Are you worried about losing your housing?: No PHYSICAL EXAM: Blood pressure (!) 152/77, temperature 98.3 ??F (36.8 ??C), temperature source Oral, resp. rate 18,SpO2 100%, not currently . GENERAL: A&Ox3, NAD HEENT: Eye symmetrical and free of discharge bilaterally. Mucous membranes moist and without lesions. CV: RRR, S1S2 present without murmur RESPIRATORY: Respirations regular, even, and unlabored. Equal air entry bilaterally GI: Soft and non distended. No tenderness, rebound, guarding. No organomegaly. Previous laparoscopic scare EXTREMITIES: 1+ peripheral edema. Warm and well perfused NEUROLOGIC: Alert and orientated x 3. CN II-XII grossly intact. No focal deficits. MUSCULOSKELETAL: No joint swelling or tenderness. Dressing over T11 bone biopsy site, old dried blood on dressing. SKIN: No jaundice. No rashes or lesions. LABS: No lab results found in last 7 days. No lab results found in last 7 days. Recent Labs Lab 10/01/24 1945 LACT 1.1 No lab results found in last 7 days. No lab results found in last 7 days. 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 Esophagram on 09/30/24 showed persistent perforation with air fluid level in the upper mediastinum. She was transferred to [facility] on 10/01/24 for evaluation by thoracic surgery, accepted for transfer by Dr. Norris. Plan for add-on tomorrow in OR - NPO - start IV zosyn, IV fluconazole for prophylaxis in the setting of esophageal perforation - LR @ 25 mL/hr - TPN: starting on Clinimix at 83 mL/hr per pharmacy - IV antihypertensives - pre-op orders placed - consented for OR tomorrow as add-on Uyen Salas PGY-1 General Surgery Cosigned by Pete Norris MD at 10/03/2024 10:53 AM MAINTENANCE MAN TENANCE MAN TENANCE MAN Associated attestation - Pete Norris MD - 10/03/2024 10:53 AM MAINTENANCE MAN Physician Attestation I saw this patient and agree with the resident/fellow's findings and plan of care as documented in the note. findings: 74 year old woman with recent diagnosis esophageal adenocarcinoma (09/16/2024) and underwent EUS and stent insertion on 09/27/2024. She was found to have a high perforation. She feels well today and has no pain. She had been unable to swallow water so the stent was placed. Plan for ORto assess extent of injury and need for intervention. Pete Norris MD Date of Service (when I saw the patient): 10/02/24 documented in this encounter Procedure Notes * Good Vela - 10/03/2024 2:36 PM CST Called due to PICC troubles with bloody show. Line was tugged on, and began to bleed actively at the sight. Blood flow had ceased and clots had formed at the PICC site. Cleaned site, and redressed. STAT CLOT disc used to meño any further issue. No active bleeding at the site, Insertion site appears unaffected and without concern. 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 She was transferred to [facility] on 10/01/24 for evaluation by thoracic surgery, accepted for transfer by Dr. Norris. Patient noticed dysphagia slowly developing over a couple months, but assumed it was related to herprevious Jose Martin-en-Y bypass. 08/2024 she noticed her dysphagia had worsened and now she was unable totolerate fluids. EGD with [facility] in August showed an obstructing mass of the distal esophagus, biopsy determined poorly differentiated adenocarcinoma. PET CT concerning for osseous metastases, underwe nt T11 bone biopsy at [facility] on 09/30/24. 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 Unfortunately, procedure was complicated by retropharyngeal perforation. She was admitted to [facility] for nonoperative management of the perforation with IV antibiotics and TPN, however repeat esophagram on 09/30 showed large persistent leak along the right posterior upper esophagus with an air and fluid collection along the right side of the upper mediastinum. She was transferred to [facility] for surgical evaluation and management of her perforation. The patient reports taking levothyroxine since high school, without ever being told what the etiology of her underactive gland is. No anti-TPO antibodies available for review either. Her home dose is175 mcg but she thinks that she has not had it for at least 10 days, and does not believe that she was getting any benefit from it either. The patient has had significant variations with her TSH levels, from markedly hypo- to hyperthyroid- and back hypothyroid. The patient is supposed to have repeat esophagram in 10 days and will be discharging home today. The primary team asked us to evaluate for possible alternatives for her oral Synthroid given that she is strict NPO with TPN on board. Relevant labs Latest Reference Range & Units 08/21/23 08:00 06/22/24 08:07 10/02/24 03:59 10/08/24 02:10 TSH 0.30 - 4.20 uIU/mL 1.01 29.40 (H) 0.18 (L) 12.20 (H) (H): Data is abnormally high (L): Data is abnormally low Latest Reference Range & Units 11/13/21 14:09 02/10/22 09:37 10/02/24 03:59 10/08/24 02:10 T4 Free 0.90 - 1.70 ng/dL 0.88 0.74 (L) 1.60 0.60 (L) (L): Data is abnormally low Relevant studies CT Chest 10/07/24: thyroid within normal limits ROS: All 12 systems were reviewed and negative except as mentioned in HPI Past Medical/Surgical History: Past Medical History: Diagnosis Date Alkaline phosphatase elevation 12/19/2016 Arthritis of knee, right 09/17/2015 Morbid obesity (H) 2000 PONV (postoperative nausea and vomiting) S/P gastric bypass 06/02/2011 Unspecified essential hypertension Unspecified hypothyroidism Past Surgical History: Procedure Laterality Date ARTHROPLASTY KNEE Right 09/24/2015 Procedure: ARTHROPLASTY KNEE; Surgeon: Jake Degroot MD; Location: OR ESOPHAGOSCOPY, GASTROSCOPY, DUODENOSCOPY (EGD), COMBINED N/A 10/02/2024 Procedure: Esophagoscopy, gastroscopy, duodenoscopy (EGD), combined with fluoroscopy; Surgeon: Pete Norris MD; Location: [facility] OR LAPAROSCOPIC CHOLECYSTECTOMY 1981 Z GASTRIC BYPASS,OBESITY,W/SM BOWEL RECONS 2004 open- by Dr. Greenfield Allergies: Allergies Allergen Reactions Pentothal [Thiopental] Rash SURFACE SUPPLY BREATHING APPARATUS Meds: Prior to Admission medications Medication Sig Last Dose Taking? Auth Provider Mcfp End Date tirzepatide-Weight Management (ZEPBOUND) 2.5 MG/0.5ML prefilled pen Inject 0.5 mLs (2.5 mg) subcutaneously every 7 days. Unknown Yes Isha Guadalupe MD Emergency Supply Kit, Central, Patient use for emergency only. Contents: 3 sodium chloride 0.9% flushes, 1 dressing kit, 1 microclave ext set 14, 4 nitrile gloves (med), 6 alcohol prep pads, 1 bacitracin, 1 syringe (10 cc 20 G 1). Call to reorder. Pete Norris MD 10/08/25 Multiple Vitamin (INFUVITE ADULT) injection Add to infusion 10 mLs daily. Select 2 multivitamin vials, one of each color top. Draw up 5 mL from each vial and add to 1 TPN bag daily immediately prior to infusing. Discard remainder of vials. Pete Norris MD 10/08/25 parenteral nutrition - TNA - see order for formula Infuse 1,900 mLs over 18 hours into the vein (central line) daily. Taper up for 1 Hours. Taper down for 1 Hours. TPN additives to be added prior to administration: Infuvite-Adult 10 mL daily. Plateau rate: 111.8 mL/hr. KVO: 5 mL/hr. Pete Norris MD 10/08/25 sodium chloride, PF, 0.9% PF flush Inject 10 mLs into the vein as needed for line flush. Flush IV before and after medication administration as directed and/or at least every 24 hours. Pete Norris MD 10/08/25 Current Medications: Current Facility-Administered Medications Medication Dose Route Frequency Provider Last Rate Last Admin acetaminophen (TYLENOL) Suppository 650 mg 650 mg Rectal Q4H PRN Chary Evans MD artificial saliva (BIOTENE MT) solution 2 spray 2 spray Swish & Spit 4x Daily PRN Teresita Perez MD 2 spray at 10/02/242101 bisacodyl (DULCOLAX) suppository 10 mg 10 mg Rectal Daily PRN Teresita Perez MD dextrose 10% infusion Intravenous Continuous PRN Pete Norris MD dextrose 10% infusion Intravenous Continuous PRN Pete Norris MD 83 mL/hr at 10/02/24 1325 1,000mL at 10/02/24 1325 enoxaparin ANTICOAGULANT (LOVENOX) injection 40 mg 40 mg Subcutaneous Q24H Teresita Perez MD 40 mg at 10/07/24 1233 fluconazole (DIFLUCAN) intermittent infusion 200 mg 200 mg Intravenous Q24H Chary Evans MD 100 mL/hr at 10/07/24 2348 200 mg at 10/07/24 2348 heparin lock flush 10 unit/mL injection 3 mL 3 mL Intracatheter Q1H PRN Pete Norris MD hydrALAZINE (APRESOLINE) injection 10-20 mg 10-20 mg Intravenous Q30 Min PRN Chary Evans MD 10 mg at 10/04/24 1100 HYDROmorphone (DILAUDID) injection 0.2 mg 0.2 mg Intravenous Q4H PRN Chary Evans MD Or HYDROmorphone (DILAUDID) injection 0.4 mg 0.4 mg Intravenous Q4H PRN Chary Evans MD labetalol (NORMODYNE/TRANDATE) injection 10 mg 10 mg Intravenous Q6H PRN Chary Evans MD lactated ringers infusion 1,000 mL 1,000 mL Intravenous Continuous Teresita Perez MD 30 mL/hr at10/07/24 1110 1,000 mL at 10/07/24 1110 levothyroxine (SYNTHROID) injection 100 mcg 100 mcg Intravenous Once Josh Shin MD lipids 4 oil (SMOFLIPID) 20 % infusion 250 mL 250 mL Intravenous Once per day on Thursday Pete Norris MD 20.8 mL/hr at 10/07/242029 250 mL at 10/07/242029 metoprolol (LOPRESSOR) injection 5 mg 5 mg Intravenous Q6H Teresita Perez MD 5 mg at 10/08/24925 naloxone (NARCAN) injection 0.2 mg 0.2 mg Intravenous Q2 Min PRN Pete Norris MD Or naloxone (NARCAN) injection 0.4 mg 0.4 mg Intravenous Q2 Min PRN Pete Norris MD Or naloxone (NARCAN) injection 0.2 mg 0.2 mg Intramuscular Q2 Min PRN Pete Norris MD Or naloxone (NARCAN) injection 0.4 mg 0.4 mg Intramuscular Q2 Min PRN Pete Norris MD ondansetron (ZOFRAN ODT) ODT tab 4 mg 4 mg Oral Q6H PRN Chary Evans MD Or ondansetron (ZOFRAN) injection 4 mg 4 mg Intravenous Q6H PRN Chary Evans MD 4 mg at pantoprazole (PROTONIX) IV push injection 40 mg 40 mg Intravenous Daily Hiren Garner MD 40 mgat 10/08/24 09 parenteral nutrition - ADULT compounded formula CYCLE CENTRAL LINE IV CYCLE Pete Norris MD 99 mL/hr at 10/07/24 2130 Rate Change at 10/07/24 213 piperacillin-tazobactam (ZOSYN) intermittent infusion 4.5 g 4.5 g Intravenous Q6H Chary Evans MD 200 mL/hr at 10/08/24 0635 4.5 g at 10/08/24 0635 prochlorperazine (COMPAZINE) injection 5 mg 5 mg Intravenous Q6H PRN Chary Evans MD Or prochlorperazine (COMPAZINE) tablet 5 mg 5 mg Oral Q6H PRN Chary Evans MD Family History: Family History Problem Relation Age of Onset Hypertension Mother Social History: Social History Tobacco Use Smoking status: Never Smokeless tobacco: Never Substance Use Topics Alcohol use: Yes Alcohol/week: 0.0 standard drinks of alcohol Physical Exam: BP (!) 149/95 (BP Location: Left arm) Pulse 68 Temp 98 ??F (36.7 ??C) (Oral) Resp 18 Wt 115.1 kg (253 lb 11.2 oz) SpO2 97% BMI 44.94 kg/m?? General: NAD HEENT: EOMI, nonicteric Neuro: AAOx3, neuro exam grossly nonfocal Psych: Calm Labs: Recent Results (from the past 24 hours) Glucose by meter Collection Time: 10/07/24 1:31 PM Result Value Ref Range GLUCOSE BY METER POCT 133 (H) 70 - 99 mg/dL Glucose by meter Collection Time: 10/08/24 12:09 AM Result Value Ref Range GLUCOSE BY METER POCT 162 (H) 70 - 99 mg/dL CBC with platelets Collection Time: 10/08/24 2:10 AM Result Value Ref Range WBC Count 9.3 4.0 - 11.0 10e3/uL RBC Count 4.28 3.80 - 5.20 10e6/uL Hemoglobin 11.9 11.7 - 15.7 g/dL Hematocrit 38.5 35.0 - 47.0 % MCV 90 78 - 100 fL MCH 27.8 26.5 - 33.0 pg MCHC 30.9 (L) 31.5 - 36.5 g/dL RDW 13.9 10.0 - 15.0 % Platelet Count 209 150 - 450 10e3/uL Comprehensive metabolic panel Collection Time: 10/08/24 2:10 AM Result Value Ref Range Sodium 133 (L) 135 - 145 mmol/L Potassium 4.5 3.4 - 5.3 mmol/L Carbon Dioxide (CO2) 22 22 - 29 mmol/L Anion Gap 10 7 - 15 mmol/L Urea Nitrogen 20.0 8.0 - 23.0 mg/dL Creatinine 0.82 0.51 - 0.95 mg/dL GFR Estimate 74 >60 mL/min/1.73m2 Calcium 8.7 (L) 8.8 - 10.4 mg/dL Chloride 101 98 - 107 mmol/L Glucose 189 (H) 70 - 99 mg/dL Alkaline Phosphatase 133 40 - 150 U/L AST 31 0 - 45 U/L ALT 42 0 - 50 U/L Protein Total 5.9 (L) 6.4 - 8.3 g/dL Albumin 3.2 (L) 3.5 - 5.2 g/dL Bilirubin Total 0.3 <=1.2 mg/dL Magnesium Collection Time: 10/08/24 2:10 AM Result Value Ref Range Magnesium 2.2 1.7 - 2.3 mg/dL Phosphorus Collection Time: 10/08/24 2:10 AM Result Value Ref Range Phosphorus 3.5 2.5 - 4.5 mg/dL INR Collection Time: 10/08/24 2:10 AM Result Value Ref Range INR 1.09 0.85 - 1.15 Bilirubin direct Collection Time: 10/08/24 2:10 AM Result Value Ref Range Bilirubin Direct <0.20 0.00 - 0.30 mg/dL TSH Collection Time: 10/08/24 2:10 AM Result Value Ref Range TSH 12.20 (H) 0.30 - 4.20 uIU/mL T4 free Collection Time: 10/08/24 2:10 AM Result Value Ref Range Free T4 0.60 (L) 0.90 - 1.70 ng/dL Assessment and Plan: Hypothyroidism, unknown etiology Hx of Jose Martin-en-Y gastric bypass in 2010 Esophageal adenocarcinoma s/p esophageal perforation NPO with TPN Chelle Lujan is a 74 year old female with PMHx of hypothyroidism on levothyroxine and poorly differentiated adenocarcinoma of esophagus s/p perforation who was transferred from [facility] to [facility] for surgical evaluation and management of her perforation. The primary team asked us to evaluate for alterna tives to oral synthroid given patient's NPO status. We discussed with the patient the available options including IV vs. rectal levothyroxine, the latter of which is off label and for which there are no strict guidelines regarding dose adjustments. Her insurance approved IV levothyroxine and we agreed to give her 100 mcg today, and then do 50 mcg daily starting tomorrow until she is back in the hospital in 10 days. We instructed the primary team to let the patient know that this medication is to be given over 2-3 minutes into the central line, in a separate lumen than the TPN will be infusing. During medication administration, her TPN should be paused and her lumen should be flushed. TPN can be restarted immediately after the medication was given. Her labs today are somewhat confusing because her TSH is 12.2 and the one prior to that a week ago was 0.18, and she reportedly was off levothyroxine for at least 10 days. That raises the question asto whether her 175 mcg dose was too high for her at that time, and for this reason we have recommended lower than normal (and adjusted for IV administration) levothyroxine. Anti-TPO antibodies are pending. She would need to have her TSH and free T4 rechecked on her next appointment in the hospital in order to determine that if she were to be able to resume oral levothyroxine, she would probably need lower than 175 mcg, especially in the setting of her Hx of Jose Martin-en-Y gastric bypass surgery. Endocrinology team has no further recommendations and will sign off at this time. Patient seen and management discussed with the attending. Gordon Wallace MD Endocrine Fellow Pager # [phone] Cosigned by Jg De Los Santos MD at 10/08/2024 1:13 PM MAINTENANCE MAN TENANCE MAN TENANCE MAN Associated attestation - Jg De Los Santos MD - 10/08/2024 1:13 PM MAINTENANCE MAN I, Jg De Los Santos MD, saw this patient with the resident/fellow and agree with the resident/fellow's findings and plan of care as documented in the resident/fellow's note. I personally reviewed vital signs, medications, labs, imaging, and notes. findings: Chelle is a 74 yo female with h/o hypothyroidism (since high school), Jose Martin-en-Y gastric bypass 2010, esophageal carcinoma who was admitted after retropharyngeal perforation and on strict NPO whom endocrine was consulted for parenteral levothyroxine. Patient denied symptoms of hyperthyroidism/ hypothyroidism. Last dose LT4 was 09/26/24 prior to admission to [facility]. Patient was not sure about her dose, per [facility] record 175 mcg/day. 09/27/24 TSH 0.83 (0.27-4.2) In general, LT4 IV is about 50-70% of oral dose. In case of Jose Martin-en-Y, anticipate less absorption, so likely that IV dose is even lower than anticipate dose. 10/08/24 TSH 12.2 (0.3-4.2), FT4 0.6 (0.9-1.7) Per care team, levothyroxine IV is covered. Recommend LT4 100 mcg IV today follows by 50 mcg daily while NPO. Patient to monitor symptoms of hyperthyroidism. Patient to resume oral dose once off NPO and follow with her outpatient provider. Please let endocrine know if any questions or concerns. * Charlee Godwin APRN CNP - 10/03/2024 12:45 PM CSTAssociated Order(s): INTERVENTIONAL RADIOLOGY ADULT/PEDS IP CONSULT IR consult placed for right thoracentesis. Please place Internal Medicine Procedure Team Adult IP [place] consult. For urgent procedures between 8am-4pm, 7 days/week use [employer] to page Staff Procedure Service Medicine CAPS on Medicine/[facility] Mender list. Tipprera message to Dr. Perez indicating to please place a CAPS consult. Charlee Godwin APRN CNP Interventional Radiology IR on-call pager: [phone] TENANCE MAN * Ashley Boone RN - 10/02/2024 11:02 AM CSTAssociated Order(s): CARE MANAGEMENT / SOCIAL WORK IP CONSULT Care Management Initial Consult General Information Assessment completed with: Patient, Type of CM/SW Visit: Initial Assessment Primary Care Provider verified and updated as needed: Yes Readmission within the last 30 days: no previous admission in last 30 days Reason for Consult: (SDOH- consult in error) Advance Care Planning: Advance Care Planning Reviewed: no concerns identified Communication Assessment Patient's communication style: spoken language (Palestinian or Bilingual) Hearing Difficulty or Deaf: no Wear Glasses or Blind: no Cognitive Cognitive/Neuro/Behavioral: WDL Living Environment: People in home: alone Current living Arrangements: house Able to return to prior arrangements: yes Family/Social Support: Care provided by: self Provides care for: no one Marital Status: Single Support system: (Sibblings, Nephews/Nieces, Friends) Description of Support System: Supportive, Involved Support Assessment: Adequate family and caregiver support, Adequate social supports Current Resources: Patient receiving home care services: No Community Resources: None Equipment currently used at home: cane, straight Supplies currently used at home: None Employment/Financial: Employment Status: employed part-time ([employer]) Financial Concerns: none Does the patient's insurance plan have a 3 day qualifying hospital stay waiver? Yes Which insurance plan 3 day waiver is available? Alternative insurance waiver Will the waiver be used for post-acute placement? No Functional Status: Prior to admission patient needed assistance: Dependent ADLs:: Independent Dependent IADLs:: Independent Mental Health Status: Mental Health Status: (not discussed) Chemical Dependency Status: Chemical Dependency Status: (not discussed) Values/Beliefs: Spiritual, Cultural Beliefs, Synagogue Practices, Values that affect care: no Discussed ???Partnership in Safe Discharge Planning??? 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 She was transferred to [facility] on 10/01/24 for evaluation by thoracic surgery, accepted for transfer by Dr. Norris. No transfer agreement in media tab yet. [facility] consult received for transportation issues. Consult entered in error. Completed initial assessment with patient who is waiting for OR procedure today as add-on. See details above Next Steps: Care Management to follow for discharge planning Ride: family Ashley Boone RN, [facility] Inpatient Care Management - FLOAT TENANCE MAN documented in this encounter Miscellaneous Notes * Plan of Care - Emily Brennan RN - 10/08/2024 3:44 PM CST Goal Outcome Evaluation: Plan of Care Reviewed With: patient Overall Patient Progress: no changeOverall Patient Progress: no change Outcome Evaluation: VSS on RA, awaiting discharge 0170-5721 BP (!) 163/72 Pulse 68 Temp 98.3 ??F (36.8 ??C) (Oral) Resp 20 Wt 115.1 kg (253 lb 11.2 oz) SpO2 93% BMI 44.94 kg/m?? Activity: SBA. Pain: Denies. Neuro: Aox4. Denies dizziness and N/V. Cardiac: Bradycardic within parameters. Held metoprolol x1. Respiratory: WDL. Denies SOB. On RA. GI/: Voiding to the bathroom. LBM 10/06/24. Diet: NPO. TPN/lipids. Lines: PICC running cycled TPN. New changes this shift: No acute changes. Plan: Waiting to discharge. Continue to monitor and follow POC TENANCE MAN * Plan of Care - Priya Garcia RN - 10/08/2024 6:56 AM CST Goal Outcome Evaluation: Plan of Care Reviewed With: patient Overall Patient Progress: no changeOverall Patient Progress: no change Outcome Evaluation: 2300 - 0700 2300 - 0700 BP (!) 165/71 (BP Location: Left arm) Pulse 65 Temp 98.2 ??F (36.8 ??C) (Oral) Resp 18 Wt 115.1 kg (253 lb 11.2 oz) SpO2 97% BMI 44.94 kg/m?? Reason for admission: S/p distal esophageal malignant obstruction stenting on 09/27/24 at OSH, now transferred for urther management. Activity: SBA Pain: Denies Neuro: A&Ox4, WDL Cardiac: WDL, VSS w/ exception of bradycardia and htn within parameters. Respiratory: WDL on RA GI/: Voiding spontaneously, last BM 10/06/24, denies nausea. Diet: NPO, cycled TPN. Lines: PICC Continue to monitor and follow POC TENANCE MAN * Plan of Care - Jayne Epps RN - 10/07/2024 10:56 PM CST Goal Outcome Evaluation: Plan of Care Reviewed With: patient Overall Patient Progress: no changeOverall Patient Progress: no change VSS, voiding spontaneously w/o difficulty. Receiving cycled TPN and lipids. Has a PICC. NPO, no exceptions. Pt had been expecting to discharge today and expressed frustration that she hadn't heard follow up from any drs about her CT scan earlier today or why she can't discharge home today. SBA, steady. TENANCE MAN * Plan of Care - Emily Brennan RN - 10/07/2024 12:48 PM CST Goal Outcome Evaluation: Plan of Care Reviewed With: patient Overall Patient Progress: no changeOverall Patient Progress: no change Outcome Evaluation: VSS on RA, CT scan this morning 7256-5148 BP (!) 167/84 Pulse 70 Temp 98 ??F (36.7 ??C) (Oral) Resp 16 Wt 115.1 kg (253 lb 11.2 oz) SpO2 96% BMI 44.94 kg/m?? Activity: SBA. Pain: Denies. Neuro: Aox4. Pt denies dizziness and N/V. Cardiac: Bradycardic within parameters. WDL otherwise. Held 1400 IV metoprolol dose; HR 58. Respiratory: WDL. Pt denies SOB. Pt on RA; SP02 stats at 96-100% GI/: Voiding spontaneously to the bathroom. LBM 10/06/2024. Diet: NPO. TPN/lipids via PICC. Lines: PICC running LR at 30 mL/hr and TPN at 70 mL/hr. Labs/imaging: CT in the AM. New changes this shift: No acute events this shift. Continue to monitor and follow POC TENANCE MAN * Plan of Care - Sridevi Arroyo RN - 10/07/2024 6:36 AM CST Goal Outcome Evaluation: Plan of Care Reviewed With: patient Overall Patient Progress: no change 19:00- 07:00 Patient AOx4, hypertensive and bradycardic but not within parameters to notify provider. MetoprololIV held twice, HR remains below 60, otherwise VSS on RA. Denies pain, nausea and SOB. SBA. Voiding spontaneously w/o difficulty. LBM 10/06/2024. Strict NPO, with continuous TPN running at 70ml/hr and Maintenance LR at 30ml/hr via PICC. Purple cap changed. Possible EGD today. Continue w/ POC. TENANCE MAN * Plan of Care - Jazmin Ordonez - 10/06/2024 6:18 PM CST Goal Outcome Evaluation: Plan of Care Reviewed With: patient Overall Patient Progress: no changeOverall Patient Progress: no change Outcome Evaluation: VSS, Possible EGD tomorrow BP (!) 147/72 (BP Location: Left arm) Pulse 57 Temp 97.8 ??F (36.6 ??C) (Oral) Resp 16 Wt 114.6 kg (252 lb 9.6 oz) SpO2 97% BMI 44.75 kg/m?? Reason for admission: Management of esophageal perforation. Activity: SBA Pain: Denies. Neuro: Alert and Oriented x4 Cardiac: WDL except intermittent bradycardia due to scheduled medications. +1 Edema. Respiratory: WDL GI/: WDL, voiding without difficulty. LBM 10/06/24. Diet: NPO. TPN running at 70 mL/hr Lines: PICC Wounds: Scattered bruising New changes this shift: No acute changes this shift, continue with care as planned. Potential EGD tomorrow. Purple cap needs changed today, currently running continuous TPN. Cosigned by Trevor Boyce RN at 10/06/2024 6:55 PM MAINTENANCE MAN TENANCE MAN TENANCE MAN Associated attestation - Trevor Boyce RN - 10/06/2024 6:55 PM MAINTENANCE MAN I have read and attest to this note. * Plan of Care - Emily Brennan RN - 10/06/2024 2:56 PM CST Goal Outcome Evaluation: Plan of Care Reviewed With: patient Overall Patient Progress: improvingOverall Patient Progress: improving Outcome Evaluation: POD3 EGD 4485-9751 BP (!) 165/82 Pulse 65 Temp 98.3 ??F (36.8 ??C) (Oral) Resp 16 Wt 114.6 kg (252 lb 9.6 oz) SpO2 97% BMI 44.75 kg/m?? Activity: SBA Pain: Denies pain. Neuro: Aox4. Denies N/V and dizziness. Cardiac: Bradycardic within parameters. Respiratory: WDL. Lungs clear; lower lobes diminished. Denies SOB. GI/: LBM 10/04. Voiding spontaneously to the bathroom. Diet: NPO. TPN/lipids. Lines: PICC; LR running at 30 mL/hr, TPN running at 70 mL/hr. Purple cap needs to be changed; running TPN. New changes this shift: No acute events during shift Continue to monitor and follow POC TENANCE MAN * Plan of Care - Thea Chun RN - 10/06/2024 7:27 AM CST Goal Outcome Evaluation: Plan of Care Reviewed With: patient Overall Patient Progress: no change 7597-5457: Patient AVSS on room air, hypertensive within parmeters, on scheduled metoprolol. 0300 dose of mtoprolol not given as pt HR at 58. A&O x 4. No pain, no nausea/vomiting. Blood sugars of156 and 140. TPN/lipids running. LR running at 30 ml/hr. Still needs purple cap changed. SBA. Callsappropriately. Continue with plan of care. TENANCE MAN * Plan of Care - Isha Wu RN - 10/05/2024 6:30 PM CST Goal Outcome Evaluation: Plan of Care Reviewed With: patient Overall Patient Progress: improvingOverall Patient Progress: improving Outcome Evaluation: POD3 EGD, TPN continued, up and walking halls today 2615-6321: Chelle is A&Ox4 with HTN continued, no scheduled metoprolol given this shift due to HRin the high 50s/low 60s, MD aware. No complaints of pain, N/V or SOB. Continues on TPN/Lipids + LR = 100mL/hr and IV abx. PICC CDI, no bleeding this shift. Up SBA. Completed walks x 3 .Able to make needs known. Family at bedside this shift, supportive. Continue with POC, repeat esophagram scheduled for Thursday. Possible discharge after pending results. TENANCE MAN * Provider Notification - Isha Wu RN - 10/05/2024 1:47 PM CST Paged Teresita Perez via [employer] @ [employer] Held the 2pm dose of metoprolol again due to HR. BP 150s/100s. I'm going to recheck her around 3pm.She doesn't meet parameters for hydralazine. Do you want to add a diastolic parameter? Or are you OK with where she is sitting? Thanks! Plan: Ok to monitor TENANCE MAN * Plan of Care - Thea Chun RN - 10/05/2024 6:53 AM CST Goal Outcome Evaluation: Plan of Care Reviewed With: patient Overall Patient Progress: no change 7931-1626: Patient afebrile on room air, pt grew hypertensive with a BP of 190/93, scheduled metoprolol given, pt BP went back down to 177/78. Provider notified of both BPs, otherwise VSS. A&O x 4. No pain, no nausea/vomiting. Blood sugars of 135 and 149. TPN/lipids running. LR running at 30 ml/hr. Independent. Calls appropriately. Continue with plan of care. TENANCE MAN * Provider Notification - Thea Chun RN - 10/05/2024 3:47 AM MAINTENANCE MAN Provider notified: Rodrigue Duran 52Sofia JAris. Pt had BP of 190/93, scheduled metoprolol just given, will recheck BP in an hour and givenPRNs if needed. Thank you, Thea [phone] Provider notified: Rodrigue Soria JAris. BP recheck at 177/78. Will hold off on PRNs. Thank you, Thea [phone] TENANCE MAN * Plan of Care - Isha Wu RN - 10/04/2024 6:00 PM CST Goal Outcome Evaluation: Plan of Care Reviewed With: patient Overall Patient Progress: improvingOverall Patient Progress: improving Outcome Evaluation: POD2 EGD 2770-3156: Chelle is A&Ox4 with VSS on RA. No complaints of pain, N/V or SOB. Continues on TPN and IV abx. Productive cough with minimal blood tinged sputum. Up SBA. Showered. PICC CDI. LR @ 30mL/hr. GUOP, no BM this shift. Able to make needs known. Continue with POC. TENANCE MAN * Plan of Care - Charlee Greenwood RN - 10/04/2024 6:55 AM CST Goal Outcome Evaluation: Plan of Care Reviewed With: patient Overall Patient Progress: no changeOverall Patient Progress: no change 2703-3296 Neuro: Pt. alert and cooperative with cares. Behavior: Pt. calm & cooperative with cares. Activity: Pt. up with SBA. Vital: Pt. hypertensive, AOVSS on RA. Pt. given sched. Metoprolol. BG: q 6 hours. LDAs: Right PICC with TPN and Lipids. TPA to purple port and port remains occluded. Will need 2nd dose TPA at 8am. Cardiac: Hypertension Respiratory: LS clear bilat. GI/: Pt. voiding without difficulty. No stools this shift. Skin: WNL Pain/Nausea: Pt. denies pain or nausea. Diet: NPO Labs/Imaging: See chart for results. Plan: Continue to follow POC and notify team with change in status. TENANCE MAN * Plan of Care - Chelle Garner RN - 10/03/2024 9:58 PM CST Time 2734-1467 A&O x4. Hypertensive, gave scheduled metoprolol. OVSS on RA. Denies SOB, headache, dizziness. Denies pain. Strict NPO. DL PICC infusing TPN and lipids, and MIVF. POCT glucose 110. Voids spontaneously with adequate output. LBM 10/01. Assist x1. Goal Outcome Evaluation: Plan of Care Reviewed With: patient Overall Patient Progress: no changeOverall Patient Progress: no change Outcome Evaluation: POD 1 EGD TENANCE MAN * Plan of Care - Lata Alvarez RN - 10/03/2024 2:52 PM CST Goal Outcome Evaluation: Chelle has been afe and SBP 170's. Continues with IV Metoprolol and IV meds due to strict NPO. Does have prn antihypertensives with SBP above 180. On LR CIVI and TPN with being NPO. Pt does have blood streaked secretions - MD aware and saw the secretions. MDs plan on follow up scan on Thursday in IR. Pulled PICC line while getting into chair which caused a significant amount of bleeding. The PICC was not pulled out - it just irritated the site. Vasc accessed called and re-dressed PICC with STAT disk. Bleeding stopped on its own. BG with TPN 125 and TENANCE MAN TENANCE MAN TENANCE MAN * Plan of Care - Caridad Gutierrez RN - 10/03/2024 6:25 AM CST Goal Outcome Evaluation: 9321-2091 VSS. Alert and oriented. Denies pain. Tolerating TPN well. BG stable. No acute events, continue with POC. TENANCE MAN * Plan of Care - Isha Wu RN - 10/02/2024 10:50 PM CST Goal Outcome Evaluation: Plan of Care Reviewed With: patient Overall Patient Progress: no changeOverall Patient Progress: no change Outcome Evaluation: POD#0 EGD 5963-5832: Chelle is A&Ox4. HTN outside of parameters. Given scheudled IV metoprolol with no change. PRN 10mg hydral x1 given, not rechecked due to pt being brought down for surgery. OVSS on RA. Nocomplaints of SOB or N/V. Mild pain in throat, no intervention desired. Cough with sputum, can handle secretions. Strict NPO. On IV abx. SBA with walker. Family at bedside, supportive. CHG wipes completed. LR infusing via PICC with +BR (in place of TPN) GUOP. No BMs this shift. EGD completed this shift in OR. Patient transferred back up from PACU VSS, BP HTN but within parameters and on 2L. 0742-4015: VSS on 2L. Completed CT CAP upon return to floor, results still pending. Strict NPO, biotene given for mouth dryness. Continues on IV abx. TPN started again this shift. BG check due at 0000. Up SBA to bathroom, GUOP, no BM yet. Able to make needs known, continue with POC. TENANCE MAN * Provider Notification - Isha Wu RN - 10/02/2024 10:40 PM CST Paged Christian Rodriguez via [employer] @ [phone] Can you discontinue IVF order as she has the TPN up now? Or are we wanting both? Response: Keep fluids for now TENANCE MAN * Provider Notification - Rima Barriga RN - 10/02/2024 5:11 PM CST Pt spit up scant amount of blood, provider notified and aware. No other signs of bleeding. TENANCE MAN * Brief Op Note - Teresita Perez MD - 10/02/2024 1:02 PM CST [facility] Brief Operative Note Pre-operative diagnosis: Esophageal perforation [K22.3] Post-operative diagnosis Same as pre-operative diagnosis Procedure: Esophagoscopy, gastroscopy, duodenoscopy (EGD), combined with fluoroscopy, N/A - Esophagus Surgeon: Surgeons and Role: * Pete Norris MD - Primary * Hiren Garner MD - Fellow - Assisting Anesthesia: General Estimated Blood Loss: None Drains: None Specimens: * No specimens in log * Findings: About 1cm perforation of the right retropharynx. Complications: None. Implants: * No implants in log * TENANCE MAN * Op Note - Pete Norris MD - 10/02/2024 12:21 PM CST Preoperative diagnosis: Esophageal perforation Postoperative diagnosis: As above Procedure: Esophagogastroduodenoscopy Interpretation of fluoroscopy Anesthesia: General Surgeon: Pete Norris Resident surgeon: Hiren Garenr EBL: None Complications: none immediate Findings: Perforation at 17 cm from the incisors, 1 cm Description of procedure The patient was brought to the room and placed supine upon the table. After confirming the patient's identity and the consent, appropriate monitoring devices were placed as well as SCD boots. Generalanesthesia was administered and the patient was intubated. A bite block was placed. The endoscope was passed into the posterior pharynx and into the esophagus without difficulty. There was a 1 cm hole located at 17 cm from the incisors. Contrast instillation under fluoroscopy showed a small cavity.I passed a guidewire into the cavity, but was unable to pass a nasogastric tube into the cavity given its high location. I decided to remove the endoscope at this time. TENANCE MAN * Plan of Care - Ashley Boone RN - 10/02/2024 10:57 AM CST Goal Outcome Evaluation: Plan of Care Reviewed With: patient Overall Patient Progress: no changeOverall Patient Progress: no change Outcome Evaluation: Patient will discharge home once medically stable Ashley Boone RN, [facility] Inpatient Care Management - FLOAT TENANCE MAN * Pharmacy-Admission Medication History - Lawrence Wills [facility] - 10/02/2024 7:46 AM CST Pharmacist Admission Medication History Admission medication history is complete. The information provided in this note is only as accurateas the sources available at the time of the update. Information Source(s): Patient admitted at [facility] 09/27 to 10/01 prior to transfer to [facility] on 10/01. Med history completed at [place] on 09/27 by Fang Beal. See original not for more details. Reviewed medication dispense history ([employer]) Changes made to [employer] medication list: Added: None Deleted: None Changed: Levothyroxine 150 mcg daily --> 175 mcg daily Pertinent Information: Patient started on TPN at OSH Receiving IV levothyroxine at OSH in place of her oral dose Prior to Admission medications Medication Sig Last Dose Taking? Auth Provider Mcfp End Date cyanocobalamin (VITAMIN B-12) 1000 MCG tablet Take 1 tablet (1,000 mcg) by mouth daily. Past Week Yes Isha Guadalupe MD levothyroxine (SYNTHROID/LEVOTHROID) 175 MCG tablet Take 175 mcg by mouth every morning (before breakfast). Past Week Yes Unknown, Entered By History No lisinopril (ZESTRIL) 40 MG tablet Take 1 tablet (40 mg) by mouth daily. Past Week Yes Isha Guadalupe MD Yes metoprolol succinate ER (TOPROL XL) 50 MG 24 hr tablet Take 1 tablet (50 mg) by mouth daily. Past Week Yes Isha Guadalupe MD Yes tirzepatide-Weight Management (ZEPBOUND) 2.5 MG/0.5ML prefilled pen Inject 0.5 mLs (2.5 mg) subcutaneously every 7 days. Unknown Yes Isha Guadalupe MD Medication History Completed By: Lawrence Wills RPH 10/02/2024 7:47 AM TENANCE MAN * Plan of Care - Jaycee Ibarra RN - 10/02/2024 6:19 AM CST Goal Outcome Evaluation: Plan of Care Reviewed With: patient Overall Patient Progress: no changeOverall Patient Progress: no change Nursing note Pain/Comfort: Patient denies any pain or discomfort upon assessments. Primary problem: Esophageal perforation Assessments/Progress: Patient is A&Ox4, pleasant, calm and cooperative. VSS except hypertensionwith scheduled metoprolol IV given. Patient presents with swallowing difficulty, coughing up clear secretions from throat into emesis bag at bedside. Patient had both urinary and fecal incontinence overnight. Patient reports feeling weird from TPN and attributed fecal incontinence to TPN. Provider paged and TPN paused. IV fluids adjusted from 25mL/hr to 100mL/hr. Patient had shower this morningfor hygiene. PICC line infusing. Patient is NPO for surgery today. Priority nursing care for next shift: keep NPO for surgery Discharge plan/ barriers to discharge: Pending TENANCE MAN documented in this encounter Plan of Treatment Upcoming Encounters Date Type Department Care Team (Late st Contact Info) Description 10/19/2024 9:30 AM MAINTENANCE MAN Virtual Visit [facility] [address] [place] [address] Adrianna Elizabeth, TEMPORARY DATA ENTRY CLERK [facility] [address] [facility] [address] [place], [place] [id number] (work) Pending Results Name Type Priority Associated Diagnoses Date /Time POC US GUIDE FOR THORACENTESIS Imaging Routine 10/04/2024 2:49 PM MAINTENANCE MAN Scheduled Orders Name Type Priority Associated Diagnoses Orde r Schedule POC US GUIDE FOR THORACENTESIS Imaging Routine One time imaging for 1 Occurrences starting 10/04/2024 until 10/04/2024 Scheduled Referrals Name Type Priority Associated Diagnoses Order Schedule Home Infusion Investigation Referral Referral Routine Once for 1 Occurrences starting 10/06/2024 until 10/06/2024 Home Care Referral Referral Routine: Next available opening Esophageal perforation Ordered: 10/06/2024 Home Infusion Referral Referral Routine: Next available opening Esophageal perforation Ordered: 10/08/2024 documented as of this encounter Procedures Procedure Name Priority Date/Time Associated Diagnosis Comments THYROID PEROXIDASE ANTIBODY Routine 10/08/2024 11:58 AM MAINTENANCE MAN TSH Add-On 10/08/2024 2:10 AM MAINTENANCE MAN T4 FREE Add-On 10/08/2024 2:10 AM MAINTENANCE MAN INR Routine 10/08/2024 2:10 AM MAINTENANCE MAN PHOSPHORUS Routine 10/08/2024 2:10 AM MAINTENANCE MAN MAGNESIUM Routine 10/08/2024 2:10 AM MAINTENANCE MAN COMPREHENSIVE METABOLIC PANEL Routine 10/08/2024 2:10 AM MAINTENANCE MAN BILIRUBIN DIRECT Routine 10/08/2024 2:10 AM MAINTENANCE MAN CBC WITH PLATELETS Routine 10/08/2024 2: 10 AM MAINTENANCE MAN GLUCOSE BY METER Routine 10/08/2024 12:0 9 AM MAINTENANCE MAN GLUCOSE BY METER Routine 10/07/2024 1:[address] CHEST W CONTRAST Routine 10/07/2024 1 1:12 AM MAINTENANCE MAN PHOSPHORUS Routine 10/07/2024 5:51 AM MAINTENANCE MAN MAGNESIUM Routine 10/07/2024 5:51 AM MAINTENANCE MAN BASIC METABOLIC PANEL Routine 10/07/2024 5:51 AM MAINTENANCE MAN CBC WITH PLATELETS Routine 10/07/2024 5: 51 AM MAINTENANCE MAN GLUCOSE BY METER Routine 10/07/2024 3:08 AM MAINTENANCE MAN GLUCOSE BY METER Routine 10/06/2024 8:37 PM MAINTENANCE MAN GLUCOSE BY METER Routine 10/06/2024 3:36 PM MAINTENANCE MAN GLUCOSE BY METER Routine 10/06/2024 12:0 1 PM MAINTENANCE MAN GLUCOSE BY METER Routine 10/06/2024 3:54 AM MAINTENANCE MAN BASIC METABOLIC PANEL Routine 10/06/2024 3:40 AM MAINTENANCE MAN CBC WITH PLATELETS Routine 10/06/2024 3: 40 AM MAINTENANCE MAN GLUCOSE BY METER Routine 10/05/2024 9:10 PM MAINTENANCE MAN GLUCOSE BY METER Routine 10/05/2024 3:43 PM MAINTENANCE MAN GLUCOSE BY METER Routine 10/05/2024 9:06 AM MAINTENANCE MAN GLUCOSE BY METER Routine 10/05/2024 3:15 AM MAINTENANCE MAN PHOSPHORUS Routine 10/05/2024 3:05 AM MAINTENANCE MAN MAGNESIUM Routine 10/05/2024 3:05 AM MAINTENANCE MAN BASIC METABOLIC PANEL Routine 10/05/2024 3:05 AM MAINTENANCE MAN CBC WITH PLATELETS Routine 10/05/2024 3: 05 AM MAINTENANCE MAN GLUCOSE BY METER Routine 10/04/2024 10:1 3 PM MAINTENANCE MAN GLUCOSE BY METER Routine 10/04/2024 4:04 PM MAINTENANCE MAN CBC WITH PLATELETS Routine 10/04/2024 10 :55 AM MAINTENANCE MAN GLUCOSE BY METER Routine 10/04/2024 10:2 5 AM MAINTENANCE MAN PHOSPHORUS Routine 10/04/2024 3:58 AM MAINTENANCE MAN MAGNESIUM Routine 10/04/2024 3:58 AM MAINTENANCE MAN BASIC METABOLIC PANEL Routine 10/04/2024 3:58 AM MAINTENANCE MAN GLUCOSE BY METER Routine 10/04/2024 3:20 AM MAINTENANCE MAN GLUCOSE BY METER Routine 10/03/2024 9:19 PM MAINTENANCE MAN GLUCOSE BY METER Routine 10/03/2024 3:07 PM MAINTENANCE MAN GLUCOSE BY METER Routine 10/03/2024 8:41 AM MAINTENANCE MAN TRIGLYCERIDES Routine 10/03/2024 2:30 AM MAINTENANCE MAN INR Routine 10/03/2024 2:29 AM MAINTENANCE MAN PREALBUMIN Routine 10/03/2024 2:29 AM MAINTENANCE MAN PHOSPHORUS Routine 10/03/2024 2:29 AM MAINTENANCE MAN MAGNESIUM Routine 10/03/2024 2:29 AM MAINTENANCE MAN COMPREHENSIVE METABOLIC PANEL Routine 10/03/2024 2:29 AM MAINTENANCE MAN BILIRUBIN DIRECT Routine 10/03/2024 2:29 AM MAINTENANCE MAN GLUCOSE BY METER Routine 10/03/2024 12:4 [address] CHEST/ABDOMEN/PELVIS W CONTRAST Routine 10/02/2024 4:27 PM MAINTENANCE MAN XR SURGERY WERO FLUORO LESS THAN 5 MIN W STILLS Routine 10/02/2024 2:22 PM MAINTENANCE MAN GLUCOSE BY METER Routine 10/02/2024 1:17 PM MAINTENANCE MAN TYPE AND SCREEN, ADULT STAT 11:52 AM MAINTENANCE MAN ABO/RH TYPE AND SCREEN STAT 11:52 AM MAINTENANCE MAN UGI ENDOSCOPY DIAG W OR W/O BRUSH/WASH 10/02/2024 11:40 AM MAINTENANCE MAN Esophageal perforation GLUCOSE BY METER Routine 10/02/2024 5:28 AM MAINTENANCE MAN TSH WITH FREE T4 REFLEX Routine 10/02/2024 3:59 AM MAINTENANCE MAN T4 FREE Routine 10/02/2024 3:59 AM MAINTENANCE MAN INR Routine 10/02/2024 3:59 AM MAINTENANCE MAN PREALBUMIN Routine 10/02/2024 3:59 AM MAINTENANCE MAN PHOSPHORUS Routine 10/02/2024 3:59 AM MAINTENANCE MAN MAGNESIUM Routine 10/02/2024 3:59 AM MAINTENANCE MAN CRP INFLAMMATION Routine 10/02/2024 3:59 AM MAINTENANCE MAN COMPREHENSIVE METABOLIC PANEL Routine 10/02/2024 3:59 AM MAINTENANCE MAN BILIRUBIN DIRECT Routine 10/02/2024 3:59 AM MAINTENANCE MAN CBC WITH PLATELETS Routine 10/02/2024 3: 59 AM MAINTENANCE MAN COMPREHENSIVE METABOLIC PANEL Routine 10/01/2024 9:01 PM MAINTENANCE MAN CBC WITH PLATELETS Routine 10/01/2024 9: 01 PM MAINTENANCE MAN XR CHEST PORT 1 VIEW Routine 10/01/2024 8:49 PM MAINTENANCE MAN LACTIC ACID WHOLE BLOOD WITH 1X REPEAT IN 2 HR WHEN >2 STAT 10/01/2024 7:45 PM MAINTENANCE MAN documented in this encounter Results * Thyroid peroxidase antibody (10/08/2024 11:58 AM MAINTENANCE MAN) Thyroid Peroxidase Antibody 13 <35 IU/mL 10/12/2024 2:38 PM MAINTENANCE MAN SPECIALTY CORE/PROT/ENDO Blood CATHETER / Unknown VAD(CVC, PICC ) / Unknown 10/08/2024 11:58 AM MAINTENANCE MAN 10/08/2024 12:04 PM MAINTENANCE MAN Gordon Wallace MD LAB - BLOOD ORDERABLES Final Result Performing Organization Address City/[facility]/ZIP Co de Phone Number SPECIALTY CORE/PROT/ENDO Specialty Core/Prot/Endo [address] [facility], [address] * (ABNORMAL) T4 free (10/08/2024 2:10 AM MAINTENANCE MAN) Pathologist [facility] Free T4 0.60(L) 0.90 - 1.70 ng/dL 10/08/2024 11:47 AM MAINTENANCE MAN U LABORATORY Blood VENOUS LINE / Unknown VAD(CVC, PICC) / Unknown 10/08/2024 2:10 AM MAINTENANCE MAN 10/08/2024 2:24 AM MAINTENANCE MAN Gordon Wallace MD LAB - BLOOD ORDERABLES Final Result U LABORATORY [facility] [place] [facility] [address] [facility], [address] * (ABNORMAL) TSH (10/08/2024 2:10 AM MAINTENANCE MAN) Pathologist [facility] TSH 12.20(H) 0.30 - 4.20 uIU/mL 10/08/2024 11:47 AM MAINTENANCE MAN [facility] Blood VENOUS LINE / Unknown VAD(CVC, PICC) / Unknown 10/08/2024 2:10 AM MAINTENANCE MAN 10/08/2024 2:24 AM MAINTENANCE MAN us Gordon Wallace MD LAB - BLOOD ORDERABLES Final Result [facility] [address] [facility], [address] [place] [phone] * (ABNORMAL) CBC with platelets (10/08/2024 2:10 AM MAINTENANCE MAN) WBC Count 9.3 4.0 - 11.0 10e3/uL 10/08/2024 2:29 AM MAINTENANCE MAN [facility] RBC Count 4.28 3.80 - 5.20 10e6/uL 10/08/2024 2:29 AM MAINTENANCE MAN [facility] Hemoglobin 11.9 11.7 - 15.7 g/dL 10/08/2024 2:29 AM MAINTENANCE MAN [facility] Hematocrit 38.5 35.0 - 47.0 % 10/08/2024 2:29 AM MAINTENANCE MAN [facility] MCV 90 78 - 100 fL 10/08/2024 2:29 AM MAINTENANCE MAN [facility] MCH 27.8 26.5 - 33.0 pg 10/08/2024 2:29 AM MAINTENANCE MAN [facility] MCHC 30.9(L) 31.5 - 36.5 g/dL 10/08/2024 2:29 AM MAINTENANCE MAN [facility] RDW 13.9 10.0 - 15.0 % 10/08/2024 2:29 AM MAINTENANCE MAN [facility] Platelet Count 209 150 - 450 10e3/uL 10/08/2024 2:29 AM MAINTENANCE MAN [facility] Blood VENOUS LINE / Unknown VAD(CVC, PICC) / Unknown 10/08/2024 2:10 AM MAINTENANCE MAN 10/08/2024 2:24 AM MAINTENANCE MAN us Shellie Centeno MD LAB - BLOOD ORDERABLES Fi nal Result [facility] [address] [facility], [address] [address] [place] [address] * Bilirubin direct (10/08/2024 2:10 AM MAINTENANCE MAN) Bilirubin Direct <0.20 0.00 - 0.30 mg/dL 10/08/2024 2:55 AM MAINTENANCE MAN [facility] Blood VENOUS LINE / Unknown VAD(CVC, PICC) / Unknown 10/08/2024 2:10 AM MAINTENANCE MAN 10/08/2024 2:24 AM MAINTENANCE MAN us Pete Norris MD LAB - BLOOD ORDERABLES Final Re sult LABORATORY [facility] Core Lab [address] [facility], [address] [phone] * INR (10/08/2024 2:10 AM MAINTENANCE MAN) INR 1.09 0.85 - 1.15 10/08/2024 2:40 AM MAINTENANCE MAN [facility] Blood VENOUS LINE / Unknown VAD(CVC, PICC) / Unknown 10/08/2024 2:10 AM MAINTENANCE MAN 10/08/2024 2:24 AM MAINTENANCE MAN Result Laurita Norris MD LAB - BLOOD ORDERABLES Final Re sult LABORATORY [facility] Core Lab [address] [facility], [address] [address] [place] [address] * Phosphorus (10/08/2024 2:10 AM MAINTENANCE MAN) Phosphorus 3.5 2.5 - 4.5 mg/dL 10/08/2024 2:55 AM MAINTENANCE MAN [facility] Blood VENOUS LINE / Unknown VAD(CVC, PICC) / Unknown 10/08/2024 2:10 AM MAINTENANCE MAN 10/08/2024 2:24 AM MAINTENANCE MAN Result Laurita Norris MD LAB - BLOOD ORDERABLES Final Re sult [facility] [address] [facility], [address] [phone] * Magnesium (10/08/2024 2:10 AM MAINTENANCE MAN) Magnesium 2.2 1.7 - 2.3 mg/dL 10/08/2024 2:55 AM MAINTENANCE MAN [facility] Blood VENOUS LINE / Unknown VAD(CVC, PICC) / Unknown 10/08/2024 2:10 AM MAINTENANCE MAN 10/08/2024 2:24 AM MAINTENANCE MAN us Pete Norris MD LAB - BLOOD ORDERABLES Final Re sult Performing Organization Address [facility] Co de Phone Number [facility] Core Lab [address] [facility], [address] * (ABNORMAL) Comprehensive metabolic panel (10/08/2024 2:10 AM MAINTENANCE MAN) Sodium 133(L) 135 - 145 mmol/L 10/08/2024 2:55 AM MAINTENANCE MAN [facility] Potassium 4.5 3.4 - 5.3 mmol/L 10/08/2024 2:55 AM MAINTENANCE MAN [facility] Carbon Dioxide (CO2) 22 22 - 29 mmol/L 10/08/2024 2:55 AM MAINTENANCE MAN [facility] Anion Gap 10 7 - 15 mmol/L 10/08/2024 2:55 AM MAINTENANCE MAN [facility] Urea Nitrogen 20.0 8.0 - 23.0 mg/dL 10/08/2024 2:55 AM MAINTENANCE MAN [facility] Creatinine 0.82 0.51 - 0.95 mg/dL 10/08/2024 2:55 AM MAINTENANCE MAN [facility] GFR Estimate 74 >60 mL/min/1.7 3m2 10/08/2024 2:55 AM MAINTENANCE MAN [facility] Comment:eGFR calculated us2020 CKD-EPI equation. Calcium 8.7(L) 8.8 - 10.4 mg/dL 10/08/2024 2:55 AM MAINTENANCE MAN [facility] Comment:Reference intervals for this test were updated on 04/19/2024 to reflect our healthy population more accurately. There may be differences in the flagging of prior results with similar values performed with this method. Those prior results can be interpreted in the context of the updated reference intervals. Chloride 101 98 - 107 mmol/L 10/08/2024 2:55 AM MAINTENANCE MAN [facility] Glucose 189(H) 70 - 99 mg/dL 10/08/2024 2:55 AM MAINTENANCE MAN [facility] Alkaline Phosphatase 133 40 - 150 U/L 10/08/2024 2:55 AM MAINTENANCE MAN [facility] AST 31 0 - 45 U/L 10/08/2024 2:55 AM MAINTENANCE MAN [facility] ALT 42 0 - 50 U/L 10/08/2024 2:55 AM MAINTENANCE MAN [facility] Protein Total 5.9(L) 6.4 - 8.3 g/dL 10/08/2024 2:55 AM MAINTENANCE MAN [facility] Albumin 3.2(L) 3.5 - 5.2 g/dL 10/08/2024 2:55 AM MAINTENANCE MAN [facility] Bilirubin Total 0.3 <=1.2 mg/dL 10/08/2024 2:55 AM MAINTENANCE MAN [facility] Blood VENOUS LINE / Unknown VAD(CVC, PICC) / Unknown 10/08/2024 2:10 AM MAINTENANCE MAN 10/08/2024 2:24 AM MAINTENANCE MAN us Pete Norris MD LAB - BLOOD ORDERABLES Final Re sult [facility] [address] [facility], [address] [place] [phone] * (ABNORMAL) Glucose by meter (10/08/2024 12:09 AM MAINTENANCE MAN) Pathologist [facility] GLUCOSE BY METER POCT 162(H) 70 - 99 mg/dL 10/08/2024 12:17 AM MAINTENANCE MAN [facility] POC Blood, Capillary BLOOD SPECIMEN / Unknown 10/08/2024 12:09 AM MAINTENANCE MAN 10/08/2024 12:17 AM MAINTENANCE MAN us Pete Norris MD LAB - BEAKER POCT Final Result [facility] POC [facility] [address] [facility], [address] [place] [address] * (ABNORMAL) Glucose by meter (10/07/2024 1:31 PM MAINTENANCE MAN) GLUCOSE BY METER POCT 133(H) 70 - 99 mg/dL 10/07/2024 1:38 PM MAINTENANCE MAN [facility] POC Blood, Capillary BLOOD SPECIMEN / Unknown 10/07/2024 1:31 PM MAINTENANCE MAN 10/07/2024 1:38 PM MAINTENANCE MAN Pete Norris MD LAB - BEAKER POCT Final Result Performing Organization Address [facility] Co de Phone Number [facility] POC [facility] Core Lab [address] [facility], [address] [place] [address] * CT Chest w Contrast (10/07/2024 11:12 AM MAINTENANCE MAN) Anatomical Region Laterality Modality Chest, SUBRAD CT BODY, UMP CT CHEST, RAD CT Computed Tomography Impressions 10/07/2024 1:30 PM MAINTENANCE MAN Impression: 1. Persistent 5 mm defect in [...] SABRINA IBANEZ MD Narrative 10/07/2024 1:[address] CHEST W CONTRAST 10/07/2024 11:12 AM [...] mass. Stable lucent lesion within the manubrium (14/65). Multilevel bridging anterior osteophytes. Procedure Note Sabrina [...] (ABNORMAL) Basic metabolic panel (10/07/2024 5:51 AM MAINTENANCE MAN) Sodium 133(L) 135 - 145 mmol/L 10/07/2024 6:30 AM MAINTENANCE MAN [facility] Potassium 4.3 3.4 - 5.3 mmol/L 10/07/2024 6:30 AM MAINTENANCE MAN [facility] Chloride 101 98 - 107 mmol/L 10/07/2024 6:30 AM MAINTENANCE MAN [facility] Carbon Dioxide (CO2) 22 22 - 29 mmol/L 10/07/2024 6:30 AM MAINTENANCE MAN [facility] Anion Gap 10 7 - 15 mmol/L 10/07/2024 6:30 AM MAINTENANCE MAN [facility] Urea Nitrogen 19.4 8.0 - 23.0 mg/dL 10/07/2024 6:30 AM MAINTENANCE MAN [facility] Creatinine 0.77 0.51 - 0.95 mg/dL 10/07/2024 6:30 AM MAINTENANCE MAN [facility] GFR Estimate 80 >60 mL/min/1.7 3m2 10/07/2024 6:30 AM MAINTENANCE MAN [facility] Comment:eGFR calculated usin g 2020 CKD-EPI equation. Calcium 8.6(L) 8.8 - 10.4 mg/dL 10/07/2024 6:30 AM MAINTENANCE MAN [facility] Comment:Reference intervals for this test were updated on 04/19/2024 to reflect our healthy population more accurately. There may be differences in the flagging of prior results with similar values performed with this method. Those prior results can be interpreted in the context of the updated reference intervals. Glucose 161(H) 70 - 99 mg/dL 10/07/2024 6:30 AM MAINTENANCE MAN [facility] Blood VENOUS LINE / Unknown VAD(CVC, PICC) / Unknown 10/07/2024 5:51 AM MAINTENANCE MAN 10/07/2024 6:00 AM MAINTENANCE MAN us Teresita Chris MD LAB - BLOOD ORDERABLES Final Result [facility] [address] [facility], [address] [place] [address] * (ABNORMAL) CBC with platelets (10/07/2024 5:51 AM MAINTENANCE MAN) WBC Count 8.8 4.0 - 11.0 10e3/uL 10/07/2024 6:12 AM MAINTENANCE MAN [facility] RBC Count 4.41 3.80 - 5.20 10e6/uL 10/07/2024 6:12 AM MAINTENANCE MAN [facility] Hemoglobin 12.2 11.7 - 15.7 g/dL 10/07/2024 6:12 AM MAINTENANCE MAN [facility] Hematocrit 39.3 35.0 - 47.0 % 10/07/2024 6:12 AM MAINTENANCE MAN [facility] MCV 89 78 - 100 fL 10/07/2024 6:12 AM MAINTENANCE MAN [facility] MCH 27.7 26.5 - 33.0 pg 10/07/2024 6:12 AM MAINTENANCE MAN [facility] MCHC 31.0(L) 31.5 - 36.5 g/dL 10/07/2024 6:12 AM MAINTENANCE MAN [facility] RDW 13.7 10.0 - 15.0 % 10/07/2024 6:12 AM MAINTENANCE MAN [facility] Platelet Count 221 150 - 450 10e3/uL 10/07/2024 6:12 AM MAINTENANCE MAN [facility] Blood VENOUS LINE / Unknown VAD(CVC, PICC) / Unknown 10/07/2024 5:51 AM MAINTENANCE MAN 10/07/2024 6:01 AM MAINTENANCE MAN us Shellie Centeno MD LAB - BLOOD ORDERABLES Fi nal Result [facility] [address] [facility], [address] [place] [phone] * Phosphorus (10/07/2024 5:51 AM MAINTENANCE MAN) Phosphorus 3.3 2.5 - 4.5 mg/dL 10/07/2024 6:30 AM MAINTENANCE MAN [facility] Blood VENOUS LINE / Unknown VAD(CVC, PICC) / Unknown 10/07/2024 5:51 AM MAINTENANCE MAN 10/07/2024 6:00 AM MAINTENANCE MAN us Pete Norris MD LAB - BLOOD ORDERABLES Final Re sult [facility] [address] [facility], [address] [place] [phone] * Magnesium (10/07/2024 5:51 AM MAINTENANCE MAN) Magnesium 2.2 1.7 - 2.3 mg/dL 10/07/2024 6:30 AM MAINTENANCE MAN [facility] Blood VENOUS LINE / Unknown VAD(CVC, PICC) / Unknown 10/07/2024 5:51 AM MAINTENANCE MAN 10/07/2024 6:00 AM MAINTENANCE MAN us Pete Norris MD LAB - BLOOD ORDERABLES Final Re sult [facility] [address] [facility], [address] [place] [phone] * (ABNORMAL) Glucose by meter (10/07/2024 3:08 AM MAINTENANCE MAN) GLUCOSE BY METER POCT 165(H) 70 - 99 mg/dL 10/07/2024 3:14 AM MAINTENANCE MAN [facility] POC Blood, Capillary BLOOD SPECIMEN / Unknown 10/07/2024 3:08 AM MAINTENANCE MAN 10/07/2024 3:14 AM MAINTENANCE MAN us ePte Norris MD LAB - BEAKER POCT Final Result [facility] POC [facility] [address] [facility], [address] [place] [phone] * (ABNORMAL) Glucose by meter (10/06/2024 8:37 PM MAINTENANCE MAN) GLUCOSE BY METER POCT 139(H) 70 - 99 mg/dL 10/06/2024 8:44 PM MAINTENANCE MAN [facility] POC Comment:/FRANCISCO Notified Blood, Capillary BLOOD SPECIMEN / Unknown 10/06/2024 8:37 PM MAINTENANCE MAN 10/06/2024 8:44 PM MAINTENANCE MAN us Pete Norris MD LAB - BEAKER POCT Final Result [facility] POC [facility] Core Lab [address] [facility], [address] [place] [address] * (ABNORMAL) Glucose by meter (10/06/2024 3:36 PM MAINTENANCE MAN) GLUCOSE BY METER POCT 147(H) 70 - 99 mg/dL 10/06/2024 3:43 PM MAINTENANCE MAN [facility] POC Comment:/FRANCISCO Notified Blood, Capillary BLOOD SPECIMEN / Unknown 10/06/2024 3:36 PM MAINTENANCE MAN 10/06/2024 3:43 PM MAINTENANCE MAN us Pete Norris MD LAB - BETYLER POCT Final Result [facility] POC [facility] Core Lab [address] [facility], [address] [place] [address] * (ABNORMAL) Glucose by meter (10/06/2024 12:01 PM MAINTENANCE MAN) GLUCOSE BY METER POCT 137(H) 70 - 99 mg/dL 10/06/2024 12:08 PM MAINTENANCE MAN [facility] POC Blood, Capillary BLOOD SPECIMEN / Unknown 10/06/2024 12:01 PM MAINTENANCE MAN 10/06/2024 12:08 PM MAINTENANCE MAN us Pete TOMPKINS - BETYLER POCT Final Result [facility] POC [facility] [address] [facility], [address] [place] [address] * (ABNORMAL) Glucose by meter (10/06/2024 3:54 AM MAINTENANCE MAN) [facility] GLUCOSE BY METER POCT 140(H) 70 - 99 mg/dL 10/06/2024 4:00 AM MAINTENANCE MAN [facility] POC Blood, Capillary BLOOD SPECIMEN / Unknown 10/06/2024 3:54 AM MAINTENANCE MAN 10/06/2024 4:00 AM MAINTENANCE MAN Pete Norris MD LAB - BEAKER POCT Final Result [facility] POC [facility] Core Lab [address] [facility], [address] [place] [address] * (ABNORMAL) Basic metabolic panel (10/06/2024 3:40 AM MAINTENANCE MAN) [facility] Sodium 135 135 - 145 mmol/L 10/06/2024 5:39 AM MAINTENANCE MAN [facility] Potassium 4.2 3.4 - 5.3 mmol/L 10/06/2024 5:39 AM MAINTENANCE MAN [facility] Chloride 102 98 - 107 mmol/L 10/06/2024 5:39 AM MAINTENANCE MAN [facility] Carbon Dioxide (CO2) 20(L) 22 - 29 mmol/L 10/06/2024 5:39 AM MAINTENANCE MAN [facility] Anion Gap 13 7 - 15 mmol/L 10/06/2024 5:39 AM MAINTENANCE MAN [facility] Urea Nitrogen 17.4 8.0 - 23.0 mg/dL 10/06/2024 5:39 AM MAINTENANCE MAN [facility] Creatinine 0.75 0.51 - 0.95 mg/dL 10/06/2024 5:39 AM MAINTENANCE MAN [facility] GFR Estimate 83 >60 mL/min/1.7 3m2 10/06/2024 5:39 AM MAINTENANCE MAN [facility] Comment:eGFR calculated usin g 2020 CKD-EPI equation. Calcium 8.5(L) 8.8 - 10.4 mg/dL 10/06/2024 5:39 AM MAINTENANCE MAN [facility] Comment:Reference intervals for this test were updated on 04/19/2024 to reflect our healthy population more accurately. There may be differences in the flagging of prior results with similar values performed with this method. Those prior results can be interpreted in the context of the updated reference intervals. Glucose 150(H) 70 - 99 mg/dL 10/06/2024 5:39 AM MAINTENANCE MAN [facility] Blood VENOUS LINE / Unknown VAD(CVC, PICC) / Unknown 10/06/2024 3:40 AM MAINTENANCE MAN 10/06/2024 4:23 AM MAINTENANCE MAN us Teresita Perez MD LAB - BLOOD ORDERABLES Final Result [facility] [place] [address] [facility], [address] [place] [phone] * CBC with platelets (10/06/2024 3:40 AM MAINTENANCE MAN) WBC Count 7.9 4.0 - 11.0 10e3/uL 10/06/2024 4:34 AM MAINTENANCE MAN [facility] RBC Count 4.32 3.80 - 5.20 10e6/uL 10/06/2024 4:34 AM MAINTENANCE MAN [facility] Hemoglobin 12.4 11.7 - 15.7 g/dL 10/06/2024 4:34 AM MAINTENANCE MAN [facility] Hematocrit 37.6 35.0 - 47.0 % 10/06/2024 4:34 AM MAINTENANCE MAN [facility] MCV 87 78 - 100 fL 10/06/2024 4:34 AM MAINTENANCE MAN [facility] MCH 28.7 26.5 - 33.0 pg 10/06/2024 4:34 AM MAINTENANCE MAN [facility] MCHC 33.0 31.5 - 36.5 g/dL 10/06/2024 4:34 AM MAINTENANCE MAN [facility] RDW 13.7 10.0 - 15.0 % 10/06/2024 4:34 AM MAINTENANCE MAN [facility] Platelet Count 198 150 - 450 10e3/uL 10/06/2024 4:34 AM MAINTENANCE MAN [facility] Blood VENOUS LINE / Unknown VAD(CVC, PICC) / Unknown 10/06/2024 3:40 AM MAINTENANCE MAN 10/06/2024 4:28 AM MAINTENANCE MAN us Shellie Centeno MD LAB - BLOOD ORDERABLES Fi nal Result [facility] [place] [address] [facility], [address] [place] [address] [place] [address] * (ABNORMAL) Glucose by meter (10/05/2024 9:10 PM MAINTENANCE MAN) GLUCOSE BY METER POCT 156(H) 70 - 99 mg/dL 10/05/2024 9:17 PM MAINTENANCE MAN [facility] POC Blood, Capillary BLOOD SPECIMEN / Unknown 10/05/2024 9:10 PM MAINTENANCE MAN 10/05/2024 9:17 PM MAINTENANCE MAN us Pete TOMPKINS - BETYLER POCT Final Result Performing Organization Address [facility]/ZIP Co de Phone Number [facility] POC [facility] Core Lab [address] [facility], [address] [place] [address] [place] [address] * (ABNORMAL) Glucose by meter (10/05/2024 3:43 PM MAINTENANCE MAN) GLUCOSE BY METER POCT 133(H) 70 - 99 mg/dL 10/05/2024 3:50 PM MAINTENANCE MAN [facility] POC Blood, Capillary BLOOD SPECIMEN / Unknown 10/05/2024 3:43 PM MAINTENANCE MAN 10/05/2024 3:50 PM MAINTENANCE MAN us Pete TOMPKINS - BEAKER POCT Final Result [facility] POC [facility] [place] [address] [facility], [address] [place] [address] * (ABNORMAL) Glucose by meter (10/05/2024 9:06 AM MAINTENANCE MAN) GLUCOSE BY METER POCT 141(H) 70 - 99 mg/dL 10/05/2024 9:21 AM MAINTENANCE MAN [facility] POC Blood, Capillary BLOOD SPECIMEN / Unknown 10/05/2024 9:06 AM MAINTENANCE MAN 10/05/2024 9:21 AM MAINTENANCE MAN us Pete Norris MD LAB - BEAKER POCT Final Result Performing Organization Address [facility]/ZIP Co de Phone Number [facility] POC [facility] [address] [facility], [address] [place] [address] [place] [address] * (ABNORMAL) Glucose by meter (10/05/2024 3:15 AM MAINTENANCE MAN) GLUCOSE BY METER POCT 149(H) 70 - 99 mg/dL 10/05/2024 3:22 AM MAINTENANCE MAN [facility] POC Blood, Capillary BLOOD SPECIMEN / Unknown 10/05/2024 3:15 AM MAINTENANCE MAN 10/05/2024 3:22 AM MAINTENANCE MAN us Pete JARRELL POCT Final Result Performing Organization Address [facility] de Phone Number [facility] POC [facility] [address] [facility], [address] [place] [address] * (ABNORMAL) Basic metabolic panel (10/05/2024 3:05 AM MAINTENANCE MAN) Sodium 136 135 - 145 mmol/L 10/05/2024 4:03 AM MAINTENANCE MAN [facility] Potassium 4.1 3.4 - 5.3 mmol/L 10/05/2024 4:03 AM MAINTENANCE MAN [facility] Chloride 103 98 - 107 mmol/L 10/05/2024 4:03 AM MAINTENANCE MAN [facility] Carbon Dioxide (CO2) 21(L) 22 - 29 mmol/L 10/05/2024 4:03 AM MAINTENANCE MAN [facility] Anion Gap 12 7 - 15 mmol/L 10/05/2024 4:03 AM MAINTENANCE MAN [facility] Urea Nitrogen 15.6 8.0 - 23.0 mg/dL 10/05/2024 4:03 AM MAINTENANCE MAN [facility] Creatinine 0.74 0.51 - 0.95 mg/dL 10/05/2024 4:03 AM MAINTENANCE MAN [facility] GFR Estimate 84 >60 mL/min/1.7 3m2 10/05/2024 4:03 AM MAINTENANCE MAN [facility] Comment:eGFR calculated usin 2020 CKD-EPI equation. Calcium 8.5(L) 8.8 - 10.4 mg/dL 10/05/2024 4:03 AM MAINTENANCE MAN [facility] Comment:Reference intervals for this test were updated on 04/19/2024 to reflect our healthy population more accurately. There may be differences in the flagging of prior results with similar values performed with this method. Those prior results can be interpreted in the context of the updated reference intervals. Glucose 150(H) 70 - 99 mg/dL 10/05/2024 4:03 AM MAINTENANCE MAN [facility] Blood VENOUS LINE / Unknown VAD(CVC, PICC) / Unknown 10/05/2024 3:05 AM MAINTENANCE MAN 10/05/2024 3:31 AM MAINTENANCE MAN Teresita Perez MD LAB - BLOOD ORDERABLES Final Result [facility] [address] [facility], [address] [place] [phone] * (ABNORMAL) CBC with platelets (10/05/2024 3:05 AM MAINTENANCE MAN) WBC Count 8.5 4.0 - 11.0 10e3/uL 10/05/2024 3:40 AM MAINTENANCE MAN [facility] RBC Count 4.15 3.80 - 5.20 10e6/uL 10/05/2024 3:40 AM MAINTENANCE MAN [facility] Hemoglobin 11.6(L) 11.7 - 15.7 g/dL 10/05/2024 3:40 AM MAINTENANCE MAN [facility] Hematocrit 37.1 35.0 - 47.0 % 10/05/2024 3:40 AM MAINTENANCE MAN [facility] MCV 89 78 - 100 fL 10/05/2024 3:40 AM MAINTENANCE MAN [facility] MCH 28.0 26.5 - 33.0 pg 10/05/2024 3:40 AM MAINTENANCE MAN [facility] MCHC 31.3(L) 31.5 - 36.5 g/dL 10/05/2024 3:40 AM MAINTENANCE MAN [facility] RDW 13.7 10.0 - 15.0 % 10/05/2024 3:40 AM MAINTENANCE MAN [facility] Platelet Count 207 150 - 450 10e3/uL 10/05/2024 3:40 AM MAINTENANCE MAN [facility] Blood VENOUS LINE / Unknown VAD(CVC, PICC) / Unknown 10/05/2024 3:05 AM MAINTENANCE MAN 10/05/2024 3:34 AM MAINTENANCE MAN us Shellie Centeno MD LAB - BLOOD ORDERABLES Fi nal Result U LABORATORY [facility] [place] [facility] [address] [facility], [address] * Phosphorus (10/05/2024 3:05 AM MAINTENANCE MAN) Phosphorus 3.3 2.5 - 4.5 mg/dL 10/05/2024 4:03 AM MAINTENANCE MAN [facility] Blood VENOUS LINE / Unknown VAD(CVC, PICC) / Unknown 10/05/2024 3:05 AM MAINTENANCE MAN 10/05/2024 3:31 AM MAINTENANCE MAN Pete Norris MD LAB - BLOOD ORDERABLES Final Re sult [facility] [address] [facility], [address] * Magnesium (10/05/2024 3:05 AM MAINTENANCE MAN) Magnesium 2.0 1.7 - 2.3 mg/dL 10/05/2024 4:03 AM MAINTENANCE MAN [facility] Blood VENOUS LINE / Unknown VAD(CVC, PICC) / Unknown 10/05/2024 3:05 AM MAINTENANCE MAN 10/05/2024 3:31 AM MAINTENANCE MAN us Pete Norris MD LAB - BLOOD ORDERABLES Final Re sult [facility] [place] [facility] [address] [facility], Room [address] * (ABNORMAL) Glucose by meter (10/04/2024 10:13 PM MAINTENANCE MAN) GLUCOSE BY METER POCT 135(H) 70 - 99 mg/dL 10/04/2024 10:21 PM MAINTENANCE MAN [facility] POC Blood, Capillary BLOOD SPECIMEN / Unknown 10/04/2024 10:13 PM MAINTENANCE MAN 10/04/2024 10:21 PM MAINTENANCE MAN us Pete TOMPKINS - BETYLER POCT Final Result [facility] POC [facility] [address] [facility], Room [address] * (ABNORMAL) Glucose by meter (10/04/2024 4:04 PM MAINTENANCE MAN) GLUCOSE BY METER POCT 135(H) 70 - 99 mg/dL 10/04/2024 4:12 PM MAINTENANCE MAN [facility] POC Blood, Capillary BLOOD SPECIMEN / Unknown 10/04/2024 4:04 PM MAINTENANCE MAN 10/04/2024 4:12 PM MAINTENANCE MAN us Pete TOMPKINS - BETYLER POCT Final Result [facility] POC [facility] [place] [facility] [address] [facility], [address] * CBC with platelets (10/04/2024 10:55 AM MAINTENANCE MAN) WBC Count 8.0 4.0 - 11.0 10e3/uL 10/04/2024 11:35 AM MAINTENANCE MAN [facility] RBC Count 4.31 3.80 - 5.20 10e6/uL 10/04/2024 11:35 AM MAINTENANCE MAN [facility] Hemoglobin 12.3 11.7 - 15.7 g/dL 10/04/2024 11:35 AM MAINTENANCE MAN [facility] Hematocrit 37.7 35.0 - 47.0 % 10/04/2024 11:35 AM MAINTENANCE MAN [facility] MCV 88 78 - 100 fL 10/04/2024 11:35 AM MAINTENANCE MAN [facility] MCH 28.5 26.5 - 33.0 pg 10/04/2024 11:35 AM MAINTENANCE MAN [facility] MCHC 32.6 31.5 - 36.5 g/dL 10/04/2024 11:35 AM MAINTENANCE MAN [facility] RDW 13.4 10.0 - 15.0 % 10/04/2024 11:35 AM MAINTENANCE MAN [facility] Platelet Count 189 150 - 450 10e3/uL 10/04/2024 11:35 AM MAINTENANCE MAN [facility] Blood VENOUS LINE / Unknown VAD(CVC, PICC) / Unknown 10/04/2024 10:55 AM MAINTENANCE MAN 10/04/2024 11:29 AM MAINTENANCE MAN Shellie Centeno MD LAB - BLOOD ORDERABLES Fi nal Result [facility] [place] [facility] [address] [facility], Room [phone] * (ABNORMAL) Glucose by meter (10/04/2024 10:25 AM MAINTENANCE MAN) GLUCOSE BY METER POCT 115(H) 70 - 99 mg/dL 10/04/2024 10:32 AM MAINTENANCE MAN [facility] POC Blood, Capillary BLOOD SPECIMEN / Unknown 10/04/2024 10:25 AM MAINTENANCE MAN 10/04/2024 10:32 AM MAINTENANCE MAN us Pete Norris MD LAB - BEAKER POCT Final Result [facility] LABORAT[facility] POC [facility] Core Lab [address] [facility], Room [address] * Phosphorus (10/04/2024 3:58 AM MAINTENANCE MAN) Phosphorus 3.0 2.5 - 4.5 mg/dL 10/04/2024 5:27 AM MAINTENANCE MAN [facility] Blood VENOUS LINE / Unknown VAD(CVC, PICC) / Unknown 10/04/2024 3:58 AM MAINTENANCE MAN 10/04/2024 4:51 AM MAINTENANCE MAN us Pete Norris MD LAB - BLOOD ORDERABLES Final Re sult [facility] LAB[facility]AT[facility] Core Lab [address] [facility], [address] * Magnesium (10/04/2024 3:58 AM MAINTENANCE MAN) Magnesium 1.9 1.7 - 2.3 mg/dL 10/04/2024 5:27 AM MAINTENANCE MAN [facility] Blood VENOUS LINE / Unknown VAD(CVC, PICC) / Unknown 10/04/2024 3:58 AM MAINTENANCE MAN 10/04/2024 4:51 AM MAINTENANCE MAN us Pete Norris MD LAB - BLOOD ORDERABLES Final Re sult [facility] LAB[facility]AT[facility] Core Lab [address] [facility], [address] * (ABNORMAL) Basic metabolic panel (10/04/2024 3:58 AM MAINTENANCE MAN) Sodium 140 135 - 145 mmol/L 10/04/2024 5:27 AM MAINTENANCE MAN [facility] Potassium 3.6 3.4 - 5.3 mmol/L 10/04/2024 5:27 AM MAINTENANCE MAN [facility] Chloride 104 98 - 107 mmol/L 10/04/2024 5:27 AM MAINTENANCE MAN [facility] Carbon Dioxide (CO2) 25 22 - 29 mmol/L 10/04/2024 5:27 AM MAINTENANCE MAN [facility] Anion Gap 11 7 - 15 mmol/L 10/04/2024 5:27 AM MAINTENANCE MAN [facility] Urea Nitrogen 16.4 8.0 - 23.0 mg/dL 10/04/2024 5:27 AM MAINTENANCE MAN [facility] Creatinine 0.75 0.51 - 0.95 mg/dL 10/04/2024 5:27 AM MAINTENANCE MAN [facility] GFR Estimate 83 >60 mL/min/1.7 3m2 10/04/2024 5:27 AM MAINTENANCE MAN [facility] Comment:eGFR calculated us2020 CKD-EPI equation. Calcium 8.4(L) 8.8 - 10.4 mg/dL 10/04/2024 5:27 AM MAINTENANCE MAN [facility] Comment:Reference intervals for this test were updated on 04/19/2024 to reflect our healthy population more accurately. There may be differences in the flagging of prior results with similar values performed with this method. Those prior results can be interpreted in the context of the updated reference intervals. Glucose 112(H) 70 - 99 mg/dL 10/04/2024 5:27 AM MAINTENANCE MAN [facility] Blood VENOUS LINE / Unknown VAD(CVC, PICC) / Unknown 10/04/2024 3:58 AM MAINTENANCE MAN 10/04/2024 4:51 AM MAINTENANCE MAN us Pete Norris MD LAB - BLOOD ORDERABLES Final Re sult [facility] LAB[facility] [place] Core Lab [address] [facility], Room [address] * (ABNORMAL) Glucose by meter (10/04/2024 3:20 AM MAINTENANCE MAN) GLUCOSE BY METER POCT 110(H) 70 - 99 mg/dL 10/04/2024 3:26 AM MAINTENANCE MAN [facility] LAB[facility] POC Blood, Capillary BLOOD SPECIMEN / Unknown 10/04/2024 3:20 AM MAINTENANCE MAN 10/04/2024 3:26 AM MAINTENANCE MAN us Pete Norris MD LAB - BEAKER POCT Final Result [facility] POC [facility] [place] Core Lab [address] [facility], Room [address] * (ABNORMAL) Glucose by meter (10/03/2024 9:19 PM MAINTENANCE MAN) GLUCOSE BY METER POCT 110(H) 70 - 99 mg/dL 10/03/2024 9:25 PM MAINTENANCE MAN [facility] LAB[facility]AT[facility] POC Blood, Capillary BLOOD SPECIMEN / Unknown 10/03/2024 9:19 PM MAINTENANCE MAN 10/03/2024 9:25 PM MAINTENANCE MAN us Pete Norris MD LAB - BEAKER POCT Final Result [facility] POC [facility] [place] Core Lab [address] [facility], [address] [place], [place] [address] * (ABNORMAL) Glucose by meter (10/03/2024 3:07 PM MAINTENANCE MAN) GLUCOSE BY METER POCT 103(H) 70 - 99 mg/dL 10/03/2024 3:14 PM MAINTENANCE MAN [facility] LAB[facility] POC Blood, Capillary BLOOD SPECIMEN / Unknown 10/03/2024 3:07 PM MAINTENANCE MAN 10/03/2024 3:14 PM MAINTENANCE MAN Result Laurita Norris MD LAB - BEAKER POCT Final Result Performing Organization Address City/[facility]/ZIP Co de Phone Number [facility] LABORAT[facility] POC [facility] Core Lab [address] [facility], Room [address] [place], [place] [phone] * (ABNORMAL) Glucose by meter (10/03/2024 8:41 AM MAINTENANCE MAN) GLUCOSE BY METER POCT 125(H) 70 - 99 mg/dL 10/03/2024 8:48 AM MAINTENANCE MAN [facility] LAB[facility]AT[facility] POC Blood, Capillary BLOOD SPECIMEN / Unknown 10/03/2024 8:41 AM MAINTENANCE MAN 10/03/2024 8:48 AM MAINTENANCE MAN us Pete Norris MD LAB - BEAKER POCT Final Result [facility] LAB[facility]AT[facility] POC [facility] [place] Core Lab [address] [facility], [address] [place], [place] [phone] * Triglycerides (10/03/2024 2:30 AM MAINTENANCE MAN) Triglycerides 128 <150 mg/dL 10/03/2024 3:07 AM MAINTENANCE MAN [facility] LAB[facility] Comment: 2-9 years: Desirable: < 75 mg/dL Borderline High: 75-99 mg/dL High: >= 100 mg/dL 10-19 years: Desirable: < 90 mg/dL Borderline High: 90-129 mg/dL High: >= 130 mg/dL 20 years and older: Desirable: < 150 mg/dL Borderline High: 150-199 mg/dL High: 200-499 mg/dL Very High: >= 500 mg/dL Blood VENOUS LINE / Unknown VAD(CVC, PICC) / Unknown 10/03/2024 2:30 AM MAINTENANCE MAN 10/03/2024 2:38 AM MAINTENANCE MAN us Pete Norris MD LAB - BLOOD ORDERABLES Final Re sult U LABORATORY [facility] Core Lab [address] [place] [address], [address] * (ABNORMAL) Prealbumin (10/03/2024 2:29 AM MAINTENANCE MAN) Prealbumin 9.4(L) 20.0 - 40.0 mg/dL 10/03/2024 3:08 AM MAINTENANCE MAN [facility] LAB[facility] Blood VENOUS LINE / Unknown VAD(CVC, PICC) / Unknown 10/03/2024 2:29 AM MAINTENANCE MAN 10/03/2024 2:38 AM MAINTENANCE MAN us Pete Norris MD LAB - BLOOD ORDERABLES Final Re sult LABORATORY [facility] Core Lab [address] [facility], [address] * (ABNORMAL) INR (10/03/2024 2:29 AM MAINTENANCE MAN) INR 1.35(H) 0.85 - 1.15 10/03/2024 2:50 AM MAINTENANCE MAN [facility] Blood VENOUS LINE / Unknown VAD(CVC, PICC) / Unknown 10/03/2024 2:29 AM MAINTENANCE MAN 10/03/2024 2:36 AM MAINTENANCE MAN Pete Norris MD LAB - BLOOD ORDERABLES Final Re sult [facility] LAB[facility]AT[facility] [place] Core Lab [address] [facility], Room [address] [place] [address] * (ABNORMAL) Comprehensive metabolic panel (10/03/2024 2:29 AM MAINTENANCE MAN) Sodium 136 135 - 145 mmol/L 10/03/2024 2:58 AM MAINTENANCE MAN [facility] Potassium 3.9 3.4 - 5.3 mmol/L 10/03/2024 2:58 AM MAINTENANCE MAN [facility] Carbon Dioxide (CO2) 25 22 - 29 mmol/L 10/03/2024 2:58 AM MAINTENANCE MAN [facility] LAB[facility] Anion Gap 8 7 - 15 mmol/L 10/03/2024 2:58 AM MAINTENANCE MAN [facility] Urea Nitrogen 9.7 8.0 - 23.0 mg/dL 10/03/2024 2:58 AM MAINTENANCE MAN [facility] Creatinine 0.71 0.51 - 0.95 mg/dL 10/03/2024 2:58 AM MAINTENANCE MAN [facility] GFR Estimate 88 >60 mL/min/1.7 3m2 10/03/2024 2:58 AM MAINTENANCE MAN [facility] Comment:eGFR calculated usin 2020 CKD-EPI equation. Calcium 9.0 8.8 - 10.4 mg/dL 10/03/2024 2:58 AM MAINTENANCE MAN [facility] Comment:Reference intervals for this test were updated on 04/19/2024 to reflect our healthy population more accurately. There may be differences in the flagging of prior results with similar values performed with this method. Those prior results can be interpreted in the context of the updated reference intervals. Chloride 103 98 - 107 mmol/L 10/03/2024 2:58 AM MAINTENANCE MAN [facility] Glucose 146(H) 70 - 99 mg/dL 10/03/2024 2:58 AM MAINTENANCE MAN [facility] Alkaline Phosphatase 126 40 - 150 U/L 10/03/2024 2:58 AM MAINTENANCE MAN [facility] AST 34 0 - 45 U/L 10/03/2024 2:58 AM MAINTENANCE MAN [facility] ALT 45 0 - 50 U/L 10/03/2024 2:58 AM MAINTENANCE MAN [facility] Protein Total 5.6(L) 6.4 - 8.3 g/dL 10/03/2024 2:58 AM MAINTENANCE MAN [facility] Albumin 3.1(L) 3.5 - 5.2 g/dL 10/03/2024 2:58 AM MAINTENANCE MAN [facility] Bilirubin Total 0.5 <=1.2 mg/dL 10/03/2024 2:58 AM MAINTENANCE MAN [facility] Blood VENOUS LINE / Unknown VAD(CVC, PICC) / Unknown 10/03/2024 2:29 AM MAINTENANCE MAN 10/03/2024 2:39 AM MAINTENANCE MAN us Pete Norris MD LAB - BLOOD ORDERABLES Final Re sult Performing Organization Address City/[facility]/ZIP Co de Phone Number LABORATORY [facility] Core Lab [address] [facility], [address] * Bilirubin direct (10/03/2024 2:29 AM MAINTENANCE MAN) Bilirubin Direct <0.20 0.00 - 0.30 mg/dL 10/03/2024 2:58 AM MAINTENANCE MAN [facility] Blood VENOUS LINE / Unknown VAD(CVC, PICC) / Unknown 10/03/2024 2:29 AM MAINTENANCE MAN 10/03/2024 2:39 AM MAINTENANCE MAN us Pete Norris MD LAB - BLOOD ORDERABLES Final Re sult LABORATORY [facility] Core Lab [address] [facility], [address] * Phosphorus (10/03/2024 2:29 AM MAINTENANCE MAN) Phosphorus 3.3 2.5 - 4.5 mg/dL 10/03/2024 2:58 AM MAINTENANCE MAN [facility] Blood VENOUS LINE / Unknown VAD(CVC, PICC) / Unknown 10/03/2024 2:29 AM MAINTENANCE MAN 10/03/2024 2:39 AM MAINTENANCE MAN Result Laurita Norris MD LAB - BLOOD ORDERABLES Final Re sult [facility] LAB[facility]AT[facility] [place] Core Lab [address] [facility], [address] [place] [phone] * Magnesium (10/03/2024 2:29 AM MAINTENANCE MAN) Magnesium 1.9 1.7 - 2.3 mg/dL 10/03/2024 2:58 AM MAINTENANCE MAN [facility] Blood VENOUS LINE / Unknown VAD(CVC, PICC) / Unknown 10/03/2024 2:29 AM MAINTENANCE MAN 10/03/2024 2:39 AM MAINTENANCE MAN Result Laurita Norris MD LAB - BLOOD ORDERABLES Final Re sult Performing Organization Address City/[facility]/ZIP Co de Phone Number [facility] LABORATORY [facility] [place] Core Lab [address] [facility], [address] [place] [address] * (ABNORMAL) Glucose by meter (10/03/2024 12:47 AM MAINTENANCE MAN) GLUCOSE BY METER POCT 151(H) 70 - 99 mg/dL 10/03/2024 12:54 AM MAINTENANCE MAN [facility] LAB[facility]AT[facility] POC Blood, Capillary BLOOD SPECIMEN / Unknown 10/03/2024 12:47 AM MAINTENANCE MAN 10/03/2024 12:54 AM MAINTENANCE MAN Result Laurita Norris MD LAB - BEAKER POCT Final Result [facility] LABORAT[facility] POC [facility] [place] Core Lab [address] [facility], [address] [place] [address] * CT Chest/Abdomen/Pelvis w Contrast (10/02/2024 4:27 PM MAINTENANCE MAN) Anatomical Region Laterality Modality Abdomen/Pelvis, Chest, SUBRA D CT BODY, UMP CT CHEST, UMP CT ABDOMEN PELVIS, RAD CT Computed Tomography Impressions 10/06/2024 4:37 AM MAINTENANCE MAN IMPRESSION: Mild motion related artifact limits evaluation. [...] BRANDI SOSA MD Narrative 10/06/2024 4:37 AM MAINTENANCE MAN EXAMINATION: CT CHEST/ABDOMEN/PELVIS W CONTRAST, 10/02/2024 4:27 [...] with the findings. BRANDI SOSA MD Hiren Garner MD IMG CT ORDERABLES Final Resu lt * XR Surgery WERO L/T 5 Min Fluoro w Stills (10/02/2024 2:22 PM MAINTENANCE MAN) Narrative [facility] - 10/02/2024 2:23 PM MAINTENANCE MAN This exam was marked as non-reportable because it will not be read by a radiologist or a [facility] non-radiologist provider. Pete Norris MD G DIAGNOSTIC IMAGING ORDERABL ES Final Result [facility] * (ABNORMAL) Glucose by meter (10/02/2024 1:17 PM MAINTENANCE MAN) GLUCOSE BY METER POCT 104(H) 70 - 99 mg/dL 10/02/2024 1:24 PM MAINTENANCE MAN [facility] LAB[facility]AT[facility] POC Blood, Capillary BLOOD SPECIMEN / Unknown 10/02/2024 1:17 PM MAINTENANCE MAN 10/02/2024 1:24 PM MAINTENANCE MAN Result [facility] Pete Norris MD LAB - BEAKER POCT Final Result [facility] LABORATORY POC [facility] [place] Core Lab [address] [facility], [address] [place] [address], [facility] * Adult Type and Screen (10/02/2024 11:52 AM MAINTENANCE MAN) ABO/RH(D) A POS 10/02/2024 11:44 AM MAINTENANCE MAN [facility] B[facility]OD BANK Antibody Screen Negative Negative 10/02/2024 11:44 AM MAINTENANCE MAN [facility] B[facility] BANK SPECIMEN EXPIRATION DATE [id number] 10/02/2024 11:44 AM MAINTENANCE MAN [facility] BLOOD BANK Blood BLOOD SPECIMEN / Unknown Venipuncture / Unknown 10/02/2024 11:52 AM MAINTENANCE MAN 10/02/2024 11:53 AM MAINTENANCE MAN us Pete Norris MD LAB - BLOOD BANK TEST ORDER Fin al Result Performing Organization Address [facility]/ZIP Co de Phone Number U BLOOD BANK [address] [place] [address] * Glucose by meter (10/02/2024 5:28 AM MAINTENANCE MAN) GLUCOSE BY METER POCT 86 70 - 99 mg/dL 10/02/2024 5:35 AM MAINTENANCE MAN [facility] LABORATORY POC Blood, Capillary BLOOD SPECIMEN / Unknown 10/02/2024 5:28 AM MAINTENANCE MAN 10/02/2024 5:35 AM MAINTENANCE MAN us Pete Norris MD LAB - BEAKER POCT Final Result Performing Organization Address City/[facility] Co de Phone Number [facility] LABORATORY POC [facility] [place] Core Lab [address] [facility], [address] [place] [address], [facility] * T4 free (10/02/2024 3:59 AM MAINTENANCE MAN) Free T4 1.60 0.90 - 1.70 ng/dL 10/02/2024 5:31 AM MAINTENANCE MAN [facility] LAB[facility]AT[facility] Blood VENOUS LINE / Unknown VAD(CVC, PICC) / Unknown 10/02/2024 3:59 AM MAINTENANCE MAN 10/02/2024 4:29 AM MAINTENANCE MAN us Hiren Garner MD LAB - BLOOD ORDERABLES Final Result Performing Organization Address City/[facility]/ZIP Co de Phone Number [facility] LABORATORY [facility] [place] Core Lab [address] [facility], [address] [place] [address] * Bilirubin direct (10/02/2024 3:59 AM MAINTENANCE MAN) Bilirubin Direct 0.22 0.00 - 0.30 mg/dL 10/02/2024 5:08 AM MAINTENANCE MAN [facility] LAB[facility]ATORY Blood VENOUS LINE / Unknown VAD(CVC, PICC) / Unknown 10/02/2024 3:59 AM MAINTENANCE MAN 10/02/2024 4:29 AM MAINTENANCE MAN us Pete Norris MD LAB - BLOOD ORDERABLES Final Re sult U LABORATORY [facility] [place] Core Lab [address] [facility], [address] [place] [phone] * (ABNORMAL) Prealbumin (10/02/2024 3:59 AM MAINTENANCE MAN) Prealbumin 8.6(L) 20.0 - 40.0 mg/dL 10/02/2024 5:01 AM MAINTENANCE MAN [facility] LAB[facility] Blood VENOUS LINE / Unknown VAD(CVC, PICC) / Unknown 10/02/2024 3:59 AM MAINTENANCE MAN 10/02/2024 4:32 AM MAINTENANCE MAN us Pete Norris MD LAB - BLOOD ORDERABLES Final Re sult Performing Organization Address City/[facility]/ZIP Co de Phone Number U LABORATORY [facility] [place] Core Lab [address] [facility], [address] [place] [address] * INR (10/02/2024 3:59 AM MAINTENANCE MAN) INR 1.11 0.85 - 1.15 10/02/2024 5:52 AM MAINTENANCE MAN [facility] LAB[facility]ATORY Blood VENOUS LINE / Unknown VAD(CVC, PICC) / Unknown 10/02/2024 3:59 AM MAINTENANCE MAN 10/02/2024 4:32 AM MAINTENANCE MAN us Pete Norris MD LAB - BLOOD ORDERABLES Final Re sult U LABORATORY [facility] [place] Core Lab [address] [facility], [address] [place] [address] * Phosphorus (10/02/2024 3:59 AM MAINTENANCE MAN) Phosphorus 2.8 2.5 - 4.5 mg/dL 10/02/2024 5:08 AM MAINTENANCE MAN [facility] LAB[facility]ATORY Blood VENOUS LINE / Unknown VAD(CVC, PICC) / Unknown 10/02/2024 3:59 AM MAINTENANCE MAN 10/02/2024 4:29 AM MAINTENANCE MAN us Pete Norris MD LAB - BLOOD ORDERABLES Final Re sult [facility] LABORAT[facility] [place] Core Lab [address] [facility], Room [address] * Magnesium (10/02/2024 3:59 AM MAINTENANCE MAN) Magnesium 1.7 1.7 - 2.3 mg/dL 10/02/2024 5:08 AM MAINTENANCE MAN [facility] LAB[facility]ATORY Blood VENOUS LINE / Unknown VAD(CVC, PICC) / Unknown 10/02/2024 3:59 AM MAINTENANCE MAN 10/02/2024 4:29 AM MAINTENANCE MAN us Pete Norris MD LAB - BLOOD ORDERABLES Final Re sult [facility] LABORATORY [facility] Core Lab [address] [facility], [address] * (ABNORMAL) Comprehensive metabolic panel (10/02/2024 3:59 AM MAINTENANCE MAN) Sodium 140 135 - 145 mmol/L 10/02/2024 5:08 AM MAINTENANCE MAN [facility] LABORATORY Potassium 3.6 3.4 - 5.3 mmol/L 10/02/2024 5:08 AM MAINTENANCE MAN [facility] LABORATORY Carbon Dioxide (CO2) 24 22 - 29 mmol/L 10/02/2024 5:08 AM MAINTENANCE MAN [facility] LABORATORY Anion Gap 11 7 - 15 mmol/L 10/02/2024 5:08 AM MAINTENANCE MAN [facility] LABORATORY Urea Nitrogen 9.8 8.0 - 23.0 mg/dL 10/02/2024 5:08 AM MAINTENANCE MAN [facility] LABORATORY Creatinine 0.69 0.51 - 0.95 mg/dL 10/02/2024 5:08 AM MAINTENANCE MAN [facility] LABORATORY GFR Estimate 90 >60 mL/min/1.7 3m2 10/02/2024 5:08 AM MAINTENANCE MAN [facility] LABORATORY Comment:eGFR calculated us2020 CKD-EPI equation. Calcium 8.7(L) 8.8 - 10.4 mg/dL 10/02/2024 5:08 AM MAINTENANCE MAN [facility] LABORATORY Comment:Reference intervals for this test were updated on 04/19/2024 to reflect our healthy population more accurately. There may be differences in the flagging of prior results with similar values performed with this method. Those prior results can be interpreted in the context of the updated reference intervals. Chloride 105 98 - 107 mmol/L 10/02/2024 5:08 AM MAINTENANCE MAN [facility] LABORATORY Glucose 95 70 - 99 mg/dL 10/02/2024 5:08 AM MAINTENANCE MAN [facility] LABORATORY Alkaline Phosphatase 136 40 - 150 U/L 10/02/2024 5:08 AM MAINTENANCE MAN [facility] LABORATORY AST 51(H) 0 - 45 U/L 10/02/2024 5:08 AM MAINTENANCE MAN [facility] LAB[facility]ATORY ALT 56(H) 0 - 50 U/L 10/02/2024 5:08 AM MAINTENANCE MAN [facility] LABORATORY Protein Total 5.5(L) 6.4 - 8.3 g/dL 10/02/2024 5:08 AM MAINTENANCE MAN [facility] LABORATORY Albumin 3.1(L) 3.5 - 5.2 g/dL 10/02/2024 5:08 AM MAINTENANCE MAN [facility] LABORATORY Bilirubin Total 0.7 <=1.2 mg/dL 10/02/2024 5:08 AM MAINTENANCE MAN [facility] LABORATORY Blood VENOUS LINE / Unknown VAD(CVC, PICC) / Unknown 10/02/2024 3:59 AM MAINTENANCE MAN 10/02/2024 4:29 AM MAINTENANCE MAN Pete Norris MD LAB - BLOOD ORDERABLES Final Re sult [facility] LABORATORY [facility] [place] Core Lab [address] [facility], [address] [place] [address], [facility] * (ABNORMAL) TSH with free T4 reflex (10/02/2024 3:59 AM MAINTENANCE MAN) Pathologist [facility] TSH 0.18(L) 0.30 - 4.20 uIU/mL 10/02/2024 5:08 AM MAINTENANCE MAN [facility] LABORATORY Blood VENOUS LINE / Unknown VAD(CVC, PICC) / Unknown 10/02/2024 3:59 AM MAINTENANCE MAN 10/02/2024 4:29 AM MAINTENANCE MAN Hiren Garner MD LAB - BLOOD ORDERABLES Final Result [facility] LABORATORY [facility] [place] Core Lab [address] [facility], [address] * (ABNORMAL) CRP inflammation (10/02/2024 3:59 AM MAINTENANCE MAN) Pathologist [facility] CRP Inflammation 65.60(H) <5.00 mg/L 10/02/2024 5:08 AM MAINTENANCE MAN [facility] LABORATORY Blood VENOUS LINE / Unknown VAD(CVC, PICC) / Unknown 10/02/2024 3:59 AM MAINTENANCE MAN 10/02/2024 4:29 AM MAINTENANCE MAN Hiren Garner MD LAB - BLOOD ORDERABLES Final Result [facility] LABORAT[facility] [place] Core Lab [address] [facility], [address] * (ABNORMAL) CBC with platelets (10/02/2024 3:59 AM MAINTENANCE MAN) Pathologist [facility] WBC Count 6.2 4.0 - 11.0 10e3/uL 10/02/2024 4:35 AM MAINTENANCE MAN [facility] LABORATORY RBC Count 4.07 3.80 - 5.20 10e6/uL 10/02/2024 4:35 AM MAINTENANCE MAN [facility] LABORATORY Hemoglobin 11.4(L) 11.7 - 15.7 g/dL 10/02/2024 4:35 AM MAINTENANCE MAN [facility] LABORATORY Hematocrit 37.0 35.0 - 47.0 % 10/02/2024 4:35 AM MAINTENANCE MAN [facility] LABORATORY MCV 91 78 - 100 fL 10/02/2024 4:35 AM MAINTENANCE MAN [facility] LABORATORY MCH 28.0 26.5 - 33.0 pg 10/02/2024 4:35 AM MAINTENANCE MAN [facility] LABORATORY MCHC 30.8(L) 31.5 - 36.5 g/dL 10/02/2024 4:35 AM MAINTENANCE MAN [facility] LABORATORY RDW 13.4 10.0 - 15.0 % 10/02/2024 4:35 AM MAINTENANCE MAN [facility] LABORATORY Platelet Count 172 150 - 450 10e3/uL 10/02/2024 4:35 AM MAINTENANCE MAN [facility] LABORATORY Blood VENOUS LINE / Unknown VAD(CVC, PICC) / Unknown 10/02/2024 3:59 AM MAINTENANCE MAN 10/02/2024 4:30 AM MAINTENANCE MAN Chary Evans MD LAB - BLOOD ORDERABLES Final Result [facility] LABORATORY [facility] [place] [facility] Lab [address] [facility], [address] [place], [place] [phone] * (ABNORMAL) Comprehensive metabolic panel (10/01/2024 9:01 PM MAINTENANCE MAN) Sodium 142 135 - 145 mmol/L 10/01/2024 9:43 PM MAINTENANCE MAN [facility] LABORATORY Potassium 3.7 3.4 - 5.3 mmol/L 10/01/2024 9:43 PM MAINTENANCE MAN [facility] LABORATORY Carbon Dioxide (CO2) 25 22 - 29 mmol/L 10/01/2024 9:43 PM MAINTENANCE MAN [facility] LABORATORY Anion Gap 10 7 - 15 mmol/L 10/01/2024 9:43 PM MAINTENANCE MAN [facility] LABORATORY Urea Nitrogen 9.9 8.0 - 23.0 mg/dL 10/01/2024 9:43 PM MAINTENANCE MAN [facility] LABORATORY Creatinine 0.70 0.51 - 0.95 mg/dL 10/01/2024 9:43 PM MAINTENANCE MAN [facility] LABORATORY GFR Estimate 90 >60 mL/min/1.7 3m2 10/01/2024 9:43 PM MAINTENANCE MAN [facility] LABORATORY Comment:eGFR calculated usin 2020 CKD-EPI equation. Calcium 8.8 8.8 - 10.4 mg/dL 10/01/2024 9:43 PM MAINTENANCE MAN [facility] LABORATORY Comment:Reference intervals for this test were updated on 04/19/2024 to reflect our healthy population more accurately. There may be differences in the flagging of prior results with similar values performed with this method. Those prior results can be interpreted in the context of the updated reference intervals. Chloride 107 98 - 107 mmol/L 10/01/2024 9:43 PM MAINTENANCE MAN [facility] LABORATORY Glucose 94 70 - 99 mg/dL 10/01/2024 9:43 PM MAINTENANCE [facility] Alkaline Phosphatase 145 40 - 150 U/L 10/01/2024 9:43 PM [facility] AST 57(H) 0 - 45 U/L 10/01/2024 9:43 PM [facility] ALT 65(H) 0 - 50 U/L 10/01/2024 9:43 PM [facility] Protein Total 6.0(L) 6.4 - 8.3 g/dL 10/01/2024 9:43 PM [facility] Albumin 3.2(L) 3.5 - 5.2 g/dL 10/01/2024 9:43 PM [facility] Bilirubin Total 0.6 <=1.2 mg/dL 10/01/2024 9:43 PM [facility] Blood VENOUS LINE / Unknown VAD(CVC, PICC) / Unknown 10/01/2024 9:01 PM [facility] 10/01/2024 9:11 PM [facility] us Chary Evans MD LAB - BLOOD ORDERABLES Final Result [facility] [address], [address] [place] [address], [facility] * CBC with platelets (10/01/2024 9:01 PM [facility]) WBC Count 6.6 4.0 - 11.0 10e3/uL 10/01/2024 9:17 PM [facility] RBC Count 4.19 3.80 - 5.20 10e6/uL 10/01/2024 9:17 PM [facility] Hemoglobin 12.0 11.7 - 15.7 g/dL 10/01/2024 9:17 PM [facility] Hematocrit 37.5 35.0 - 47.0 % 10/01/2024 9:17 PM [facility] MCV 90 78 - 100 fL 10/01/2024 9:17 PM [facility] MCH 28.6 26.5 - 33.0 pg 10/01/2024 9:17 PM [facility] MCHC 32.0 31.5 - 36.5 g/dL 10/01/2024 9:17 PM [facility] RDW 13.7 10.0 - 15.0 % 10/01/2024 9:17 PM [facility] Platelet Count 189 150 - 450 10e3/uL 10/01/2024 9:17 PM [facility] Blood VENOUS LINE / Unknown VAD(CVC, PICC) / Unknown 10/01/2024 9:01 PM [facility] 10/01/2024 9:11 PM [facility] us Chary Evans MD LAB - BLOOD ORDERABLES Final Result [facility] [address], [address] [place] [id number] * XR Chest Port 1 View (10/01/2024 8:49 PM [facility]) Anatomical Region Laterality Modality Chest Computed Radiogr aphy Impressions 10/01/2024 10:03 PM [facility] Impression: 1. Right PICC terminates at the mid SVC. 2. No acute airspace disease. 3. Esophageal stent. I have personally reviewed the examination and initial interpretation and I agree with the findings. SUDHAKAR DSOUZA MD Narrative 10/01/2024 10:03 PM [facility] Exam: XR CHEST PORT 1 VIEW, 10/01/2024 [...] 2 hrs when >2 (10/01/2024 7:45 PM [facility]) Lactic Acid, Initial 1.1 0.7 - 2.0 mmol/L 10/01/2024 8:06 PM [facility] Blood VENOUS LINE / Unknown VAD(CVC, PICC) / Unknown 10/01/2024 7:45 PM MAINTENANCE MAN 10/01/2024 8:02 PM MAINTENANCE MAN Pete Norris MD LAB - BLOOD ORDERABLES Final Re sult [facility] [address] [facility], [address] [place] [id number] documented in this encounter Visit Diagnoses Diagnosis Esophageal perforation- Primary Perforation of esophagus Esophageal perforation Perforation of esophagus Acquired hypothyroidism Unspecified hypothyroidism documented in this encounter Administered Medications Inactive Administered Medications - up to 3 most recent administrations Medication Order MAR Action Action Date Dose Rate Site acetaminophen (TYLENOL) Suppository 650 mg 650 mg, Rectal, EVERY 4 HOURS PRN, mild pain, Starting on 10/01/24 at 1950, Alternate ibuprofen (if ordered) with acetaminophen. Maximum acetaminophen dose from all sources = 75 mg/kg/day not to exceed 4 grams/day. alteplase (CATHFLO ACTIVASE) injection 2 mg 2 mg, Intravenous, EVERY 2 HOURS, First dose on Thu10/04/24 at 0600, For 2 doses, Indications: Line Occlusion, For Central Venous Catheter Use 10 mL syringe to draw up 2 ML and instill into clotted catheter & allow to dwell for 30 mins, then DRAW BACK and discard contents to assess catheter function. If still occluded, allow mixture to dwell for an additional 90 mins, then DRAW BACK and discard contents to reassess catheter function. May repeat dose once if occlusion persists. Contact provider if 2nd dose is unsuccessful. Only use a 10 ml syringe to administer the solution into each lumen. For catheters with lumen volumes greater than the volume dispensed, request additional syringe(s) from pharmacy. To prevent inadvertent embolization of thrombus from the catheter, ALWAYS WITHDRAW alteplase (ACTIVASE) at the end of the dwell time before administering any solution through the catheter. Dissolve the contents of the 2 mg alteplase vial using 2.2 mL of Sterile Water for Injection to provide a solution containing 1 mg/mL of alteplase. Withdraw the ordered dose from vial. Use immediately (within 1 hour) after reconstitution. Discard any unused portion.Indications:Line Occlusion $Given 10/04/2024 6:16 AM MAINTENANCE MAN 2 mg artificial saliva (BIOTENE MT) solution 2 spray 2 spray, Swish & Spit, 4 TIMES DAILY PRN, dry mouth, Starting on 10/02/24 at 1605 $Given 10/02/2024 9:02 PM MAINTENANCE MAN 2 sprays bisacodyl (DULCOLAX) suppository 10 mg 10 mg, Rectal, DAILY PRN, constipation, Starting on Thu10/05/24 at 0920, If the patient has multiple PO bowel stimulant agents ordered PRN, offer in the following order per policy. Move to the next available step if the earlier step is ineffective. Step 1 - senna; Step 2 - bisacodyl; Step 3 - milk of magnesia; Step 4 - polyethylene glycol; Step 5 - magnesium citrate. Hold for loose stools. dextrose 10% infusion Intravenous, CONTINUOUS PRN, low blood sugar, Starting on 10/01/24 at 2052, For hypoglycemia prevention for patients on long-acting subcutaneous basal insulin (Glargine, Degludec, Detemir, NPH) or continuous insulin infusion. Whenever nutrition support is held or interrupted: 1) Infuse IV D10W at nutrition support rate 2) Notify provider for further instructions $New Bag 10/02/2024 1:25 PM MAINTENANCE MAN 1,000 mLs 83 mL/hr dextrose 10% infusion Intravenous, CONTINUOUS PRN, low blood sugar, Starting on 10/02/24 at 1456, For hypoglycemia prevention for patients on long-acting subcutaneous basal insulin (Glargine, Degludec, Detemir, NPH) or continuous insulin infusion. Whenever nutrition support is held or interrupted: 1) Infuse IV D10W at nutrition support rate 2) Notify provider for further instructions enoxaparin ANTICOAGULANT (LOVENOX) injection 40 mg 40 mg, Subcutaneous, PRE-OP/PRE-PROCEDURE, Starting on 10/02/24 at 1118, For 1 dose, IF patient to receive a Nerve Block, verify order with Md Senior Research Scientist BEFORE administering. IMPORTANT: IF Patient ONLY receiving a TAP Block, Nursing does NOT need to verify order with Anesthesia, and can proceed with medication administration., Pre-procedure $Given 10/02/2024 11:57 AM MAINTENANCE MAN 40 mg enoxaparin ANTICOAGULANT (LOVENOX) injection 40 mg 40 mg, Subcutaneous, EVERY 24 HOURS, First dose on 10/03/24 at 1230, Contact provider if platelet count drops by 50% or more after enoxaparin initiation OR if platelet count falls below 50 x 10e3/uL. $Given 10/08/2024 12:49 PM MAINTENANCE MAN 40 mg $Given 10/07/2024 12:33 PM MAINTENANCE MAN 40 mg $Given 10/06/2024 1:45 PM MAINTENANCE MAN 40 mg fluconazole (DIFLUCAN) intermittent infusion 200 mg Routine, 200 mg, Intravenous, EVERY 24 HOURS, First dose on 10/01/24 at 2100, Indications: Fungal Infection ProphylaxisIndications:Fungal Infection Prophylaxis $New Bag 10/07/2024 11:48 PM MAINTENANCE MAN 200 mg 100 mL/h r $New Bag 10/07/2024 12:01 AM MAINTENANCE MAN 200 mg 100 mL/hr $New Bag 10/05/2024 11:05 PM MAINTENANCE MAN 200 mg 100 mL/hr heparin lock flush 10 unit/mL injection 3 mL 3 mL, Intracatheter, EVERY 1 HOUR PRN, line flush, Starting on 10/02/24 at 0352 $Given 10/08/2024 4:21 PM MAINTENANCE MAN 3 mL s $Given 10/08/2024 4:20 PM MAINTENANCE MAN 3 mLs hydrALAZINE (APRESOLINE) injection 10-20 mg 10-20 mg, Intravenous, EVERY 30 MIN PRN, high blood pressure, Administer over 1 Minutes, Starting on 10/01/24 at 1952, If heart rate greater than or equal to 60 bpm, use labetalol first. If heart rate less than 60 bpm, use hydralazine PRN first. Give each hydralazine dose over 1 minute For persistent Systolic Blood Pressure (SBP) greater than 180 mmHg. -FIRST dose: Administer hydralazine 10 mg AND recheck blood pressure in 30 minutes. -SECOND dose (If SBP goal not met): Administer hydralazine 20 mg AND recheck blood pressure in 30 minutes. If blood pressure still not at goal after SECOND dose, notify provider for additional orders. Do not give more than 120 mg in 24 hours $Given 10/04/2024 11:00 AM MAINTENANCE MAN 10 mg $Given 10/02/2024 1:47 PM MAINTENANCE MAN 20 mg $Given 10/02/2024 10:13 AM MAINTENANCE MAN 20 mg HYDROmorphone (DILAUDID) injection 0.2 mg 0.2 mg, Intravenous, EVERY 4 HOURS PRN, moderate pain, Starting on 10/01/24 at 1950, IF patient unable to take oral pain medication or pain not controlled with oral analgesics. Hold IV PRN opioid dose for analgesic side effects. Notify provider to assess for uncontrolled pain or analgesic side effects. HYDROmorphone (DILAUDID) injection 0.2 mg 0.2 mg, Intravenous, EVERY 5 MIN PRN, moderate pain, Starting on 10/02/24 at 1320, Use FentaNYL (SUBLIMAZE) first if ordered. Maximum total cumulative dose NOT to exceed 2 mg. DO NOT revert back to fentanyl (SUBLIMAZE) after administering HYDROmorphone (DILAUDID). Notify Provider to assess for uncontrolled pain or analgesic side effects., PACU $Given 10/02/2024 1:38 PM MAINTENANCE MAN 0.2 mg HYDROmorphone (DILAUDID) injection 0.4 mg 0.4 mg, Intravenous, EVERY 4 HOURS PRN, severe pain, Starting on 10/01/24 at 1950, IF patient unable to take oral pain medication or pain not controlled with oral analgesics. Hold IV PRN opioid dose for analgesic side effects. Notify provider to assess for uncontrolled pain or analgesic side effects. iohexol (OMNIPAQUE) 140 MG/ML solution for oral use 50 mL 50 mL, Oral, ONCE, On Thu10/07/24 at 1100, For 1 dose $Given 10/07/2024 10:44 AM MAINTENANCE MAN 50 mLs iopamidol (ISOVUE-370) solution 100 mL 100 mL, Intravenous, ONCE, On Thu10/07/24 at 1100, For 1 dose $Given 10/07/2024 10:45 AM MAINTENANCE MAN 100 mLs iopamidol (ISOVUE-370) solution 135 mL 135 mL, Intravenous, ONCE, On 10/02/24 at 1600, For 1 dose $Given 10/02/2024 4:11 PM MAINTENANCE MAN 135 mLs labetalol (NORMODYNE/TRANDATE) injection 10 mg 10 mg, Intravenous, EVERY 6 HOURS PRN, high blood pressure, Starting on 10/01/24 at 1952, If heart rate greater than or equal to 60 bpm, use labetalol first. If heart rate less than 60 bpm, use hydralazine PRN first. Give each labetalol 10 mg dose over 1 minute and 20 mg dose over 2 minutes For persistent Systolic Blood Pressure (SBP) greater than 180 mmHg. -FIRST dose: Administer labetalol 10 mg AND recheck blood pressure in 10 minutes. -SECOND dose (If SBP goal not met): Administer labetalol 20 mg AND recheck blood pressure in 10 minutes. -THIRD dose (If SBP goal still not met): Administer labetalol 20 mg AND recheck blood pressure in 10 minutes. If blood pressure still not at goal after THIRD dose, move to hydralazine, if ordered, otherwise notify provider for additional orders. Do not give more than 300 mg in 24 hours lactated ringers infusion 1,000 mL at 100 mL/hr, Intravenous, CONTINUOUS, Starting on 10/01/24 at 2000, Until 10/01/24 at 2103 $New Bag 10/01/2024 8:46 PM MAINTENANCE MAN 1,000 mLs 100 mL/hr lactated ringers infusion 1,000 mL at 25 mL/hr, Intravenous, CONTINUOUS, Starting on 10/01/24 at 2130, Until Thu10/02/24 at 0300 Rate/Dose Verify 10/02/2024 1:19 AM MAINTENANCE MAN 25 mL/hr Rate/Dose Change 10/01/2024 9:10 PM MAINTENANCE MAN 25 mL/h r lactated ringers infusion 1,000 mL at 100 mL/hr, Intravenous, CONTINUOUS, Starting on Thu10/02/24 at 0330, Until Thu10/04/24 at 1344 Restarted 10/04/2024 9:26 AM MAINTENANCE MAN 100 mL/hr $New Bag 10/04/2024 4:17 AM MAINTENANCE MAN 1,000 mLs 100 mL/hr $New Bag 10/03/2024 9:51 AM MAINTENANCE MAN 1,000 mLs 100 mL/hr lactated ringers infusion 1,000 mL at 30 mL/hr, Intravenous, CONTINUOUS, TPN + LR = 100 ml/hr , Starting on Thu10/04/24 at 1400, Until 10/08/24 at 1934 $New Bag 10/07/2024 11:10 AM MAINTENANCE MAN 1,000 mLs 30 mL/hr $New Bag 10/05/2024 6:33 PM MAINTENANCE MAN 1,000 mLs 30 mL/hr $New Bag 10/04/2024 3:07 PM MAINTENANCE MAN 1,000 mLs 30 mL/hr levothyroxine (SYNTHROID) injection 100 mcg 100 mcg, Intravenous, ONCE, On 10/08/24 at 1230, For 1 dose, Do not exceed an IV administration rate of 100 mcg/min $Given 10/08/2024 2:08 PM MAINTENANCE MAN 100 mcg lipids 4 oil (SMOFLIPID) 20 % infusion 250 mL Intravenous, 250 mL, USER SPECIFIED (Once per day on Thursday), at 20.8 mL/hr, Administer over 12 Hours, First dose on Thu10/03/24 at 2000, Administer through a 1.2 micron filter. Requires container change and tubing change every 12 hours. $New Bag 10/07/2024 8:30 PM MAINTENANCE MAN 250 mLs 20.8 mL/hr $New Bag 10/06/2024 8:45 PM MAINTENANCE MAN 250 mLs 20.8 mL/hr $New Bag 10/05/2024 9:10 PM MAINTENANCE MAN 250 mLs 20.8 mL/hr metoprolol (LOPRESSOR) injection 5 mg 5 mg, Intravenous, EVERY 6 HOURS, Administer over 5-10 Minutes, First dose on 10/01/24 at 2000, Hold for HR <60 or systolic <100 $Given 10/08/2024 9:26 AM MAINTENANCE MAN 5 mg $Given 10/07/2024 8:31 PM MAINTENANCE MAN 5 mg $Given 10/07/2024 9:13 AM MAINTENANCE MAN 5 mg naloxone (NARCAN) injection 0.2 mg 0.2 mg, Intravenous, EVERY 2 MIN PRN, opioid reversal, Starting on 10/03/24 at 1026, Administer intravenous route when available and notify provider when administered. For unintended sedation or respiratory depression if all of the below criteria are met: ~ respiratory rate LESS than or EQUAL to 8. ~SaO2 less than 92% and or/end-tidal CO2 is greater than 50. ~ the patient is receiving an opioid, has unintended sedations assessed as RASS (-3), and is currently not on mechanical ventilation. RASS scale moderate (-3) is movement or eye opening to voice but no eye contact. Patient Monitoring Once the patient has demonstrated a response to the naloxone, continue to monitor respiratory rate, depth, oxygen saturation and end-tidal CO2 (if available) every 15 minutes x 2, then every 30 minutes x 2, then every 1 hour x 1 after each naloxone dose. Consider transfer to ICU if patient respiratory parameters have not improved after 4 naloxone doses. naloxone (NARCAN) injection 0.2 mg 0.2 mg, Intramuscular, EVERY 2 MIN PRN, opioid reversal, Starting on Thu10/03/24 at 1026, Administer intramuscular if an intravenous route is not available and notify provider when administered. For unintended sedation or respiratory depression if all of the below criteria are met: ~ respiratory rate LESS than or EQUAL to 8. ~SaO2 less than 92% and or/end-tidal CO2 is greater than 50. ~ the patient is receiving an opioid, has unintended sedations assessed as RASS (-3), and is currently not on mechanical ventilation. RASS scale moderate (-3) is movement or eye opening to voice but no eye contact. Patient Monitoring Once the patient has demonstrated a response to the naloxone, continue to monitor respiratory rate, depth, oxygen saturation and end-tidal CO2 (if available) every 15 minutes x 2, then every 30 minutes x 2, then every 1 hour x 1 after each naloxone dose. Consider transfer to ICU if patient respiratory parameters have not improved after 4 naloxone doses. naloxone (NARCAN) injection 0.4 mg 0.4 mg, Intravenous, EVERY 2 MIN PRN, opioid reversal, Starting on Thu10/03/24 at 1026, Administer intravenous route when available and notify provider when administered. For unintended sedation or respiratory depression if all of the below criteria are met: ~ respiratory rate LESS than or EQUAL to 8. ~ SaO2 less than 92% and or/end-tidal CO2 is greater than 50. ~ the patient is receiving an opioid, has unintended sedation assessed as RASS (-4) or (-5) and patient is currently not on mechanical ventilation. RASS scale (-4) is deep sedation with no response to voice but movement or eye opening to physical stimulation. RASS scale (-5) is unarousable. Patient Monitoring Once the patient has demonstrated a response to the naloxone, continue to monitor respiratory rate, depth, oxygen saturation and end-tidal CO2 (if available) every 15 minutes x 2, then every 30 minutes x 2, then every 1 hour x 1 after each naloxone dose. Consider transfer to ICU if patient respiratory parameters have not improved after 4 naloxone doses. naloxone (NARCAN) injection 0.4 mg 0.4 mg, Intramuscular, EVERY 2 MIN PRN, opioid reversal, Starting on Thu10/03/24 at 1026, Administer intramuscular if an intravenous route is not available and notify provider when administered. For unintended sedation or respiratory depression if all of the below criteria are met: ~ respiratory rate LESS than or EQUAL to 8. ~ SaO2 less than 92% and or/end-tidal CO2 is greater than 50. ~ the patient is receiving an opioid, has unintended sedation assessed as RASS (-4) or (-5) and patient is currently not on mechanical ventilation. RASS scale (-4) is deep sedation with no response to voice but movement or eye opening to physical stimulation. RASS scale (-5) is unarousable. Patient Monitoring Once the patient has demonstrated a response to the naloxone, continue to monitor respiratory rate, depth, oxygen saturation and end-tidal CO2 (if available) every 15 minutes x 2, then every 30 minutes x 2, then every 1 hour x 1 after each naloxone dose. Consider transfer to ICU if patient respiratory parameters have not improved after 4 naloxone doses. ondansetron (ZOFRAN ODT) ODT tab 4 mg 4 mg, Oral, EVERY 6 HOURS PRN, nausea/vomiting - 1st line, Starting on 10/01/24 at 1950, This is Step 1 of nausea and vomiting management. If nausea not resolved in 15 minutes, go to Step 2 prochlorperazine (COMPAZINE). With dry hands, peel back foil backing and gently remove tablet. Do not push oral disintegrating tablet through foil backing. Administer immediately on tongue and oral disintegrating tablet dissolves in seconds, then swallow with saliva. Liquid not required. ondansetron (ZOFRAN) injection 4 mg 4 mg, Intravenous, EVERY 6 HOURS PRN, nausea/vomiting - 1st line, Administer over 2-5 Minutes, Starting on 10/01/24 at 1950, Give IF patient unable to tolerate oral medication. This is Step 1 of nausea and vomiting management. If nausea not resolved in 15 minutes, go to Step 2 prochlorperazine (COMPAZINE). $Given 10/02/2024 12:40 PM MAINTENANCE MAN 4 mg pantoprazole (PROTONIX) IV push injection 40 mg 40 mg, Intravenous, DAILY, First dose (after last modification) on 10/01/24 at 2200 $Given 10/08/2024 9:26 AM MAINTENANCE MAN 4 0 mg $Given 10/07/2024 9:13 AM MAINTENANCE MAN 40 mg $Given 10/06/2024 8:54 AM MAINTENANCE MAN 40 mg parenteral nutrition - ADULT compounded formula CYCLE CENTRAL LINE IV, at 49-99 mL/hr, Administer over 18 Hours, CYCLE, Starting on Thu10/07/24 at 2000, For 24 hours, Infuse using a 0.22 micron filter. Start rate at 49 mL/hr for 1 hours. Increase rate to 99 mL/hr for 16 hours. Decrease rate to 49 mL/hr for 1 hours, then stop. Rate/Dose Change 10/08/2024 2:16 PM MAINTENANCE MAN 49 mL/hr Rate/Dose Change 10/07/2024 9:30 PM MAINTENANCE MAN 99 mL/h r Start cyclic TPN 10/07/2024 8:30 PM MAINTENANCE MAN 49 mL/h r parenteral nutrition - ADULT compounded formula CENTRAL LINE IV, at 70 mL/hr, Administer over 24 Hours, TPN CONTINUOUS, Starting on Thu10/02/24 at 2000, For 24 hours, Infuse using a 0.22 micron filter. Nurse Instructions: When TPN is discontinued, decrease rate to of current rate for 1 hour. $New Bag 10/02/2024 9:12 PM MAINTENANCE MAN 70 mL/hr parenteral nutrition - ADULT compounded formula CENTRAL LINE IV, at 70 mL/hr, Administer over 24 Hours, TPN CONTINUOUS, Starting on Thu10/03/24 at 2000, For 24 hours, Infuse using a 0.22 micron filter. Nurse Instructions: When TPN is discontinued, decrease rate to of current rate for 1 hour. Restarted 10/04/2024 9:26 AM MAINTENANCE MAN 70 mL/hr Rate/Dose Verify 10/04/2024 12:10 AM MAINTENANCE MAN 70 mL/ hr $New Bag 10/03/2024 9:12 PM MAINTENANCE MAN 70 mL/hr parenteral nutrition - ADULT compounded formula CENTRAL LINE IV, at 70 mL/hr, Administer over 24 Hours, TPN CONTINUOUS, Starting on Thu10/04/24 at 2000, For 24 hours, Infuse using a 0.22 micron filter. Nurse Instructions: When TPN is discontinued, decrease rate to of current rate for 1 hour. $New Bag 10/04/2024 9:27 PM MAINTENANCE MAN 70 mL/hr parenteral nutrition - ADULT compounded formula CENTRAL LINE IV, at 70 mL/hr, Administer over 24 Hours, TPN CONTINUOUS, Starting on Thu10/05/24 at 2000, For 24 hours, Infuse using a 0.22 micron filter. Nurse Instructions: When TPN is discontinued, decrease rate to of current rate for 1 hour. $New Bag 10/05/2024 9:10 PM MAINTENANCE MAN 70 mL/hr parenteral nutrition - ADULT compounded formula CENTRAL LINE IV, at 70 mL/hr, Administer over 24 Hours, TPN CONTINUOUS, Starting on Thu10/06/24 at 2000, For 24 hours, Infuse using a 0.22 micron filter. Nurse Instructions: When TPN is discontinued, decrease rate to of current rate for 1 hour. $New Bag 10/06/2024 8:45 PM MAINTENANCE MAN 70 mL/hr parenteral nutrition - Clinimix E PERIPHERAL LINE IV, at 83 mL/hr, Administer over 24 Hours, TPN CONTINUOUS, Starting on Thu10/01/24 at 2100, For 24 hours, Infuse using a 0.22 micron filter. MAY INFUSE THROUGH PICC LINE Nurse Instructions: When TPN is discontinued, decrease rate to of current rate for 1 hour. $New Bag 10/01/2024 10:43 PM MAINTENANCE MAN 8 3 mL/hr piperacillin-tazobactam (ZOSYN) intermittent infusion 4.5 g Routine, 4.5 g, Intravenous, EVERY 6 HOURS, First dose on 10/01/24 at 2200, Incompatible with lactated ringers, parenteral nutrition or any other calcium containing IV fluids. Flush line with NS pre and post dose. , Indications: Perioperative Pharmacoprophylaxis, retropharyngeal perforationIndications:Perioperativ e Pharmacoprophylaxis,retropharyngeal perforation $New Bag 10/08/2024 12:49 PM MAINTENANCE MAN 4.5 g 200 mL/hr $New Bag 10/08/2024 6:35 AM MAINTENANCE MAN 4.5 g 200 mL/hr $New Bag 10/08/2024 1:14 AM MAINTENANCE MAN 4.5 g 200 mL/hr prochlorperazine (COMPAZINE) injection 5 mg 5 mg, Intravenous, EVERY 6 HOURS PRN, nausea/vomiting - 2nd line, Administer over 1-2 Minutes, Starting on 10/01/24 at 1950, IF patient unable to tolerate oral medication. This is Step 2 of nausea and vomiting management. Give if nausea not resolved 15 minutes after giving ondansetron (ZOFRAN). prochlorperazine (COMPAZINE) injection 5 mg 5 mg, Intravenous, EVERY 6 HOURS PRN, nausea, vomiting, Administer over 1-2 Minutes, Starting on 10/02/24 at 1320, This is Step 3 of the nausea and vomiting protocol. If nausea/vomitting not resolved in 15-30 minutes, notify Provider., PACU $Given 10/02/2024 1:37 PM MAINTENANCE MAN 5 m g prochlorperazine (COMPAZINE) tablet 5 mg 5 mg, Oral, EVERY 6 HOURS PRN, nausea/vomiting - 2nd line, Starting on 10/01/24 at 1950, This is Step 2 of nausea and vomiting management. Give if nausea not resolved 15 minutes after giving ondansetron (ZOFRAN). sodium chloride (PF) 0.9% PF flush 84 mL 84 mL, Intravenous, ONCE, On Thu10/02/24 at 1600, For 1 dose $Given 10/02/2024 4:11 PM MAINTENANCE MAN 84 mLs sodium chloride (PF) 0.9% PF flush 85 mL 85 mL, Intravenous, ONCE, On Thu10/07/24 at 1100, For 1 dose $Given 10/07/2024 10:45 AM MAINTENANCE MAN 85 mLs documented in this encounter Active and Recently Administered Medications Times are shown in MAINTENANCE MAN. Scheduled Medication Order 10/06/2024 10/07/2024 10/08/2024 enoxaparin ANTICOAGULANT (LOVENOX) injection 40 mg 40 mg, Subcutaneous, EVERY 24 HOURS, First dose on 10/03/24 at 1230, Contact provider if platelet count drops by 50% or more after enoxaparin initiation OR if platelet count falls below 50 x 10e3/uL. 1345 ($Given - Provider: Gris Hernandez RN) 1233 ($Given - Provider: Emily Brennan RN) 1249 ($Given - Provider: Elaina Del Toro RN) fluconazole (DIFLUCAN) intermittent infusion 200 mg Routine, 200 mg, Intravenous, EVERY 24 HOURS, First dose on 10/01/24 at 2100, Indications: Fungal Infection Prophylaxis 0001 ($New Bag - Provider: Sridevi Arroyo RN)2348 ($New Bag - Provider: Priya Garcia RN) iohexol (OMNIPAQUE) 140 MG/ML solution for oral use 50 mL (COMPLETED) 50 mL, Oral, ONCE, On Thu10/07/24 at 1100, For 1 dose 1044 ($Given - Provider: BASSAM Ascencio) iopamidol (ISOVUE-370) solution 100 mL (COMPLETED) 100 mL, Intravenous, ONCE, On Thu10/07/24 at 1100, For 1 dose 1045 ($Given - Provider: BASSAM Ascencio) levothyroxine (SYNTHROID) injection 100 mcg (COMPLETED) 100 mcg, Intravenous, ONCE, On 10/08/24 at 1230, For 1 dose, Do not exceed an IV administration rate of 100 mcg/min 1408 ($Given - Provider: Emily Brennan RN) lipids 4 oil (SMOFLIPID) 20 % infusion 250 mL Intravenous, 250 mL, USER SPECIFIED (Once per day on Thursday), at 20.8 mL/hr, Administer over 12 Hours, First dose on Thu10/03/24 at 2000, Administer through a 1.2 micron filter. Requires container change and tubing change every 12 hours. 2044 ($New Bag - Provider: Sridevi Arroyo RN) 2029 ($New Bag - Provider: Jayne Epps RN) metoprolol (LOPRESSOR) injection 5 mg 5 mg, Intravenous, EVERY 6 HOURS, Administer over 5-10 Minutes, First dose on 10/01/24 at 2000, Hold for HR <60 or systolic <100 0425 (Not Given - Provider: Thea Chun RN - Reason: Order parameters not met - Comment: HR at 58)[phone] ($Given - Provider: Emily Brennan RN)1417 ($Given - Provider: Emily Brennan RN)210 (Not Given - Provider: Sridevi Arroyo RN - Reason: Other - Comment: Patients HR is 61 previous was 57.) 0119 (Not Given - Provider: Sridevi Arroyo RN - Reason: Order parameters not met - Comment: HR [phone] ($Given - Provider: Emily Brennan RN)1422 (Not Given - Provider: Emily Brennan RN - Reason: Order parameters not met - Comment: HR 60; but has dropped to 58. hold per orders.)2030 ($Given - Provider: Jayne Epps RN) 0209 (Not Given - Provider: Priya Garcia RN - Reason: Order parameters not met - Comment: HR [phone] ($Given - Provider: Emily Brennan RN)1408 (Not Given - Provider: Emily Brennan RN - Reason: Order parameters not met - Comment: HR 55) pantoprazole (PROTONIX) IV push injection 40 mg 40 mg, Intravenous, DAILY, First dose (after last modification) on 10/01/24 at 2200 0854 ($Given - Provider: Emily Brennan RN) 0913 ($Given - Provider: Emily Brennan RN) 0926 ($Given - Provider: Emily Brennan, RN) piperacillin-tazobactam (ZOSYN) intermittent infusion 4.5 g Routine, 4.5 g, Intravenous, EVERY 6 HOURS, First dose on 10/01/24 at 2200, Incompatible with lactated ringers, parenteral nutrition or any other calcium containing IV fluids. Flush line with NS pre and post dose. , Indications: Perioperative Pharmacoprophylaxis, retropharyngeal perforation 0055 ($New Bag - Provider: Thea Chun RN)0643 ($New Bag - Provider: Thea Chun RN)1345 ($New Bag - Provider: Gris Hernandez, FRANCISCO)1805 ($New Bag - Provider: Jazmin Ordonez) 0001 ($New Bag - Provider: Sridevi Arroyo, FRANCISCO)0552 ($New Bag - Provider: Sridevi Arroyo, FRANCISCO)1233 ($New Bag - Provider: Emily Brennan, FRANCISCO)1851 ($New Bag - Provider: Jayne Epps RN) 0114 ($New Bag - Provider: Priya Garcia, FRANCISCO)0635 ($New Bag - Provider: Priya Garcia, FRANCISCO)1249 ($New Bag - Provider: Elaina Del Toro, FRANCISCO)1900 (Canceled Entry - Provider: Orders Generic Provider - Comment: Automatically canceled at discontinue of medication order) sodium chloride (PF) 0.9% PF flush 85 mL (COMPLETED) 85 mL, Intravenous, ONCE, On Thu10/07/24 at 1100, For 1 dose 1045 ($Given - Provider: BASSAM Ascencio) Continuous Medication Order 10/06/2024 10/07/2024 10/08/2024 lactated ringers infusion 1,000 mL at 30 mL/hr, Intravenous, CONTINUOUS, TPN + LR = 100 ml/hr , Starting on Thu10/04/24 at 1400, Until 10/08/24 at 1934 1110 ($New Bag - Provider: Emily Brennan, FRANCISCO) parenteral nutrition - ADULT compounded formula CYCLE CENTRAL LINE IV, at 49-99 mL/hr, Administer over 18 Hours, CYCLE, Starting on Thu10/07/24 at 2000, For 24 hours, Infuse using a 0.22 micron filter. Start rate at 49 mL/hr for 1 hours. Increase rate to 99 mL/hr for 16 hours. Decrease rate to 49 mL/hr for 1 hours, then stop. 2029 (Start cyclic TPN - Provider: Jayne Epps, FRANCISCO)213 (Rate/Dose Change - Provider: Dannielle Moura RN) 1416 (Rate/Dose Change - Provider: Emily Brennan RN)1601 (Stopped - Provider: Jayne Epps RN) parenteral nutrition - ADULT compounded formula () CENTRAL LINE IV, at 70 mL/hr, Administer over 24 Hours, TPN CONTINUOUS, Starting on Thu10/06/24 at 2000, For 24 hours, Infuse using a 0.22 micron filter. Nurse Instructions: When TPN is discontinued, decrease rate to of current rate for 1 hour. 2044 ($New Bag - Provider: Sridevi Arroyo RN) PRN Medication Order 10/06/2024 10/07/2024 10/08/2024 acetaminophen (TYLENOL) Suppository 650 mg 650 mg, Rectal, EVERY 4 HOURS PRN, mild pain, Starting on 10/01/24 at 1950, Alternate ibuprofen (if ordered) with acetaminophen. Maximum acetaminophen dose from all sources = 75 mg/kg/day not to exceed 4 grams/day. artificial saliva (BIOTENE MT) solution 2 spray 2 spray, Swish & Spit, 4 TIMES DAILY PRN, dry mouth, Starting on 10/02/24 at 1605 bisacodyl (DULCOLAX) suppository 10 mg 10 mg, Rectal, DAILY PRN, constipation, Starting on Thu10/05/24 at 0920, If the patient has multiple PO bowel stimulant agents ordered PRN, offer in the following order per policy. Move to the next available step if the earlier step is ineffective. Step 1 - senna; Step 2 - bisacodyl; Step 3 - milk of magnesia; Step 4 - polyethylene glycol; Step 5 - magnesium citrate. Hold for loose stools. dextrose 10% infusion Intravenous, CONTINUOUS PRN, low blood sugar, Starting on 10/01/24 at 2052, For hypoglycemia prevention for patients on long-acting subcutaneous basal insulin (Glargine, Degludec, Detemir, NPH) or continuous insulin infusion. Whenever nutrition support is held or interrupted: 1) Infuse IV D10W at nutrition support rate 2) Notify provider for further instructions dextrose 10% infusion Intravenous, CONTINUOUS PRN, low blood sugar, Starting on 10/02/24 at 1456, For hypoglycemia prevention for patients on long-acting subcutaneous basal insulin (Glargine, Degludec, Detemir, NPH) or continuous insulin infusion. Whenever nutrition support is held or interrupted: 1) Infuse IV D10W at nutrition support rate 2) Notify provider for further instructions heparin lock flush 10 unit/mL injection 3 mL 3 mL, Intracatheter, EVERY 1 HOUR PRN, line flush, Starting on 10/02/24 at 0352 1620 ($Given - Provi melissa: Jayne Epps RN)1621 ($Given - Provider: Jayne Epps RN) hydrALAZINE (APRESOLINE) injection 10-20 mg 10-20 mg, Intravenous, EVERY 30 MIN PRN, high blood pressure, Administer over 1 Minutes, Starting on 10/01/24 at 1952, If heart rate greater than or equal to 60 bpm, use labetalol first. If heart rate less than 60 bpm, use hydralazine PRN first. Give each hydralazine dose over 1 minute For persistent Systolic Blood Pressure (SBP) greater than 180 mmHg. -FIRST dose: Administer hydralazine 10 mg AND recheck blood pressure in 30 minutes. -SECOND dose (If SBP goal not met): Administer hydralazine 20 mg AND recheck blood pressure in 30 minutes. If blood pressure still not at goal after SECOND dose, notify provider for additional orders. Do not give more than 120 mg in 24 hours HYDROmorphone (DILAUDID) injection 0.2 mg(Linked Group 1) 0.2 mg, Intravenous, EVERY 4 HOURS PRN, moderate pain, Starting on 10/01/24 at 1950, IF patient unable to take oral pain medication or pain not controlled with oral analgesics. Hold IV PRN opioid dose for analgesic side effects. Notify provider to assess for uncontrolled pain or analgesic side effects. HYDROmorphone (DILAUDID) injection 0.4 mg(Linked Group 1) 0.4 mg, Intravenous, EVERY 4 HOURS PRN, severe pain, Starting on 10/01/24 at 1950, IF patient unable to take oral pain medication or pain not controlled with oral analgesics. Hold IV PRN opioid dose for analgesic side effects. Notify provider to assess for uncontrolled pain or analgesic side effects. labetalol (NORMODYNE/TRANDATE) injection 10 mg 10 mg, Intravenous, EVERY 6 HOURS PRN, high blood pressure, Starting on 10/01/24 at 1952, If heart rate greater than or equal to 60 bpm, use labetalol first. If heart rate less than 60 bpm, use hydralazine PRN first. Give each labetalol 10 mg dose over 1 minute and 20 mg dose over 2 minutes For persistent Systolic Blood Pressure (SBP) greater than 180 mmHg. -FIRST dose: Administer labetalol 10 mg AND recheck blood pressure in 10 minutes. -SECOND dose (If SBP goal not met): Administer labetalol 20 mg AND recheck blood pressure in 10 minutes. -THIRD dose (If SBP goal still not met): Administer labetalol 20 mg AND recheck blood pressure in 10 minutes. If blood pressure still not at goal after THIRD dose, move to hydralazine, if ordered, otherwise notify provider for additional orders. Do not give more than 300 mg in 24 hours naloxone (NARCAN) injection 0.2 mg(Linked Group 2) 0.2 mg, Intravenous, EVERY 2 MIN PRN, opioid reversal, Starting on 10/03/24 at 1026, Administer intravenous route when available and notify provider when administered. For unintended sedation or respiratory depression if all of the below criteria are met: ~ respiratory rate LESS than or EQUAL to 8. ~SaO2 less than 92% and or/end-tidal CO2 is greater than 50. ~ the patient is receiving an opioid, has unintended sedations assessed as RASS (-3), and is currently not on mechanical ventilation. RASS scale moderate (-3) is movement or eye opening to voice but no eye contact. Patient Monitoring Once the patient has demonstrated a response to the naloxone, continue to monitor respiratory rate, depth, oxygen saturation and end-tidal CO2 (if available) every 15 minutes x 2, then every 30 minutes x 2, then every 1 hour x 1 after each naloxone dose. Consider transfer to ICU if patient respiratory parameters have not improved after 4 naloxone doses. naloxone (NARCAN) injection 0.2 mg(Linked Group 2) 0.2 mg, Intramuscular, EVERY 2 MIN PRN, opioid reversal, Starting on Thu10/03/24 at 1026, Administer intramuscular if an intravenous route is not available and notify provider when administered. For unintended sedation or respiratory depression if all of the below criteria are met: ~ respiratory rate LESS than or EQUAL to 8. ~SaO2 less than 92% and or/end-tidal CO2 is greater than 50. ~ the patient is receiving an opioid, has unintended sedations assessed as RASS (-3), and is currently not on mechanical ventilation. RASS scale moderate (-3) is movement or eye opening to voice but no eye contact. Patient Monitoring Once the patient has demonstrated a response to the naloxone, continue to monitor respiratory rate, depth, oxygen saturation and end-tidal CO2 (if available) every 15 minutes x 2, then every 30 minutes x 2, then every 1 hour x 1 after each naloxone dose. Consider transfer to ICU if patient respiratory parameters have not improved after 4 naloxone doses. naloxone (NARCAN) injection 0.4 mg(Linked Group 2) 0.4 mg, Intravenous, EVERY 2 MIN PRN, opioid reversal, Starting on Thu10/03/24 at 1026, Administer intravenous route when available and notify provider when administered. For unintended sedation or respiratory depression if all of the below criteria are met: ~ respiratory rate LESS than or EQUAL to 8. ~ SaO2 less than 92% and or/end-tidal CO2 is greater than 50. ~ the patient is receiving an opioid, has unintended sedation assessed as RASS (-4) or (-5) and patient is currently not on mechanical ventilation. RASS scale (-4) is deep sedation with no response to voice but movement or eye opening to physical stimulation. RASS scale (-5) is unarousable. Patient Monitoring Once the patient has demonstrated a response to the naloxone, continue to monitor respiratory rate, depth, oxygen saturation and end-tidal CO2 (if available) every 15 minutes x 2, then every 30 minutes x 2, then every 1 hour x 1 after each naloxone dose. Consider transfer to ICU if patient respiratory parameters have not improved after 4 naloxone doses. naloxone (NARCAN) injection 0.4 mg(Linked Group 2) 0.4 mg, Intramuscular, EVERY 2 MIN PRN, opioid reversal, Starting on Thu10/03/24 at 1026, Administer intramuscular if an intravenous route is not available and notify provider when administered. For unintended sedation or respiratory depression if all of the below criteria are met: ~ respiratory rate LESS than or EQUAL to 8. ~ SaO2 less than 92% and or/end-tidal CO2 is greater than 50. ~ the patient is receiving an opioid, has unintended sedation assessed as RASS (-4) or (-5) and patient is currently not on mechanical ventilation. RASS scale (-4) is deep sedation with no response to voice but movement or eye opening to physical stimulation. RASS scale (-5) is unarousable. Patient Monitoring Once the patient has demonstrated a response to the naloxone, continue to monitor respiratory rate, depth, oxygen saturation and end-tidal CO2 (if available) every 15 minutes x 2, then every 30 minutes x 2, then every 1 hour x 1 after each naloxone dose. Consider transfer to ICU if patient respiratory parameters have not improved after 4 naloxone doses. ondansetron (ZOFRAN ODT) ODT tab 4 mg(Linked Group 3) 4 mg, Oral, EVERY 6 HOURS PRN, nausea/vomiting - 1st line, Starting on 10/01/24 at 1950, This is Step 1 of nausea and vomiting management. If nausea not resolved in 15 minutes, go to Step 2 prochlorperazine (COMPAZINE). With dry hands, peel back foil backing and gently remove tablet. Do not push oral disintegrating tablet through foil backing. Administer immediately on tongue and oral disintegrating tablet dissolves in seconds, then swallow with saliva. Liquid not required. ondansetron (ZOFRAN) injection 4 mg(Linked Group 3) 4 mg, Intravenous, EVERY 6 HOURS PRN, nausea/vomiting - 1st line, Administer over 2-5 Minutes, Starting on 10/01/24 at 1950, Give IF patient unable to tolerate oral medication. This is Step 1 of nausea and vomiting management. If nausea not resolved in 15 minutes, go to Step 2 prochlorperazine (COMPAZINE). prochlorperazine (COMPAZINE) injection 5 mg(Linked Group 4) 5 mg, Intravenous, EVERY 6 HOURS PRN, nausea/vomiting - 2nd line, Administer over 1-2 Minutes, Starting on 10/01/24 at 1950, IF patient unable to tolerate oral medication. This is Step 2 of nausea and vomiting management. Give if nausea not resolved 15 minutes after giving ondansetron (ZOFRAN). prochlorperazine (COMPAZINE) tablet 5 mg(Linked Group 4) 5 mg, Oral, EVERY 6 HOURS PRN, nausea/vomiting - 2nd line, Starting on 10/01/24 at 1950, This is Step 2 of nausea and vomiting management. Give if nausea not resolved 15 minutes after giving ondansetron (ZOFRAN). Linked Groups Order Group 1: HYDROmorphone (DILAUDID) injection 0.2 mgJump to med 0.2 mg, Intravenous, EVERY 4 HOURS PRN, moderate pain, Starting on 10/01/24 at 1950, IF patient unable to take oral pain medication or pain not controlled with oral analgesics. Hold IV PRN opioid dose for analgesic side effects. Notify provider to assess for uncontrolled pain or analgesic side effects. Or HYDROmorphone (DILAUDID) injection 0.4 mgJump to med 0.4 mg, Intravenous, EVERY 4 HOURS PRN, severe pain, Starting on 10/01/24 at 1950, IF patient unable to take oral pain medication or pain not controlled with oral analgesics. Hold IV PRN opioid dose for analgesic side effects. Notify provider to assess for uncontrolled pain or analgesic side effects. Group 2: naloxone (NARCAN) injection 0.2 mgJump to med 0.2 mg, Intravenous, EVERY 2 MIN PRN, opioid reversal, Starting on 10/03/24 at 1026, Administer intravenous route when available and notify provider when administered. For unintended sedation or respiratory depression if all of the below criteria are met: ~ respiratory rate LESS than or EQUAL to 8. ~SaO2 less than 92% and or/end-tidal CO2 is greater than 50. ~ the patient is receiving an opioid, has unintended sedations assessed as RASS (-3), and is currently not on mechanical ventilation. RASS scale moderate (-3) is movement or eye opening to voice but no eye contact. Patient Monitoring Once the patient has demonstrated a response to the naloxone, continue to monitor respiratory rate, depth, oxygen saturation and end-tidal CO2 (if available) every 15 minutes x 2, then every 30 minutes x 2, then every 1 hour x 1 after each naloxone dose. Consider transfer to ICU if patient respiratory parameters have not improved after 4 naloxone doses. Or naloxone (NARCAN) injection 0.4 mgJump to med 0.4 mg, Intravenous, EVERY 2 MIN PRN, opioid reversal, Starting on Thu10/03/24 at 1026, Administer intravenous route when available and notify provider when administered. For unintended sedation or respiratory depression if all of the below criteria are met: ~ respiratory rate LESS than or EQUAL to 8. ~ SaO2 less than 92% and or/end-tidal CO2 is greater than 50. ~ the patient is receiving an opioid, has unintended sedation assessed as RASS (-4) or (-5) and patient is currently not on mechanical ventilation. RASS scale (-4) is deep sedation with no response to voice but movement or eye opening to physical stimulation. RASS scale (-5) is unarousable. Patient Monitoring Once the patient has demonstrated a response to the naloxone, continue to monitor respiratory rate, depth, oxygen saturation and end-tidal CO2 (if available) every 15 minutes x 2, then every 30 minutes x 2, then every 1 hour x 1 after each naloxone dose. Consider transfer to ICU if patient respiratory parameters have not improved after 4 naloxone doses. Or naloxone (NARCAN) injection 0.2 mgJump to med 0.2 mg, Intramuscular, EVERY 2 MIN PRN, opioid reversal, Starting on Thu10/03/24 at 1026, Administer intramuscular if an intravenous route is not available and notify provider when administered. For unintended sedation or respiratory depression if all of the below criteria are met: ~ respiratory rate LESS than or EQUAL to 8. ~SaO2 less than 92% and or/end-tidal CO2 is greater than 50. ~ the patient is receiving an opioid, has unintended sedations assessed as RASS (-3), and is currently not on mechanical ventilation. RASS scale moderate (-3) is movement or eye opening to voice but no eye contact. Patient Monitoring Once the patient has demonstrated a response to the naloxone, continue to monitor respiratory rate, depth, oxygen saturation and end-tidal CO2 (if available) every 15 minutes x 2, then every 30 minutes x 2, then every 1 hour x 1 after each naloxone dose. Consider transfer to ICU if patient respiratory parameters have not improved after 4 naloxone doses. Or naloxone (NARCAN) injection 0.4 mgJump to med 0.4 mg, Intramuscular, EVERY 2 MIN PRN, opioid reversal, Starting on Thu10/03/24 at 1026, Administer intramuscular if an intravenous route is not available and notify provider when administered. For unintended sedation or respiratory depression if all of the below criteria are met: ~ respiratory rate LESS than or EQUAL to 8. ~ SaO2 less than 92% and or/end-tidal CO2 is greater than 50. ~ the patient is receiving an opioid, has unintended sedation assessed as RASS (-4) or (-5) and patient is currently not on mechanical ventilation. RASS scale (-4) is deep sedation with no response to voice but movement or eye opening to physical stimulation. RASS scale (-5) is unarousable. Patient Monitoring Once the patient has demonstrated a response to the naloxone, continue to monitor respiratory rate, depth, oxygen saturation and end-tidal CO2 (if available) every 15 minutes x 2, then every 30 minutes x 2, then every 1 hour x 1 after each naloxone dose. Consider transfer to ICU if patient respiratory parameters have not improved after 4 naloxone doses. Group 3: ondansetron (ZOFRAN ODT) ODT tab 4 mgJump to med 4 mg, Oral, EVERY 6 HOURS PRN, nausea/vomiting - 1st line, Starting on 10/01/24 at 1950, This is Step 1 of nausea and vomiting management. If nausea not resolved in 15 minutes, go to Step 2 prochlorperazine (COMPAZINE). With dry hands, peel back foil backing and gently remove tablet. Do not push oral disintegrating tablet through foil backing. Administer immediately on tongue and oral disintegrating tablet dissolves in seconds, then swallow with saliva. Liquid not required. Or ondansetron (ZOFRAN) injection 4 mgJump to med 4 mg, Intravenous, EVERY 6 HOURS PRN, nausea/vomiting - 1st line, Administer over 2-5 Minutes, Starting on 10/01/24 at 1950, Give IF patient unable to tolerate oral medication. This is Step 1 of nausea and vomiting management. If nausea not resolved in 15 minutes, go to Step 2 prochlorperazine (COMPAZINE). Group 4: prochlorperazine (COMPAZINE) injection 5 mgJump to med 5 mg, Intravenous, EVERY 6 HOURS PRN, nausea/vomiting - 2nd line, Administer over 1-2 Minutes, Starting on 10/01/24 at 1950, IF patient unable to tolerate oral medication. This is Step 2 of nausea and vomiting management. Give if nausea not resolved 15 minutes after giving ondansetron (ZOFRAN). Or prochlorperazine (COMPAZINE) tablet 5 mgJump to med 5 mg, Oral, EVERY 6 HOURS PRN, nausea/vomiting - 2nd line, Starting on 10/01/24 at 1950, This is Step 2 of nausea and vomiting management. Give if nausea not resolved 15 minutes after giving ondansetron (ZOFRAN). documented in this encounter Care Teams Process Automation Engineer Relationship Specialty Start [place] [id number] [place] [address] PCP - General Family Medicine 03/05/23 10/01/24 [place] [id number] [facility] [place] [address] PCP - General Family Medicine 10/02/24 [place] [id number] [place] [address] Assigned PCP 08/29/23 Karson Sal, FRANCISCO I Resource Team 10/06/24 10/07/24 documented as of this encounter
--- OUTSIDE RECORDS SUMMARY | 2024-10-17 20:04 | XMS_ITS | Encounter Summary ---
Author Organization [facility] Address [address] [place] [address] Care Team Providers Care Blood Bank Manager Name Role Phone Marika Wills Shawna Richard MD Unavailable +- [phone] Jose A Sheikh MD Primary Care Provider + [phone] Reason for Visit * Auth/Cert Specialty Diagnoses / Procedures Referred By Aron godwin Referred To Contact Oncology Diagnoses Large Esophageal Perforation [facility] 5A Oncology [address] [place] [address] Phone: tel: Referral ID Status Reason Start Date Expiration Date Visits Re quested Visits Authorized [id number] 1 1 Encounter Details Date Type Department Care Team ([facility] Contact Info) Description 10/02/2024 11:57 AM DERMATOLOGY NURSE PRACTITIONER Anesthesia Event [facility] PeriOp Services [address] [place] [id number] Garrick Miramontes MD [address] [place], [place] [id number] [id number] Kameron Mays MD [address] [facility] [place] [address] [place], [place] [address] Anesthesia Record Procedure Summary Procedure Name Responsible Anesthesiologist Anesthesia Start Time Anesthesia Stop Time Esophagoscopy, gastroscopy, duodenoscopy (EGD), combined with fluoroscopy (Esophagus) Garrick Miramontes MD 10/02/24 1157 10/02/24 1315 Events Date Time Event Comment 10/02/2024 1157 An Start Anesthesia Star t is defined as when the anesthesia provider assumed care, began anesthesia prep, remained continuously present with the patient, and excludes all time for performing the pre-anesthesia evaluation. The Pre-Anesthesia Evaluation was completed before Anesthesia Start. 1200 An Start Data 1201 AN REASSESS I attest that I have identified and re-evaluated the patient immediately before the induction of anesthesia and I am satisfied that the anesthetic plan is suitable for the patient's condition and procedure. The first vital signs recorded are pre-induction. Adrianna Mcleod APRN [facility] [place] LAW CLERK 1211 An Induction 1216 An Intubation 1216 Anesthesia Ready for Procedu re 1305 AN Extubation All extubation criteria met prior to removal. 1306 An Start Data 1310 an stop data 1315 An Stop Electronically signed by Aleena Zhao APRN [facility] [place] LAW CLERK on October 02, 2024 1:15 PM Meds Name Total fentaNYL 50 mcg/mL 100 mcg lidocaine 2% 100 mg propofol 10 mg/mL 150 mg rocuronium 10 mg/mL 60 mg dexamethasone (DECADRON) 4 mg/mL 10 mg sugammadex (BRIDION) 200mg/2mL 300 mg ceFAZolin Sodium (ANCEF) injection 3 g 0 g ondansetron (ZOFRAN) injection 4 mg 4 mg esmolol 10 mg/mL 10 mg lactated ringers infusion 1,000 mL 0 mL * Agents Name O2 N2O Air Exp Sevoflurane Exp Isoflurane Exp Desflurane Ins Sevoflurane Ins Isoflurane Ins Desflurane * Blood No blood administrations on file. Lines, Drains, and Airways Type Details Placement Removal Incision/Surgical Site 09/24/15; 1406; Right; Knee 09/24/15 1406 by Yuko Cook, FRANCISCO PICC 09/30/24; 1800; Doub le Lumen; Purple, Red; Bard; Right; Brachial vein medial; 45.5 cm; 0 cm; 40 cm; Chlorhexidine disk, Gauze, Securement device, Transparent; 10/07/24; 09/30/24 09/30/24 1800 by Raquel Valdivia RN ETT Placement Date: 09/05 06/28; Placement Time: 1216 (created via procedure documentation); Mask Ventilation: 1; Induction Type: Intravenous; Ease of Intubation: Easy; Technique: Direct laryngoscopy; Tube Size: 7 mm; DL Blade Size: Campos 2; Grade View: 1; Adjucts: Stylet; Placement Person: [facility] [place] LAW CLERK; Attempts: 1 10/02/24 1216 by Aleena Zhao APRN CRNA 10/02/24 1305 by Aleena Zhao APRN CRNA documented in this encounter Social History Tobacco Use Types Packs/Day Years [...] in an abandoned building, in an overnight correction, or couch-surfing.) Yes 10/01/2024 Are you worried [...] on file Legal Sex Female 3:39 AM DERMATOLOGY NURSE PRACTITIONER Gender Identity Not on file Sexual Orientation Not on file documented as of this encounter OR Notes * Anesthesia Postprocedure Evaluation - Garrick Miramontes MD - 10/02/2024 2:04 PM CST Patient: Chelle Lujan Procedure: Procedure(s): Esophagoscopy, gastroscopy, duodenoscopy (EGD), combined with fluoroscopy Anesthesia Type: General Note: Disposition: Inpatient Postop Pain Control: Uneventful Sign Out: Well controlled pain PONV: No Neuro/Psych: Uneventful Sign Out: Acceptable/Baseline neuro status Airway/Respiratory: Uneventful Sign Out: Acceptable/Baseline resp. status CV/Hemodynamics: Uneventful Sign Out: Acceptable CV status; No obvious hypovolemia; No obvious fluid overload Other NRE: NONE DID A NON-ROUTINE EVENT OCCUR? No Last vitals: Vitals Value Taken Time BP 160/78 10/02/24 1400 Temp 37 ??C (98.6 ??F) 10/02/24 1400 Pulse 97 10/02/24 1403 Resp 19 10/02/24 1403 SpO2 93 % 10/02/24 1403 Vitals shown include unfiled device data. Electronically Signed By: Garrick Miramontes MD October 02, 2024 2:04 PM ATOLOGY NURSE PRACTITIONER * Anesthesia Procedure Notes - Aleena Zhao APRN CRNA - 10/02/2024 12:29 PM CSTAssociated Order(s): Airway Airway Patient location during procedure: OR Procedure Start/Stop Times: 10/02/2024 12:16 PM Staff - [facility] [place] LAW CLERK: Aleena Zhao APRN [place] [place] LAW CLERK Performed By: [facility] [place] LAW CLERK Consent for Airway Urgency: elective Indications and [...] Administered Medication Administration Time: 10/02/2024 12:16 PM ATOLOGY NURSE PRACTITIONER * Anesthesia Preprocedure Evaluation - Garrick Miramontes MD - 10/02/2024 10:14 AM CST Anesthesia Pre-Procedure Evaluation Patient: Chelle Lujan : 1950 Procedure : Procedure(s): Esophagoscopy, gastroscopy, duodenoscopy (EGD), combined possible thoracoscopy, PEG-J placement Past Medical History: Diagnosis Date Alkaline phosphatase [...] BOWEL RECONS 2004 open- by Dr. Greenfield Allergies Allergen Reactions Pentothal [Thiopental] Rash Social History Tobacco Use Smoking status: Never Smokeless tobacco: Never Substance Use Topics Alcohol use: Yes Alcohol/week: 0.0 standard drinks of alcohol Wt Readings from Last 1 Encounters: 06/09/24 123.8 kg (273 lb) Anesthesia Evaluation Pt has had prior anesthetic. Type: General and MAC. History of anesthetic complications - PONV. 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 Other: Physical Exam Airway airway exam normal Respiratory Devices and Support Dental (+) Minor Abnormalities - some fillings, tiny chips Cardiovascular cardiovascular exam normal Pulmonary pulmonary exam normal OUTSIDE LABS: CBC: Lab Results Component Value Date WBC 6.2 10/02/2024 WBC 6.6 10/01/2024 HGB 11.4 (L) 10/02/2024 HGB 12.0 10/01/2024 HCT 37.0 10/02/2024 HCT 37.5 10/01/2024 PLT 172 10/02/2024 PLT 189 10/01/2024 BMP: Lab Results Component Value Date NA 140 10/02/2024 NA 142 10/01/2024 POTASSIUM 3.6 10/02/2024 POTASSIUM 3.7 10/01/2024 CHLORIDE 105 10/02/2024 CHLORIDE 107 10/01/2024 CO2 24 10/02/2024 CO2 25 10/01/2024 BUN 9.8 10/02/2024 BUN 9.9 10/01/2024 CR 0.69 10/02/2024 CR 0.70 10/01/2024 GLC 86 10/02/2024 GLC 95 10/02/2024 COAGS: Lab Results Component Value Date INR 1.11 10/02/2024 POC: No results found for: BGM, HCG, HCGS HEPATIC: Lab Results Component Value Date ALBUMIN 3.1 (L) 10/02/2024 PROTTOTAL 5.5 (L) 10/02/2024 ALT 56 (H) 10/02/2024 AST 51 (H) 10/02/2024 ALKPHOS 136 10/02/2024 BILITOTAL 0.7 10/02/2024 OTHER: Lab Results Component Value Date LACT 1.1 10/01/2024 A1C 6.2 (H) 06/22/2024 COREEN 8.7 (L) 10/02/2024 PHOS 2.8 10/02/2024 MAG 1.7 10/02/2024 TSH 0.18 (L) 10/02/2024 T4 1.60 10/02/2024 CRP 1.6 06/02/2011 Anesthesia Plan ASA Status: 3, emergent NPO Status: ELEVATED Aspiration Risk/Unknown Anesthesia Type: General. - Airway: ETT Induction: Intravenous, RSI, Propofol. Maintenance: Inhalation. Techniques and Equipment: - Lines/Monitors: 2nd IV, Arterial Line, PICC in situ - Blood: T&C Consents Anesthesia Plan(s) and associated risks, benefits, and realistic alternatives discussed. Questions answered and patient/medical customer service representative(s) expressed understanding. - Discussed: Risks, Benefits and Alternatives for BOTH SEDATION and the PROCEDURE were discussed - Discussed with: Patient - Extended Intubation/Ventilatory Support Discussed: Yes. - Patient is DNR/DNI Status: No Use of blood products discussed: Yes. - Discussed with: Patient. - Consented: consented to blood products Postoperative Care Pain management: Multi-modal analgesia, IV analgesics. PONV prophylaxis: Ondansetron (or other 5HT-3), Dexamethasone or Solumedrol Comments: Garrick Miramontes MD I have reviewed the pertinent notes and labs in the chart from the past 30 days and (re)examined the patient. Any updates or changes from those notes are reflected in this note. # Hypoalbuminemia: Lowest albumin = 3.1 g/dL at 10/02/2024 3:59 AM, will monitor as appropriate # Hypertension: Noted on problem list ATOLOGY NURSE PRACTITIONER ATOLOGY NURSE PRACTITIONER documented in this encounter Miscellaneous Notes * Anesthesia Care Transfer Note - Aleena Zhao APRN CRNA - 10/02/2024 1:14 PM CST Patient: Chelle Lujan Procedure: Procedure(s): Esophagoscopy, gastroscopy, duodenoscopy (EGD), combined with fluoroscopy Diagnosis: Esophageal perforation [K22.3] Diagnosis Additional Information: No value filed. Anesthesia Type: General Note: Oropharynx: oropharynx clear of all foreign objects and spontaneously breathing Level of Consciousness: awake Oxygen Supplementation: room air Independent Airway: airway patency satisfactory and stable Dentition: dentition unchanged Vital Signs Stable: post-procedure vital signs reviewed and stable Report to RN Given: handoff report given Patient transferred to: PACU Comments: VSS, report given to RN. Handoff Report: Identifed the Patient, Identified the Reponsible Provider, Reviewed the pertinent medical history, Discussed the surgical course, Reviewed Intra-OP anesthesia mangement and issues during anesthesia, Set expectations for post-procedure period and Allowed opportunity for questions andacknowledgement of understanding Vitals: Vitals Value Taken Time BP 165/85 Temp Pulse 97 10/02/24 1314 Resp 11 10/02/24 1314 SpO2 94 % 10/02/24 1314 Vitals shown include unfiled device data. Electronically Signed By: Aleena Zhao APRN CRNA October 02, 2024 1:14 PM ATOLOGY NURSE PRACTITIONER documented in this encounter Plan of Treatment Upcoming Encounters Date Type Department Care Team (Late st Contact Info) Description 10/19/2024 9:30 AM DERMATOLOGY NURSE PRACTITIONER Virtual Visit [facility] [address] [place] [address] Adrianna Elizabeth APRN [facility] [address] [facility] [address] [place] [address] documented as of this encounter Procedures Procedure Name Priority Date/Time Associated Diagnosis Comments ANE AIRWAY ETT PERFORMABLE Routine 10/02/2024 12:16 PM DERMATOLOGY NURSE PRACTITIONER documented in this encounter Results * ANE AIRWAY ETT PERFORMABLE (10/02/2024 12:16 PM DERMATOLOGY NURSE PRACTITIONER) Narrative Aleena Zhao APRN CRNA - 10/02/2024 12:16 PM DERMATOLOGY NURSE PRACTITIONER Aleena Zhao APRN CRNA 10/02/2024 12:29 PM Airway Patient location during procedure: OR Procedure Start/Stop Times: 10/02/2024 12:16 PM Staff - [facility] [place] LAW CLERK: Aleena Zhao APRN CRNA Performed By: [facility] [place] LAW CLERK Consent for Airway Urgency: elective Indications and [...] Time: 10/02/2024 12:16 PM Garrick Miramontes MD ID ANESTHESIA Final Res ult documented in this encounter Visit Diagnoses Not on filedocumented in this encounter Administered Medications Inactive Administered Medications - up to 3 most recent administrations Medication Order MAR Action Action Date Dose Rate Site dexAMETHasone (DECADRON) injection Intravenous, PRN, Administer over 1 Minutes, Starting on 10/02/24 at 1215, Anesthesia Intra-op $Given 10/02/2024 12:15 PM DERMATOLOGY NURSE PRACTITIONER 10 mg esmolol (BREVIBLOC) injection Intravenous, PRN, Starting on 10/02/24 at 1253, Anesthesia Intra-op $Given 10/02/2024 12:53 PM DERMATOLOGY NURSE PRACTITIONER 10 mg fentaNYL (PF) (SUBLIMAZE) injection Intravenous, PRN, Administer over 3-5 Minutes, Starting on 10/02/24 at 1211, Anesthesia Intra-op $Given 10/02/2024 12:40 PM DERMATOLOGY NURSE PRACTITIONER 50 mcg $Given 10/02/2024 12:11 PM DERMATOLOGY NURSE PRACTITIONER 50 mcg lactated ringers infusion 1,000 mL at 100 mL/hr, Intravenous, CONTINUOUS, Starting on Thu10/02/24 at 0330, Until Tu10/04/24 at 1344 Restarted 10/04/2024 9:26 AM DERMATOLOGY NURSE PRACTITIONER 100 mL/hr $New Bag 10/04/2024 4:17 AM DERMATOLOGY NURSE PRACTITIONER 1,000 mLs 100 mL/hr $New Bag 10/03/2024 9:51 AM DERMATOLOGY NURSE PRACTITIONER 1,000 mLs 100 mL/hr lidocaine 2% injection (MDV) Intravenous, PRN, Starting on 10/02/24 at 1211, Anesthesia Intra-op $Given 10/02/2024 12:11 PM DERMATOLOGY NURSE PRACTITIONER 100 mg ondansetron (ZOFRAN) injection 4 mg 4 mg, Intravenous, EVERY 6 HOURS PRN, nausea/vomiting - 1st line, Administer over 2-5 Minutes, Starting on 10/01/24 at 1950, Give IF patient unable to tolerate oral medication. This is Step 1 of nausea and vomiting management. If nausea not resolved in 15 minutes, go to Step 2 prochlorperazine (COMPAZINE). $Given 10/02/2024 12:40 PM DERMATOLOGY NURSE PRACTITIONER 4 mg propofol (DIPRIVAN) injection 10 mg/mL vial Intravenous, PRN, Starting on 10/02/24 at 1211, Anesthesia Intra-op $Given 10/02/2024 12:11 PM DERMATOLOGY NURSE PRACTITIONER 150 mg rocuronium injection Intravenous, PRN, Starting on 10/02/24 at 1212, Anesthesia Intra-op $Given 10/02/2024 12:12 PM DERMATOLOGY NURSE PRACTITIONER 60 mg sugammadex (BRIDION) injection Intravenous, PRN, Starting on 10/02/24 at 1259, Anesthesia Intra-op $Given 10/02/2024 12:59 PM DERMATOLOGY NURSE PRACTITIONER 300 mg documented in this encounter Care Teams Blood Bank Manager Relationship Specialty [place] [id number] [place] [address] PCP - General Family Medicine 10/02/24 [place] [address] [place] [address] Assigned PCP 08/29/23 documented as of this encounter
--- OUTSIDE RECORDS SUMMARY | 2024-10-17 20:04 | XMS_ITS | Encounter Summary ---
Author Organization [facility] Address [address] [place] [address]. [place] [address] Care Team Providers Care Combination Man Name Role Phone Marika Wills Shawna Richard MD Unavailable +- [phone] Jose A Sheikh MD Primary Care Provider + [phone] Reason for Visit * Auth/Cert Specialty Diagnoses / Procedures Referred By Aron godwin Referred To Contact Oncology Diagnoses Large Esophageal Perforation [facility] 5A Oncology [address] [place] [address] Phone: tel: Referral ID Status Reason Start Date Expiration Date Visits Re quested Visits Authorized [id number] 1 1 Encounter Details Date Type Department Care Team ([facility] st Contact Info) Description 10/02/2024 11:10 AM DIET ASSISTANT - 10/02/2024 2:55 PM DIET ASSISTANT Surgery [facility] PeriOp Services [address] [place] [address] [place] [address] Esophagoscopy, gastroscopy, duodenoscopy (EGD), combined with fluoroscopy Surgery Details Date/Time Status Location OR Service Patient Class Case Class Case Type Trauma Case? 10/02/2024 11:10 AM Posted UU OR UU OR 02 Thoracic Inpatient NEST 5 - Semi-Urge nt (within 48hrs) Panel 1 Procedure LRB Anes Op Region Wound Class Comments Esophagoscopy, gastroscopy, duodenoscopy (EGD), combined with fluoroscopy N/A General Esophagus II-Clean Contaminated Surgeon Surgeon Role Service Panel Hiren Garner MD Fellow - Assisting Thoracic 1 Pete Norris MD Primary Thoracic 1 documented in this encounter Social History Tobacco [...] on file Legal Sex Female 3:39 AM DIET ASSISTANT Gender Identity Not on file Sexual Orientation Not on file documented as of this encounter Last Filed Vital Signs Vital Sign Reading Time Taken Comments Blood Pressure 160/78 10/02/2024 2:00 PM DIET ASSISTANT Pulse 96 10/02/2024 2:00 PM DIET ASSISTANT Temperature 37 C (98.6 F) 10/02/2024 2:00 PM DIET ASSISTANT Respiratory Rate 19 10/02/2024 2:00 PM DIET ASSISTANT Oxygen Saturation 93% 10/02/2024 2:00 PM DIET ASSISTANT Inhaled Oxygen Concentration - - Weight - - Height - - Body Mass Index - - documented in this encounter Discharge Summaries * [...] verbalized understanding of discharge medications and instructions. [facility] will be delivering meds to pt at home. PICC care reviewed with pt, verbalized understanding. P: Patient to receive regular home infusion visits for TPN/lipids and scheduled appointment next week per pt. ASSISTANT * Jeremie Navas MD - 10/08/2024 8:47 [...] DISCHARGE INSTRUCTIONS DIET: Nothing by mouth TPN: [facility] will be managing home [...] (Thursday through Thursday 8am to 4:30pm) call [phone] and ask to speak to a clinical nurse specialist. 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 Diet Order Comments: Follow this diet [...] 24 hr tablet Comments: Reason for Stopping: ASSISTANT ASSISTANT documented in this encounter Medications at Time of Discharge Emergency Supply Kit, Central,Indications :Esophageal perforation Patient use for emergency only. Contents: 3 sodium chloride 0.9% flushes, 1 dressing kit, 1 microclave ext set 14, 4 nitrile gloves (med), 6 alcohol prep pads, 1 bacitracin, 1 syringe (10 cc 20 G 1). Call to reorder. [id number] kit 10/08/2024 6:14 PM DIET ASSISTANT 10/08/19 26 levothyroxine (SYNTHROID) injectionIndication s:Acquired hypothyroidism Inject 2.5 mLs (50 mcg) over 5-10 minutes into the vein via push every 24 hours for 10 days. Reconstitute 100 mcg levothyroxine vial(s). Draw up levothyroxine 20 mcg/mL in a syringe and administer IV push. Discard remainder of vial. 5 each 10/11/2024 6:00 PM DIET ASSISTANT 5 10/19/19 25 Multiple Vitamin (INFUVITE ADULT) injectionIndication s:Esophageal perforation Add to infusion 10 mLs daily. Select 2 multivitamin vials, one of each color top. Draw up 5 mL from each vial and add to 1 TPN bag daily immediately prior to infusing. Discard remainder of vials. 3600 mL 10/11/2024 6:00 PM DIET ASSISTANT 5 10/08/19 26 parenteral nutrition - TNA - see order for formulaIndications: Esophageal perforation Infuse 1,900 mLs over 12 hours into the vein (central line) daily. Taper up for 1 Hours. Taper down for 1 Hours. TPN additives to be added prior to administration: Infuvite-Adult 10 mL daily. Plateau rate: 172.8 mL/hr. KVO: 5 mL/hr. [id number] mL 10/11/2024 6:00 PM DIET ASSISTANT 5 10/08/19 26 piperacillin sod-tazobactam (ZOSYN) 3.375 g in sodium chloride 0.9 % 100 mL via HOMEPUMPIndications :Esophageal perforation Infuse 3.375 g over 30 minutes into the vein every 8 hours for 14 days. [id number] mL 10/17/2024 1:23 PM DIET ASSISTANT 5 10/23/19 25 sodium chloride, PF, 0.9% PF flushIndications:Es ophageal perforation Inject 10 mLs into the vein as needed for line flush. Flush IV before and after medication administration as directed and/or at least every 24 hours. 245355 mL 10/11/2024 6:00 PM DIET ASSISTANT 5 10/08/19 26 sodium chloride, PF, 0.9% PF flushIndications:Ac quired hypothyroidism Use 5 mLs for reconstitution every 24 hours for 10 days. Use 1 syringe (5 mL) to reconstitute each vial of levothyroxine 100 mcg. Shake until solution is clear. 50 mL 10/16/2024 10:32 AM DIET ASSISTANT 5 10/19/19 25 tirzepatide-Weight Management (ZEPBOUND) 2.5 MG/0.5ML prefilled penIndications:Clas s 3 severe obesity due to excess calories with serious comorbidity and body mass index (BMI) of 45.0 to 49.9 in adult (H) Inject 0.5 mLs (2.5 mg) subcutaneously every 7 days. 2 mL parenteral nutrition - TNA - see order for formulaIndications: Esophageal perforation Infuse 1,900 mLs over 18 hours into the vein (central line) daily. Taper up for 1 Hours. Taper down for 1 Hours. TPN additives to be added prior to administration: Infuvite-Adult 10 mL daily. Plateau rate: 111.8 mL/hr. KVO: 5 mL/hr. 613681 mL 10/08/2024 6:14 PM DIET ASSISTANT 5 10/11/19 25 documented as of this encounter Progress Notes * Josh Machuca MD - 10/08/2024 4:31 PM CST General Surgery Cross Cover Note: 4:32 PM 10/08/2024 Paged/Messaged regarding [facility] needing documentation on TPN order. 74 year old female with esophageal adenocarcinoma who underwent distal esophageal malignant obstruction stenting on 09/27 at [facility] with iatrogenic retropharyngeal perforation, now transferred to [facility] for further management. Due to clinical course, the patient is unable to tolerate oral intake for an i ndefinite period. TPN is required for more than 90 days to meet the patient's nutritional needs until oral intake can be safely resumed. Josh Machuca MD Urology, PGY-1 Please page primary team with questions. ASSISTANT * Jihan Lynn RN - 10/08/2024 3:19 [...] home for discharge today. I confirmed with [facility] that the TPN will be delivered to [...] delivery by 6 pm. EHO sent. Jihan Lynn CARE MANAGEMENT SPECIALIST PHN 10/08/2024 Nurse Coordinator Social Work and Care Management Department SEARCHABLE in [facility] - search HOTEL CLERK [facility] ([id number]) Thursday & Thursday; ([phone]) [facility] Recognized Holidays Units: 5A Onc 5201 - 5219 RNCC, 5A Onc 5220 thru 5240 RNCC, 5C OFFSERVICE 5401- 5416 RNCC & 5C OFF SERVICE 6068-2676 RNCC Units: 6B Vocera, 6C Card 6401 [...] Surg Vocera & 8 Med Surg Vocera ASSISTANT * Shellie Centeno MD - 10/08/2024 8:45 [...] OSH with iatrogenic retropharyngeal perforation,now transferred to [facility] for further management. CT esophagram on 10/07 with persistent perforation. On cycled TPN which patient will continue as an outpatient. - strict NPO - completed course of antimicrobials - TPN - potential discharge today if infusion services are all set up for home and patient comfortable with cares Seen with the fellow. Shellie Centeno MD General Surgery Resident [phone] ASSISTANT * Saba Zaman RN - 10/07/2024 2:51 PM CST Images from [...] OSH with iatrogenic retropharyngeal perforation,now transferred to [facility] for further management. - no current surgical intervention; repeat esophagram ordered for today UPDATE from MD Perez [id number]: CT showed persistent esophageal perforation. Will remain on TPN at time of discharge. Final plan (continuous v cycled TBD) pending final conversation with Thoracic surgery attending MD. They will update Chelle and her family. RNCC met with patient and her sister, Iris at the bedside. They had already received some initial teaching from [facility] liaison and are in agreement with plan to discharge with TPN. They understand that final plan is TBD, pending final reccs from Thoracic surgeon. Her sister Iris is willing to be second learner. [facility] - IV Pati [facility] liaison [phone] Teams Addie [facility] liaison [phone] Teams [facility] Resource Nurse [phone] Teams Initial Home Infusion Investigation Referral order placed in EPIC by medical underwriter on 10/06. [facility] needs: TPN (TBD if continuous v cycled) Additional home care needs: skilled RN (nutrition, medication and complex medical diagnosis) [facility] accepted RNCC updated [facility] liaison of: Need for TPN at time of discharge, possible discharge tomorrow 10/08/2024, final plan on cont v cycled still TBD Per [facility] intake team: has coverage as long as the provider anticipates AND documents that she will need it for 90 days or greater Accepting Home Medical Care Agency: Service Provider Request Status Services Address Phone Fax Patient [facility] [address], [facility] [address] [phone] -- Accepted for skilled RN services Transfer Agreement if necessary: transferred from [facility] (contact # [phone]) for Thoracic Surgery specialty Return Transfer Agreement can be found in Media tab under chart review. Next Steps: [x] follow up with [facility] and I liaisons to confirm accepted agencies/needs/insurance coverage [x] Update patient/family on home care status [x] Home care referral for discharge [] Coordinate with weekend [facility] Resource RN about final plan for initiation of TPN at home. Home infusion referral orders needed. Patient has PICC line, confirm who is doing/teaching line cares [] Handoff: Needs External [] Ride: Family (Sister Iris or Aury) Saba Zaman RNCC Care Management Department Covering 5A: [phone] & 5C: 4534-4129 (non-BMT) Teams Vocera: week 8:00 am - 4:30 pm. See Vocera Care Team for off-day coverage ASSISTANT ASSISTANT * Addie Quezada RN - 10/07/2024 1:44 PM CSTSummary: [facility] Home Infusion Chelle is expected to discharge in a few days and will be going home on TPN (currently continuous). She has never done home IV therapy before nor has her sister who will be the primary CG. Met with Chelle at bedside who was accompanied by one of her sisters and provided them with information about TPN therapy with [facility] services. Explained about administration method with TPN [...] have printed teaching materials as well as I you tube videos for additional support. Informed them about supplies and delivery of supplies, storage of TPN, plan for SNVs after the initial teaching (typically 1-2x/week) and 27/04 support of I staff while on IV therapy. If pt discharges on continuous TPN [facility] can provide either a superintendent police of TPN at the hospital or have pt disconnect for transport (if ok with medical team) and have nurse visit at home to restart TPN on day of discharge depending on pt preference andtiming of signed orders. If discharging on cycled TPN I will have nurse see pt/CG at their home to begin teaching. Chelle verbalized understanding of all information given. They are willing and able to learn and manage home TPN therapy once teaching is complete. Will continue to follow and update pt as appropriate. Addie Quezada RN, BSN, B.S., [facility] Home Infusion [facility] Infusion [facility], [place] [address] [email or web address] ASSISTANT * Arpita Ji RD - 10/07/2024 9:35 [...] PPN 09/30-10/02, transitioned to TPN 10/02 (initial g/day), increased to 175 g dex on [...] be monitored and evaluated per protocol. Arpita Ji RD, HAT IRONER, LD Weekday Units covered: 5A (non-Heme Onc pts) and 7B ([id number]) Available by 5A or 7B Clinical Dietititd Aranda Weekend Coverage: Weekend Clinical Dietitian Rosi Inpatient Clinical Dietitians no longer available via paging ASSISTANT * Teresita Perez MD - 10/07/2024 8:07 AM CST THORACIC & FOREGUT SURGERY S: No acute events overnight. Continues to feel well. Going for esophagram today. O: Vitals: 10/06/24 2034 10/06/24 2333 10/07/24 0115 10/07/24 0308 BP: (!) 157/83 (!) 187/80 (!) 154/76 (!) 157/81 BP Location: Left arm Left arm Left arm Pulse: 61 62 60 Resp: 16 16 16 Temp: 98.4 ??F (36.9 ??C) [...] OSH with iatrogenic retropharyngeal perforation,now transferred to [facility] for further management. - no current surgical intervention; repeat esophagram ordered for today - strict NPO - zosyn, fluconazole for esophageal perforation - TPN - bisacodyl suppository PRN - discharge planning pending results of esophagram To be discussed with staff. Teresita Perez MD General Surgery PGY-1 Please page with a 10 digit call back number communications strategist resident through [facility]. ASSISTANT * Saba Zaman RN - 10/06/2024 9:22 AM CST Images from the original note were not included. Care Management Follow Up Length of Stay (days): 5 Expected Discharge Date: 10/09/2024 Concerns to be Addressed: Discharge planning - possible TPN at discharge Patient plan of care discussed at interdisciplinary rounds: Yes Anticipated Discharge Disposition: Home Anticipated Discharge Services: Possible home infusion Anticipated Discharge DME: TBD Patient/family educated on Medicare website which has [...] OSH with iatrogenic retropharyngeal perforation,now transferred to [facility] for further management. - no current surgical intervention; plan to repeat esophagram on tomorrow, 10/07/24 Patient transferred from [facility] (contact # [phone]) for Thoracic Surgery specialty. Patient does prefer to return if she no longer needs specialty care here. (Return Transfer Agreement can be found in Media tab under chart review.) Manager Portable reached out to MD Perez via [employer] messaging to clarify discharge needs. Per MD Perez: Patient is getting an esophagram tomorrow and if she has a persistent perforation will need to go home on tpn. We won't know until we see the imaging tomorrow Initial Home Infusion Investigation Referral order placed in [facility] by medical underwriter on 10/06. [facility] needs: possible TPN Additional home care needs: skilled RN (nutrition, medication and complex medical diagnosis) [facility] accepted RNCC updated [facility] liaison of: n/a Per [facility] intake team: [facility] - IV Pati [facility] liaison [phone] Teams Addie [facility] liaison [phone] Teams [facility] Resource Nurse [phone] Teams RNCC met with patient, Chelle and her family (son/sister) at the bedside, reviewed discharge plan. Chelle is very eager for the esophagram tomorrow so she can move forward with establishing with an oncologist. She is very hopeful that she doesn't need TPN at time of discharge, verbalizes understanding of maximizing nutrition whether through TPN or orally. Chelle lives in [place] and plans to establish Oncology care at [facility] which is closer to home. She has family and lots of support in the [place] area and is eager to return. States that she has no mobility concerns, but is interested in home health care for assisting in managing nutrition and complex new diagnosis, etc. Initial Home Care Referral sent to [facility] through [facility] 10/06. Accepting Home Medical Care Agency: Service Provider Request Status Services Address Phone Fax Patient [facility] [id number], [place] [address] -- Accepted for skilled RN services Next Steps: [x] follow up with [facility] and I liaisons to confirm accepted agencies/needs/insurance coverage [] Update patient/family on home care status [x] Home care referral for discharge [] Home infusion referral orders if needed [] Coordinate transfer back to [facility] if ongoing hospitalization is necessaryand Health specialty services no longer required [] Handoff: TBD [] Ride: Family Saba Zaman RNCC Care Management Department Covering 5A: [phone] & 5C: [phone] (non-BMT) Teams Vocera: week 8:00 am - 4:30 pm. See Vocera Care Team for off-day coverage ASSISTANT ASSISTANT ASSISTANT * Teresita Perez MD - 10/06/2024 7:41 [...] OSH with iatrogenic retropharyngeal perforation,now transferred to [facility] for further management. - no current surgical intervention; plan to repeat esophagram on tomorrow, 10/07/24 - strict NPO - zosyn, fluconazole for esophageal perforation - TPN - bisacodyl suppository PRN To be discussed with staff. Teresita Perez MD General Surgery PGY-1 Please page with a 10 digit call back number communications strategist resident through [facility]. Cosigned by Pete Norris MD at 10/06/2024 1:50 PM DIET ASSISTANT ASSISTANT ASSISTANT Associated attestation - Pete Norris MD - 10/06/2024 1:50 PM DIET ASSISTANT Physician Attestation I saw this patient with [...] Location: Left arm Left arm Pulse: Resp: Temp: 98.8 ??F (37.1 ??C) 98 ??F (36.7 ??C) TempSrc: Oral SpO2: 95% 95% 96% Weight: NAD, resting comfortably in bed Breathing non-labored on room air Abdomen soft, non-distended, non-tender Distal extremities warm. A/P: Chelle Lujan is a 74 year old female with esophageal adenocarcinoma who underwent distal esophageal malignant obstruction stenting on 09/27 at [facility] with iatrogenic retropharyngeal perforation,now transferred to [facility] for further management. - no current surgical intervention; plan to repeat esophagram on 10/07/24 - strict NPO - zosyn, fluconazole for esophageal perforation - TPN - bisacodyl suppository PRN Seen and discussed with attending thoracic surgeon Dr. Jr Perez MD General Surgery PGY-1 Please page with a 10 digit call back number communications strategist resident through [facility]. Cosigned by Pete Norris MD at 10/05/2024 2:12 PM DIET ASSISTANT ASSISTANT ASSISTANT Associated attestation - Pete Norris MD - 10/05/2024 2:12 PM DIET ASSISTANT Physician Attestation I saw this patient with [...] OSH with iatrogenic retropharyngeal perforation,now transferred to [facility] for further management. - no current surgical intervention; plan to repeat esophagram on 10/07/24 - strict NPO - zosyn, fluconazole for esophageal perforation - TPN Seen and discussed with attending thoracic surgeon Dr. Jr Centeno MD General Surgery Resident [phone] Cosigned by Pete Norris MD at 10/04/2024 1:22 PM DIET ASSISTANT ASSISTANT ASSISTANT ASSISTANT Associated attestation - Pete Norris MD - 10/04/2024 1:22 PM DIET ASSISTANT Physician Attestation I saw this patient with [...] Left arm Pulse: 75 75 69 Resp: Temp: 98.8 ??F (37.1 ??C) 98.4 ??F [...] OSH with iatrogenic retropharyngeal perforation,now transferred to [facility] for further management. - no current surgical intervention; plan to repeat esophagram on Thursday, 09/06 - strict NPO - zosyn, fluconazole for esophageal perforation - TPN Seen and discussed with staff, Dr. Norris. Teresita Perez MD General Surgery PGY-1 Please page with a 10 digit call back number communications strategist resident through [facility]. Cosigned by Pete Norris MD at 10/03/2024 11:16 PM DIET ASSISTANT ASSISTANT ASSISTANT Associated attestation - Pete Norris MD - 10/03/2024 11:16 PM DIET ASSISTANT Physician Attestation I saw this patient with [...] OSH with iatrogenic retropharyngeal perforation,now transferred to [facility] for further management. - added onto OR for today - strict NPO - zosyn, fluconazole for esophageal perforation - TPN Seen and discussed with staff, Dr. Norris. Teresita Perez MD General Surgery PGY-1 Please page with a 10 digit call back number communications strategist resident through [facility]. ASSISTANT * Delmer Shaver RD - 10/02/2024 8:15 [...] 250 mL 20%, 6 days per week (-Sat) Dextrose titration: Monitor lytes and if within [...] underwent distal esophageal malignant obstruction stenting at [place] on 09/27 with iatrogenic retropharyngeal perforation. Was NPO at [facility], had been started on TPN there but [...] Protonix Zosyn LR @ 100 mL/hr PRN zofran, compazine ANTHROPOMETRICS Height: 160 cm (5' 3) [...] actual weight and IBW) ASSESSED NUTRITION NEEDS MSJ BMR = 1635 kcal/day Estimated Energy Needs: [...] Clinical Dietitian No longer available by paging ASSISTANT * Raquel Valdivia RN - 10/01/2024 10:43 [...] assessment completed YES. Second RN was Ailyn Brisneo. Significant Skin Findings include bruising, rash in right antecubital area, PICC, Bmbx site on back. WOC Nurse Consult Ordered NO. P: Continue to monitor patient and intervene as needed. Continue with plan of care. Notify MD with any concerns or changes in patient status. [id number] VSS on RA, hypertensive, gave scheduled IV metoprolol. Denies pain/nausea/SOB. Frequently coughs and spits thick saliva into emesis bag. SBA. NPO d/t esophageal perforation. LBM today per patient, loose. TPN and LR running in PICC. ASSISTANT documented in this encounter H&P Notes * Chary Evans MD - 10/01/2024 7:41 PM CST Images from the original note were not included. [facility], [facility] History and Physical Chelle Lujan : 1950 ADMIT DATE: 10/01/2024 PCP: Shawna Platt CHIEF COMPLAINT: esophageal perforation HPI: Chelle Lujan is a 74 year old female with a history of HTN, hypothyroidism, Jose Martin-en-Y gastric bypass (2010), and diagnosed with esophageal adenocarcinoma 09/16 with dysphagia who underwent distal esophageal malignant obstruction stenting at [place] on 09/27 with iatrogenic retropharyngeal per foration. She was transferred to [facility] on 10/01/24 for evaluation by thoracic [...] metastases, underwe nt T11 bone biopsy at [place] on 09/30/24. 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 Unfortunately, procedure was complicated by retropharyngeal perforation. She was admitted to [facility] for nonoperative management of the perforation with IV antibiotics and TPN, however repeat esophagram on 09/30 showed large persistent leak along the right posterior upper esophagus with an air and fluid collection along the right side of the upper mediastinum. She was transferred to [facility] for surgical evaluation and management of [...] MD; Location: [facility] OR LAPAROSCOPIC CHOLECYSTECTOMY 1981 [facility] [place] GASTRIC BYPASS,OBESITY,W/SM BOWEL RECONS 2004 open- by [...] Currently Other Topics Concern Parent/sibling w/ CABG, [place] or angioplasty before 65F 55M? Not Asked [...] Social Connections: Socially Integrated (09/27/2024) [facility] from [facility] Social Connections Do you often feel lonely [...] underwent distal esophageal malignant obstruction stenting at [place] on 09/27 with iatrogenic retropharyngeal perforation. Esophagram on 09/30/24 showed persistent perforation with air fluid level in the upper mediastinum. She was transferred to [facility] on 10/01/24 for evaluation by thoracic [...] Pete Norris MD at 10/03/2024 10:53 AM DIET ASSISTANT ASSISTANT ASSISTANT Associated attestation - Pete Norris MD - 10/03/2024 10:53 AM DIET ASSISTANT Physician Attestation I saw this patient and [...] Insertion site appears unaffected and without concern. ASSISTANT documented in this encounter Consult Notes * [...] underwent distal esophageal malignant obstruction stenting at [place] on 09/27 with iatrogenic retropharyngeal perforation. She was transferred to [facility] on 10/01/24 for evaluation by thoracic [...] metastases, underwe nt T11 bone biopsy at [place] on 09/30/24. 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 Unfortunately, procedure was complicated by retropharyngeal perforation. She was admitted to [facility] for nonoperative management of the perforation with IV antibiotics and TPN, however repeat esophagram on 09/30 showed large persistent leak along the right posterior upper esophagus with an air and fluid collection along the right side of the upper mediastinum. She was transferred to [facility] for surgical evaluation and management of [...] with fluoroscopy; Surgeon: Pete Norris MD; Location: OR LAPAROSCOPIC CHOLECYSTECTOMY 1981 ZC GASTRIC BYPASS,OBESITY,W/SM BOWEL RECONS 2004 open- by Dr. Greenfield Allergies: Allergies Allergen Reactions Pentothal [Thiopental] Rash CHOCOLATE COATER Meds: Prior to Admission medications Medication Sig Last Dose Taking? Auth Provider Medical Specialist End Date tirzepatide-Weight Management (ZEPBOUND) 2.5 MG/0.5ML [...] Thursday Pete Norris MD 20.8 mL/hr at 10/07/24 2030 250 mL at 10/07/24 2030 metoprolol (LOPRESSOR) injection 5 mg 5 mg Intravenous Q6H Teresita Perez MD 5 mg at 10/08/24 0926 naloxone (NARCAN) injection 0.2 mg 0.2 mg [...] Daily Hiren Garner MD 40 mgat 10/08/24 0926 parenteral nutrition - ADULT compounded formula CYCLE CENTRAL LINE IV CYCLE Pete Norris MD 99 mL/hr at 10/07/24 2130 Rate Change at 10/07/24 2130 piperacillin-tazobactam (ZOSYN) intermittent infusion 4.5 g 4.5 [...] esophagus s/p perforation who was transferred from [facility] to [facility] for surgical evaluation and management of [...] Gordon Wallace MD Endocrine Fellow Pager # [phone] Cosigned by Jg De Los Santos MD at 10/08/2024 1:13 PM DIET ASSISTANT ASSISTANT ASSISTANT Associated attestation - Jg De Los Santos MD - 10/08/2024 1:13 PM DIET ASSISTANT I, Jg De Los Santos MD, saw [...] LT4 was 09/26/24 prior to admission to [facility]. Patient was not sure about her [...] questions or concerns. * Charlee Godwin APRN ALUMINA REFINERY OPERATOR - 10/03/2024 12:45 PM CSTAssociated Order(s): INTERVENTIONAL RADIOLOGY ADULT/PEDS IP CONSULT IR consult placed for right thoracentesis. Please place Internal Medicine Procedure Team Adult IP [place] consult. For urgent procedures between 8am-4pm, 7 days/week use AMCOM to page Staff Procedure Service Medicine CAPS on Medicine/[facility]/[place]/[facility] Licensed Weigher list. Vocera message to Dr. Perez indicating to please place a CAPS consult. Charlee Godwin APRN CNP Interventional Radiology IR on-call pager: [phone] ASSISTANT * Ashley Boone RN - 10/02/2024 11:02 [...] Communication Assessment Patient's communication style: spoken language (Swedish or Bilingual) Hearing Difficulty or Deaf: no [...] None Employment/Financial: Employment Status: employed part-time (Owns [employer]) Financial Concerns: none Does the patient's insurance [...] Status: (not discussed) Values/Beliefs: Spiritual, Cultural Beliefs, Worship Practices, Values that affect care: no Discussed ???Partnership in Safe Discharge Planning??? document with patient/family: No Additional Information: H/P: History of Jose Martin-en-Y gastric bypass (2010), diagnosed with esophageal adenocarcinoma 09/16 with dysphagia who underwent distal esophageal malignant obstruction stenting at [place] on 09/27 with iatrogenic retropharyngeal perforation. She was transferred to [facility] on 10/01/24 for evaluation by thoracic surgery, accepted for transfer by Dr. Norris. No transfer agreement in media tab yet. [facility] consult received for transportation issues. Consult entered in error. Completed initial assessment with patient who is waiting for OR procedure today as add-on. See details above Next Steps: Care Management to follow for discharge planning Ride: family Ashley Boone RN, [facility] Inpatient Care Management - FLOAT ASSISTANT documented in this encounter Miscellaneous Notes * Plan of Care - Emily Brennan RN - 10/08/2024 3:44 PM CST Goal Outcome Evaluation: Plan of Care Reviewed With: patient Overall Patient Progress: no changeOverall Patient Progress: no change Outcome Evaluation: VSS on RA, awaiting discharge 1731-9855 BP (!) 163/72 Pulse 68 Temp 98.3 [...] discharge. Continue to monitor and follow POC ASSISTANT * Plan of Care - Priya Garcia [...] PICC Continue to monitor and follow POC ASSISTANT * Plan of Care - Jayne Epps [...] she can't discharge home today. SBA, steady. ASSISTANT * Plan of Care - Emily Brennan RN - 10/07/2024 12:48 PM CST Goal Outcome Evaluation: Plan of Care Reviewed With: patient Overall Patient Progress: no changeOverall Patient Progress: no change Outcome Evaluation: VSS on RA, CT scan this morning 4249-8902 BP (!) 167/84 Pulse 70 Temp 98 [...] shift. Continue to monitor and follow POC ASSISTANT * Plan of Care - Sridevi Arroyo [...] changed. Possible EGD today. Continue w/ POC. ASSISTANT * Plan of Care - Jazmin Ordonez [...] Trevor Boyce RN at 10/06/2024 6:55 PM DIET ASSISTANT ASSISTANT ASSISTANT Associated attestation - Trevor Boyce RN - 10/06/2024 6:55 PM DIET ASSISTANT I have read and attest to this note. * Plan of Care - Emily Brennan RN - 10/06/2024 2:56 PM CST Goal Outcome Evaluation: Plan of Care Reviewed With: patient Overall Patient Progress: improvingOverall Patient Progress: improving Outcome Evaluation: POD3 EGD 2258-4158 BP (!) 165/82 Pulse 65 Temp 98.3 [...] shift Continue to monitor and follow POC ASSISTANT * Plan of Care - Thea Chun RN - 10/06/2024 7:27 AM CST Goal Outcome Evaluation: Plan of Care Reviewed With: patient Overall Patient Progress: no change 6685-7876: Patient AVSS on room air, hypertensive within parmeters, on scheduled metoprolol. 0300 dose of mtoprolol not given as pt HR at 58. A&O x 4. No pain, no nausea/vomiting. Blood sugars of156 and 140. TPN/lipids running. LR running at 30 ml/hr. Still needs purple cap changed. SBA. Callsappropriately. Continue with plan of care. ASSISTANT * Plan of Care - Isha Wu RN - 10/05/2024 6:30 PM CST Goal Outcome Evaluation: Plan of Care Reviewed With: patient Overall Patient Progress: improvingOverall Patient Progress: improving Outcome Evaluation: POD3 EGD, TPN continued, up and walking halls today 5578-3979: Chelle is A&Ox4 with HTN continued, no [...] Continue with POC, repeat esophagram scheduled for René. Possible discharge after pending results. ASSISTANT * Provider Notification - Isha Wu RN - 10/05/2024 1:47 PM CST Paged Teresita Perez via Victoria Plumb @ [phone] Held the 2pm dose of metoprolol again due to HR. BP 150s/100s. I'm going to recheck her around 3pm.She doesn't meet parameters for hydralazine. Do you want to add a diastolic parameter? Or are you OK with where she is sitting? Thanks! Plan: Ok to monitor ASSISTANT * Plan of Care - Thea Chun RN - 10/05/2024 6:53 AM CST Goal Outcome Evaluation: Plan of Care Reviewed With: patient Overall Patient Progress: no change 6017-1613: Patient afebrile on room air, pt grew hypertensive with a BP of 190/93, scheduled metoprolol given, pt BP went back down to 177/78. Provider notified of both BPs, otherwise VSS. A&O x 4. No pain, no nausea/vomiting. Blood sugars of 135 and 149. TPN/lipids running. LR running at 30 ml/hr. Independent. Calls appropriately. Continue with plan of care. ASSISTANT * Provider Notification - Thea Chun RN - 10/05/2024 3:47 AM DIET ASSISTANT Provider notified: Rodrigue SANTOS. Pt had BP of 190/93, scheduled metoprolol just given, will recheck BP in an hour and givenPRNs if needed. Thank you, Thea [phone] Provider notified: Rodrigue SANTOS. BP recheck at 177/78. Will hold off on PRNs. Thank youThea [phone] ASSISTANT * Plan of Care - Isha Wu RN - 10/04/2024 6:00 PM CST Goal Outcome Evaluation: Plan of Care Reviewed With: patient Overall Patient Progress: improvingOverall Patient Progress: improving Outcome Evaluation: POD2 EGD 9727-4657: Chelle is A&Ox4 with VSS on RA. No complaints of pain, N/V or SOB. Continues on TPN and IV abx. Productive cough with minimal blood tinged sputum. Up SBA. Showered. PICC CDI. LR @ 30mL/hr. GUOP, no BM this shift. Able to make needs known. Continue with POC. ASSISTANT * Plan of Care - Charlee Greenwood RN - 10/04/2024 6:55 AM CST Goal Outcome Evaluation: Plan of Care Reviewed With: patient Overall Patient Progress: no changeOverall Patient Progress: no change 8610-1213 Neuro: Pt. alert and cooperative with cares. [...] and notify team with change in status. ASSISTANT * Plan of Care - Chelle Garner RN - 10/03/2024 9:58 PM CST Time 2319-2717 A&O x4. Hypertensive, gave scheduled metoprolol. OVSS on RA. Denies SOB, headache, dizziness. Denies pain. Strict NPO. DL PICC infusing TPN and lipids, and MIVF. POCT glucose 110. Voids spontaneously with adequate output. LBM 10/01. Assist x1. Goal Outcome Evaluation: Plan of Care Reviewed With: patient Overall Patient Progress: no changeOverall Patient Progress: no change Outcome Evaluation: POD 1 EGD ASSISTANT * Plan of Care - Lata Alvarez [...] its own. BG with TPN 125 and ASSISTANT ASSISTANT ASSISTANT * Plan of Care - Caridad Gutierrez RN - 10/03/2024 6:25 AM CST Goal Outcome Evaluation: 8525-5952 VSS. Alert and oriented. Denies pain. Tolerating TPN well. BG stable. No acute events, continue with POC. ASSISTANT * Plan of Care - Isha Wu RN - 10/02/2024 10:50 PM CST Goal Outcome Evaluation: Plan of Care Reviewed With: patient Overall Patient Progress: no changeOverall Patient Progress: no change Outcome Evaluation: POD#0 EGD 0474-1866: Chelle is A&Ox4. HTN outside of parameters. [...] HTN but within parameters and on 2L. 9915-6076: VSS on 2L. Completed CT CAP upon return to floor, results still pending. Strict NPO, biotene given for mouth dryness. Continues on IV abx. TPN started again this shift. BG check due at 0000. Up SBA to bathroom, GUOP, no BM yet. Able to make needs known, continue with POC. ASSISTANT * Provider Notification - Isha Wu RN - 10/02/2024 10:40 PM CST Paged Christian Rodriguez via Victoria Plumb @ [phone] Can you discontinue IVF order as she has the TPN up now? Or are we wanting both? Response: Keep fluids for now ASSISTANT * Provider Notification - Rima Barriga RN - 10/02/2024 5:11 PM CST Pt spit up scant amount of blood, provider notified and aware. No other signs of bleeding. ASSISTANT * Brief Op Note - Teresita Perez MD - 10/02/2024 1:02 PM CST [facility] Brief Operative Note Pre-operative diagnosis: Esophageal perforation [...] Implants: * No implants in log * ASSISTANT * Op Note - Pete Norris MD - 10/02/2024 12:21 PM CST Preoperative diagnosis: Esophageal perforation Postoperative diagnosis: As above Procedure: Esophagogastroduodenoscopy Interpretation of fluoroscopy Anesthesia: General Surgeon: Pete Norris Resident surgeon: Hiren Garner EBL: None Complications: none immediate Findings: Perforation [...] to remove the endoscope at this time. ASSISTANT * Plan of Care - Ashley Boone RN - 10/02/2024 10:57 AM CST Goal Outcome Evaluation: Plan of Care Reviewed With: patient Overall Patient Progress: no changeOverall Patient Progress: no change Outcome Evaluation: Patient will discharge home once medically stable Ashley Boone RN, [facility] Inpatient Care Management - FLOAT ASSISTANT * Pharmacy-Admission Medication History - Lawrence Wills RPH - 10/02/2024 7:46 AM CST Pharmacist Admission Medication History Admission medication history is complete. The information provided in this note is only as accurateas the sources available at the time of the update. Information Source(s): Patient admitted at [facility] 09/27 to 10/01 prior to transfer to [facility] on 10/01. Med history completed at [place] on 09/27 by Fang Beal. See original not for more details. Reviewed medication dispense history (Sure Script[facility]) Changes made to CHOCOLATE COATER medication list: Added: None Deleted: None Changed: Levothyroxine 150 mcg daily --> 175 mcg daily Pertinent Information: Patient started on TPN at [facility] Receiving IV levothyroxine at [facility] in place of her oral dose Prior to Admission medications Medication Sig Last Dose Taking? Auth Provider Usp End Date cyanocobalamin (VITAMIN B-12) 1000 MCG tablet Take 1 tablet (1,000 mcg) by mouth daily. Past Week Yes Ihsa Guadalupe MD levothyroxine (SYNTHROID/LEVOTHROID) 175 MCG tablet [...] By: Lawrence Wills RPH 10/02/2024 7:47 AM ASSISTANT * Plan of Care - Jaycee Ibarra [...] surgery Discharge plan/ barriers to discharge: Pending ASSISTANT documented in this encounter Plan of Treatment Upcoming Encounters Date Type Department Care Team (Late st Contact Info) Description 10/19/2024 9:30 AM DIET ASSISTANT Virtual Visit [facility] [address] [place] [address] Adrianna Elizabeth APRN [facility] [address] [facility] [address] [place], [place] [id number] Pending Results Name Type Priority Associated Diagnoses Date /Time POC US GUIDE FOR THORACENTESIS Imaging Routine 10/04/2024 2:49 PM DIET ASSISTANT Scheduled Orders Name Type Priority Associated Diagnoses [...] THYROID PEROXIDASE ANTIBODY Routine 10/08/2024 11:58 AM DIET ASSISTANT TSH Add-On 10/08/2024 2:10 AM DIET ASSISTANT T4 FREE Add-On 10/08/2024 2:10 AM DIET ASSISTANT INR Routine 10/08/2024 2:10 AM DIET ASSISTANT PHOSPHORUS Routine 10/08/2024 2:10 AM DIET ASSISTANT MAGNESIUM Routine 10/08/2024 2:10 AM DIET ASSISTANT COMPREHENSIVE METABOLIC PANEL Routine 10/08/2024 2:10 AM DIET ASSISTANT BILIRUBIN DIRECT Routine 10/08/2024 2:10 AM DIET ASSISTANT CBC WITH PLATELETS Routine 10/08/2024 2: 10 AM DIET ASSISTANT GLUCOSE BY METER Routine 10/08/2024 12:0 9 AM DIET ASSISTANT GLUCOSE BY METER Routine 10/07/2024 1:[address] CHEST W CONTRAST Routine 10/07/2024 1 1:12 AM DIET ASSISTANT PHOSPHORUS Routine 10/07/2024 5:51 AM DIET ASSISTANT MAGNESIUM Routine 10/07/2024 5:51 AM DIET ASSISTANT BASIC METABOLIC PANEL Routine 10/07/2024 5:51 AM DIET ASSISTANT CBC WITH PLATELETS Routine 10/07/2024 5: 51 AM DIET ASSISTANT GLUCOSE BY METER Routine 10/07/2024 3:08 AM DIET ASSISTANT GLUCOSE BY METER Routine 10/06/2024 8:37 PM DIET ASSISTANT GLUCOSE BY METER Routine 10/06/2024 3:36 PM DIET ASSISTANT GLUCOSE BY METER Routine 10/06/2024 12:0 1 PM DIET ASSISTANT GLUCOSE BY METER Routine 10/06/2024 3:54 AM DIET ASSISTANT BASIC METABOLIC PANEL Routine 10/06/2024 3:40 AM DIET ASSISTANT CBC WITH PLATELETS Routine 10/06/2024 3: 40 AM DIET ASSISTANT GLUCOSE BY METER Routine 10/05/2024 9:10 PM DIET ASSISTANT GLUCOSE BY METER Routine 10/05/2024 3:43 PM DIET ASSISTANT GLUCOSE BY METER Routine 10/05/2024 9:06 AM DIET ASSISTANT GLUCOSE BY METER Routine 10/05/2024 3:15 AM DIET ASSISTANT PHOSPHORUS Routine 10/05/2024 3:05 AM DIET ASSISTANT MAGNESIUM Routine 10/05/2024 3:05 AM DIET ASSISTANT BASIC METABOLIC PANEL Routine 10/05/2024 3:05 AM DIET ASSISTANT CBC WITH PLATELETS Routine 10/05/2024 3: 05 AM DIET ASSISTANT GLUCOSE BY METER Routine 10/04/2024 10:1 3 PM DIET ASSISTANT GLUCOSE BY METER Routine 10/04/2024 4:04 PM DIET ASSISTANT CBC WITH PLATELETS Routine 10/04/2024 10 :55 AM DIET ASSISTANT GLUCOSE BY METER Routine 10/04/2024 10:2 5 AM DIET ASSISTANT PHOSPHORUS Routine 10/04/2024 3:58 AM DIET ASSISTANT MAGNESIUM Routine 10/04/2024 3:58 AM DIET ASSISTANT BASIC METABOLIC PANEL Routine 10/04/2024 3:58 AM DIET ASSISTANT GLUCOSE BY METER Routine 10/04/2024 3:20 AM DIET ASSISTANT GLUCOSE BY METER Routine 10/03/2024 9:19 PM DIET ASSISTANT GLUCOSE BY METER Routine 10/03/2024 3:07 PM DIET ASSISTANT GLUCOSE BY METER Routine 10/03/2024 8:41 AM DIET ASSISTANT TRIGLYCERIDES Routine 10/03/2024 2:30 AM DIET ASSISTANT INR Routine 10/03/2024 2:29 AM DIET ASSISTANT PREALBUMIN Routine 10/03/2024 2:29 AM DIET ASSISTANT PHOSPHORUS Routine 10/03/2024 2:29 AM DIET ASSISTANT MAGNESIUM Routine 10/03/2024 2:29 AM DIET ASSISTANT COMPREHENSIVE METABOLIC PANEL Routine 10/03/2024 2:29 AM DIET ASSISTANT BILIRUBIN DIRECT Routine 10/03/2024 2:29 AM DIET ASSISTANT GLUCOSE BY METER Routine 10/03/2024 12:[address] CHEST/ABDOMEN/PELVIS W CONTRAST Routine 10/02/2024 4:27 PM DIET ASSISTANT XR SURGERY WERO FLUORO LESS THAN 5 MIN W STILLS Routine 10/02/2024 2:22 PM DIET ASSISTANT GLUCOSE BY METER Routine 10/02/2024 1:17 PM DIET ASSISTANT TYPE AND SCREEN, ADULT STAT 11:52 AM DIET ASSISTANT ABO/RH TYPE AND SCREEN STAT 11:52 AM DIET ASSISTANT UGI ENDOSCOPY DIAG W OR W/O BRUSH/WASH 10/02/2024 11:40 AM DIET ASSISTANT Esophageal perforation GLUCOSE BY METER Routine 10/02/2024 5:28 AM DIET ASSISTANT TSH WITH FREE T4 REFLEX Routine 10/02/2024 3:59 AM DIET ASSISTANT T4 FREE Routine 10/02/2024 3:59 AM DIET ASSISTANT INR Routine 10/02/2024 3:59 AM DIET ASSISTANT PREALBUMIN Routine 10/02/2024 3:59 AM DIET ASSISTANT PHOSPHORUS Routine 10/02/2024 3:59 AM DIET ASSISTANT MAGNESIUM Routine 10/02/2024 3:59 AM DIET ASSISTANT CRP INFLAMMATION Routine 10/02/2024 3:59 AM DIET ASSISTANT COMPREHENSIVE METABOLIC PANEL Routine 10/02/2024 3:59 AM DIET ASSISTANT BILIRUBIN DIRECT Routine 10/02/2024 3:59 AM DIET ASSISTANT CBC WITH PLATELETS Routine 10/02/2024 3 :59 AM DIET ASSISTANT COMPREHENSIVE METABOLIC PANEL Routine 10/01/2024 9:01 PM DIET ASSISTANT CBC WITH PLATELETS Routine 10/01/2024 9: 01 PM DIET ASSISTANT XR CHEST PORT 1 VIEW Routine 10/01/2024 8:49 PM DIET ASSISTANT LACTIC ACID WHOLE BLOOD WITH 1X REPEAT IN 2 HR WHEN >2 STAT 10/01/2024 7:45 PM DIET ASSISTANT documented in this encounter Results * Thyroid peroxidase antibody (10/08/2024 11:58 AM DIET ASSISTANT) Thyroid Peroxidase Antibody 13 <35 IU/mL 10/12/2024 2:38 PM DIET ASSISTANT [facility] SPECIALTY CORE/PROT/ENDO Blood CATHETER / Unknown VAD(CVC, PICC ) / Unknown 10/08/2024 11:58 AM DIET ASSISTANT 10/08/2024 12:04 PM DIET ASSISTANT Result Laurita Wallace MD LAB - BLOOD ORDERABLES Final Result SPECIALTY CORE/PROT/ENDO Specialty Core/Prot/Endo [address] [facility] Building, [address] * (ABNORMAL) T4 free (10/08/2024 2:10 AM DIET ASSISTANT) [facility] Free T4 0.60(L) 0.90 - 1.70 ng/dL 10/08/2024 11:47 AM DIET ASSISTANT [facility] Blood VENOUS LINE / Unknown VAD(CVC, PICC) / Unknown 10/08/2024 2:10 AM DIET ASSISTANT 10/08/2024 2:24 AM DIET ASSISTANT Result Laurita Wallace MD LAB - BLOOD ORDERABLES Final Result [facility] Core Lab [address] [facility], [address] * (ABNORMAL) TSH (10/08/2024 2:10 AM DIET ASSISTANT) [facility] TSH 12.20(H) 0.30 - 4.20 uIU/mL 10/08/2024 11:47 AM DIET ASSISTANT [facility] Blood VENOUS LINE / Unknown VAD(CVC, PICC) / Unknown 10/08/2024 2:10 AM DIET ASSISTANT 10/08/2024 2:24 AM DIET ASSISTANT Result Laurita Wallace MD LAB - BLOOD ORDERABLES Final Result [facility] [place] Core Lab [address] [facility], [address] * (ABNORMAL) CBC with platelets (10/08/2024 2:10 AM DIET ASSISTANT) WBC Count 9.3 4.0 - 11.0 10e3/uL 10/08/2024 2:29 AM DIET ASSISTANT [facility] RBC Count 4.28 3.80 - 5.20 10e6/uL 10/08/2024 2:29 AM DIET ASSISTANT [facility] Hemoglobin 11.9 11.7 - 15.7 g/dL 10/08/2024 2:29 AM DIET ASSISTANT [facility] Hematocrit 38.5 35.0 - 47.0 % 10/08/2024 2:29 AM DIET ASSISTANT [facility] MCV 90 78 - 100 fL 10/08/2024 2:29 AM DIET ASSISTANT [facility] MCH 27.8 26.5 - 33.0 pg 10/08/2024 2:29 AM DIET ASSISTANT [facility] MCHC 30.9(L) 31.5 - 36.5 g/dL 10/08/2024 2:29 AM DIET ASSISTANT [facility] RDW 13.9 10.0 - 15.0 % 10/08/2024 2:29 AM DIET ASSISTANT [facility] Platelet Count 209 150 - 450 10e3/uL 10/08/2024 2:29 AM DIET ASSISTANT [facility] Blood VENOUS LINE / Unknown VAD(CVC, PICC) / Unknown 10/08/2024 2:10 AM DIET ASSISTANT 10/08/2024 2:24 AM DIET ASSISTANT us Shellie Centeno MD LAB - BLOOD ORDERABLES Fi nal Result [facility] [place] Core Lab [address] [place] [address], [address] [place] [address] * Bilirubin direct (10/08/2024 2:10 AM DIET ASSISTANT) Bilirubin Direct <0.20 0.00 - 0.30 mg/dL 10/08/2024 2:55 AM DIET ASSISTANT [facility] Blood VENOUS LINE / Unknown VAD(CVC, PICC) / Unknown 10/08/2024 2:10 AM DIET ASSISTANT 10/08/2024 2:24 AM DIET ASSISTANT Pete Norris MD LAB - BLOOD ORDERABLES Final Re sult [facility] [place] Core Lab [address] [facility], [address] * INR (10/08/2024 2:10 AM DIET ASSISTANT) INR 1.09 0.85 - 1.15 10/08/2024 2:40 AM DIET ASSISTANT [facility] Blood VENOUS LINE / Unknown VAD(CVC, PICC) / Unknown 10/08/2024 2:10 AM DIET ASSISTANT 10/08/2024 2:24 AM DIET ASSISTANT us Pete Norris MD LAB - BLOOD ORDERABLES Final Re sult Performing Organization Address City/[facility]/ZIP Co de Phone Number [facility] [place] Core Lab [address] [facility], [address] * Phosphorus (10/08/2024 2:10 AM DIET ASSISTANT) Phosphorus 3.5 2.5 - 4.5 mg/dL 10/08/2024 2:55 AM DIET ASSISTANT [facility] Blood VENOUS LINE / Unknown VAD(CVC, PICC) / Unknown 10/08/2024 2:10 AM DIET ASSISTANT 10/08/2024 2:24 AM DIET ASSISTANT us Pete Norris MD LAB - BLOOD ORDERABLES Final Re sult [facility] [place] Core Lab [address] [facility], [address] * Magnesium (10/08/2024 2:10 AM DIET ASSISTANT) Magnesium 2.2 1.7 - 2.3 mg/dL 10/08/2024 2:55 AM DIET ASSISTANT [facility] Blood VENOUS LINE / Unknown VAD(CVC, PICC) / Unknown 10/08/2024 2:10 AM DIET ASSISTANT 10/08/2024 2:24 AM DIET ASSISTANT us Pete Norris MD LAB - BLOOD ORDERABLES Final Re sult [facility] [place] Core Lab [address] [facility] [address], [address] [place] [address], [facility] * (ABNORMAL) Comprehensive metabolic panel (10/08/2024 2:10 AM DIET ASSISTANT) Sodium 133(L) 135 - 145 mmol/L 10/08/2024 2:55 AM DIET ASSISTANT [facility] Potassium 4.5 3.4 - 5.3 mmol/L 10/08/2024 2:55 AM DIET ASSISTANT [facility] Carbon Dioxide (CO2) 22 22 - 29 mmol/L 10/08/2024 2:55 AM DIET ASSISTANT [facility] Anion Gap 10 7 - 15 mmol/L 10/08/2024 2:55 AM DIET ASSISTANT [facility] Urea Nitrogen 20.0 8.0 - 23.0 mg/dL 10/08/2024 2:55 AM DIET ASSISTANT [facility] Creatinine 0.82 0.51 - 0.95 mg/dL 10/08/2024 2:55 AM DIET ASSISTANT [facility] GFR Estimate 74 >60 mL/min/1.7 3m2 10/08/2024 2:55 AM DIET ASSISTANT [facility] Comment:eGFR calculated usin 2020 CKD-EPI equation. Calcium 8.7(L) 8.8 - 10.4 mg/dL 10/08/2024 2:55 AM DIET ASSISTANT [facility] Comment:Reference intervals for this test were updated on 04/19/2024 to reflect our healthy population more accurately. There may be differences in the flagging of prior results with similar values performed with this method. Those prior results can be interpreted in the context of the updated reference intervals. Chloride 101 98 - 107 mmol/L 10/08/2024 2:55 AM DIET ASSISTANT [facility] Glucose 189(H) 70 - 99 mg/dL 10/08/2024 2:55 AM DIET ASSISTANT [facility] Alkaline Phosphatase 133 40 - 150 U/L 10/08/2024 2:55 AM DIET ASSISTANT [facility] AST 31 0 - 45 U/L 10/08/2024 2:55 AM DIET ASSISTANT [facility] ALT 42 0 - 50 U/L 10/08/2024 2:55 AM DIET ASSISTANT [facility] Protein Total 5.9(L) 6.4 - 8.3 g/dL 10/08/2024 2:55 AM DIET ASSISTANT [facility] Albumin 3.2(L) 3.5 - 5.2 g/dL 10/08/2024 2:55 AM DIET ASSISTANT [facility] Bilirubin Total 0.3 <=1.2 mg/dL 10/08/2024 2:55 AM DIET ASSISTANT [facility] Blood VENOUS LINE / Unknown VAD(CVC, PICC) / Unknown 10/08/2024 2:10 AM DIET ASSISTANT 10/08/2024 2:24 AM DIET ASSISTANT us Pete Norris MD LAB - BLOOD ORDERABLES Final Re sult [facility] [place] [facility] Lab [address] [facility], [address] [place] [phone] * (ABNORMAL) Glucose by meter (10/08/2024 12:09 AM DIET ASSISTANT) GLUCOSE BY METER POCT 162(H) 70 - 99 mg/dL 10/08/2024 12:17 AM DIET ASSISTANT [facility] POC Blood, Capillary BLOOD SPECIMEN / Unknown 10/08/2024 12:09 AM DIET ASSISTANT 10/08/2024 12:17 AM DIET ASSISTANT us Pete Norris MD LAB - BEAKER POCT Final Result [facility] POC [facility] [place] [facility] Lab [address] [facility], [address] [place] [address] * (ABNORMAL) Glucose by meter (10/07/2024 1:31 PM DIET ASSISTANT) GLUCOSE BY METER POCT 133(H) 70 - 99 mg/dL 10/07/2024 1:38 PM DIET ASSISTANT [facility] POC Blood, Capillary BLOOD SPECIMEN / Unknown 10/07/2024 1:31 PM DIET ASSISTANT 10/07/2024 1:38 PM DIET ASSISTANT us Pete Norris MD LAB - BEAKER POCT Final Result [facility] [place] [facility] Lab 500 [facility] [address], [address] [place] [address], [facility] * CT Chest w Contrast (10/07/2024 11:12 AM DIET ASSISTANT) Anatomical Region Laterality Modality Chest, SUBRAD CT BODY, UMP CT CHEST, RAD CT Computed Tomography Impressions 10/07/2024 1:30 PM DIET ASSISTANT Impression: 1. Persistent 5 mm defect in [...] SABRINA IBANEZ MD Narrative 10/07/2024 1:[address] CHEST W CONTRAST 10/07/2024 11:12 AM [...] (ABNORMAL) Basic metabolic panel (10/07/2024 5:51 AM DIET ASSISTANT) Sodium 133(L) 135 - 145 mmol/L 10/07/2024 6:30 AM DIET ASSISTANT [facility] Potassium 4.3 3.4 - 5.3 mmol/L 10/07/2024 6:30 AM DIET ASSISTANT [facility] Chloride 101 98 - 107 mmol/L 10/07/2024 6:30 AM DIET ASSISTANT [facility] Carbon Dioxide (CO2) 22 22 - 29 mmol/L 10/07/2024 6:30 AM DIET ASSISTANT [facility] Anion Gap 10 7 - 15 mmol/L 10/07/2024 6:30 AM DIET ASSISTANT [facility] Urea Nitrogen 19.4 8.0 - 23.0 mg/dL 10/07/2024 6:30 AM DIET ASSISTANT [facility] Creatinine 0.77 0.51 - 0.95 mg/dL 10/07/2024 6:30 AM DIET ASSISTANT [facility] GFR Estimate 80 >60 mL/min/1.7 3m2 10/07/2024 6:30 AM DIET ASSISTANT [facility] Comment:eGFR calculated usin 2020 CKD-EPI equation. Calcium 8.6(L) 8.8 - 10.4 mg/dL 10/07/2024 6:30 AM DIET ASSISTANT [facility] Comment:Reference intervals for this test were updated on 04/19/2024 to reflect our healthy population more accurately. There may be differences in the flagging of prior results with similar values performed with this method. Those prior results can be interpreted in the context of the updated reference intervals. Glucose 161(H) 70 - 99 mg/dL 10/07/2024 6:30 AM DIET ASSISTANT [facility] Blood VENOUS LINE / Unknown VAD(CVC, PICC) / Unknown 10/07/2024 5:51 AM DIET ASSISTANT 10/07/2024 6:00 AM DIET ASSISTANT us Teresita Perez MD LAB - BLOOD ORDERABLES Final Result [facility] [place] [facility] Lab [address] [facility], [address] [place] [address], [facility] * (ABNORMAL) CBC with platelets (10/07/2024 5:51 AM DIET ASSISTANT) WBC Count 8.8 4.0 - 11.0 10e3/uL 10/07/2024 6:12 AM DIET ASSISTANT [facility] RBC Count 4.41 3.80 - 5.20 10e6/uL 10/07/2024 6:12 AM DIET ASSISTANT [facility] Hemoglobin 12.2 11.7 - 15.7 g/dL 10/07/2024 6:12 AM DIET ASSISTANT [facility] Hematocrit 39.3 35.0 - 47.0 % 10/07/2024 6:12 AM DIET ASSISTANT [facility] MCV 89 78 - 100 fL 10/07/2024 6:12 AM DIET ASSISTANT [facility] MCH 27.7 26.5 - 33.0 pg 10/07/2024 6:12 AM DIET ASSISTANT [facility] MCHC 31.0(L) 31.5 - 36.5 g/dL 10/07/2024 6:12 AM DIET ASSISTANT [facility] RDW 13.7 10.0 - 15.0 % 10/07/2024 6:12 AM DIET ASSISTANT [facility] Platelet Count 221 150 - 450 10e3/uL 10/07/2024 6:12 AM DIET ASSISTANT [facility] Blood VENOUS LINE / Unknown VAD(CVC, PICC) / Unknown 10/07/2024 5:51 AM DIET ASSISTANT 10/07/2024 6:01 AM DIET ASSISTANT Shellie Centeno MD LAB - BLOOD ORDERABLES Fi nal Result [facility] [place] [facility] Lab [address] [facility], [address] * Phosphorus (10/07/2024 5:51 AM DIET ASSISTANT) Pathologist [facility] Phosphorus 3.3 2.5 - 4.5 mg/dL 10/07/2024 6:30 AM DIET ASSISTANT [facility] Blood VENOUS LINE / Unknown VAD(CVC, PICC) / Unknown 10/07/2024 5:51 AM DIET ASSISTANT 10/07/2024 6:00 AM DIET ASSISTANT Pete Norris MD LAB - BLOOD ORDERABLES Final Re sult [facility] [place] [facility] Lab [address] [facility], [address] [place] [address] * Magnesium (10/07/2024 5:51 AM DIET ASSISTANT) Magnesium 2.2 1.7 - 2.3 mg/dL 10/07/2024 6:30 AM DIET ASSISTANT [facility] Blood VENOUS LINE / Unknown VAD(CVC, PICC) / Unknown 10/07/2024 5:51 AM DIET ASSISTANT 10/07/2024 6:00 AM DIET ASSISTANT us Pete Norris MD LAB - BLOOD ORDERABLES Final Re sult [facility] [place] [facility] Lab [address] [facility], [address] * (ABNORMAL) Glucose by meter (10/07/2024 3:08 AM DIET ASSISTANT) GLUCOSE BY METER POCT 165(H) 70 - 99 mg/dL 10/07/2024 3:14 AM DIET ASSISTANT [facility] POC Blood, Capillary BLOOD SPECIMEN / Unknown 10/07/2024 3:08 AM DIET ASSISTANT 10/07/2024 3:14 AM DIET ASSISTANT us Pete Norris MD LAB - BEAKER POCT Final Result Performing Organization Address City/[facility]/ZIP Co de Phone Number [facility] POC [facility] Core Lab [address] [facility], [address] [place] [phone], [place] * (ABNORMAL) Glucose by meter (10/06/2024 8:37 PM DIET ASSISTANT) GLUCOSE BY METER POCT 139(H) 70 - 99 mg/dL 10/06/2024 8:44 PM DIET ASSISTANT [facility] POC Comment:Dr/RN Notified Blood, Capillary BLOOD SPECIMEN / Unknown 10/06/2024 8:37 PM DIET ASSISTANT 10/06/2024 8:44 PM DIET ASSISTANT us Pete Norris MD LAB - BEAKER POCT Final Result [facility] [place] [facility] Lab [address] [facility], [address] [place] [address] * (ABNORMAL) Glucose by meter (10/06/2024 3:36 PM DIET ASSISTANT) GLUCOSE BY METER POCT 147(H) 70 - 99 mg/dL 10/06/2024 3:43 PM DIET ASSISTANT [facility] POC Comment:Dr/RN Notified Blood, Capillary BLOOD SPECIMEN / Unknown 10/06/2024 3:36 PM DIET ASSISTANT 10/06/2024 3:43 PM DIET ASSISTANT us Pete Norris MD LAB - BEAKER POCT Final Result Performing Organization Address [facility]/ZIP Co de Phone Number [facility] P[facility] Core Lab [address] [facility], [address] [place] [address] * (ABNORMAL) Glucose by meter (10/06/2024 12:01 PM DIET ASSISTANT) GLUCOSE BY METER POCT 137(H) 70 - 99 mg/dL 10/06/2024 12:08 PM DIET ASSISTANT [facility] POC Blood, Capillary BLOOD SPECIMEN / Unknown 10/06/2024 12:01 PM DIET ASSISTANT 10/06/2024 12:08 PM DIET ASSISTANT us Pete TOMPKINS - BEAKER POCT Final Result Performing Organization Address City/[facility]/ZIP Co de Phone Number [facility] POC [facility] Core Lab [address] [place] [address], [address] [place] [address] * (ABNORMAL) Glucose by meter (10/06/2024 3:54 AM DIET ASSISTANT) GLUCOSE BY METER POCT 140(H) 70 - 99 mg/dL 10/06/2024 4:00 AM DIET ASSISTANT [facility] POC Blood, Capillary BLOOD SPECIMEN / Unknown 10/06/2024 3:54 AM DIET ASSISTANT 10/06/2024 4:00 AM DIET ASSISTANT us Pete TOMPKINS - BEAKER POCT Final Result [facility] POC [facility] [place] [facility] Lab [address] [facility], [address] [place] [address] * (ABNORMAL) Basic metabolic panel (10/06/2024 3:40 AM DIET ASSISTANT) Sodium 135 135 - 145 mmol/L 10/06/2024 5:39 AM DIET ASSISTANT [facility] Potassium 4.2 3.4 - 5.3 mmol/L 10/06/2024 5:39 AM DIET ASSISTANT [facility] Chloride 102 98 - 107 mmol/L 10/06/2024 5:39 AM DIET ASSISTANT [facility] Carbon Dioxide (CO2) 20(L) 22 - 29 mmol/L 10/06/2024 5:39 AM DIET ASSISTANT [facility] Anion Gap 13 7 - 15 mmol/L 10/06/2024 5:39 AM DIET ASSISTANT [facility] Urea Nitrogen 17.4 8.0 - 23.0 mg/dL 10/06/2024 5:39 AM DIET ASSISTANT [facility] Creatinine 0.75 0.51 - 0.95 mg/dL 10/06/2024 5:39 AM DIET ASSISTANT [facility] GFR Estimate 83 >60 mL/min/1.7 3m2 10/06/2024 5:39 AM DIET ASSISTANT [facility] Comment:eGFR calculated usin g 2020 CKD-EPI equation. Calcium 8.5(L) 8.8 - 10.4 mg/dL 10/06/2024 5:39 AM DIET ASSISTANT [facility] Comment:Reference intervals for this test were updated on 04/19/2024 to reflect our healthy population more accurately. There may be differences in the flagging of prior results with similar values performed with this method. Those prior results can be interpreted in the context of the updated reference intervals. Glucose 150(H) 70 - 99 mg/dL 10/06/2024 5:39 AM DIET ASSISTANT [facility] Blood VENOUS LINE / Unknown VAD(CVC, PICC) / Unknown 10/06/2024 3:40 AM DIET ASSISTANT 10/06/2024 4:23 AM DIET ASSISTANT Teresita Perez MD LAB - BLOOD ORDERABLES Final Result [facility] [place] [facility] Lab [address] [facility], [address] [place] [address] * CBC with platelets (10/06/2024 3:40 AM DIET ASSISTANT) WBC Count 7.9 4.0 - 11.0 10e3/uL 10/06/2024 4:34 AM DIET ASSISTANT [facility] RBC Count 4.32 3.80 - 5.20 10e6/uL 10/06/2024 4:34 AM DIET ASSISTANT [facility] Hemoglobin 12.4 11.7 - 15.7 g/dL 10/06/2024 4:34 AM DIET ASSISTANT [facility] Hematocrit 37.6 35.0 - 47.0 % 10/06/2024 4:34 AM DIET ASSISTANT [facility] MCV 87 78 - 100 fL 10/06/2024 4:34 AM DIET ASSISTANT [facility] MCH 28.7 26.5 - 33.0 pg 10/06/2024 4:34 AM DIET ASSISTANT [facility] MCHC 33.0 31.5 - 36.5 g/dL 10/06/2024 4:34 AM DIET ASSISTANT [facility] RDW 13.7 10.0 - 15.0 % 10/06/2024 4:34 AM DIET ASSISTANT [facility] Platelet Count 198 150 - 450 10e3/uL 10/06/2024 4:34 AM DIET ASSISTANT [facility] Blood VENOUS LINE / Unknown VAD(CVC, PICC) / Unknown 10/06/2024 3:40 AM DIET ASSISTANT 10/06/2024 4:28 AM DIET ASSISTANT Shellie Centeno MD LAB - BLOOD ORDERABLES Fi nal Result [facility] [place] [facility] Lab [address] [facility], [address] [place] [address] * (ABNORMAL) Glucose by meter (10/05/2024 9:10 PM DIET ASSISTANT) GLUCOSE BY METER POCT 156(H) 70 - 99 mg/dL 10/05/2024 9:17 PM DIET ASSISTANT [facility] POC Blood, Capillary BLOOD SPECIMEN / Unknown 10/05/2024 9:10 PM DIET ASSISTANT 10/05/2024 9:17 PM DIET ASSISTANT us Pete TOMPKINS - BEAKER POCT Final Result [facility] POC [facility] [place] [facility] Lab [address] [facility], [address] [place] [phone] * (ABNORMAL) Glucose by meter (10/05/2024 3:43 PM DIET ASSISTANT) GLUCOSE BY METER POCT 133(H) 70 - 99 mg/dL 10/05/2024 3:50 PM DIET ASSISTANT [facility] POC Blood, Capillary BLOOD SPECIMEN / Unknown 10/05/2024 3:43 PM DIET ASSISTANT 10/05/2024 3:50 PM DIET ASSISTANT Result Laurita Norris MD LAB - BEAKER POCT Final Result Performing Organization Address City/[facility]/ZIP Co de Phone Number [facility] POC [facility] [place] [facility] Lab [address] [facility], [address] [place] [phone] * (ABNORMAL) Glucose by meter (10/05/2024 9:06 AM DIET ASSISTANT) GLUCOSE BY METER POCT 141(H) 70 - 99 mg/dL 10/05/2024 9:21 AM DIET ASSISTANT [facility] POC Blood, Capillary BLOOD SPECIMEN / Unknown 10/05/2024 9:06 AM DIET ASSISTANT 10/05/2024 9:21 AM DIET ASSISTANT Result Laurita Norris MD LAB - BEAKER POCT Final Result [facility] Core Lab [address] [facility], [address] [place] [phone] * (ABNORMAL) Glucose by meter (10/05/2024 3:15 AM DIET ASSISTANT) GLUCOSE BY METER POCT 149(H) 70 - 99 mg/dL 10/05/2024 3:22 AM DIET ASSISTANT [facility] POC Blood, Capillary BLOOD SPECIMEN / Unknown 10/05/2024 3:15 AM DIET ASSISTANT 10/05/2024 3:22 AM DIET ASSISTANT Pete Norris MD LAB - BEAKER POCT Final Result [facility] Core Lab [address] [facility], [address] [place] [address] * (ABNORMAL) Basic metabolic panel (10/05/2024 3:05 AM DIET ASSISTANT) Sodium 136 135 - 145 mmol/L 10/05/2024 4:03 AM DIET ASSISTANT [facility] Potassium 4.1 3.4 - 5.3 mmol/L 10/05/2024 4:03 AM DIET ASSISTANT [facility] Chloride 103 98 - 107 mmol/L 10/05/2024 4:03 AM DIET ASSISTANT [facility] Carbon Dioxide (CO2) 21(L) 22 - 29 mmol/L 10/05/2024 4:03 AM DIET ASSISTANT [facility] Anion Gap 12 7 - 15 mmol/L 10/05/2024 4:03 AM DIET ASSISTANT [facility] Urea Nitrogen 15.6 8.0 - 23.0 mg/dL 10/05/2024 4:03 AM DIET ASSISTANT [facility] Creatinine 0.74 0.51 - 0.95 mg/dL 10/05/2024 4:03 AM DIET ASSISTANT [facility] GFR Estimate 84 >60 mL/min/1.7 3m2 10/05/2024 4:03 AM DIET ASSISTANT [facility] Comment:eGFR calculated usin 2020 CKD-EPI equation. Calcium 8.5(L) 8.8 - 10.4 mg/dL 10/05/2024 4:03 AM DIET ASSISTANT [facility] Comment:Reference intervals for this test were updated on 04/19/2024 to reflect our healthy population more accurately. There may be differences in the flagging of prior results with similar values performed with this method. Those prior results can be interpreted in the context of the updated reference intervals. Glucose 150(H) 70 - 99 mg/dL 10/05/2024 4:03 AM DIET ASSISTANT [facility] Blood VENOUS LINE / Unknown VAD(CVC, PICC) / Unknown 10/05/2024 3:05 AM DIET ASSISTANT 10/05/2024 3:31 AM DIET ASSISTANT us Teresita Perez MD LAB - BLOOD ORDERABLES Final Result [facility] [place] [facility] Lab [address] [facility], [address] [place] [phone] * (ABNORMAL) CBC with platelets (10/05/2024 3:05 AM DIET ASSISTANT) WBC Count 8.5 4.0 - 11.0 10e3/uL 10/05/2024 3:40 AM DIET ASSISTANT [facility] RBC Count 4.15 3.80 - 5.20 10e6/uL 10/05/2024 3:40 AM DIET ASSISTANT [facility] Hemoglobin 11.6(L) 11.7 - 15.7 g/dL 10/05/2024 3:40 AM DIET ASSISTANT [facility] Hematocrit 37.1 35.0 - 47.0 % 10/05/2024 3:40 AM DIET ASSISTANT [facility] MCV 89 78 - 100 fL 10/05/2024 3:40 AM DIET ASSISTANT [facility] MCH 28.0 26.5 - 33.0 pg 10/05/2024 3:40 AM DIET ASSISTANT [facility] MCHC 31.3(L) 31.5 - 36.5 g/dL 10/05/2024 3:40 AM DIET ASSISTANT [facility] RDW 13.7 10.0 - 15.0 % 10/05/2024 3:40 AM DIET ASSISTANT [facility] Platelet Count 207 150 - 450 10e3/uL 10/05/2024 3:40 AM DIET ASSISTANT [facility] Blood VENOUS LINE / Unknown VAD(CVC, PICC) / Unknown 10/05/2024 3:05 AM DIET ASSISTANT 10/05/2024 3:34 AM DIET ASSISTANT us Shellie Centeno MD LAB - BLOOD ORDERABLES Fi nal Result [facility] [place] [facility] Lab [address] [facility], [address] * Phosphorus (10/05/2024 3:05 AM DIET ASSISTANT) Phosphorus 3.3 2.5 - 4.5 mg/dL 10/05/2024 4:03 AM DIET ASSISTANT [facility] Blood VENOUS LINE / Unknown VAD(CVC, PICC) / Unknown 10/05/2024 3:05 AM DIET ASSISTANT 10/05/2024 3:31 AM DIET ASSISTANT us Pete Norris MD LAB - BLOOD ORDERABLES Final Re sult [facility] [place] [facility] Lab 500 [facility], [address] [place] [address] * Magnesium (10/05/2024 3:05 AM DIET ASSISTANT) Magnesium 2.0 1.7 - 2.3 mg/dL 10/05/2024 4:03 AM DIET ASSISTANT [facility] Blood VENOUS LINE / Unknown VAD(CVC, PICC) / Unknown 10/05/2024 3:05 AM DIET ASSISTANT 10/05/2024 3:31 AM DIET ASSISTANT us Pete Norris MD LAB - BLOOD ORDERABLES Final Re sult LABORATORY [facility] [place] Core Lab [address] [facility], [address] * (ABNORMAL) Glucose by meter (10/04/2024 10:13 PM DIET ASSISTANT) GLUCOSE BY METER POCT 135(H) 70 - 99 mg/dL 10/04/2024 10:21 PM DIET ASSISTANT [facility] POC Blood, Capillary BLOOD SPECIMEN / Unknown 10/04/2024 10:13 PM DIET ASSISTANT 10/04/2024 10:21 PM DIET ASSISTANT us Pete Norris MD LAB - BEAKER POCT Final Result [facility] POC [facility] [place] [facility] Lab [address] [facility], [address] [place] [address] * (ABNORMAL) Glucose by meter (10/04/2024 4:04 PM DIET ASSISTANT) Pathologist [facility] GLUCOSE BY METER POCT 135(H) 70 - 99 mg/dL 10/04/2024 4:12 PM DIET ASSISTANT [facility] POC Blood, Capillary BLOOD SPECIMEN / Unknown 10/04/2024 4:04 PM DIET ASSISTANT 10/04/2024 4:12 PM DIET ASSISTANT Pete Norris MD LAB - BEAKER POCT Final Result Performing Organization Address [facility] de Phone Number [facility] POC [facility] [place] Core Lab [address] [facility], [address] [place] [address] * CBC with platelets (10/04/2024 10:55 AM DIET ASSISTANT) [facility] WBC Count 8.0 4.0 - 11.0 10e3/uL 10/04/2024 11:35 AM DIET ASSISTANT [facility] RBC Count 4.31 3.80 - 5.20 10e6/uL 10/04/2024 11:35 AM DIET ASSISTANT [facility] Hemoglobin 12.3 11.7 - 15.7 g/dL 10/04/2024 11:35 AM DIET ASSISTANT [facility] Hematocrit 37.7 35.0 - 47.0 % 10/04/2024 11:35 AM DIET ASSISTANT [facility] MCV 88 78 - 100 fL 10/04/2024 11:35 AM DIET ASSISTANT [facility] MCH 28.5 26.5 - 33.0 pg 10/04/2024 11:35 AM DIET ASSISTANT [facility] MCHC 32.6 31.5 - 36.5 g/dL 10/04/2024 11:35 AM DIET ASSISTANT [facility] RDW 13.4 10.0 - 15.0 % 10/04/2024 11:35 AM DIET ASSISTANT [facility] Platelet Count 189 150 - 450 10e3/uL 10/04/2024 11:35 AM DIET ASSISTANT [facility] Blood VENOUS LINE / Unknown VAD(CVC, PICC) / Unknown 10/04/2024 10:55 AM DIET ASSISTANT 10/04/2024 11:29 AM DIET ASSISTANT us Shellie Centeno MD LAB - BLOOD ORDERABLES Fi nal Result [facility] [place] Core Lab 500 [facility] Building, [address] [place] [phone] * (ABNORMAL) Glucose by meter (10/04/2024 10:25 AM DIET ASSISTANT) GLUCOSE BY METER POCT 115(H) 70 - 99 mg/dL 10/04/2024 10:32 AM DIET ASSISTANT [facility] POC Blood, Capillary BLOOD SPECIMEN / Unknown 10/04/2024 10:25 AM DIET ASSISTANT 10/04/2024 10:32 AM DIET ASSISTANT us Pete Norris MD LAB - BEAKER POCT Final Result Performing Organization Address City/[facility]/ZIP Co de Phone Number U [facility] POC [facility] [place] Core Lab [address] [facility], [address] [place] [address] * Phosphorus (10/04/2024 3:58 AM DIET ASSISTANT) Phosphorus 3.0 2.5 - 4.5 mg/dL 10/04/2024 5:27 AM DIET ASSISTANT [facility] Blood VENOUS LINE / Unknown VAD(CVC, PICC) / Unknown 10/04/2024 3:58 AM DIET ASSISTANT 10/04/2024 4:51 AM DIET ASSISTANT us Pete Norris MD LAB - BLOOD ORDERABLES Final Re sult [facility] [place] [facility] Lab [address] [facility] Building, [address] [place] [address] * Magnesium (10/04/2024 3:58 AM DIET ASSISTANT) Magnesium 1.9 1.7 - 2.3 mg/dL 10/04/2024 5:27 AM DIET ASSISTANT [facility] Blood VENOUS LINE / Unknown VAD(CVC, PICC) / Unknown 10/04/2024 3:58 AM DIET ASSISTANT 10/04/2024 4:51 AM DIET ASSISTANT Pete Norris MD LAB - BLOOD ORDERABLES Final Re sult [facility] [place] [facility] Lab [address] [facility], [address] [place] [address] * (ABNORMAL) Basic metabolic panel (10/04/2024 3:58 AM DIET ASSISTANT) Sodium 140 135 - 145 mmol/L 10/04/2024 5:27 AM DIET ASSISTANT [facility] Potassium 3.6 3.4 - 5.3 mmol/L 10/04/2024 5:27 AM DIET ASSISTANT [facility] Chloride 104 98 - 107 mmol/L 10/04/2024 5:27 AM DIET ASSISTANT [facility] Carbon Dioxide (CO2) 25 22 - 29 mmol/L 10/04/2024 5:27 AM DIET ASSISTANT [facility] Anion Gap 11 7 - 15 mmol/L 10/04/2024 5:27 AM DIET ASSISTANT [facility] Urea Nitrogen 16.4 8.0 - 23.0 mg/dL 10/04/2024 5:27 AM DIET ASSISTANT [facility] Creatinine 0.75 0.51 - 0.95 mg/dL 10/04/2024 5:27 AM DIET ASSISTANT [facility] GFR Estimate 83 >60 mL/min/1.7 3m2 10/04/2024 5:27 AM DIET ASSISTANT [facility] Comment:eGFR calculated usin 2020 CKD-EPI equation. Calcium 8.4(L) 8.8 - 10.4 mg/dL 10/04/2024 5:27 AM DIET ASSISTANT [facility] Comment:Reference intervals for this test were updated on 04/19/2024 to reflect our healthy population more accurately. There may be differences in the flagging of prior results with similar values performed with this method. Those prior results can be interpreted in the context of the updated reference intervals. Glucose 112(H) 70 - 99 mg/dL 10/04/2024 5:27 AM DIET ASSISTANT [facility] Blood VENOUS LINE / Unknown VAD(CVC, PICC) / Unknown 10/04/2024 3:58 AM DIET ASSISTANT 10/04/2024 4:51 AM DIET ASSISTANT us Pete Norris MD LAB - BLOOD ORDERABLES Final Re sult [facility] [place] [facility] Lab [address] [facility], [address] [place] [address] * (ABNORMAL) Glucose by meter (10/04/2024 3:20 AM DIET ASSISTANT) GLUCOSE BY METER POCT 110(H) 70 - 99 mg/dL 10/04/2024 3:26 AM DIET ASSISTANT [facility] POC Blood, Capillary BLOOD SPECIMEN / Unknown 10/04/2024 3:20 AM DIET ASSISTANT 10/04/2024 3:26 AM DIET ASSISTANT us Pete TOMPKINS - BEAKER POCT Final Result [facility] P[facility] [place] [facility] [address] [facility], [address] [place] [id number] * (ABNORMAL) Glucose by meter (10/03/2024 9:19 PM DIET ASSISTANT) GLUCOSE BY METER POCT 110(H) 70 - 99 mg/dL 10/03/2024 9:25 PM DIET ASSISTANT [facility] P[facility] Blood, Capillary BLOOD SPECIMEN / Unknown 10/03/2024 9:19 PM DIET ASSISTANT 10/03/2024 9:25 PM DIET ASSISTANT us Pete Norris MD LAB - BEAKER POCT Final Result [facility] [place] [facility] [address] [facility], [address] [place] [id number] * (ABNORMAL) Glucose by meter (10/03/2024 3:07 PM DIET ASSISTANT) GLUCOSE BY METER POCT 103(H) 70 - 99 mg/dL 10/03/2024 3:14 PM DIET ASSISTANT [facility] P[facility] Blood, Capillary BLOOD SPECIMEN / Unknown 10/03/2024 3:07 PM DIET ASSISTANT 10/03/2024 3:14 PM DIET ASSISTANT us Pete TOMPKINS - BEAKER POCT Final Result Performing Organization Address City/[facility]/ZIP Co de Phone Number [facility] [place] [facility] [address] [facility], [address] [place] [address] * (ABNORMAL) Glucose by meter (10/03/2024 8:41 AM DIET ASSISTANT) GLUCOSE BY METER POCT 125(H) 70 - 99 mg/dL 10/03/2024 8:48 AM DIET ASSISTANT [facility] P[facility] Blood, Capillary BLOOD SPECIMEN / Unknown 10/03/2024 8:41 AM DIET ASSISTANT 10/03/2024 8:48 AM DIET ASSISTANT us Pete TOMPKINS - ANDIAKER POCT Final Result Performing Organization Address City/[facility] de Phone Number [facility] [address] [facility], [address] [place] [address] * Triglycerides (10/03/2024 2:30 AM DIET ASSISTANT) Triglycerides 128 <150 mg/dL 10/03/2024 3:07 AM DIET ASSISTANT [facility] Comment: 2-9 years: Desirable: < 75 mg/dL Borderline High: 75-99 mg/dL High: >= 100 mg/dL 10-19 years: Desirable: < 90 mg/dL Borderline High: 90-129 mg/dL High: >= 130 mg/dL 20 years and older: Desirable: < 150 mg/dL Borderline High: 150-199 mg/dL High: 200-499 mg/dL Very High: >= 500 mg/dL Blood VENOUS LINE / Unknown VAD(CVC, PICC) / Unknown 10/03/2024 2:30 AM DIET ASSISTANT 10/03/2024 2:38 AM DIET ASSISTANT us Pete Norris MD LAB - BLOOD ORDERABLES Final Re sult U LABORATORY [facility] [place] Core Lab 500 [facility], Room [address] [phone] * (ABNORMAL) Prealbumin (10/03/2024 2:29 AM DIET ASSISTANT) Prealbumin 9.4(L) 20.0 - 40.0 mg/dL 10/03/2024 3:08 AM DIET ASSISTANT [facility] Blood VENOUS LINE / Unknown VAD(CVC, PICC) / Unknown 10/03/2024 2:29 AM DIET ASSISTANT 10/03/2024 2:38 AM DIET ASSISTANT us Pete Norris MD LAB - BLOOD ORDERABLES Final Re sult U LABORATORY [facility] Core Lab 500 [facility], Room [address] [phone] * (ABNORMAL) INR (10/03/2024 2:29 AM DIET ASSISTANT) INR 1.35(H) 0.85 - 1.15 10/03/2024 2:50 AM DIET ASSISTANT [facility] Blood VENOUS LINE / Unknown VAD(CVC, PICC) / Unknown 10/03/2024 2:29 AM DIET ASSISTANT 10/03/2024 2:36 AM DIET ASSISTANT us Pete Norris MD LAB - BLOOD ORDERABLES Final Re sult [facility] LABORATORY [facility] [place] Core Lab 500 [facility], Room [address] [phone] * (ABNORMAL) Comprehensive metabolic panel (10/03/2024 2:29 AM DIET ASSISTANT) Sodium 136 135 - 145 mmol/L 10/03/2024 2:58 AM DIET ASSISTANT [facility] Potassium 3.9 3.4 - 5.3 mmol/L 10/03/2024 2:58 AM DIET ASSISTANT [facility] Carbon Dioxide (CO2) 25 22 - 29 mmol/L 10/03/2024 2:58 AM DIET ASSISTANT [facility] Anion Gap 8 7 - 15 mmol/L 10/03/2024 2:58 AM DIET ASSISTANT [facility] Urea Nitrogen 9.7 8.0 - 23.0 mg/dL 10/03/2024 2:58 AM DIET ASSISTANT [facility] Creatinine 0.71 0.51 - 0.95 mg/dL 10/03/2024 2:58 AM DIET ASSISTANT [facility] GFR Estimate 88 >60 mL/min/1.7 3m2 10/03/2024 2:58 AM DIET ASSISTANT [facility] Comment:eGFR calculated usin 2020 CKD-EPI equation. Calcium 9.0 8.8 - 10.4 mg/dL 10/03/2024 2:58 AM DIET ASSISTANT [facility] Comment:Reference intervals for this test were updated on 04/19/2024 to reflect our healthy population more accurately. There may be differences in the flagging of prior results with similar values performed with this method. Those prior results can be interpreted in the context of the updated reference intervals. Chloride 103 98 - 107 mmol/L 10/03/2024 2:58 AM DIET ASSISTANT [facility] Glucose 146(H) 70 - 99 mg/dL 10/03/2024 2:58 AM DIET ASSISTANT [facility] Alkaline Phosphatase 126 40 - 150 U/L 10/03/2024 2:58 AM DIET ASSISTANT [facility] AST 34 0 - 45 U/L 10/03/2024 2:58 AM DIET ASSISTANT [facility] ALT 45 0 - 50 U/L 10/03/2024 2:58 AM DIET ASSISTANT [facility] Protein Total 5.6(L) 6.4 - 8.3 g/dL 10/03/2024 2:58 AM DIET ASSISTANT [facility] Albumin 3.1(L) 3.5 - 5.2 g/dL 10/03/2024 2:58 AM DIET ASSISTANT [facility] Bilirubin Total 0.5 <=1.2 mg/dL 10/03/2024 2:58 AM DIET ASSISTANT [facility] Blood VENOUS LINE / Unknown VAD(CVC, PICC) / Unknown 10/03/2024 2:29 AM DIET ASSISTANT 10/03/2024 2:39 AM DIET ASSISTANT us Pete Norris MD LAB - BLOOD ORDERABLES Final Re sult [facility] LAB[facility] [place] Core Lab 500 [facility] Unit [facility], Room [address] [phone] * Bilirubin direct (10/03/2024 2:29 AM DIET ASSISTANT) Bilirubin Direct <0.20 0.00 - 0.30 mg/dL 10/03/2024 2:58 AM DIET ASSISTANT [facility] Blood VENOUS LINE / Unknown VAD(CVC, PICC) / Unknown 10/03/2024 2:29 AM DIET ASSISTANT 10/03/2024 2:39 AM DIET ASSISTANT us Pete Norris MD LAB - BLOOD ORDERABLES Final Re sult [facility] [place] Core Lab 500 [facility], Room [address] [phone] * Phosphorus (10/03/2024 2:29 AM DIET ASSISTANT) Phosphorus 3.3 2.5 - 4.5 mg/dL 10/03/2024 2:58 AM DIET ASSISTANT [facility] Blood VENOUS LINE / Unknown VAD(CVC, PICC) / Unknown 10/03/2024 2:29 AM DIET ASSISTANT 10/03/2024 2:39 AM DIET ASSISTANT us Pete Norris MD LAB - BLOOD ORDERABLES Final Re sult [facility] LAB[facility] [place] Core Lab 500 [facility] Building, Room [address] [phone] * Magnesium (10/03/2024 2:29 AM DIET ASSISTANT) Magnesium 1.9 1.7 - 2.3 mg/dL 10/03/2024 2:58 AM DIET ASSISTANT [facility] Blood VENOUS LINE / Unknown VAD(CVC, PICC) / Unknown 10/03/2024 2:29 AM DIET ASSISTANT 10/03/2024 2:39 AM DIET ASSISTANT us Pete Norris MD LAB - BLOOD ORDERABLES Final Re sult [facility] LAB[facility] [place] Core Lab 500 [facility], [address] [place] [phone] * (ABNORMAL) Glucose by meter (10/03/2024 12:47 AM DIET ASSISTANT) [facility] GLUCOSE BY METER POCT 151(H) 70 - 99 mg/dL 10/03/2024 12:54 AM DIET ASSISTANT [facility] POC Blood, Capillary BLOOD SPECIMEN / Unknown 10/03/2024 12:47 AM DIET ASSISTANT 10/03/2024 12:54 AM DIET ASSISTANT us Pete Norris MD LAB - BEAKER POCT Final Result Performing Organization Address City/[facility]/ZIP Co de Phone Number [facility] LABORATORY POC [facility] Core Lab 500 [facility], [address] [place] [phone] [place] [address] * CT Chest/Abdomen/Pelvis w Contrast (10/02/2024 4:27 PM DIET ASSISTANT) Anatomical Region Laterality Modality Abdomen/Pelvis, Chest, SUBRA D CT BODY, UMP CT CHEST, UMP CT ABDOMEN PELVIS, RAD CT Computed Tomography Impressions 10/06/2024 4:37 AM DIET ASSISTANT IMPRESSION: Mild motion related artifact limits evaluation. [...] BRANDI SOSA MD Narrative 10/06/2024 4:37 AM DIET ASSISTANT EXAMINATION: CT CHEST/ABDOMEN/PELVIS W CONTRAST, 10/02/2024 4:27 [...] Min Fluoro w Stills (10/02/2024 2:22 PM DIET ASSISTANT) Narrative [facility] - 10/02/2024 2:23 PM DIET ASSISTANT This exam was marked as non-reportable because it will not be read by a radiologist or a [place] non-radiologist provider. us Pete Norris MD IMG DIAGNOSTIC IMAGING ORDERABL ES Final Result [facility] * (ABNORMAL) Glucose by meter (10/02/2024 1:17 PM DIET ASSISTANT) GLUCOSE BY METER POCT 104(H) 70 - 99 mg/dL 10/02/2024 1:24 PM DIET ASSISTANT [facility] POC Blood, Capillary BLOOD SPECIMEN / Unknown 10/02/2024 1:17 PM DIET ASSISTANT 10/02/2024 1:24 PM DIET ASSISTANT us Pete Norris MD LAB - BEAKER POCT Final Result Performing Organization Address City/[facility]/ZIP Co de Phone Number [facility] POC [facility] [place] Core Lab 500 [facility], [address] [place] [address] * Adult Type and Screen (10/02/2024 11:52 AM DIET ASSISTANT) ABO/RH(D) A POS 10/02/2024 11:44 AM DIET ASSISTANT [facility] Antibody Screen Negative Negative 10/02/2024 11:44 AM DIET ASSISTANT [facility] SPECIMEN EXPIRATION DATE [id number] 10/02/2024 11:44 AM DIET ASSISTANT [facility] Blood BLOOD SPECIMEN / Unknown Venipuncture / Unknown 10/02/2024 11:52 AM DIET ASSISTANT 10/02/2024 11:53 AM DIET ASSISTANT us Pete Norris MD LAB - BLOOD BANK TEST ORDER Fin al Result Performing Organization Address City/[facility]/ZIP Co de Phone Number [facility] BLO[facility] BANK [address] [place] [address] * Glucose by meter (10/02/2024 5:28 AM DIET ASSISTANT) GLUCOSE BY METER POCT 86 70 - 99 mg/dL 10/02/2024 5:35 AM DIET ASSISTANT [facility] POC Blood, Capillary BLOOD SPECIMEN / Unknown 10/02/2024 5:28 AM DIET ASSISTANT 10/02/2024 5:35 AM DIET ASSISTANT Result Laurita Norris MD LAB - BEAKER POCT Final Result [facility] POC [facility] [place] Core Lab 500 [facility], [address] [place] [phone] * T4 free (10/02/2024 3:59 AM DIET ASSISTANT) Free T4 1.60 0.90 - 1.70 ng/dL 10/02/2024 5:31 AM DIET ASSISTANT [facility] Blood VENOUS LINE / Unknown VAD(CVC, PICC) / Unknown 10/02/2024 3:59 AM DIET ASSISTANT 10/02/2024 4:29 AM DIET ASSISTANT us Hiren Garner MD LAB - BLOOD ORDERABLES Final Result Performing Organization Address City/[facility]/ZIP Co de Phone Number [facility] LAB[facility] [place] Core Lab 500 [facility], [address] [place] [phone] * Bilirubin direct (10/02/2024 3:59 AM DIET ASSISTANT) Bilirubin Direct 0.22 0.00 - 0.30 mg/dL 10/02/2024 5:08 AM DIET ASSISTANT [facility] Blood VENOUS LINE / Unknown VAD(CVC, PICC) / Unknown 10/02/2024 3:59 AM DIET ASSISTANT 10/02/2024 4:29 AM DIET ASSISTANT Result Laurita Norris MD LAB - BLOOD ORDERABLES Final Re sult [facility] LAB[facility] [place] Core Lab 500 [facility], [address] [place] [phone] * (ABNORMAL) Prealbumin (10/02/2024 3:59 AM DIET ASSISTANT) Prealbumin 8.6(L) 20.0 - 40.0 mg/dL 10/02/2024 5:01 AM DIET ASSISTANT [facility] Blood VENOUS LINE / Unknown VAD(CVC, PICC) / Unknown 10/02/2024 3:59 AM DIET ASSISTANT 10/02/2024 4:32 AM DIET ASSISTANT us Pete Norris MD LAB - BLOOD ORDERABLES Final Re sult U LABORATORY [facility] [place] Core Lab 500 [facility], [address] * INR (10/02/2024 3:59 AM DIET ASSISTANT) Pathologist [facility] INR 1.11 0.85 - 1.15 10/02/2024 5:52 AM DIET ASSISTANT [facility] Blood VENOUS LINE / Unknown VAD(CVC, PICC) / Unknown 10/02/2024 3:59 AM DIET ASSISTANT 10/02/2024 4:32 AM DIET ASSISTANT us Pete Norris MD LAB - BLOOD ORDERABLES Final Re sult LABORATORY [facility] Core Lab 500 [facility], [address] * Phosphorus (10/02/2024 3:59 AM DIET ASSISTANT) Pathologist [facility] Phosphorus 2.8 2.5 - 4.5 mg/dL 10/02/2024 5:08 AM DIET ASSISTANT [facility] Blood VENOUS LINE / Unknown VAD(CVC, PICC) / Unknown 10/02/2024 3:59 AM DIET ASSISTANT 10/02/2024 4:29 AM DIET ASSISTANT us Pete Norris MD LAB - BLOOD ORDERABLES Final Re sult U LABORATORY [facility] [place] Core Lab 500 [facility] Building, Room [address] * Magnesium (10/02/2024 3:59 AM DIET ASSISTANT) Magnesium 1.7 1.7 - 2.3 mg/dL 10/02/2024 5:08 AM DIET ASSISTANT [facility] Blood VENOUS LINE / Unknown VAD(CVC, PICC) / Unknown 10/02/2024 3:59 AM DIET ASSISTANT 10/02/2024 4:29 AM DIET ASSISTANT Pete Norris MD LAB - BLOOD ORDERABLES Final Re sult [facility] LABORAT[facility] Core Lab 500 [facility], [address] * (ABNORMAL) Comprehensive metabolic panel (10/02/2024 3:59 AM DIET ASSISTANT) Sodium 140 135 - 145 mmol/L 10/02/2024 5:08 AM DIET ASSISTANT [facility] Potassium 3.6 3.4 - 5.3 mmol/L 10/02/2024 5:08 AM DIET ASSISTANT [facility] Carbon Dioxide (CO2) 24 22 - 29 mmol/L 10/02/2024 5:08 AM DIET ASSISTANT [facility] Anion Gap 11 7 - 15 mmol/L 10/02/2024 5:08 AM DIET ASSISTANT [facility] Urea Nitrogen 9.8 8.0 - 23.0 mg/dL 10/02/2024 5:08 AM DIET ASSISTANT [facility] Creatinine 0.69 0.51 - 0.95 mg/dL 10/02/2024 5:08 AM DIET ASSISTANT [facility] GFR Estimate 90 >60 mL/min/1.7 3m2 10/02/2024 5:08 AM DIET ASSISTANT [facility] Comment:eGFR calculated usin 2020 CKD-EPI equation. Calcium 8.7(L) 8.8 - 10.4 mg/dL 10/02/2024 5:08 AM DIET ASSISTANT [facility] Comment:Reference intervals for this test were updated on 04/19/2024 to reflect our healthy population more accurately. There may be differences in the flagging of prior results with similar values performed with this method. Those prior results can be interpreted in the context of the updated reference intervals. Chloride 105 98 - 107 mmol/L 10/02/2024 5:08 AM DIET ASSISTANT [facility] Glucose 95 70 - 99 mg/dL 10/02/2024 5:08 AM DIET ASSISTANT [facility] Alkaline Phosphatase 136 40 - 150 U/L 10/02/2024 5:08 AM DIET ASSISTANT [facility] AST 51(H) 0 - 45 U/L 10/02/2024 5:08 AM DIET ASSISTANT [facility] ALT 56(H) 0 - 50 U/L 10/02/2024 5:08 AM DIET ASSISTANT [facility] Protein Total 5.5(L) 6.4 - 8.3 g/dL 10/02/2024 5:08 AM DIET ASSISTANT [facility] Albumin 3.1(L) 3.5 - 5.2 g/dL 10/02/2024 5:08 AM DIET ASSISTANT [facility] Bilirubin Total 0.7 <=1.2 mg/dL 10/02/2024 5:08 AM DIET ASSISTANT [facility] Blood VENOUS LINE / Unknown VAD(CVC, PICC) / Unknown 10/02/2024 3:59 AM DIET ASSISTANT 10/02/2024 4:29 AM DIET ASSISTANT Pete Norris MD LAB - BLOOD ORDERABLES Final Re sult Performing Organization Address City/[facility]/ZIP Co de Phone Number LABORATORY [facility] Core Lab 500 [facility], [address] [phone] * (ABNORMAL) TSH with free T4 reflex (10/02/2024 3:59 AM DIET ASSISTANT) TSH 0.18(L) 0.30 - 4.20 uIU/mL 10/02/2024 5:08 AM DIET ASSISTANT [facility] Blood VENOUS LINE / Unknown VAD(CVC, PICC) / Unknown 10/02/2024 3:59 AM DIET ASSISTANT 10/02/2024 4:29 AM DIET ASSISTANT us Hiren Garner MD LAB - BLOOD ORDERABLES Final Result U LAB[facility]ORY [facility] [place] Core Lab 500 [facility], [address] * (ABNORMAL) CRP inflammation (10/02/2024 3:59 AM DIET ASSISTANT) [facility] CRP Inflammation 65.60(H) <5.00 mg/L 10/02/2024 5:08 AM DIET ASSISTANT [facility] Blood VENOUS LINE / Unknown VAD(CVC, PICC) / Unknown 10/02/2024 3:59 AM DIET ASSISTANT 10/02/2024 4:29 AM DIET ASSISTANT Hiren Garner MD LAB - BLOOD ORDERABLES Final Result [facility] LAB[facility] Core Lab 500 [facility], [address] * (ABNORMAL) CBC with platelets (10/02/2024 3:59 AM DIET ASSISTANT) [facility] WBC Count 6.2 4.0 - 11.0 10e3/uL 10/02/2024 4:35 AM DIET ASSISTANT [facility] RBC Count 4.07 3.80 - 5.20 10e6/uL 10/02/2024 4:35 AM DIET ASSISTANT [facility] Hemoglobin 11.4(L) 11.7 - 15.7 g/dL 10/02/2024 4:35 AM DIET ASSISTANT [facility] Hematocrit 37.0 35.0 - 47.0 % 10/02/2024 4:35 AM DIET ASSISTANT [facility] MCV 91 78 - 100 fL 10/02/2024 4:35 AM DIET ASSISTANT [facility] MCH 28.0 26.5 - 33.0 pg 10/02/2024 4:35 AM DIET ASSISTANT [facility] MCHC 30.8(L) 31.5 - 36.5 g/dL 10/02/2024 4:35 AM DIET ASSISTANT [facility] RDW 13.4 10.0 - 15.0 % 10/02/2024 4:35 AM DIET ASSISTANT [facility] Platelet Count 172 150 - 450 10e3/uL 10/02/2024 4:35 AM DIET ASSISTANT [facility] Blood VENOUS LINE / Unknown VAD(CVC, PICC) / Unknown 10/02/2024 3:59 AM DIET ASSISTANT 10/02/2024 4:30 AM DIET ASSISTANT Chary Evans MD LAB - BLOOD ORDERABLES Final Result [facility] [place] Core Lab 500 [facility], [address] [phone] * (ABNORMAL) Comprehensive metabolic panel (10/01/2024 9:01 PM DIET ASSISTANT) Sodium 142 135 - 145 mmol/L 10/01/2024 9:43 PM DIET ASSISTANT [facility] Potassium 3.7 3.4 - 5.3 mmol/L 10/01/2024 9:43 PM DIET ASSISTANT [facility] Carbon Dioxide (CO2) 25 22 - 29 mmol/L 10/01/2024 9:43 PM DIET ASSISTANT [facility] Anion Gap 10 7 - 15 mmol/L 10/01/2024 9:43 PM DIET ASSISTANT [facility] Urea Nitrogen 9.9 8.0 - 23.0 mg/dL 10/01/2024 9:43 PM DIET ASSISTANT [facility] Creatinine 0.70 0.51 - 0.95 mg/dL 10/01/2024 9:43 PM DIET ASSISTANT [facility] GFR Estimate 90 >60 mL/min/1.7 3m2 10/01/2024 9:43 PM DIET ASSISTANT [facility] Comment:eGFR calculated us2020 CKD-EPI equation. Calcium 8.8 8.8 - 10.4 mg/dL 10/01/2024 9:43 PM DIET ASSISTANT [facility] Comment:Reference intervals for this test were updated on 04/19/2024 to reflect our healthy population more accurately. There may be differences in the flagging of prior results with similar values performed with this method. Those prior results can be interpreted in the context of the updated reference intervals. Chloride 107 98 - 107 mmol/L 10/01/2024 9:43 PM DIET ASSISTANT [facility] Glucose 94 70 - 99 mg/dL 10/01/2024 9:43 PM DIET ASSISTANT [facility] Alkaline Phosphatase 145 40 - 150 U/L 10/01/2024 9:43 PM DIET ASSISTANT [facility] AST 57(H) 0 - 45 U/L 10/01/2024 9:43 PM DIET ASSISTANT [facility] ALT 65(H) 0 - 50 U/L 10/01/2024 9:43 PM DIET ASSISTANT [facility] Protein Total 6.0(L) 6.4 - 8.3 g/dL 10/01/2024 9:43 PM DIET ASSISTANT [facility] Albumin 3.2(L) 3.5 - 5.2 g/dL 10/01/2024 9:43 PM DIET ASSISTANT [facility] Bilirubin Total 0.6 <=1.2 mg/dL 10/01/2024 9:43 PM DIET ASSISTANT [facility] Blood VENOUS LINE / Unknown VAD(CVC, PICC) / Unknown 10/01/2024 9:01 PM DIET ASSISTANT 10/01/2024 9:11 PM DIET ASSISTANT us Chary Evans MD LAB - BLOOD ORDERABLES Final Result [facility] [place] Core Lab 500 [facility], [address] [place] [phone] * CBC with platelets (10/01/2024 9:01 PM DIET ASSISTANT) WBC Count 6.6 4.0 - 11.0 10e3/uL 10/01/2024 9:17 PM DIET ASSISTANT [facility] RBC Count 4.19 3.80 - 5.20 10e6/uL 10/01/2024 9:17 PM DIET ASSISTANT [facility] Hemoglobin 12.0 11.7 - 15.7 g/dL 10/01/2024 9:17 PM DIET ASSISTANT [facility] Hematocrit 37.5 35.0 - 47.0 % 10/01/2024 9:17 PM DIET ASSISTANT [facility] MCV 90 78 - 100 fL 10/01/2024 9:17 PM DIET ASSISTANT [facility] MCH 28.6 26.5 - 33.0 pg 10/01/2024 9:17 PM DIET ASSISTANT [facility] MCHC 32.0 31.5 - 36.5 g/dL 10/01/2024 9:17 PM DIET ASSISTANT [facility] RDW 13.7 10.0 - 15.0 % 10/01/2024 9:17 PM DIET ASSISTANT [facility] Platelet Count 189 150 - 450 10e3/uL 10/01/2024 9:17 PM DIET ASSISTANT [facility] Blood VENOUS LINE / Unknown VAD(CVC, PICC) / Unknown 10/01/2024 9:01 PM DIET ASSISTANT 10/01/2024 9:11 PM DIET ASSISTANT us Chary Evans MD LAB - BLOOD ORDERABLES Final Result [facility] [place] Core Lab 500 [facility] [address] Building, [address] [place] [phone] * XR Chest Port 1 View (10/01/2024 8:49 PM DIET ASSISTANT) Anatomical Region Laterality Modality Chest Computed Radiogr aphy Impressions 10/01/2024 10:03 PM DIET ASSISTANT Impression: 1. Right PICC terminates at the mid SVC. 2. No acute airspace disease. 3. Esophageal stent. I have personally reviewed the examination and initial interpretation and I agree with the findings. SUDHAKAR DSOUZA MD Narrative 10/01/2024 10:03 PM DIET ASSISTANT Exam: XR CHEST PORT 1 VIEW, 10/01/2024 [...] agree with the findings. SUDHAKAR DSOUZA MD us Chary Evans MD IMG DIAGNOSTIC IMAGING ORDER DICK Final Result * Lactic Acid Whole Blood w/ 1x repeat in 2 hrs when >2 (10/01/2024 7:45 PM DIET ASSISTANT) Lactic Acid, Initial 1.1 0.7 - 2.0 mmol/L 10/01/2024 8:06 PM DIET ASSISTANT [facility] Blood VENOUS LINE / Unknown VAD(CVC, PICC) / Unknown 10/01/2024 7:45 PM DIET ASSISTANT 10/01/2024 8:02 PM DIET ASSISTANT Pete Norris MD LAB - BLOOD ORDERABLES Final Re sult [facility] LAB[facility] [place] Core Lab 500 [facility], [address] [place] [phone] documented in this encounter Visit Diagnoses Diagnosis Esophageal perforation- Primary Perforation of esophagus Esophageal perforation Perforation of esophagus Acquired hypothyroidism Unspecified hypothyroidism Esophageal perforation Perforation of esophagus documented in [...] 10/02/24 at 1605 $Given 10/02/2024 9:02 PM DIET ASSISTANT 2 sprays bisacodyl (DULCOLAX) suppository 10 mg [...] further instructions $New Bag 10/02/2024 1:25 PM DIET ASSISTANT 1,000 mLs 83 mL/hr dextrose 10% infusion [...] 50 x 10e3/uL. $Given 10/08/2024 12:49 PM DIET ASSISTANT 40 mg $Given 10/07/2024 12:33 PM DIET ASSISTANT 40 mg $Given 10/06/2024 1:45 PM DIET ASSISTANT 40 mg fluconazole (DIFLUCAN) intermittent infusion 200 mg Routine, 200 mg, Intravenous, EVERY 24 HOURS, First dose on 10/01/24 at 2100, Indications: Fungal Infection ProphylaxisIndications:Fungal Infection Prophylaxis $New Bag 10/07/2024 11:48 PM DIET ASSISTANT 200 mg 100 mL/h r $New Bag 10/07/2024 12:01 AM DIET ASSISTANT 200 mg 100 mL/hr $New Bag 10/05/2024 11:05 PM DIET ASSISTANT 200 mg 100 mL/hr heparin lock flush 10 unit/mL injection 3 mL 3 mL, Intracatheter, EVERY 1 HOUR PRN, line flush, Starting on 10/02/24 at 0352 $Given 10/08/2024 4:21 PM DIET ASSISTANT 3 mL s $Given 10/08/2024 4:20 PM DIET ASSISTANT 3 mLs hydrALAZINE (APRESOLINE) injection 10-20 mg [...] in 24 hours $Given 10/04/2024 11:00 AM DIET ASSISTANT 10 mg $Given 10/02/2024 1:47 PM DIET ASSISTANT 20 mg $Given 10/02/2024 10:13 AM DIET ASSISTANT 20 mg HYDROmorphone (DILAUDID) injection 0.2 mg 0.2 mg, Intravenous, EVERY 4 HOURS PRN, moderate pain, Starting on 10/01/24 at 1950, IF patient unable to take oral pain medication or pain not controlled with oral analgesics. Hold IV PRN opioid dose for analgesic side effects. Notify provider to assess for uncontrolled pain or analgesic side effects. HYDROmorphone (DILAUDID) injection 0.4 mg 0.4 mg, Intravenous, EVERY 4 HOURS PRN, severe pain, Starting on 10/01/24 at 1950, IF patient unable to take oral pain medication or pain not controlled with oral analgesics. Hold IV PRN opioid dose for analgesic side effects. Notify provider to assess for uncontrolled pain or analgesic side effects. iothalamate meglumine (CONRAY) 60 % injection PRN, Starting on 10/02/24 at 1255, Intra-procedure $Given 10/02/2024 12:55 PM DIET ASSISTANT 30 mLs labetalol (NORMODYNE/TRANDATE) injection 10 mg 10 mg, Intravenous, EVERY 6 HOURS PRN, high blood pressure, Starting on 12/28/24 at 1952, If heart rate greater than [...] hours lactated ringers infusion 1,000 mL at 30 mL/hr, Intravenous, CONTINUOUS, TPN + LR = 100 ml/hr , Starting on Thu10/04/24 at 1400, Until 10/08/24 at 1934 $New Bag 10/07/2024 11:10 AM DIET ASSISTANT 1,000 mLs 30 mL/hr $New Bag 10/05/2024 6:33 PM DIET ASSISTANT 1,000 mLs 30 mL/hr $New Bag 10/04/2024 3:07 PM DIET ASSISTANT 1,000 mLs 30 mL/hr lipids 4 oil (SMOFLIPID) 20 % infusion 250 mL Intravenous, 250 mL, USER SPECIFIED (Once per day on Thursday), at 20.8 mL/hr, Administer over 12 Hours, First dose on Thu10/03/24 at 2000, Administer through a 1.2 micron filter. Requires container change and tubing change every 12 hours. $New Bag 10/07/2024 8:30 PM DIET ASSISTANT 250 mLs 20.8 mL/hr $New Bag 10/06/2024 8:45 PM DIET ASSISTANT 250 mLs 20.8 mL/hr $New Bag 10/05/2024 9:10 PM DIET ASSISTANT 250 mLs 20.8 mL/hr metoprolol (LOPRESSOR) injection 5 mg 5 mg, Intravenous, EVERY 6 HOURS, Administer over 5-10 Minutes, First dose on Thu10/01/24 at 2000, Hold for HR <60 or systolic <100 $Given 10/08/2024 9:26 AM DIET ASSISTANT 5 mg $Given 10/07/2024 8:31 PM DIET ASSISTANT 5 mg $Given 10/07/2024 9:13 AM DIET ASSISTANT 5 mg naloxone (NARCAN) injection 0.2 mg [...] 2 prochlorperazine (COMPAZINE). $Given 10/02/2024 12:40 PM DIET ASSISTANT 4 mg pantoprazole (PROTONIX) IV push injection 40 mg 40 mg, Intravenous, DAILY, First dose (after last modification) on 10/01/24 at 2200 $Given 10/08/2024 9:26 AM DIET ASSISTANT 4 0 mg $Given 10/07/2024 9:13 AM DIET ASSISTANT 40 mg $Given 10/06/2024 8:54 AM DIET ASSISTANT 40 mg parenteral nutrition - ADULT compounded [...] then stop. Rate/Dose Change 10/08/2024 2:16 PM DIET ASSISTANT 49 mL/hr Rate/Dose Change 10/07/2024 9:30 PM DIET ASSISTANT 99 mL/h r Start cyclic TPN 10/07/2024 8:30 PM DIET ASSISTANT 49 mL/h r piperacillin-tazobactam (ZOSYN) intermittent infusion 4.5 g Routine, 4.5 g, Intravenous, EVERY 6 HOURS, First dose on 10/01/24 at 2200, Incompatible with lactated ringers, parenteral nutrition or any other calcium containing IV fluids. Flush line with NS pre and post dose. , Indications: Perioperative Pharmacoprophylaxis, retropharyngeal perforationIndications:Perioperativ e Pharmacoprophylaxis,retropharyngeal perforation $New Bag 10/08/2024 12:49 PM DIET ASSISTANT 4.5 g 200 mL/hr $New Bag 10/08/2024 6:35 AM DIET ASSISTANT 4.5 g 200 mL/hr $New Bag 10/08/2024 1:14 AM DIET ASSISTANT 4.5 g 200 mL/hr prochlorperazine (COMPAZINE) injection 5 mg 5 mg, Intravenous, EVERY 6 HOURS PRN, nausea/vomiting - 2nd line, Administer over 1-2 Minutes, Starting on 10/01/24 at 1950, IF patient unable to tolerate oral medication. This is Step 2 of nausea and vomiting management. Give if nausea not resolved 15 minutes after giving ondansetron (ZOFRAN). prochlorperazine (COMPAZINE) tablet 5 mg 5 mg, Oral, EVERY 6 HOURS PRN, nausea/vomiting - 2nd line, Starting on 10/01/24 at 1950, This is Step 2 of nausea and vomiting management. Give if nausea not resolved 15 minutes after giving ondansetron (ZOFRAN). documented in this encounter Active and Recently Administered Medications Times are shown in DIET ASSISTANT. Scheduled Medication Order 10/06/2024 10/07/2024 10/08/2024 enoxaparin [...] Prophylaxis 0001 ($New Bag - Provider: Sridevi Arroyo, FRANCISCO)2348 ($New Bag - Provider: Priya Garcia RN) [...] HR 57)0913 ($Given - Provider: Emily Brennan RN)142 (Not Given - Provider: Emily Brennan RN - Reason: Order parameters not met - Comment: HR 60; but has dropped to 58. hold per orders.)2030 ($Given - Provider: Jayne Epps RN) 0209 (Not Given - Provider: Priya Garcia, FRANCISCO - Reason: Order parameters not met - [...] Brennan RN) 0913 ($Given - Provider: Emily Brennan, FRANCISCO) 0926 ($Given - Provider: Emily Brennan RN) piperacillin-tazobactam (ZOSYN) intermittent infusion 4.5 g [...] Chun RN)1345 ($New Bag - Provider: Gris Hernandez RN)1805 ($New Bag - Provider: Jazmin Ordonez) 0001 ($New Bag - Provider: Sridevi Arroyo, FRANCISCO)0552 ($New Bag - Provider: Sridevi Arroyo RN)1233 ($New Bag - Provider: Emily Brennan RN)1851 ($New Bag - Provider: Jayne Epps RN) 0114 ($New Bag - Provider: Priya Garcia, FRANCISCO)0635 ($New Bag - Provider: Priya Garcia RN)1249 ($New Bag - Provider: Elaina Del Toro RN)1900 (Canceled Entry - Provider: Orders Generic Provider [...] LR = 100 ml/hr , Starting on Tu10/04/24 at 1400, Until 10/08/24 at 1934 1110 [...] 2029 (Start cyclic TPN - Provider: Jayne Epps RN)213 (Rate/Dose Change - Provider: Dannielle Moura RN) 141 (Rate/Dose Change - Provider: Emily Brennan, FRANCISCO)1601 (Stopped - Provider: Jayne Epps RN) parenteral nutrition - ADULT compounded formula () CENTRAL LINE IV, at 70 mL/hr, Administer over 24 Hours, TPN CONTINUOUS, Starting on Shae 10/06/24 at 2000, For 24 hours, Infuse using [...] reversal, Starting on 10/03/24 at 1026, Administer intramuscular if an intravenous [...] reversal, Starting on 10/03/24 at 1026, Administer intramuscular if an intravenous [...] (ZOFRAN). documented in this encounter Care Teams Combination Man Relationship Specialty [place] [address] [place] [address] PCP - General Family Medicine 10/02/24 [place] [address] [place] [address] Assigned PCP 08/29/23 documented as of this encounter
--- OUTSIDE RECORDS SUMMARY | 2024-10-17 20:04 | XMS_ITS | Encounter Summary ---
Author Organization [place] Address [address] [place] [address]. [place] [address] Care Team Providers Care Housing Specialist Name Role Phone Marika Wills Shawna Richard MD Unavailable +- [phone] Jose A Sheikh MD Primary Care Provider + [phone] Encounter Details Date Type Department Care Team (Late st Contact Info) Description 10/04/2024 2:50 PM DENTAL OFFICE COORDINATOR Ancillary Procedure [facility] [address] [place] [address] Alex Costa MD [address] [place] [address] Social History Tobacco Use Types Packs/Day Years [...] on file Legal Sex Female 3:39 AM DENTAL OFFICE COORDINATOR Gender Identity Not on file Sexual Orientation Not on file documented as of this encounter Plan of Treatment Upcoming Encounters Date Type Department Care Team (Late st Contact Info) Description 10/19/2024 9:30 AM DENTAL OFFICE COORDINATOR Virtual Visit [facility] [address] [place] [address] Adrianna Elizabeth APRN [facility] [address] [facility] [address] [place], [place] [address] Pending Results Name Type Priority Associated Diagnoses Date /Time POC US GUIDE FOR THORACENTESIS Imaging Routine 10/04/2024 2:49 PM DENTAL OFFICE COORDINATOR documented as of this encounter Visit Diagnoses Not on filedocumented in this encounter Care Teams Housing Specialist Relationship Specialty [place] [address] [place] [address] PCP - General Family Medicine 10/02/24 [place] [address] [place] [address] Assigned PCP 08/29/23 documented as of this encounter
--- OUTSIDE RECORDS SUMMARY | 2024-10-17 20:05 | XMS_ITS | Encounter Summary ---
Author Organization [facility] Address [address] [place] [address] Care Team Providers Care Journeyman Molder Name Role Phone Sudhakar Barron MD Primary Care Provider [phone] Rhianna Loza PA-C Primary Care Provider +[phone] Sudarshan Rosales MD Primary Care Provider [phone] Felipa Scott MD Primary Care Provider + Felipa Scott MD Unavailable + Felipa Scott MD Unavailable + Felipa Scott MD Unavailable +[phone] Felipa Scott MD Unavailable + Felipa Scott MD Unavailable + Felipa Scott MD Unavailable + Beryl Betancur MD Unavailable + Beryl Betancur MD Primary Care Prov ider Reina Panchal PA-C Unavailable +[phone] Coming Shawna Wills MD Primary Care Provid er Beryl Betancur MD Unavailable + Coming Shawna Wills MD Unavailable +[phone] Jose A Sheikh MD Primary Care Provider + [phone] Karson Sal RN Unavailable Unavailable Sita Avila RD Unavailable Unavailable Adrianna Elizabeth DINKEY LOCOMOTIVE OPERATOR METAL FORGER'S ASSISTANT Unavailable Encounter Details Date Type Department Care Team (Late st Contact Info) Description 04/09/2010 MyC Medical Advice [address] [phone] [facility] Social History Tobacco Use Types Packs/Day Years Used Date Smoking Tobacco: Never Alcohol Use Standard Drinks/Week Comments Not Asked 0 (1 standard drink = 0.6 oz pur e alcohol) Comments No Sex and Gender Information Value Date Recorded Sex Assigned at Not on file Legal Sex Female 3:39 AM BRICK HANDLER Gender Identity Not on file Sexual Orientation Not on file documented as of this encounter Plan of Treatment Upcoming Encounters Date Type Department Care Team (Late st Contact Info) Description 10/19/2024 9:30 AM BRICK HANDLER Virtual Visit [facility] [address] [facility] [place] [address] Adrianna Elizabeth, SUKHDEEP [facility] [address] [facility] [address] [place], [place] [address] documented as of this encounter Visit Diagnoses Not on filedocumented in this encounter Care Teams Journeyman Molder Relationship Specialty Start Date End Date Sudhakar Barron MD [address] [facility] [place] [address] PCP - General 10/30/03 01/12/14 Rhianna Loza PA-C [address] [place] [address] PCP - General Physician Mud Temperer 02/23/14 09/23/15 [place] [address] [place] [address] PCP - General Family Practice 09/24/15 12/15/17 [place] [address] [place] [address] PCP - General Family Practice 12/16/17 09/04/22 [place] [address] [place] [address] PCP - Assigned PCP 12/20/17 12/07/18 [place] [address] [place] [address] PCP - General Family Medicine 09/05/22 03/04/23 [place] [address] [place] [address] PCP - General Family Medicine 03/05/23 10/01/24 [place] [address] [address] [place] [address] PCP - General Family Medicine 10/02/24 [place] [address] [place] [address] Assigned PCP 03/27/19 03/17/20 [place] [address] [place] [address] Assigned PCP 12/20/17 03/26/19 [place] [address] [place] [address] Assigned PCP 04/29/20 01/12/21 [place] [address] [place] [address] Assigned PCP 03/18/20 04/28/20 [place] [address] [place] [address] Assigned PCP 01/13/21 07/11/22 [place] [address] [place] [address] Assigned PCP 07/12/22 02/27/23 Reina Panchal PA-C [address] [place] [address] Assigned PCP 02/28/23 05/15/23 Beryl Betancur MD ARISE [address] [place] [address] Assigned PCP 05/16/23 08/28/23 [place] [address] [place] [place] [address] Assigned PCP 08/29/23 Karson Sal RN I Resource Team 10/06/24 10/07/[address] [facility] Registered Dietitian Dietitian 10/10/24 Adrianna Elizabeth, SUKHDEEP METAL FORGER'S ASSISTANT [address] [place] [address] Home Infusion Following Provider Cardiovascular & Thoracic Surgery 10/17/24 documented as of this encounter
--- OUTSIDE RECORDS SUMMARY | 2024-10-17 20:05 | XMS_ITS ---
Author Organization [facility] Address [address] [place] [address] Care Team Providers Care Starter Cup Powder Mixer Name Role Phone Coming Shawna Wills MD Unavailable +- [phone] Jose A Sheikh MD Primary Care Provider + [phone] Unavailable Unavailable Adrianna Elizabeth APRN COSTUME MAKER Unavailable Transitional Care Management Status:Enrolled (Active) Start date:10/10/2024 Enrollment date:10/10/2024 Continued Care and Services Coordination
--- OUTSIDE RECORDS SUMMARY | 2024-10-17 20:05 | XMS_ITS | Encounter Summary ---
Author Organization [place] [facility] Address [address] [place] [address] Care Team Providers Care Custom Furrier Name Role Phone Sudhakar Barron MD Primary Care Provider [phone] Rhianna Loza PA-C Primary Care Provider +[phone] Sudarshan Rosales MD Primary Care Provider [phone] Felipa Scott MD Primary Care Provider + Felipa Scott MD Unavailable + Felipa Scott MD Unavailable + Felipa Scott MD Unavailable +[phone] Felipa Scott MD Unavailable + Felipa Scott MD Unavailable + Felipa Scott MD Unavailable + Beryl Betancur MD Unavailable + Beryl Betancur MD Primary Care Prov ider Reina Panchal PA-C Unavailable +[phone] Coming Shawna Wills MD Primary Care Provid er Beryl Betancur MD Unavailable + Coming Shawna Wills MD Unavailable +- [phone] Jose A Sheikh MD Primary Care Provider [phone] Karson Sal RN Unavailable Unavailable Sita Avila RD Unavailable Unavailable Adrianna Elizabeth DOMESTIC FREIGHT FORWARDER MERCHANDISE COMPLAINT ADJUSTER Unavailable Reason for Visit * Reason Onset Date Comments Outreach 06/10/2013 preventative a lt screen Encounter Details Date Type Department Care Team (Late st Contact Info) Description 06/10/[address] [address] Sudhakar Barron MD [address] [place] [address] Outreach (preventative health screen) Social History Tobacco Use Types Packs/Day Years Used Date Smoking Tobacco: Never Smokeless Tobacco: Never Alcohol Use Standard Drinks/Week Comments No 0 (1 standard drink = 0.6 oz pur e alcohol) Comments No Sex and Gender Information Value Date Recorded Sex Assigned at Not on file Legal Sex Female 3:39 AM ANIMAL CONTROL SUPERVISOR Gender Identity Not on file Sexual Orientation Not on file documented as of this encounter Miscellaneous Notes * Telephone Encounter - Monse Araujo - 06/15/2013 12:05 PM CDT 06/15/2013 Call Regarding Preventive Health Screening Colonoscopy Attempt 2 Message on voicemail Comments: Outreach Plant Anatomy Teacher Monse Araujo * Telephone Encounter - Adrianna Bell - 06/10/2013 11:45 AM CDT 06/10/2013 Call Regarding Preventive Health Screening Colonoscopy Attempt 1 Message on voicemail Comments: Outreach Plant Anatomy Teacher Adrianna Bell documented in this encounter Plan of Treatment Upcoming Encounters Date Type Department Care Team (Late st Contact Info) Description 10/19/2024 9:30 AM ANIMAL CONTROL SUPERVISOR Virtual Visit [facility] [address] [place] [phone] Adrianna Elizabeth, DOMESTIC FREIGHT FORWARDER MERCHANDISE COMPLAINT ADJUSTER [address] [facility] [address] [place] [address] documented as of this encounter Visit Diagnoses Not on filedocumented in this encounter Care Teams Custom Furrier Relationship Specialty Start Date End Date Sudhakar Barron MD [address] [place] [address] PCP - General 10/30/03 01/12/14 Rhianna Loza, PAAnatC [address] [place] [address] PCP - General Physician Athletic Scout 02/23/14 09/23/15 [place] [address] [place] [address] PCP - General Family Practice 09/24/15 12/15/17 [place] [address] [place] [address] PCP - General Family Practice 12/16/17 09/04/22 [place] [address] [place] [address] PCP - Assigned PCP 12/20/17 12/07/18 [place] [address] [place] [address] PCP - General Family Medicine 09/05/22 03/04/23 [place] [address] [place] [address] PCP - General Family Medicine 03/05/23 10/01/24 [place] [address] [place] [address] PCP - General Family Medicine 10/02/24 [place] [address] [place] [address] Assigned PCP 03/27/19 03/17/20 [place] [address] [place] [address] Assigned PCP 12/20/17 03/26/19 [place] [address] [place] [address] Assigned PCP 04/29/20 01/12/21 [place] [address] [place] [address] Assigned PCP 03/18/20 04/28/20 [place] [address] [place] [address] Assigned PCP 01/13/21 07/11/22 [place] [address] [place] [address] Assigned PCP 07/12/22 02/27/23 Reina Panchal PA-C [address] [place] [address] Assigned PCP 02/28/23 05/15/23 Beryl Betancur MD ARISE [address] [address] Assigned PCP 05/16/23 08/28/23 [place] [address] [place], [place] [address] Assigned PCP 08/29/23 Karson Sal RN I Resource Team 10/06/24 10/07/[address] I Registered Dietitian Dietitian 10/10/24 Adrianna Elizabeth APRN MERCHANDISE COMPLAINT ADJUSTER [address] [place] [address] Home Infusion Following Provider Cardiovascular & Thoracic Surgery 10/17/24 documented as of this encounter
--- OUTSIDE RECORDS SUMMARY | 2024-10-17 20:05 | XMS_ITS ---
Author Organization [facility] Address [address] [place] [address] Care Team Providers Care Traffic Police Officer Name Role Phone Marika Shawna Wills MD Unavailable + [phone] Jose A Sheikh MD Primary Care Provider + [phone] Unavailable Unavailable Adrianna Elizabeth APRN PLAY WRITER Unavailable Home Infusion Status:Enrolled (Active) Start date:10/06/2024 Enrollment date:10/08/2024 Enrollment reason:Identified using referral data Related service episodes:TPN (Active), Other (Active), Anti-infective (Active) Case Team Name Relationship Phone Sita Avila RD I Registered Dietitian Adrianna Elizabeth APRN PLAY WRITER Home Infusion Following Provider [phone] Continued Care and Services Coordination This section includes services coordinated for Home Infusion. [place] [facility] Name Services Phone [facility] [phone]
--- OUTSIDE RECORDS SUMMARY | 2024-10-17 20:05 | XMS_ITS | Encounter Summary ---
Author Organization [facility] Address [address] [place] [address] Care Team Providers Care Decorating Supervisor Name Role Phone Felipa Scott MD Primary Care Provider Felipa Scott MD Unavailable [phone] Felipa Scott MD Unavailable [phone] Felipa Scott MD Unavailable [phone] Felipa Scott MD Unavailable [phone] Beryl Betancur MD Unavailable + Beryl Betancur MD Primary Care Prov ider Reina Panchal PA-C Unavailable +[phone] Coming Shawna Wills MD Primary Care Provid er Beryl Betancur MD Unavailable + Coming Shawna Wills MD Unavailable + [phone] Jose A Sheikh MD Primary Care Provider + [phone] Karson Sal RN Unavailable Unavailable Sita Avila RD Unavailable Unavailable Adrianna Elizabeth APRN CASTING CHIPPER Unavailable Reason for Visit * Reason Onset Date Comments Medication Refill 08/08/2019 levothyroxine (SYNTHROID/LEVOTHROID) 137 MCG tablet Encounter Details Date Type Department Care Team (Late st Contact Info) Description 08/07/[address] [address] [place] [address] [place] [address] Medication Refill (levothyroxine (SYNTHROID/LEVOTHROID) 137 MCG tablet) Social History Tobacco Use Types Packs/Day Years Used Date Smoking Tobacco: Never Smokeless Tobacco: Never Alcohol Use Standard Drinks/Week Comments Yes 0 (1 standard drink = 0.6 oz pur e alcohol) PHQ-2 Answer Date Recorded PHQ-2 Score 0 10/12/2018 Comments No Sex and Gender Information Value Date Recorded Sex Assigned at Not on file Legal Sex Female 3:39 AM WRAPAROUND FACILITATOR Gender Identity Not on file Sexual Orientation Not on file documented as of this encounter Miscellaneous Notes * Telephone Encounter - Jenn Cochran RN - 08/09/2019 11:06 AM CST Prescription approved per [facility] Refill Protocol. Jenn Cochran RN AROUND FACILITATOR * Telephone Encounter - Elsa Boyce - 08/08/2019 9:09 AM CST Images from the original note were not included. Requested Prescriptions Pending Prescriptions Disp Refills ??? levothyroxine (SYNTHROID/LEVOTHROID) 137 MCG tablet [Pharmacy Med Name: LEVOTHYROXINE SOD 137MCG TAB] 30 tablet 0 Sig: TAKE ONE TABLET BY MOUTH EVERY DAY Last Written Prescription Date: 07/20/19 Last Fill Quantity: 30, # refills: 0 Last Office Visit: 03/17/2019 Sonia Return in about 6 months (around 09/16/2019) for Annual Wellness Visit, blood pressure check, Med check. Future Office Visit: Thyroid Protocol Passed - 08/07/2019 5:09 AM Passed - Patient is 12 years or older Passed - Recent (12 mo) or future (30 days) visit within the authorizing provider's specialty Patient has had an office visit with the authorizing provider or a provider within the authorizing providers department within the previous 12 mos or has a future within next 30 days. See Patient Info tab in inbasket, or Choose Columns in Meds & Orders section of the refill encounter. Passed - Medication is active on med list Passed - Normal TSH on file in past 12 months Recent Labs Lab Test 07/26/19 0834 TSH 1.64 Passed - No active on record If patient is or has had a positive test, please check TSH. Passed - No positive test in past 12 months If patient is or has had a positive test, please check TSH. AROUND FACILITATOR documented in this encounter Plan of Treatment Upcoming Encounters Date Type Department Care Team (Late st Contact Info) Description 10/19/2024 9:30 AM WRAPAROUND FACILITATOR Virtual Visit [facility] [address] [place] [phone] Adrianna Elizabeth APRN [facility] [address] [facility] [address] [place] [address] documented as of this encounter Visit Diagnoses Diagnosis Acquired hypothyroidism Unspecified hypothyroidism documented in this encounter Care Teams Decorating Supervisor Relationship Specialty Start Date End Date Felipa Scott MD PCP - General Family Practice 12/16/17 09/04/22 [place] [address] [place] [address] PCP - General Family Medicine 09/05/22 03/04/23 [place] [address] [place] [address] PCP - General Family Medicine 03/05/23 10/01/24 [place] [address] [place] [address] PCP - General Family Medicine 10/02/24 [place] [address] [place] [address] Assigned PCP 03/27/19 03/17/20 [place] [address] [place] [address] Assigned PCP 04/29/20 01/12/21 [place] [address] [place] [address] Assigned PCP 03/18/20 04/28/20 [place] [address] [place] [address] Assigned PCP 01/13/21 07/11/22 [place] [address] [place] [address] Assigned PCP 07/12/22 02/27/23 Reina Panchal PA-C [address] [place] [address] Assigned PCP 02/28/23 05/15/23 Beryl Betancur MD ARISE [address] [facility] [place] [address] Assigned PCP 05/16/23 08/28/23 [place] [address] [place] [address] Assigned PCP 08/29/23 Karson Sal RN I Resource Team 10/06/24 10/07/[address] [facility] Registered Dietitian Dietitian 10/10/24 Adrianna Elizabeth APRN CASTING CHIPPER [address] [facility] [address] [place] [address] Home Infusion Following Provider Cardiovascular & Thoracic Surgery 10/17/24 documented as of this encounter
--- OUTSIDE RECORDS SUMMARY | 2024-10-17 20:05 | XMS_ITS ---
Author Organization [facility] Address [address] [place] [address] Care Team Providers Care Manufacturing Assembler Name Role Phone Coming Shawna Wills MD Unavailable +- [phone] Jose A Sheikh MD Primary Care Provider + [phone] Unavailable Unavailable Adrianna Elizabeth APRN HOSPICE ADMINISTRATOR Unavailable Anti-infective Status:Enrolled (Active) Start date:10/09/2024 Enrollment date:10/09/2024 Linked medications:Piperacillin Sod-Tazobactam So,Sodium Chloride,HOMEPUMP ELASTOMERIC PUMP - 100 ML; 200 ML/HR (Active) Related program episode:Home Infusion (Active) Continued Care and Services Coordination
--- OUTSIDE RECORDS SUMMARY | 2024-10-17 20:05 | XMS_ITS ---
Author Organization [facility] Address [facility] [place] [address] Care Team Providers Care Rn Informatics Name Role Phone Coming Shawna Wills MD Unavailable +- [phone] Jose A Sheikh MD Primary Care Provider + [phone] Unavailable Unavailable Adrianna Elizabeth APRN INFORMATION TECHNOLOGY MANAGER Unavailable TPN Status:Enrolled (Active) Start date:10/06/2024 Enrollment date:10/08/2024 Linked medications:Sodium Acetate,Calcium Gluconate,Magnesium Sulfate,Potassium Acetate,Sodium Chloride,Dextrose,AminoAcid Infusion,Water For Injection Sterile,Fat Emul Fish Oil/Plant Based,Sodium Phosphates,Trace Minerals Cu-Mn-Se-Zn (Active) Linked problems:Esophageal perforation (Active) Related program episode:Home Infusion (Active) Continued Care and Services Coordination
--- OUTSIDE RECORDS SUMMARY | 2024-10-17 20:05 | XMS_ITS | Encounter Summary ---
Author Organization [place] Address [address] [place] [address] Care Team Providers Care Welder 2Nd Shift Name Role Phone Felipa Scott MD Primary Care Provider Felipa Scott MD Unavailable [phone] Felipa Scott MD Unavailable [phone] Felipa Scott MD Unavailable [phone] Felipa Scott MD Unavailable [phone] Felipa Scott MD Unavailable [phone] Beryl Betancur MD Unavailable + Beryl Betancur MD Primary Care Prov ider Reina Panchal PA-C Unavailable [phone] Coming Shawna Wills MD Primary Care Provid er Beryl Betancur MD Unavailable + Coming Shawna Wills MD Unavailable + [phone] Jose A Sheikh MD Primary Care Provider + [phone] Karson Sal RN Unavailable Unavailable Sita Avila RD Unavailable Unavailable Adrianna Elizabeth APRN JOINT FILLER Unavailable Reason for Visit * Reason Onset Date Comments Medication Refill 02/08/2019 amLODIPine (NO RVASC) 10 MG tablet Encounter Details Date Type Department Care Team (Late st Contact Info) Description 02/08/[address], [address] [place] [address] [place] [address] [place] [address] Medication Refill (amLODIPine (NORVASC) 10 MG tablet) Social History Tobacco Use Types Packs/Day Years Used Date Smoking Tobacco: Never Smokeless Tobacco: Never Alcohol Use Standard Drinks/Week Comments Yes 0 (1 standard drink = 0.6 oz pur e alcohol) PHQ-2 Answer Date Recorded PHQ-2 Score 0 10/12/2018 Comments No Sex and Gender Information Value Date Recorded Sex Assigned at Not on file Legal Sex Female 3:39 AM APPLIED ANTHROPOLOGIST Gender Identity Not on file Sexual Orientation Not on file documented as of this encounter Miscellaneous Notes * Telephone Encounter - Jenn Cochran RN - 02/08/2019 5:15 PM CDT Patient has an upcoming appointment. Will give refill to get her through. Jenn Cochran RN * Telephone Encounter - Elsa Boyce - 02/08/2019 11:04 AM CDT Images from the original note were not included. Requested Prescriptions Pending Prescriptions Disp Refills ??? amLODIPine (NORVASC) 10 MG tablet [Pharmacy Med Name: AMLODIPINE BESYLATE 10MG TAB] 90 tablet 1 Sig: TAKE ONE TABLET BY MOUTH EVERY DAY Last Written Prescription Date: 08/16/18 Last Fill Quantity: 90, # refills: 1 Last Office Visit: 03/18/2018 [place] Return in about 2 weeks (around 04/01/2018) for blood pressure check, nurse only appointment. Future Office Visit: Next 5 appointments (look out 90 days) Mar 17, 2019 9:20 AM CDT PHYSICAL with Felipa Scott MD [facility] [address] [facility], [address] [facility] [address] Calcium Channel Blockers Protocol Passed - 02/08/2019 10:44 AM Passed - Blood pressure under 140/90 in past 12 months BP Readings from Last 3 Encounters: 04/05/18 139/84 03/18/18 122/80 01/15/18 120/58 Passed - Recent (12 mo) or future (30 days) visit within the authorizing provider's specialty Patient had office visit in the last 12 months or has a visit in the next 30 days with authorizing provider or within the authorizing provider's specialty. See Patient Info tab in inbasket, or Choose Columns in Meds & Orders section of the refill encounter. Passed - Medication is active on med list Passed - Patient is age 18 or older Passed - No active on record Passed - Normal serum creatinine on file in past 12 months Recent Labs Lab Test 02/17/18 1440 CR 0.72 Passed - No positive test in past 12 months documented in this encounter Plan of Treatment Upcoming Encounters Date Type Department Care Team (Late st Contact Info) Description 10/19/2024 9:30 AM APPLIED ANTHROPOLOGIST Virtual Visit [facility] [address] [place] [address] Adrianna Elizabeth APRN [facility] [address] [facility] [address] [place], [place] [address] documented as of this encounter Visit Diagnoses Diagnosis Essential hypertension, benign documented in this encounter Care Teams Welder 2Nd Shift Relationship Specialty Start Date End Date Felipa Scott MD PCP - General Family Practice 12/16/17 09/04/22 [place] [address] [place] [address] PCP - General Family Medicine 09/05/22 03/04/23 [place] [address] [place] [address] PCP - General Family Medicine 03/05/23 10/01/24 [place] [address] [address] [place] [address] PCP - General Family Medicine 10/02/24 [place] [address] [place] [address] Assigned PCP 03/27/19 03/17/20 [place] [address] [place] [address] Assigned PCP 12/20/17 03/26/19 [place] [address] [place] [address] Assigned PCP 04/29/20 01/12/21 [place] [address] [place] [address] Assigned PCP 03/18/20 04/28/20 [place] [address] [place] [address] Assigned PCP 01/13/21 07/11/22 [place] [address] [place] [address] Assigned PCP 07/12/22 02/27/23 Reina Panchal PA-C [address] [place] [address] Assigned PCP 02/28/23 05/15/23 Beryl Betancur MD ARISE [address] [address] Assigned PCP 05/16/23 08/28/23 [place] [address] [place], [place] [address] Assigned PCP 08/29/23 Karson Sal RN I Resource Team 10/06/24 10/07/[address] I Registered Dietitian Dietitian 10/10/24 Adrianna Elizabeth APRN JOINT FILLER [address] [place] [address] [address] [place] [address] Home Infusion Following Provider Cardiovascular & Thoracic Surgery 10/17/24 documented as of this encounter
--- OUTSIDE RECORDS SUMMARY | 2024-10-17 20:05 | XMS_ITS | Encounter Summary ---
Author Organization [place] Address [address] [place] [address] Care Team Providers Care Clothing Cutter Name Role Phone Shawna Platt MD Primary Care Provid er Shawna Platt MD Unavailable [phone] Encounter Details Date Type Department Care Team (Late st Contact Info) Description 09/12/2024 Telephone [facility] [address] [place] [address] [place] [id number] [place] [address] Social History Tobacco Use Types Packs/Day Years [...] you got money to buy more? No 08/20/2023 Within the past 12 months, d id the food you bought just not last and you didn t have money to get more? No 08/20/2023 Housing Stability Answer Date Recorded Do you have housing? (Housin g is defined as stable permanent housing and does not include staying ouside in a car, in a tent, in an abandoned building, in an overnight chcf, or couch-surfing.) Yes 08/20/2023 Are you worried about losing your housing? No 08/20/2023 Financial Resource Strain Answer Date R ecorded Within the past 12 months, h ave you or your family members you live with been unable to get utilities (heat, electricity) when it was really needed? No 08/20/2023 Transportation Needs Answer Date Record ed Within the past 12 months, h as lack of transportation kept you from medical appointments, getting your medicines, non-medical meetings or appointments, work, or from getting things that you need? No 08/20/2023 Interpersonal Safety Answer Date Record ed Do you feel physically and e motionally safe where you currently live? Yes 08/20/2023 Within the past 12 months, h ave you been hit, slapped, kicked or otherwise physically hurt by someone? No 08/20/2023 Within the past 12 months, h ave you been humiliated or emotionally abused in other ways by your partner or ex-partner? No 08/20/2023 Comments No Sex and Gender Information Value Date Recorded Sex Assigned at Not on file Legal Sex Female 3:39 AM STEEPLECHASE JOCKEY Gender Identity Not on file Sexual Orientation Not on file documented as of this encounter Miscellaneous Notes * Telephone Encounter - Aleena Cabrera CMA - 09/12/2024 2:14 PM STEEPLECHASE JOCKEY Patient Quality Outreach Patient is due for the following: There are no preventive care reminders to display for this patient. Action(s) Taken: Schedule a nurse only visit for vaccines Type of outreach: Chart review performed, no outreach needed. Flu vaccine date found on care everywhere Questions for provider review: None Aleena Cabrera CMA PLECHASE JOCKEY documented in this encounter Plan of Treatment Upcoming Encounters Date Type Department Care Team (Late st Contact Info) Description 10/19/2024 9:30 AM STEEPLECHASE JOCKEY Virtual Visit [facility] [address] [facility] [place] [address] Adrianna Elizabeth, SUKHDEEP [facility] [address] [address] documented as of this encounter Visit Diagnoses Not on filedocumented in this encounter Care Teams Clothing Cutter Relationship Specialty Start [place] [address] [place] [address] PCP - General Family Medicine 03/05/23 10/01/24 [place] [address] [place] [address] Assigned PCP 08/29/23 documented as of this encounter
--- OUTSIDE RECORDS SUMMARY | 2024-10-17 20:05 | XMS_ITS ---
Author Organization [place] Address [address] [place] [address] Care Team Providers Care Parker Name Role Phone Coming Shawna Wills MD Unavailable +- [phone] Jose A Sheikh MD Primary Care Provider + [phone] Unavailable Unavailable Adrianna Elizabeth APRN STUDIO ARTIST Unavailable Other Status:Enrolled (Active) Start date:10/08/2024 Enrollment date:10/08/2024 Linked medications:Levothyroxine Sodium (Active) Related program episode:Home Infusion (Active) Continued Care and Services Coordination
--- OUTSIDE RECORDS SUMMARY | 2024-10-17 20:05 | XMS_ITS | Encounter Summary ---
Author Organization [place] Address [address] [place] [address] Care Team Providers Care Writer Technical Publications Name Role Phone Sudhakar Barron MD Primary Care Provider [phone] Rhianna Loza PA-C Primary Care Provider [phone] Sudarshan Rosales MD Primary Care Provider [phone] Felipa Scott MD Primary Care Provider + Felipa Scott MD Unavailable + Felipa Scott MD Unavailable + Felipa Scott MD Unavailable [phone] Felipa Scott MD Unavailable + Felipa Scott MD Unavailable + Felipa Scott MD Unavailable + Beryl Betancur MD Unavailable + Beryl Betancur MD Primary Care Prov ider Reina Panchal PA-C Unavailable [phone] Coming Shawna Wills MD Primary Care Provid er Beryl Betancur MD Unavailable + Coming Shawna Wills MD Unavailable [phone] Jose A Sheikh MD Primary Care Provider + [phone] Karson Sal RN Unavailable Unavailable Sita Avila RD Unavailable Unavailable Adrianna Elizabeth MOLD SHOP SUPERVISOR DIESEL ENGINE II PIPE FITTER Unavailable Encounter Details Date Type Department Care Team (Late st Contact Info) Description 06/14/2012 MyC Medical Advice [address] [address] [facility] Social History Tobacco Use Types Packs/Day Years Used Date Smoking Tobacco: Never Smokeless Tobacco: Never Alcohol Use Standard Drinks/Week Comments No 0 (1 standard drink = 0.6 oz pur e alcohol) Comments No Sex and Gender Information Value Date Recorded Sex Assigned at Not on file Legal Sex Female 3:39 AM AGRICULTURAL EQUIPMENT SALES ENGINEER Gender Identity Not on file Sexual Orientation Not on file documented as of this encounter Plan of Treatment Upcoming Encounters Date Type Department Care Team (Late st Contact Info) Description 10/19/2024 9:30 AM AGRICULTURAL EQUIPMENT SALES ENGINEER Virtual Visit [facility] [address] [place] [address] Adrianna Elizabeth, MOLD SHOP SUPERVISOR [facility] [address] [facility] [address] [place], [place] [address] documented as of this encounter Visit Diagnoses Not on filedocumented in this encounter Care Teams Writer Technical Publications Relationship Specialty Start Date End Date Sudhakar Barron MD [address] [place] [address] PCP - General 10/30/03 01/12/14 Rhianna Loza PA-C [address] [place] [address] PCP - General Physician Cushion Installer 02/23/14 09/23/15 [place] [address] [place] [address] PCP - General Family Practice 09/24/15 12/15/17 [place] [address] [place] [address] PCP - General Family Practice 12/16/17 09/04/22 [place] [address] [place] [address] PCP - Assigned PCP 12/20/17 12/07/18 [place] [address] [place] [address] PCP - General Family Medicine 09/05/22 03/04/23 [place] [address] [place] [address] PCP - General Family Medicine 03/05/23 10/01/24 [place] [address] [place] [address] PCP - General Family Medicine 10/02/24 [place] [address] [address] [address] Assigned PCP 03/27/19 03/17/20 [place] [address] [address] [address] Assigned PCP 12/20/17 03/26/19 [place] [address] [place] [address] Assigned PCP 04/29/20 01/12/21 [place] [address] [place] [address] Assigned PCP 03/18/20 04/28/20 [place] [address] [place] [address] Assigned PCP 01/13/21 07/11/22 [place] [address] [place] [address] Assigned PCP 07/12/22 02/27/23 Reina Panchal PA-C [address] [place] [address] Assigned PCP 02/28/23 05/15/23 Beryl Betancur MD [place] [address] [address] Assigned PCP 05/16/23 08/28/23 [place] [address] [place] [address] Assigned PCP 08/29/23 Karson Sal RN I Resource Team 10/06/24 10/07/[address] [facility] Registered Dietitian Dietitian 10/10/24 Adrianna Elizabeth APRN DIESEL ENGINE II PIPE FITTER [address] [place] [address] Home Infusion Following Provider Cardiovascular & Thoracic Surgery 10/17/24 documented as of this encounter
--- OUTSIDE RECORDS SUMMARY | 2024-10-17 20:05 | XMS_ITS | Encounter Summary ---
Author Organization [place] Address [address] [place] [address] Care Team Providers Care Knife Setter Name Role Phone Felipa Scott MD Primary Care Provider Beryl Betancur MD Unavailable + Beryl Betancur MD Primary Care Prov ider Reina Panchal PA-C Unavailable [phone] Coming Shawna Wills MD Primary Care Provid er Beryl Betancur MD Unavailable + Coming Shawna Wills MD Unavailable + [phone] Jose A Sheikh MD Primary Care Provider + [phone] Karson Sal RN Unavailable Unavailable Sita Avila RD Unavailable Unavailable Adrianna Elizabeth APRN DESK MONITOR Unavailable Reason for Visit * Reason Onset Date Comments Medication Question 09/04/2022 Encounter Details Date Type Department Care Team (Late st Contact Info) Description 09/04/[address] [address] Beryl Betancur MD [place] [address] [address] Medication Question Social History Tobacco Use Types Packs/Day Years Used Date Smoking Tobacco: Never Smokeless Tobacco: Never Alcohol Use Standard Drinks/Week Comments Yes 0 (1 standard drink = 0.6 oz pur e alcohol) PHQ-2 Answer Date Recorded PHQ-2 Score 0 06/20/2022 Comments No Sex and Gender Information Value Date Recorded Sex Assigned at Not on file Legal Sex Female 3:39 AM PLANT SAFETY LEADER Gender Identity Not on file Sexual Orientation Not on file documented as of this encounter Miscellaneous Notes * Telephone Encounter - Hilary Betancourt CMA - 09/09/2022 5:16 PM PLANT SAFETY LEADER Talked to pt and the pharmacy they will be filling the phentermine and will be ready this evening or tomorrow morning. Pt decided to sweet pickle maker 09/10/22 in the morning Hilary Betancourt CMA T SAFETY LEADER * Telephone Encounter - Monse Fontana - 09/05/2022 1:15 PM CST Called multiple times trying to get a hold of pharmacy and unable to get through , please call pharmacy Thursday . Monse Fontana Lead Software Developer T SAFETY LEADER * Telephone Encounter - Monse Fontana - 09/05/2022 10:35 AM CST Patient has been scheduled per request . Monse Fontana Lead Software Developer T SAFETY LEADER * Telephone Encounter - Grant Borrero PA-C - 09/05/2022 10:33 AM PLANT SAFETY LEADER Refilled in pcp's absence. However, please call pharmacy and verify there is not a profiled phentermine prescription from dr. betancur. I know patient reports they do not have it, but we shouldverify this and if it is there, cancel my prescription and have them fill dr. roque. Thisis a controlled substance and we do not want extra refills present on accident. thanks -grace berry T SAFETY LEADER * Telephone Encounter - Grant Borrero PA-C - 09/04/2022 12:30 PM PLANT SAFETY LEADER pcp is ooo. For questions on ozempic, I Recommend she set up virtual visit with pcp on her return to discuss. In regards to contrave, I have updated med list and taken this off. In regards to phentermine. This appears it was sent in jun to pharmacy but there was none is stock. Does pharmacy no longer have this prescription on file? If they do, she only needs to call her pharmacist. If not, I can send a refill in pcp's absence. -grace berry T SAFETY LEADER * Telephone Encounter - Hilary Betancourt CMA - 09/04/2022 9:53 AM PLANT SAFETY LEADER Pt called and was asking about the status on the weight loss medication. She did mention the Contrave was too expensive. She does think now the Phentermine is back in stock at [facility]. She also wanted to get your opinion on the Ozempic if this one would be better for weight loss than the phentermine? Thank you Hilary Betancourt CMA T SAFETY LEADER documented in this encounter Plan of Treatment Upcoming Encounters Date Type Department Care Team (Late st Contact Info) Description 10/19/2024 9:30 AM PLANT SAFETY LEADER Virtual Visit [facility] [address] [place] [address] Adrianna Elizabeth APRN [facility] [address] [facility] [address] [place], [place] [address] documented as of this encounter Visit Diagnoses Diagnosis Morbid obesity, unspecified obesity type (H) S/P gastric bypass Bariatric surgery status documented in this encounter Care Teams Knife Setter Relationship Specialty Start Date End Date Felipa Scott MD PCP - General Family Practice 12/16/17 09/04/22 Beryl Betancur MD PCP - General Family Medicine 09/05/22 03/04/23 [place] [address] [place] [address] PCP - General Family Medicine 03/05/23 10/01/24 [place] [address] [facility] [place] [place] [address] PCP - General Family Medicine 10/02/24 Beryl Betancur MD Assigned PCP 07/12/22 02/27/23 Reina Panchal PA-C [address] [place], [place] [address] Assigned PCP 02/28/23 05/15/23 eBryl Betancur MD [facility] [address] [place] [address] Assigned PCP 05/16/23 08/28/23 [place] [address] [place] [address] Assigned PCP 08/29/23 Karson Sal, FRANCISCO I Resource Team 10/06/24 10/07/[address] [facility] Registered Dietitian Dietitian 10/10/24 Adrianna Elizabeth, SUKHDEEP DESK MONITOR [address] [facility] [address] [place] [address] Home Infusion Following Provider Cardiovascular & Thoracic Surgery 10/17/24 documented as of this encounter
--- OUTSIDE RECORDS SUMMARY | 2024-10-17 20:05 | XMS_ITS | Encounter Summary ---
Author Organization [place] Address [address] [place] [address] Care Team Providers Care Laboratory Technology Teacher Name Role Phone Sudhakar Barron MD Primary Care Provider [phone] Rhianna Loza PA-C Primary Care Provider [phone] Sudarshan Rosales MD Primary Care Provider [phone] Felipa Scott MD Primary Care Provider + Felipa Scott MD Unavailable + Felipa Scott MD Unavailable + Felipa Scott MD Unavailable +[phone] Felipa Scott MD Unavailable + Felipa Scott MD Unavailable + Felipa Scott MD Unavailable + Beryl Betancur MD Unavailable + Beryl Betancur MD Primary Care Prov ider Reina Panchal PA-C Unavailable +[phone] Coming Shawna Wills MD Primary Care Provid er Beryl Betancur MD Unavailable + Coming Shawna Wills MD Unavailable [phone] Jose A Sheikh MD Primary Care Provider + [phone] Karson Sal RN Unavailable Unavailable Sita Avila RD Unavailable Unavailable Adrianna Elizabeth MAINTENANCE AND OPERATIONS SUPERVISOR PLUMBING ENGINEER Unavailable Encounter Details Date Type Department Care Team (Late st Contact Info) Description 08/05/2013 MyC Medical Advice [address] [address] [facility] Social History Tobacco Use Types Packs/Day Years Used Date Smoking Tobacco: Never Smokeless Tobacco: Never Alcohol Use Standard Drinks/Week Comments No 0 (1 standard drink = 0.6 oz pur e alcohol) Comments No Sex and Gender Information Value Date Recorded Sex Assigned at Not on file Legal Sex Female 3:39 AM AD COMPOSITOR Gender Identity Not on file Sexual Orientation Not on file documented as of this encounter Plan of Treatment Upcoming Encounters Date Type Department Care Team (Late st Contact Info) Description 10/19/2024 9:30 AM AD COMPOSITOR Virtual Visit [facility] [address] [place] [address] Adrianna Elizabeth, MAINTENANCE AND OPERATIONS SUPERVISOR [facility] [address] [facility] [address] [place], [place] [address] documented as of this encounter Visit Diagnoses Not on filedocumented in this encounter Care Teams Laboratory Technology Teacher Relationship Specialty Start Date End Date Sudhakar Barron MD [address] [place] [address] PCP - General 10/30/03 01/12/14 Rhianna Loza PA-C [address] [place] [address] PCP - General Physician Surgical Territory Manager 02/23/14 09/23/15 [place] [address] [place] [address] PCP - General Family Practice 09/24/15 12/15/17 [place] [address] [place] [address] PCP - General Family Practice 12/16/17 09/04/22 [place] [address] [place] [address] PCP - Assigned PCP 12/20/17 12/07/18 [place] [address] [place] [address] PCP - General Family Medicine 09/05/22 03/04/23 [place] [address] [place] [address] PCP - General Family Medicine 03/05/23 10/01/24 [place] [address] [place] [address] PCP - General Family Medicine 10/02/24 [place] [address] [address] [address] Assigned PCP 03/27/19 03/17/20 [place] [address] [address] [address] Assigned PCP 12/20/17 03/26/19 [place] [address] [place] [address] Assigned PCP 04/29/20 01/12/21 [place] [address] [place] [address] Assigned PCP 03/18/20 04/28/20 [place] [address] [place] [address] Assigned PCP 01/13/21 07/11/22 [place] [address] [place] [address] Assigned PCP 07/12/22 02/27/23 Reina Panchal PA-C [address] [place] [address] Assigned PCP 02/28/23 05/15/23 Beryl Betancur MD ARISE [address] [address] Assigned PCP 05/16/23 08/28/23 [place] [address] [address] [address] Assigned PCP 08/29/23 Karson Sal RN I Resource Team 10/06/24 10/07/[address] [facility] Registered Dietitian Dietitian 10/10/24 Adrianna Elizabeth APRN PLUMBING ENGINEER [address] [place] [address] Home Infusion Following Provider Cardiovascular & Thoracic Surgery 10/17/24 documented as of this encounter
--- OUTSIDE RECORDS SUMMARY | 2024-10-17 20:05 | XMS_ITS | Encounter Summary ---
Author Organization [facility] Address [address] [place] [address] Care Team Providers Care Bookbinder Apprentice Name Role Phone Sudhakar Barron MD Primary Care Provider [phone] Rhianna Loza PA-C Primary Care Provider [phone] Sudarshan Rosales MD Primary Care Provider [phone] Felipa Scott MD Primary Care Provider + Felipa Scott MD Unavailable + Felipa Scott MD Unavailable + Felipa Scott MD Unavailable [phone] Felipa Scott MD Unavailable + Felipa Scott MD Unavailable + Felipa Scott MD Unavailable + Beryl Betancur MD Unavailable + Beryl Betancur MD Primary Care Prov ider Reina Panchal PA-C Unavailable +[phone] Coming Shawna Wills MD Primary Care Provid er Beryl Betancur MD Unavailable + Coming Shawna Wills MD Unavailable [phone] Jose A Sheikh MD Primary Care Provider + [phone] Karson Sal RN Unavailable Unavailable Sita Avila RD Unavailable Unavailable Adrianna Elizabeth RETOUCHER CONTROL TECHNICIAN Unavailable Reason for Visit * Reason Onset Date Comments Outreach 06/20/2013 Encounter Details Date Type Department Care Team (Late Contact Info) Description 06/20/2013 Telephone M [address] [phone] Sudhakar Barron MD [address] [place], [place] [phone] Outreach Social History Tobacco Use Types Packs/Day Years Used Date Smoking Tobacco: Never Smokeless Tobacco: Never Alcohol Use Standard Drinks/Week Comments No 0 (1 standard drink = 0.6 oz pur e alcohol) Comments No Sex and Gender Information Value Date Recorded Sex Assigned at Not on file Legal Sex Female 3:39 AM STRAWHAT SIZER Gender Identity Not on file Sexual Orientation Not on file documented as of this encounter Miscellaneous Notes * Telephone Encounter - Huyen Conrad - 06/20/2013 1:42 PM CDT 06/20/2013 Call Regarding Preventive Health Screening Colonoscopy Attempt 2 Message on voicemail Comments: Outreach Counter Intelligence Technician Huyen Hilton Register Clerk documented in this encounter Plan of Treatment Upcoming Encounters Date Type Department Care Team (Late Contact Info) Description 10/19/2024 9:30 AM STRAWHAT SIZER Virtual Visit [facility] [address] [place] [address] Adrianna Elizabeth APRN CONTROL TECHNICIAN [address] [facility] [address] [place], [place] [address] documented as of this encounter Visit Diagnoses Not on filedocumented in this encounter Care Teams Bookbinder Apprentice Relationship Specialty Start Date End Date Sudhakar Barron MD [address] [place] [address] PCP - General 10/30/03 01/12/14 Rhianna Loza PA-C [address] [place] [address] PCP - General Physician Can Stacker 02/23/14 09/23/15 [place] [address] [place], [place] [id number] PCP - General Family Practice 09/24/15 12/15/17 [place] [address] [place] [address] PCP - General Family Practice 12/16/17 09/04/22 [place] [address] [place] [address] PCP - Assigned PCP 12/20/17 12/07/18 [place] [address] [place] [address] PCP - General Family Medicine 09/05/22 03/04/23 [place] [address] [place], [place] [phone] PCP - General Family Medicine 03/05/23 10/01/24 [place] [address] [place] [address] PCP - General Family Medicine 10/02/24 [place] [address] [place] [address] Assigned PCP 03/27/19 03/17/20 [place] [address] [place] [address] Assigned PCP 12/20/17 03/26/19 [place] [address] [place] [address] Assigned PCP 04/29/20 01/12/21 [place] [address] [place] [address] Assigned PCP 03/18/20 04/28/20 [place] [address] [place] [address] Assigned PCP 01/13/21 07/11/22 [place] [address] [place] [address] Assigned PCP 07/12/22 02/27/23 Reina Panchal PA-C [address] [place] [address] Assigned PCP 02/28/23 05/15/23 Beryl Betancur MD ARISE [address] [facility] [address] [place] [address] Assigned PCP 05/16/23 08/28/23 [place] [address] [place] [address] Assigned PCP 08/29/23 Karson Sal, FRANCISCO I Resource Team 10/06/24 10/07/[address] [facility] Registered Dietitian Dietitian 10/10/24 Adrianna Elizabeth APRN CONTROL TECHNICIAN [address] [place] [address] [address] [place] [address] Home Infusion Following Provider Cardiovascular & Thoracic Surgery 10/17/24 documented as of this encounter
--- OUTSIDE RECORDS SUMMARY | 2024-10-17 20:05 | XMS_ITS | Encounter Summary ---
Author Organization [facility] Address [address] [place] [address] Care Team Providers Care Annual Giving Director Name Role Phone Rhianna Loza PA-C Primary Care Provider [phone] Sudarshan Rosales MD Primary Care Provider [phone] Felipa Scott MD Primary Care Provider + Felipa Scott MD Unavailable + Felipa Scott MD Unavailable + Felipa Scott MD Unavailable + Felipa Scott MD Unavailable + Felipa Scott MD Unavailable + Felipa Scott MD Unavailable + Beryl Betancur MD Unavailable + Beryl Betancur MD Primary Care Prov ider Reina Panchal PA-C Unavailable [phone] Coming Shawna Wills MD Primary Care Provid er Beryl Betancur MD Unavailable + Coming Shawna Wills MD Unavailable + [phone] Jose A Sheikh MD Primary Care Provider [phone] Karson Sal RN Unavailable Unavailable Sita Avila RD Unavailable Unavailable Adrianna Elizabeth BORDER PATROL OFFICER RETAIL PRODUCT DEMO SPECIALIST Unavailable Encounter Details Date Type Department Care Team (Late st Contact Info) Description 06/06/2015 Abstract [facility] [place] [address] [facility] [address] [place] [address] [place] [address] [place] [address] [facility], OPERATIVE NOTE, 06/06/15 Social History Tobacco Use Types Packs/Day Years Used Date Smoking Tobacco: Never Smokeless Tobacco: Never Alcohol Use Standard Drinks/Week Comments No 0 (1 standard drink = 0.6 oz pur e alcohol) Comments No Sex and Gender Information Value Date Recorded Sex Assigned at Not on file Legal Sex Female 3:39 AM PHARMACIST IN CHARGE OWNER Gender Identity Not on file Sexual Orientation Not on file documented as of this encounter Plan of Treatment Upcoming Encounters Date Type Department Care Team (Late st Contact Info) Description 10/19/2024 9:30 AM PHARMACIST IN CHARGE OWNER Virtual Visit [facility] [address] [place] [phone] Adrianna Eliazbeth, SUKHDEEP [facility] [address] [facility] [address] [place], [place] [address] documented as of this encounter Visit Diagnoses Not on filedocumented in this encounter Care Teams Annual Giving Director Relationship Specialty Start Date End Date Rhianna Loza PA-C PCP - General Physician Extension Division Director 02/23/14 09/23/15 [place] [address] [place] [address] PCP - General Family Practice 09/24/15 12/15/17 [place] [address] [place] [address] PCP - General Family Practice 12/16/17 09/04/22 [place] [address] [place] [address] PCP - Assigned PCP 12/20/17 12/07/18 [place] [address] [place] [address] PCP - General Family Medicine 09/05/22 03/04/23 [place] [address] [place] [address] PCP - General Family Medicine 03/05/23 10/01/24 [place] [address] [place] [address] PCP - General Family Medicine 10/02/24 [place] [address] [place] [address] Assigned PCP 03/27/19 03/17/20 [place] [address] [address] [address] Assigned PCP 12/20/17 03/26/19 [place] [address] [address] [address] Assigned PCP 04/29/20 01/12/21 [place] [address] [place] [address] Assigned PCP 03/18/20 04/28/20 [place] [address] [place] [address] Assigned PCP 01/13/21 07/11/22 [place] [address] [place] [address] Assigned PCP 07/12/22 02/27/23 Reina Panchal PA-C [address] [place] [address] Assigned PCP 02/28/23 05/15/23 Beryl Betancur MD [facility] [address] [place] [address] Assigned PCP 05/16/23 08/28/23 [place] [address] [facility] [place] [place] [id number] Assigned PCP 08/29/23 Karson Sal, FRANCISCO I Resource Team 10/06/24 10/07/[address] I Registered Dietitian Dietitian 10/10/24 Adrianna Elizabeth APRN RETAIL PRODUCT DEMO SPECIALIST [address] [place] [address] Home Infusion Following Provider Cardiovascular & Thoracic Surgery 10/17/24 documented as of this encounter
[2024-10-17] MEDS: 0.9 % SODIUM CHLORIDE 1000 ml 1,000 ML IV (20:34)
== END 2024-10-17 22:01 | disposition home or self-care (01) ==
PROVIDERS: Emergency Provider Family Medicine; PCP Family Medicine
DX: Z95.828 Presence of other vascular implants and grafts (principal)
CPT/HCPCS: 71045; 99283; 99284; J7030